=== PATIENT | female | born 1975 | race Caucasian/White ===

== ENCOUNTER 2020-02-14 13:09 | Emergency (ER) | payer OTHER, SELFPAY ==
--- NOTE | ~2020-02-14 | XR_ITS ---
XR chest 2V DATE: 02/14/2020 13:41 INDICATION: Left-sided chest pain, back pain TECHNIQUE: PA and lateral views COMPARISON: 09/22/2018 PA and lateral chest FINDINGS: Normal heart size. No hilar or mediastinal enlargement. No pulmonary infiltrate or consolid ation, pleural effusion or pulmonary vascular congestion or pneumothorax. IMPRESSION: No active cardiopulmonary disease Reviewed, dictated and finalized at location A.
[2020-02-14 13:17] VITALS: BP 133/101; PULSE 98; RESP 16; TEMP 37.5; O2SAT 100
--- NOTE | 2020-02-14 13:17 | ECG_ITS ---
Measurements Intervals Alva Rate: 104 P: 62 ME: 132 QRS: 51 QRSD: 67 T: 53 QT: 286 QTc: 377 Interpretive Statements SINUS TACHYCARDIA RSR' IN V1 OR V2, CONSIDER RIGHT VENTRICULAR HYPERTROPHY OR RIGHT VCD ABNORMAL ECG Electronically Signed On 02-14-2020 13:45:15 CDT by Dennis Roberts D.O.
[2020-02-14 13:53] VITALS: BP 116/79; PULSE 105; PULSE 115; RESP 19; O2SAT 100
[2020-02-14] MEDS: ASPIRIN 81 MG CHEWABLE TABLET 324 MG PO (13:57)
[2020-02-14 14:02] LABS: Basophils Percent Auto 0.6 % (0.2-1.2); Eosinophils Absolute Auto 0.1 K/mm3 (0-0.3); Eosinophils Percent Auto 1.5 % (0-4.4); Hematocrit 37.7 % (37.0-47.0); Hemoglobin 11.9 g/dL (12.0-15.0); Immature Granulocyte Absolute 0.01 K/mm3 (0.00-0.031); Immature Granulocyte Percent A 0.2 % (0-0.5); Lymphocytes Absolute Auto 1.47 K/mm3 (0.9-3.2); Lymphocytes Percent Auto 22.5 % (18.3-44.2); Mean Corpuscular HGB Conc 31.6 g/dl (32-36); Mean Corpuscular Hemoglobin 28.9 pg (26-34); Mean Corpuscular Volume 91.5 fl (80-100); Mean Platelet Volume 9.1 fl (7.4-10.4); Monocytes Absolute Auto 0.5 K/mm3 (0.1-0.6); Monocytes Percent Auto 6.9 % (2.6-8.5); Neutrophils Absolute Auto 4.5 K/mm3 (1.3-6.7); Neutrophils Percent Auto 68.3 % (45.5-73.1); Platelet Count Result 319 k/mm3 (150-375); Red Blood Count 4.12 M/mm3 (4.2-5.4); White Blood Count 6.5 K/mm3 (4.5-10.0)
[2020-02-14 14:10] LABS: Prothrombin Time 13.3 Seconds (11.1-14.7)
[2020-02-14 14:11] LABS: Partial Thromboplastin Time 25.2 SECONDS (22.3-36.8)
[2020-02-14 14:12] LABS: Blood Urea Nitrogen 11 mg/dL (7-17); Calcium 8.9 mg/dL (8.4-10.2); Carbon Dioxide 28 mmol/L (22-30); Chloride 100 mmol/L (98-107); Estimated CRCL calculation 93 ml/min; Estimated Glomerular Filt Rate > 60; Glucose 139 mg/dL (65-105); Potassium 4.2 mmol/L (3.4-5.0); Sodium 135 mmol/L (137-145)
[2020-02-14 14:22] VITALS: BP 118/83; PULSE 90; RESP 18; O2SAT 100
[2020-02-14 14:23] LABS: Troponin I < 0.012 ng/mL (0.000-0.034)
--- NOTE | 2020-02-14 14:30 | ED.CHESTPAIN ---
HPI - Chest Pain General Chief Complaint: Chest Pain Stated Complaint: chest and back pain Time Seen by Provider: 02/14/20 14:22 History of Present Illness HPI narrative: Back pain radiating into her chest since about 6 AM. Pressure like in quality. Moderate intensity. worse with flexion in the neck. She has never had this type of pain. She report strong family h/o CAD. Related Data Allergies Allergy/AdvReac Type Severity Reaction Status Date / Time a nausea medication AdvReac Unknown Uncoded 01/30/17 12:31 Review of Systems Review of Systems: All systems reviewed & are unremarkable except as noted in HPI and below [facility] Family History Family History Other Acute myocardial infarction Exam Const: General: healthy appearing, no acute distress and alert Orientation/consciousness: patient oriented x3 HENMT: Head: normal to inspection Neck: Neck: normal visual inspection and no lymphadenopathy Chest: Chest palpation & inspection: no tenderness Resp: Effort & Inspection: normal respiratory effort Auscultation: clear to auscultation bilaterally, no rales, no rhonchi and no wheezes Cardio: Jugular venous distension: no JVD Rate: regular rate Rhythm: regular rhythm Heart sounds: no murmurs GI: Inspection: non-distended GI Palp: Yes Soft to palpation and No Tenderness to palpation present (GI) Skin: General skin exam: normal color Neuro: General: patient oriented x3 and moves all extremities Speech: normal speech Extrem: General: no edema Psych: Appearance: well kempt Affect: normal affect Course Vital Signs Vital signs: Vital Signs Temperature 37.5 C 02/14/20 13:17 Pulse Rate 98 02/14/20 13:17 Respiratory Rate 16 02/14/20 13:17 Blood Pressure 133/101 H 02/14/20 13:17 Pulse Oximetry 100 02/14/20 13:17 Temperature 37.5 C 02/14/20 13:17 Pulse Rate 96 02/14/20 14:35 Respiratory Rate 18 02/14/20 14:35 Blood Pressure 122/86 02/14/20 14:35 Pulse Oximetry 100 02/14/20 14:35 MDM - Chest Pain MDM Narrative Medical decision making narrative: Symptoms are atypical. EKG shows no sign of acute ischemia. Troponin was negative well over 3 hours after the onset of pain. She is low risk for PE. The pain seems to be musculoskeletal in nature. Medical Records Data Attestation: I reviewed the patient's medical records. Lab Data Attestation: I reviewed the patient's lab results. Result diagrams: 02/14/20 13:30 02/14/20 13:30 Labs: Lab Results 02/14/20 02/14/20 02/14/20 Range/Units 13:30 13:30 13:30 WBC 6.5 (4.5-10.0) K/mm3 RBC 4.12 L (4.2-5.4) M/mm3 Hgb 11.9 L (12.0-15.0) g/dL Hct 37.7 (37.0-47.0) % MCV 91.5 (80-100) fl MCH 28.9 (26-34) pg MCHC 31.6 L (32-36) g/dl RDW 14.0 (11.5-14.5) % Plt Count 319 (150-375) k/mm3 MPV 9.1 (7.4-10.4) fl Immature Gran % (Auto) 0.2 (0-0.5) % Neut % (Auto) 68.3 (45.5-73.1) % Lymph % (Auto) 22.5 (18.3-44.2) % Emery % (Auto) 6.9 (2.6-8.5) % Eos % (Auto) 1.5 (0-4.4) % Baso % (Auto) 0.6 (0.2-1.2) % Lymph # (Auto) 1.47 (0.9-3.2) K/mm3 Emery # (Auto) 0.5 (0.1-0.6) K/mm3 Eos # (Auto) 0.1 (0-0.3) K/mm3 Baso # (Auto) 0.0 (0.0-0.1) K/mm3 Abs Immat Gran (auto) 0.01 (0.00-0.031) K/mm3 Absolute Neuts (auto) 4.5 (1.3-6.7) K/mm3 Absolute Nucleated RBC 0.0 (0.0-0.012) K/mm3 Nucleated RBC % 0.0 (0.0-0.2) % PT 13.3 (11.1-14.7) Seconds INR 1.0 APTT 25.2 (22.3-36.8) SECONDS Sodium 135 L (137-145) mmol/L Potassium 4.2 (3.4-5.0) mmol/L Chloride 100 (98-107) mmol/L Carbon Dioxide 28 (22-30) mmol/L BUN 11 (7-17) mg/dL Creatinine 0.50 L (0.7-1.0) mg/dL Estim Creat Clear Calc 93 ml/min Estimated GFR > 60 (59 - ) Glucose 139 H (65-105) mg/dL Calcium 8.9 (8.4-10.2) mg/dL Troponin I < 0.012 (0.0
[2020-02-14 14:35] VITALS: BP 122/86; PULSE 96; RESP 18; O2SAT 100
== END 2020-02-14 14:39 | disposition home or self-care (01) ==
LOC: ANHED 14:36
PROVIDERS: Emergency Medicine; Emergency Provider Emergency Medicine
DX: R07.89 Other chest pain (principal)
CPT/HCPCS: 36415; 71046; 80048; 84484; 85025; 85610; 85730; 93005; 99284; A9270

== ENCOUNTER 2020-09-11 13:31 | Emergency (ER) | payer OTHER, SELFPAY ==
--- NOTE | ~2020-09-11 | US_ITS ---
EXAMINATION: US pelvic complete w TV DATE: 09/11/2020 16:53 INDICATION: Heavy bleeding. Anemia. Comparison:No prior studies for comparison. TECHNIQUE: Multiple transabdominal and endovaginal sonographic images of the pelvis performed. FINDINGS: The uterus measures 9.4 x 5 x 6 cm. Uterus is somewhat heterogeneous, although no discrete fibroid is identified. The endometrial complex measures 1.5 cm. The right ovary measures 3.5 x 3.4 x 2.2 cm and the left ovary measures 2.5 x 1.9 x 2.1 cm. There is a 3.1 cm right ovarian cyst. There are small follicles in each ovary.Normal doppler signal in both ov kate. There is no free fluid in the pelvis. There are no abnormal masses seen on either side. IMPRESSION: 1. Right ovarian cyst measuring 3.1 cm. 2: Thickened endometrium measuring 1.5 cm. Reviewed, dictated and finalized at location B. 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
[2020-09-11 13:49] VITALS: BP 112/58; PULSE 118; RESP 18; TEMP 36.7; O2SAT 100
[2020-09-11 14:11] LABS: Basophils Percent Auto 0.6 % (0.2-1.2); Eosinophils Absolute Auto 0.1 K/mm3 (0-0.3); Eosinophils Percent Auto 1.7 % (0-4.4); Hemoglobin 7.1 g/dL (12.0-15.0); Immature Granulocyte Absolute 0.03 K/mm3 (0.00-0.031); Immature Granulocyte Percent A 0.5 % (0-0.5); Lymphocytes Absolute Auto 1.57 K/mm3 (0.9-3.2); Lymphocytes Percent Auto 24.2 % (18.3-44.2); Mean Corpuscular HGB Conc 32.3 g/dl (32-36); Mean Corpuscular Hemoglobin 30.1 pg (26-34); Mean Corpuscular Volume 93.2 fl (80-100); Mean Platelet Volume 9.1 fl (7.4-10.4); Monocytes Absolute Auto 0.6 K/mm3 (0.1-0.6); Monocytes Percent Auto 8.5 % (2.6-8.5); Neutrophils Absolute Auto 4.2 K/mm3 (1.3-6.7); Neutrophils Percent Auto 64.5 % (45.5-73.1); Platelet Count Result 272 k/mm3 (150-375); Red Blood Count 2.36 M/mm3 (4.2-5.4); Red Cell Distribution Width 14.6 % (11.5-14.5); White Blood Count 6.5 K/mm3 (4.5-10.0)
--- NOTE | 2020-09-11 16:24 | ED.GENADULT ---
HPI - General Adult General Chief complaint: Vaginal Bleeding Stated complaint: vag bleeding Time Seen by Provider: 09/11/20 16:14 Source: patient History of Present Illness HPI narrative: Patient is a 45 y/o female complaining of heavy vaginal bleeding starting 1 week ago. She states that her bleeding is mostly bright red blood. She passes clots sometimes. There is no alleviating or exacerbating factor. She has no abdominal pain. She feels weak and dizzy. Related Data Allergies Allergy/AdvReac Type Severity Reaction Status Date / Time a nausea medication AdvReac Unknown Uncoded 01/30/17 12:31 Review of Systems Constitutional: Constitutional: Denies chills, Denies fever(s), Denies headache(s) and Reports weakness Eyes: Eyes: Denies blurry vision ENT: Denies headache(s) and Denies neck pain Cardiovascular: Cardiovascular: Denies chest pain and Denies dyspnea Respiratory: Respiratory: Denies cough and Denies dyspnea Gastrointestinal: Gastrointestinal: Denies abdominal pain, Denies diarrhea, Denies nausea and Denies vomiting Genitourinary: Genitourinary: Reports abnormal vaginal bleeding, Denies hematuria and Denies dysuria Musculoskeletal: Musculoskeletal: Denies back pain and Denies neck pain Neurologic: Reports dizziness, Denies headache(s) and Reports weakness PMF Family History Family History Other Acute myocardial infarction Social History Social History Gender identity (if verbalized by the patient): Female Exam Const: General: no acute distress and well developed Orientation/consciousness: oriented to person, oriented to place, oriented to time and patient oriented x3 HENMT: Head: normocephalic Ears: external ears normal General nose exam: Normal external nose present Eyes: General: appearance normal, both eyes and all related structures Conjunctivae: conjunctivae normal Neck: Neck: normal visual inspection and full ROM Chest: Chest palpation & inspection: normal inspection of the chest and no tenderness Resp: Effort & Inspection: normal respiratory effort Auscultation: clear to auscultation bilaterally Cardio: Rate: regular rate Rhythm: regular rhythm GI: GI Palp: No abdominal tenderness and Yes Soft to palpation : General: Yes bimanual renal exam normal bilaterally External Female Exam: normal external appearance Speculum Exam - Vagina: vaginal bleeding Skin: General skin exam: normal color and turgor normal Neuro: General: oriented to person, oriented to place, oriented to time and patient oriented x3 Cognition (Neuro): normal cognition Extrem: General: normal to inspection, full ROM and no pedal edema Psych: Appearance: grossly normal Mental Status: mental status grossly normal Affect: normal affect Course Reevaluation(s) Reevaluation #1: Discussed with patient about treatment options. Offered patient possible admission for blood transfusion. Patient declined and wants to try OCPs first. Date: 09/11/20 Time: 17:45 Consultations Consultation #1: Discussed with Dr. Bruner for Dr. Sherman, who recommends OCP pills for bleeding and iron supplements. She also recommend offered patient transfusion if she is very symptomatic. Date: 09/11/20 Time: 17:32 Vital Signs Vital signs: Vital Signs Temperature 36.7 C 09/11/20 13:49 Pulse Rate 118 H 09/11/20 13:49 Respiratory Rate 18 09/11/20 13:49 Blood Pressure 112/58 L 09/11/20 13:49 Pulse Oximetry 100 09/11/20 13:49 Temperature 36.7 C 09/11/20 13:49 Pulse Rate 105 H 09/11/20 18:01 Respiratory Rate 18 09/11/20 18:01 Blood Pressure 126/81 09/11/20 18:01 Pulse Oximetry 100 09/11/20 18:01 Medical Decision Making Vital Signs Vital Signs: Vital Signs Temperature 36.7 C 09/11/20 13:49 Pulse Rate 118 H 09/11/20 13:49 Respiratory Rate 18 09/11/20 13:49 Blood Pressure 112/58 L 09/11/20
[2020-09-11 16:33] VITALS: BP 113/82; BP 120/82; PULSE 107; PULSE 99
[2020-09-11 16:34] VITALS: BP 113/93; PULSE 100
[2020-09-11 16:38] LABS: Add Urine Microscopic? YES; Appearance Urine Cloudy (Clear); Bilirubin Urine Negative (Negative); Blood Urine 3+ (Negative); Color Urine Straw (Yellow); Glucose Urine UA Negative (Negative); Ketones Urine Negative (Negative); Leukocyte Esterase Ur Negative LEU/UL (Negative); Mucus Urine Rare /lpf; Nitrate Urine Negative (Negative); Protein Urine Negative (Negative); RBC Urine >75 /hpf (0-2); Specific Grav Ur 1.024 (1.001-1.035); Squamous Epithelial Cell Urine Occasional /hpf (Few); WBC Urine 0-3 /hpf
[2020-09-11 16:42] LABS: Urine Pregnancy Test Negative
[2020-09-11 16:43] LABS: Pregnancy On Board Control Positive
[2020-09-11 18:01] VITALS: BP 126/81; PULSE 105; RESP 18; O2SAT 100
== END 2020-09-11 18:00 | disposition home or self-care (01) ==
PROVIDERS: Emergency Medicine; Emergency Provider Emergency Medicine; PCP Family Medicine Sports Medicine
DX: N92.0 Excessive and frequent menstruation with regular cycle (principal); D50.0 Iron deficiency anemia secondary to blood loss (chronic)
CPT/HCPCS: 36415; 76830; 76856; 81001; 81025; 85025; 86850; 86900; 86901; 99284

== ENCOUNTER 2020-09-27 01:32 | Day surgery (SDC) | payer OTHER, SELFPAY ==
[2020-09-20 15:52] VITALS: BMI 21.6
--- NOTE | 2020-09-26 12:04 | WPDANESEPPF ---
Anes - Initial Pre Proc Eval Procedure: Operation Date: 09/27/20 15:00 Proposed Procedures p Hysteroscopy, Dilation and Curettage - Keon Rodriges MD Date/Time: 09/26/20 12:04 Surgeon: Koen Rodriges MD Pre Op Diagnosis: abnormal uterine bleeding Patient Data Age: 45 Gender: F Height: 1.5 m Weight: 48.6 kg Allergies Allergy/AdvReac Type Severity Reaction Status Date / Time meperidine [From Demerol] AdvReac Mild Nausea Verified 09/27/20 13:40 Home Medications Medication Instructions Recorded Confirmed Type ferrous sulfate 325 mg PO BID 09/20/20 09/20/20 History norethindrone-ethin estradiol 1 tablet PO DAILY 09/20/20 09/20/20 History [Alyacen (26)] venlafaxine [Effexor XR] 75 mg PO DAILY 09/20/20 09/20/20 History Patient hx anesthesia problems: none Family hx anesthesia problems: none [facility] Past Medical History Medical History (Updated 09/27/20 @ 13:44 by Soham Reynolds DO) Anxiety Family History Family History Other Acute myocardial infarction Social History Social History Smoking status: Never smoker Alcohol intake: current Living arrangements: with family Gender identity (if verbalized by the patient): Female Spiritual care concerns: No Anes - Eval Final PreProcedure Day of Procedure 09/26/20 12:04 Patient weight: normal Heart: regular rate and rhythm Lungs: clear to auscultation and normal air movement Airway: Mallampati scale class II Neurological: alert and oriented Last oral intake: >/= 8 hours ASA classification: II Emergent: no Anesthetic plan: proceed Anesthesia type and monitoring: general GIVS and standard monitoring Informed Consent: The patient's anesthetic plan and its attendant risks and benefits were discussed with the patient/family/POA. Questions were solicited and answers provided to the satisfaction of the patient/family/POA.
[2020-09-27] MEDS: ACETAMINOPHEN 500 MG TABLET 1000 MG PO (13:45)
[2020-09-27] MEDS: LACTATED RINGERS 1,000 ML 30 ML IV CONT (13:55)
[2020-09-27 13:56] VITALS: BP 126/72; PULSE 95; RESP 16; TEMP 36.9; O2SAT 100
[2020-09-27 13:58] VITALS: BMI 21.3
--- NOTE | 2020-09-27 14:44 | PM.HPGS ---
History of Present Illness History of Present Illness Consent: Risks, benefits, and alternatives have been discussed and questions answered. Patient agrees to proceed with procedure. Chief complaint: abnormal uterine bleeding Narrative: Mattie Peace is a 45 year old female presented to the office with heavy bleeding. Patient reports never bled like that before changing a pad an hour. patient was seen in ER and started on control for bleeding. Review of Systems Review of Systems: Narrative: Fatigue and cramping All systems reviewed & are unremarkable except as noted in HPI and below PMFSH Past Medical History Medical History Anxiety Family History Family History Other Acute myocardial infarction Social History Social History Smoking status: Never smoker Alcohol intake: current Living arrangements: with family Gender identity (if verbalized by the patient): Female Spiritual care concerns: No Meds Home Medications and Allergies Home Medications Medication Instructions Recorded Confirmed Type ferrous sulfate 325 mg PO BID 09/20/20 09/27/20 History norethindrone-ethin estradiol 1 tablet PO DAILY 09/20/20 09/27/20 History [Alyacen (28)] venlafaxine [Effexor XR] 75 mg PO DAILY 09/20/20 09/27/20 History Allergies Allergy/AdvReac Type Severity Reaction Status Date / Time meperidine [From Demerol] AdvReac Mild Nausea Verified 09/27/20 13:40 Vital Signs Vital Signs - 24 hr 09/27/20 13:56 Temperature 36.9 C Pulse Rate 95 Respiratory Rate 16 Blood Pressure 126/72 Pulse Oximetry 100 Exam Resp: Effort & Inspection: normal respiratory effort Auscultation: clear to auscultation bilaterally Cardio: Rate: regular rate GI: Inspection: normal to inspection : Speculum Exam - Cervix: normal appearance of the cervix Bimanual exam- vagina & uterus: normal bimanual exam Assessment and Plan Assessment and plan (1) Abnormal uterine bleeding (AUB): Code(s): N93.9 - Abnormal uterine and vaginal bleeding, unspecified Status: Acute Assessment and Plan: schedule for hysteroscopy dilation and curettage. risk and benefits reviewed.
--- NOTE | 2020-09-27 14:53 | WPDHPUPDATE1 ---
History and Physical Update Update Date/Time: 09/27/20 14:53 History and Physical has been reviewed, including an updated exam of the patient. There are NO changes in the patient's condition. Risks, benefits, and alternatives have been discussed and questions answered. Patient agrees to proceed with procedure.
[2020-09-27] MEDS: KETOROLAC 30 MG/ML VIAL (*BKC) IV PUSH (15:51)
[2020-09-27 15:54] VITALS: BP 148/76; PULSE 83; RESP 12; O2SAT 100
--- NOTE | 2020-09-27 16:04 | P.OP_ITS ---
Procedure Note - Detailed Date of procedure: 09/27/20 Pre-op diagnosis: abnormal uterine bleeding Post-op diagnosis: same Procedure performed: hysteroscopy d and c Description of procedure: Patient was taken the operating room with IV running. She was reprepped and draped under normal sterile fashion and placed in the dorsal lithotomy position. [place] speculum was placed into the vagina anterior lip of the cervix was grasped with a single-tooth tenaculum and the cervix was injected at the 2 and 10 o'clock position of the cervix was 5cc of lidocaine bilaterally. The uterus was sounded to 9cm and the cervix was serially dilated with Hegar dilators. The hysteroscope was introduced into the uterine cavity had noted a thickened endometrial tissue bilateral ostia hysteroscope was removed. A sharp curettage was then performed in all 4 quadrants until a gritty texture. This tissue was sent to pathology the single-tooth tenaculum was removed hemostasis assured. Patient had a small skin tag noted on the right labia which was injected with 1cc of lidocaine and grasped with pickups and incised with scissors. Sponge lap and needle counts were correct x2 and patient was taken to recovery in stable condition. Anesthesia: GLMA Surgeon: Keon Rodriges MD Estimated blood loss (mL): 10 Drains: No Packing: No Pathology: yes Complications: None Condition: stable Disposition: PACU Findings: thickened endometrial tissue.
[2020-09-27 16:24] VITALS: BP 137/75; PULSE 79; RESP 12; O2SAT 100
[2020-09-27 16:54] VITALS: BP 155/69; PULSE 79; RESP 18
== END 2020-09-27 17:00 | disposition home or self-care (01) ==
PROVIDERS: PCP Family Medicine Sports Medicine; Visit Provider Obstetrics & Gynecology
PROC: 0U5B8ZZ Destruction of Endometrium, Via Natural or Artificial Opening Endoscopic (ICD-10-PCS; CPT 58563; principal; 2020-09-27 15:00)
DX: N93.9 Abnormal uterine and vaginal bleeding, unspecified (principal); F41.9 Anxiety disorder, unspecified
CPT/HCPCS: 58558; 88305; A9270; J1885; J2250; J2704; J3010; J7030; J7120

== ENCOUNTER → 2021-10-08 14:12 | Outpatient (CLI) | payer OTHER, SELFPAY ==
--- NOTE | ~2021-10-08 | MM_ITS ---
EXAMINATION: MM diagnostic ric BI w reji HISTORY: Breast pain TECHNIQUE: Additional 3-D tomosynthesis images of the breasts were performed and synthetic 2-D images were generated. CAD analysis was submitted and interpreted. COMPARISON: Comparison to multiple prior studies sequentially, with oldest reviewed study dated 09/2017. BREAST PARENCHYMAL COMPOSITION: The breasts are heterogenously dense, which may obscure small masses FINDINGS: There are no suspicious masses, cluster of calcifications or architectural distortion in ei ther breast to suggest malignancy. IMPRESSION: 1. No evidence for malignancy in either breast. 2. Routine yearly screening mammogram and regular clinical breast examination are recommended. BI-RADS Category 2: Benign finding(s). Reviewed, dictated and finalized at location A. ESTATE SUBAGENT IMPRESSION: 1. No evidence for malignancy in either breast. 2. Routine yearly screening mammogram and regular clinical breast examination a re recommended. BI-RADS Category 2: Benign finding(s).
== END ==
PROVIDERS: Visit Provider Nurse Practitioner
DX: R92.8 Other abnormal and inconclusive findings on diagnostic imaging of breast (principal)
CPT/HCPCS: 77062; 77066; G0279

== ENCOUNTER 2023-01-22 13:22 | Outpatient (CLI) | payer OTHER, SELFPAY ==
--- NOTE | ~2023-01-22 | MMUS_ITS ---
EXAMINATION: MM diagnostic ric BI w reji, US breast LT limited HISTORY: Left breast lump TECHNIQUE: Bilateral full field ML, MLO and CC and left spot ML, MLO and rotated medial craniocaudal 3-D tomosynthesis images were performed and synthetic 2-D images were generated. CAD analysis was sub mitted and interpreted. High resolution targeted left breast ultrasound examination at the lump 10:00 7 cm from the nipple was performed. COMPARISON: 10/08/2021 diagnostic bilateral mammogram 10/26/2018 diagnostic right mammogram 02/11/2018 diagnostic bilateral mammogram 02/01/2018 bilateral screening mammogram BREAST PARENCHYMAL COMPOSITION: The breasts are heterogeneously dense, which may obscure small masses . FINDINGS: MAMMOGRAPHIC FINDINGS: Scattered bilateral benign calcifications. There is an irregular approximately 7.5 mm opacity in the very posterior upper inner left breast sia esponding to the area of clinical complaint of breast lump. No suspicious mass, architectural distortion, malignant constipation, skin thickening or retraction o f either breast is noted otherwise. ULTRASOUND: Targeted ultrasound at the area of clinical complaint of breast lump reveals at 10:00 7 cm from nippl e and irregular hypoechoic approximately 5.8 x 7.5 mm mass. Irregular margins or suspicious. Ultrasou nd-guided biopsy is recommended. IMPRESSION: 1. Suspicious 7.5 mm irregular mass in the very posterior upper inner left breast at 10:00 7 cm from nipple 2. Ultrasound-guided biopsy of left breast 10:00 lesion is recommended BI-RADS category 4, suspicious findings Dr. Cano telephoned the report and send guided biopsy recommendation for left breast 10:00 lesion on 01/22/2023 at 1440 hours to [facility]. Reviewed, dictated and finalized at location A. IMPRESSION: 1. Suspicious 7.5 mm irregular mass in the very posterior upper inner left [address] at 10:00 7 cm from nipple 2. Ultrasound-guided biopsy of left breast 10:00 lesion is recommended BI-RADS category 4, suspicious findings Dr. Cano telephoned the report and send guided biopsy recommendation for left b reast 10:00 lesion on 01/22/2023 at 1440 hours to [facility].
== END 2023-01-22 13:23 | disposition home or self-care (01) ==
PROVIDERS: Visit Provider Nurse Practitioner
DX: N63.20 Unspecified lump in the left breast, unspecified quadrant (principal); R92.8 Other abnormal and inconclusive findings on diagnostic imaging of breast
CPT/HCPCS: 76642; 77062; 77066; G0279

== ENCOUNTER 2023-02-24 14:01 | Outpatient (CLI) | payer OTHER, SELFPAY ==
--- NOTE | ~2023-02-24 | MMUS_ITS ---
EXAMINATION: US breast biopsy LT w image, MM post biopsy diagnostic LT DATE: 02/24/2023 15:30 (accession [id number]), 02/24/2023 15:47 (accession [id number]) INDICATION: Palpable mass in the upper inner quadrant of the left. Ultrasound-guided core biopsy is r equested to evaluate for malignancy. TECHNIQUE AND FINDINGS: The risks and potential benefits of the procedure were discussed with the patient including bleeding and infection. A time out was performed. The skin of the left breast was prepared and draped in usual sterile fashion. 1% lidocaine was used for superficial anesthesia. 1% lidocaine with epinephrine was used for deep anesthesia. A vacuum-assisted biopsy needle was advanced through to the outer edge of the region of interest from a lateral approach utilizing sonographic guidance. A total of five tissue core samples were obtained through the lesion. A tissue marker clip was then placed at the biopsy site. Hemostasis was achieved . A sterile bandage was applied. Patient developed nausea after the procedure and was observed. Vital signs were stable and patient wa s released after confirming that she felt bilaterally. Prior to completion of this dictation, patient reportedly return to the emergency department for concern of saturation of the dressing. I called [facility] emergency department and discussed the procedure with the attending physician. A two view left [address] st mammogram was obtained to document tissue marker clip placement. Despite multiple attempts, the ti ssue marker was not observed, likely due to far posterior positioning in the upper inner quadrant of the breast. If follow-up localization is required, ultrasound guidance is recommended. IMPRESSION: 1. Ultrasound-guided vacuum-assisted biopsy of left breast mass with tissue marker placement. Reviewed, dictated and finalized at location D. IMPRESSION: 1. Ultrasound-guided vacuum-assisted biopsy of left breast mass with tissue mar ker placement.
== END 2023-02-24 14:02 | disposition home or self-care (01) ==
PROVIDERS: PCP Surgery; Visit Provider Surgery
DX: C50.812 Malignant neoplasm of overlapping sites of left female breast (principal)
CPT/HCPCS: 19083; 77065; 88305; 88342; A4648

== ENCOUNTER 2023-02-24 16:18 | Emergency (ER) | payer OTHER, SELFPAY ==
[2023-02-24 16:18] VITALS: BP 150/85; PULSE 85; RESP 18; TEMP 37.3; O2SAT 100
--- NOTE | 2023-02-24 16:21 | ED_ITS ---
HPI - General Adult General Chief complaint: Unspecified Stated complaint: POST OP BLEEDING Time Seen by Provider: 02/24/23 16:21 History of Present Illness HPI narrative: pt just had breast biopsy performed here and the area has bled heavily and soaked through dressing. Pt is not on blood thinners. Related Data Allergies Allergy/AdvReac Type Severity Reaction Status Date / Time meperidine [From Demerol] AdvReac Mild Nausea Verified 01/28/23 15:34 Review of Systems Review of Systems: All systems reviewed & are unremarkable except as noted in HPI and below PMFSH Past Medical History Medical History (Updated 01/28/23 @ 16:07 by Sandra Day MD) Abnormal uterine bleeding (AUB) Anxiety Family History Family History Other Acute myocardial infarction Social History Social History (Updated 01/28/23 @ 16:05 by Sally Leal [facility]) Smoking status: Never smoker Alcohol intake: current Alcohol use details: on the weekends Lack of Transportation: No Lack of Food: Never True Current Housing: I Have Housing Concerned About Future Housing: No Difficulty Paying Gas/Electric Bills: No Difficulty Paying for Meds: No Currently Unemployed: No Education: High School Diploma/GED Living arrangements: with family Gender identity (if verbalized by the patient): Female Spiritual care concerns: No Exam Const: General: healthy appearing Nutritional Appearance: well nourished Orientation/consciousness: patient oriented x3 Limitations: no limitations HENMT: Head: normal to inspection Eyes: Conjunctivae: conjunctivae normal Chest: Other: dressing saturated over biopsy site left upper breast Resp: Effort & Inspection: normal respiratory effort Auscultation: clear to auscultation bilaterally Medical Decision Making MDM Narrative Medical decision making narrative: will remove saturated dressing and apply fresh dressing and pressure for 20 minutes and see if it stops. no active bleeding when dressing removed. discussed with radiologist and agrees with plan Discharge Plan Discharge Clinical Impression: Status post breast biopsy Patient Disposition: Home, Self-Care Condition: Stable Instructions: Antibiotic Form, Hematoma (ED) Follow-up/Referrals: UNKNOWN,DOCTOR [Primary Care Provider] - Stand Alone Forms: Work/School Release IP
--- NOTE | 2023-02-24 17:10 | PC.NURSE ---
biopsy site dressed by LORI Bermudez.
== END 2023-02-24 17:30 | disposition home or self-care (01) ==
PROVIDERS: Emergency Provider Emergency Medicine
DX: Z48.01 Encounter for change or removal of surgical wound dressing (principal)
CPT/HCPCS: 99282

== ENCOUNTER 2023-05-29 13:09 | Outpatient (CLI) | payer OTHER, SELFPAY ==
[2023-05-29 13:22] LABS: Kit Draw Collected
== END 2023-05-29 13:10 | disposition home or self-care (01) ==
PROVIDERS: PCP Internal Medicine; Visit Provider Internal Medicine Hematology & Oncology
DX: C50.912 Malignant neoplasm of unspecified site of left female breast (principal)
CPT/HCPCS: 36415

== ENCOUNTER 2023-10-28 15:27 | Outpatient (CLI) | payer OTHER, SELFPAY ==
[2023-10-28 15:45] LABS: Basophils Percent Auto 0.4 % (0.2-1.2); Eosinophils Absolute Auto 0.1 K/mm3 (0-0.3); Eosinophils Percent Auto 1.5 % (0-4.4); Hematocrit 36.3 % (37.0-47.0); Hemoglobin 12.1 g/dL (12.0-15.0); Immature Granulocyte Absolute 0.02 K/mm3 (0.00-0.031); Immature Granulocyte Percent A 0.3 % (0-0.5); Lymphocytes Absolute Auto 1.34 K/mm3 (0.9-3.2); Lymphocytes Percent Auto 18.7 % (18.3-44.2); Mean Corpuscular HGB Conc 33.3 g/dl (32-36); Mean Corpuscular Hemoglobin 29.7 pg (26-34); Mean Platelet Volume 8.6 fl (7.4-10.4); Monocytes Absolute Auto 0.6 K/mm3 (0.1-0.6); Monocytes Percent Auto 8.4 % (2.6-8.5); Neutrophils Absolute Auto 5.1 K/mm3 (1.3-6.7); Neutrophils Percent Auto 70.7 % (45.5-73.1); Platelet Count Result 284 k/mm3 (150-375); Red Blood Count 4.08 M/mm3 (4.2-5.4); Red Cell Distribution Width 12.7 % (11.5-14.5); White Blood Count 7.2 K/mm3 (4.5-10.0)
[2023-10-28 16:51] LABS: Alanine Aminotransferase 23 U/L (6-35); Albumin Level 4.3 g/dL (3.5-5.1); Alkaline Phosphatase 66 U/L (38-126); Anion Gap 6 mmol/L (4-12); Aspartate Amino Transferase 39 U/L (14-36); Bilirubin,Total 0.7 mg/dL (0.2-1.3); Blood Urea Nitrogen 20 mg/dL (7-17); Calcium 9.7 mg/dL (8.4-10.2); Carbon Dioxide 29 mmol/L (22-30); Chloride 103 mmol/L (98-107); Estimated Glomerular Filt Rate > 60; Glucose 83 mg/dL (65-110); Potassium 4.2 mmol/L (3.4-5.0); Sodium 138 mmol/L (137-145)
[2023-10-31 10:10] LABS: CA 15-3 7 U/mL (<32)
== END 2023-10-28 15:28 | disposition home or self-care (01) ==
PROVIDERS: PCP Internal Medicine; Visit Provider Internal Medicine Hematology & Oncology
DX: C50.912 Malignant neoplasm of unspecified site of left female breast (principal)
CPT/HCPCS: 36415; 80053; 85025; 86300

== ENCOUNTER 2024-02-01 11:38 | Outpatient (CLI) | payer OTHER, SELFPAY ==
[2024-02-01 12:09] LABS: Basophils Percent Auto 0.8 % (0.2-1.2); Eosinophils Absolute Auto 0.1 K/mm3 (0-0.3); Eosinophils Percent Auto 1.3 % (0-4.4); Hematocrit 39.9 % (37.0-47.0); Immature Granulocyte Absolute 0.01 K/mm3 (0.00-0.031); Immature Granulocyte Percent A 0.2 % (0-0.5); Lymphocytes Absolute Auto 1.43 K/mm3 (0.9-3.2); Lymphocytes Percent Auto 27.1 % (18.3-44.2); Mean Corpuscular HGB Conc 32.6 g/dl (32-36); Mean Corpuscular Hemoglobin 29.6 pg (26-34); Mean Corpuscular Volume 90.9 fl (80-100); Mean Platelet Volume 8.8 fl (7.4-10.4); Monocytes Absolute Auto 0.4 K/mm3 (0.1-0.6); Monocytes Percent Auto 7.4 % (2.6-8.5); Neutrophils Absolute Auto 3.3 K/mm3 (1.3-6.7); Neutrophils Percent Auto 63.2 % (45.5-73.1); Platelet Count Result 277 k/mm3 (150-375); Red Blood Count 4.39 M/mm3 (4.2-5.4); Red Cell Distribution Width 12.5 % (11.5-14.5); White Blood Count 5.3 K/mm3 (4.5-10.0)
[2024-02-01 16:31] LABS: Alanine Aminotransferase 23 U/L (6-35); Albumin Level 4.5 g/dL (3.5-5.1); Alkaline Phosphatase 66 U/L (38-126); Anion Gap 7 mmol/L (4-12); Aspartate Amino Transferase 32 U/L (14-36); Bilirubin,Total 0.8 mg/dL (0.2-1.3); Blood Urea Nitrogen 16 mg/dL (7-17); Calcium 9.3 mg/dL (8.4-10.2); Carbon Dioxide 27 mmol/L (22-30); Chloride 105 mmol/L (98-107); Estimated Glomerular Filt Rate > 60; Glucose 91 mg/dL (65-110); Potassium 4.2 mmol/L (3.4-5.0); Sodium 139 mmol/L (137-145)
[2024-02-03 11:39] LABS: CA 15-3 5 U/mL (<32)
== END 2024-02-01 11:39 | disposition home or self-care (01) ==
LOC: ANHLAB 11:44
PROVIDERS: PCP Internal Medicine; Visit Provider Internal Medicine Hematology & Oncology
DX: C50.912 Malignant neoplasm of unspecified site of left female breast (principal)
CPT/HCPCS: 36415; 80053; 85025; 86300

== ENCOUNTER 2024-02-12 16:44 | Emergency (ER) | payer OTHER, SELFPAY ==
--- NOTE | ~2024-02-12 | XR_ITS ---
EXAMINATION: XR chest 2V DATE: 02/12/2024 17:43 INDICATION: Chest pain. TECHNIQUE: Frontal and lateral views of the chest were obtained. COMPARISON: Chest 2 views 02/14/2020 FINDINGS: There is mild scarring at the lung apices. No pleural effusion or pneumothorax. The heart s ize is normal. IMPRESSION: 1. Mild scarring at the lung apices. Reviewed, dictated and finalized at location E.
--- NOTE | 2024-02-12 16:47 | ECG_ITS ---
Test Date: 2024-02-12 21:26:40 Measurements Intervals [place] Rate: 79 P: 57 [place]: 155 QRS: 30 QRSD: 68 T: 38 QT: 360 QTc: 413 Interpretive Statements SINUS RHYTHM POSSIBLE LEFT ATRIAL ENLARGEMENT RSR' IN V1 OR V2, RIGHT VCD OR RVH BASELINE ARTIFACT- I, III, AVR, AVL BORDERLINE ST ABNORMALITY- ANTEROLAT/INF LEADS BORDERLINE ECG Compared to ECG 02/12/2024 17:03:22 NO SIGNIFICANT CHANGE Electronically Signed On 02-13-2024 07:06:40 CDT by Dennis Roberts D.O.
--- NOTE | 2024-02-12 16:52 | ED.GENADULT ---
HPI - General Adult General Chief complaint: Chest Pain Stated complaint: tired, chest pain Time Seen by Provider: 02/12/24 16:52 Focused HPI: Mattie Peace is a 48 y/o female who presents [facility] complaints of having some intermittent chest pain off and on for the past week and feeling increased generalized weakness. She also reports of having pain in her back . She also states that both parents of a heart attack, dad was 50's mom was in her 60's GENERAL: Well-appearing, well-nourished, and in no acute distress. HEAD: Normocephalic, atraumatic. CHEST: Clear to auscultation. ?No respiratory distress. HEART: Regular rate and rhythm.? NEURO: ?Alert and oriented x3. Patient screened in triage and initial orders placed.? ?Additional care and disposition to be based upon?diagnostic testing and treatment. Related Data Home Medications Medication Instructions Recorded Confirmed tamoxifen 20 mg tablet 20 mg PO DAILY 10/09/23 10/09/23 Allergies Allergy/AdvReac Type Severity Reaction Status Date / Time meperidine [From Demerol] AdvReac Mild Nausea Verified 10/09/23 13:22 [facility] Past Medical History Medical History (Updated 02/13/24 @ 00:00 by [facility] Sung) Abnormal uterine bleeding (AUB) Anxiety Breast cancer, left Family History Family History Other Acute myocardial infarction Social History Social History (Updated 01/28/23 @ 16:05 by Sally Leal CMA) Smoking status: Never smoker Alcohol intake: current Alcohol use details: on the weekends Lack of Transportation: No Lack of Food: Never True Current Housing: I Have Housing Concerned About Future Housing: No Difficulty Paying Gas/Electric Bills: No Difficulty Paying for Meds: No Currently Unemployed: No Education: High School Diploma/GED Living arrangements: with family Gender identity (if verbalized by the patient): Female Spiritual care concerns: No Course Vital Signs Vital signs: Vital Signs Temperature 36.4 C L 02/12/24 17:09 Pulse Rate 87 02/12/24 17:09 Respiratory Rate 16 02/12/24 17:09 Blood Pressure 140/63 02/12/24 17:09 Pulse Oximetry 100 02/12/24 17:09 Oxygen Delivery Room Air 02/12/24 17:09 Temperature 36.4 C L 02/12/24 17:09 Pulse Rate 78 02/12/24 22:10 Respiratory Rate 14 02/12/24 19:32 Blood Pressure 137/89 02/12/24 19:32 Pulse Oximetry 100 02/12/24 19:32 Oxygen Delivery Room Air 02/12/24 22:11 Medical Decision Making Vital Signs Vital Signs: Vital Signs Temperature 36.4 C L 02/12/24 17:09 Pulse Rate 87 02/12/24 17:09 Respiratory Rate 16 02/12/24 17:09 Blood Pressure 140/63 02/12/24 17:09 Pulse Oximetry 100 02/12/24 17:09 Oxygen Delivery Room Air 02/12/24 17:09 Temperature 36.4 C L 02/12/24 17:09 Pulse Rate 78 02/12/24 22:10 Respiratory Rate 14 02/12/24 19:32 Blood Pressure 137/89 02/12/24 19:32 Pulse Oximetry 100 02/12/24 19:32 Oxygen Delivery Room Air 02/12/24 22:11 Lab Data 02/12/24 18:19 02/12/24 18:19 Labs: Lab Results 02/12/24 02/12/24 02/12/24 Range/Units 18:19 18:19 21:30 WBC 6.7 (4.5-10.0) K/mm3 RBC 4.00 L (4.2-5.4) M/mm3 Hgb 11.9 L (12.0-15.0) g/dL Hct 36.6 L (37.0-47.0) % MCV 91.5 (80-100) fl MCH 29.8 (26-34) pg MCHC 32.5 (32-36) g/dl RDW 12.4 (11.5-14.5) % Plt Count 244 (150-375) k/mm3 MPV 9.2 (7.4-10.4) fl Immature Gran % (Auto) 0.1 (0-0.5) % Neut % (Auto) 68.8 (45.5-73.1) % Lymph % (Auto) 22.9 (18.3-44.2) % [place] % (Auto) 6.8 (2.6-8.5) % Eos % (Auto) 1.0 (0-4.4) % Baso % (Auto) 0.4 (0.2-1.2) % Lymph # (Auto) 1.54 (0.9-3.2) K/mm3 [place] # (Auto) 0.5 (0.1-0.6) K/mm3 Eos # (Auto) 0.1 (0-0.3) K/mm3 Baso # (Auto) 0.0 (0.0-0.1) K/mm3 Abs Immat Gran (auto) 0.01 (0.00-0.031) K/mm3 Absolute Neuts
[2024-02-12 17:09] VITALS: BP 140/63; PULSE 87; RESP 16; TEMP 36.4; O2SAT 100
[2024-02-12 18:32] LABS: Basophils Percent Auto 0.4 % (0.2-1.2); Eosinophils Absolute Auto 0.1 K/mm3 (0-0.3); Hematocrit 36.6 % (37.0-47.0); Hemoglobin 11.9 g/dL (12.0-15.0); Immature Granulocyte Absolute 0.01 K/mm3 (0.00-0.031); Immature Granulocyte Percent A 0.1 % (0-0.5); Lymphocytes Absolute Auto 1.54 K/mm3 (0.9-3.2); Lymphocytes Percent Auto 22.9 % (18.3-44.2); Mean Corpuscular HGB Conc 32.5 g/dl (32-36); Mean Corpuscular Hemoglobin 29.8 pg (26-34); Mean Corpuscular Volume 91.5 fl (80-100); Mean Platelet Volume 9.2 fl (7.4-10.4); Monocytes Absolute Auto 0.5 K/mm3 (0.1-0.6); Monocytes Percent Auto 6.8 % (2.6-8.5); Neutrophils Absolute Auto 4.6 K/mm3 (1.3-6.7); Neutrophils Percent Auto 68.8 % (45.5-73.1); Platelet Count Result 244 k/mm3 (150-375); Red Cell Distribution Width 12.4 % (11.5-14.5); White Blood Count 6.7 K/mm3 (4.5-10.0)
[2024-02-12 18:42] LABS: Alanine Aminotransferase 17 U/L (6-35); Albumin Level 4.3 g/dL (3.5-5.1); Alkaline Phosphatase 57 U/L (38-126); Anion Gap 9 mmol/L (4-12); Aspartate Amino Transferase 29 U/L (14-36); Bilirubin,Total 0.6 mg/dL (0.2-1.3); Blood Urea Nitrogen 19 mg/dL (7-17); Calcium 8.9 mg/dL (8.4-10.2); Carbon Dioxide 28 mmol/L (22-30); Chloride 102 mmol/L (98-107); Estimated Glomerular Filt Rate > 60; Glucose 92 mg/dL (65-110); Lipase 96 U/L (23-300); Potassium 3.7 mmol/L (3.4-5.0); Sodium 139 mmol/L (137-145)
[2024-02-12 18:47] LABS: INR 1.1
[2024-02-12 18:48] LABS: Partial Thromboplastin Time 23.9 Seconds (22.3-36.8)
[2024-02-12 18:53] LABS: Troponin I < 0.012 ng/mL (0.000-0.034)
[2024-02-12 18:54] LABS: D Dimer < 0.27 ug/mL (<0.48)
[2024-02-12 19:32] VITALS: BP 137/89; PULSE 77; RESP 14; O2SAT 100
--- NOTE | 2024-02-12 21:20 | ECG_ITS ---
Test Date: 2024-02-12 17:03:22 Measurements Intervals [place] Rate: 91 P: 72 [place]: 142 QRS: 38 QRSD: 65 T: 51 QT: 334 QTc: 412 Interpretive Statements SINUS RHYTHM RSR' IN V1 OR V2, RIGHT VCD OR RVH BORDERLINE ST ABNORMALITY- ANTEROLAT/INF LEADS BASELINE ARTIFACT- I, II, AVR BORDERLINE ECG No previous ECG available for comparison Electronically Signed On 02-13-2024 07:04:32 CDT by Dennis Roberts D.O.
[2024-02-12 21:59] LABS: Troponin I < 0.012 ng/mL (0.000-0.034)
[2024-02-12 22:10] VITALS: PULSE 78
--- NOTE | 2024-02-12 22:25 | ED.CHESTPAIN ---
HPI - Chest Pain General Chief Complaint: Chest Pain Stated Complaint: tired, chest pain Time Seen by Provider: 02/12/24 16:52 Source: patient Mode of arrival: ambulatory Limitations: no limitations History of Present Illness HPI narrative: This is a 48-year-old female that presents to the emergency department for back pain. Ongoing intermittently over the last week. Reports the pain is burning and sometimes sharp in nature. She has not been taking anything for pain. No known alleviating or exacerbating factors. Sometimes the pain will be in the left side of her chest. She is currently undergoing massage therapy to the left chest for lymphedema associated with breast cancer. Denies fever, cough, shortness of breath, or lower extremity edema. Related Data Home Medications Medication Instructions Recorded Confirmed tamoxifen 20 mg tablet 20 mg PO DAILY 10/09/23 10/09/23 Allergies Allergy/AdvReac Type Severity Reaction Status Date / Time meperidine [From Demerol] AdvReac Mild Nausea Verified 10/09/23 13:22 Review of Systems Review of Systems: CONSTITUTIONAL: Denies fever CARDIOVASCULAR: Reports chest pain. Denies edema. RESPIRATORY: Denies cough or dyspnea. MUSCULOSKELETAL: Reports back pain, joint pain, and myalgia. NEUROLOGIC: Denies numbness, or weakness. All systems reviewed & are unremarkable except as noted in HPI and below PMFSH Past Medical History Medical History (Updated 02/12/24 @ 22:32 by Shaila Grace PA-C) Abnormal uterine bleeding (AUB) Anxiety Breast cancer, left Family History Family History Other Acute myocardial infarction Social History Social History (Updated 01/28/23 @ 16:05 by Sally Leal CMA) Smoking status: Never smoker Alcohol intake: current Alcohol use details: on the weekends Lack of Transportation: No Lack of Food: Never True Current Housing: I Have Housing Concerned About Future Housing: No Difficulty Paying Gas/Electric Bills: No Difficulty Paying for Meds: No Currently Unemployed: No Education: High School Diploma/GED Living arrangements: with family Gender identity (if verbalized by the patient): Female Spiritual care concerns: No Exam Narrative: GENERAL: Well-appearing, well-nourished, and in no acute distress. HEAD: Normocephalic, atraumatic. EYES: EOMI. CHEST: Clear to auscultation. No respiratory distress. No wheezes rales or rhonchi HEART: Regular rate and rhythm. No murmur heard. Normal peripheral pulses. EXTREMITIES: Normal range of motion. No edema. SKIN: Warm, dry, no rash. NEURO: No focal deficits. Alert and oriented x3. PSYCH: Normal mood and affect Course Course Emergency Course: Patient updated on her workup and agrees with plan of care Vital Signs Vital signs: Vital Signs Temperature 97.5 F L 02/12/24 17:09 Pulse Rate 87 02/12/24 17:09 Respiratory Rate 16 02/12/24 17:09 Blood Pressure 140/63 02/12/24 17:09 Pulse Oximetry 100 02/12/24 17:09 Oxygen Delivery Room Air 02/12/24 17:09 Temperature 97.5 F L 02/12/24 17:09 Pulse Rate 78 02/12/24 22:10 Respiratory Rate 14 02/12/24 19:32 Blood Pressure 137/89 02/12/24 19:32 Pulse Oximetry 100 02/12/24 19:32 Oxygen Delivery Room Air 02/12/24 22:11 MDM - Chest Pain MDM Narrative Medical decision making narrative: Patient presents to the emergency department for intermittent back he has chest pain. Ongoing over the last week. Patient is in no acute distress. Her vitals are stable. CBC and metabolic panel without concerning findings. EKG without acute ST changes and her baseline and 3 hour troponin are negative. D-dimer is not elevated. Chest x-ray without acute cardiopulmonary abnormality. Patient updated on her workup and agrees with plan of care. Her heart score is 2. She is to follow up with primary provider. She was given warning
== END 2024-02-12 22:48 | disposition home or self-care (01) ==
PROVIDERS: Emergency Medicine; Nurse Practitioner Family; Emergency Provider Physician Assistant; PCP Internal Medicine
DX: M54.6 Pain in thoracic spine (principal); I89.0 Lymphedema, not elsewhere classified; Z85.3 Personal history of malignant neoplasm of breast; Z79.810 Long term (current) use of selective estrogen receptor modulators (SERMs); R94.31 Abnormal electrocardiogram [ECG] [EKG]
CPT/HCPCS: 36415; 71046; 80053; 83690; 84484; 85025; 85380; 85610; 85730; 93005; 99284

== ENCOUNTER 2024-02-17 15:30 | Outpatient (RCR) | payer OTHER, SELFPAY ==
--- NOTE | 2023-12-30 16:22 | OPREHPOC ---
Outpatient Therapy Plan of Care This is a Multidisciplinary Plan of Care that may contain components documented by all disciplines (PT, OT, and ST.) PT Problem 1 PT Problem #1 Knowledge Deficit PT Goal 1 Goal *indep with HEP * indep with self manual lymph drainage * have appropriate compression for L breast Target Visit 8 PT Problem 2 PT Problem #2 Pain PT Goal 1 Goal 1* decrease pain of L breast to 1/10 at worst 2* no tenderness reported with palpation to L breast tissue Target Visit 8 PT Problem 3 PT Problem #3 Impaired Lymphatic System PT Goal 1 Goal improve lymphatic system, evident by 1* in sitting, with visual inspection, L breast slightly larger than R breast 2* no firmness of tissue with palpation over L breast in supine Target Visit 8
--- NOTE | 2023-12-30 16:22 | PTOPEVAL1 ---
Assessment and note entered by Almita Casillas, PT, CLT Evaluation Information Assessment Status Evaluation Diagnosis lymphedema L breast Onset October 2022 Subjective Information started having more swelling of breast about October have some pain in breast. 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 She starting noticing her L breast was larger and more full than her R breast. And has not noticed any swelling over arm or trunk. 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 With the evaluation: her L breast has lymphedema throughout it with discoloration of skin and firmness of the tissue over upper and outer aspects, with areas of tenderness with palpation. Tightness over L axilla and lateral trunk with shoulder flexion, abduction and ER motions. Skilled PT services are indicated for lymphedema care: manual lymph drainage, compression garment for breast and education for self care and management of lymphedema. Plan of Care Interventions Manual Lymph Drainage,Manual Therapy,Patient Education,Therapeutic Exercise PT Services Indicated Yes Treatment Frequency and 1-2x/wk for 8 visits Duration These treatments will address the objective and functional deficits as defined above. The patient will be advanced safely and appropriately in order for the patient to progress towards his/her prior level of function. Additional exercises will be introduced and as well as a comprehensive home exercise program upon discharge, if needed, ?to ensure carryover of functional gains achieved in the clinic. This treatment plan has been reviewed and agreement upon by the patient.
--- NOTE | 2024-02-17 16:22 | PTOPDC ---
Assessment and note entered by Almita Casillas, PT Discharge Report Assessment Status Discharge Diagnosis lymphedema L breast Onset October 2022 Subjective Information is doing well; is doing her self massage and using the swell pad with sleeping--likes the larger one, it stays more in place, compared to the rectangle one. Reported Pain Level Pain Score Self Report Additional Pain Score Comments no pain at rest over breast; only some tenderness, like bruised, with breast being touched 1/10; no longer have any sharp pains over breast. Assessment PT Clinical Summary Mattie has received 6 PT sessions. Compared to the initial evaluation: education completed for self management of lymphedema of breast; stretching HEP for shoulder and neck; improved skin integrity with less firmness of tissue, no longer has sharp pains in breast and decreased discoloration of area of radiation. In sitting, there is still some visual edema over L breast, but with a bra on, the R and L breast appear to be the same size. The goals were partially achieved. Discharge PT services. Plan of Care PT Services Indicated No
== END 2024-02-19 08:06 | disposition home or self-care (01) ==
LOC: ANHPT 15:30
PROVIDERS: PCP Internal Medicine; Visit Provider Radiology Radiation Oncology
DX: I89.0 Lymphedema, not elsewhere classified (principal); C50.912 Malignant neoplasm of unspecified site of left female breast
CPT/HCPCS: 97110; 97140; 97161

== ENCOUNTER 2024-06-17 10:46 | Outpatient (CLI) | payer OTHER, SELFPAY ==
[2024-06-17 11:04] LABS: Basophils Percent Auto 0.7 % (0.2-1.2); Eosinophils Absolute Auto 0.1 K/mm3 (0-0.3); Eosinophils Percent Auto 2.7 % (0-4.4); Hematocrit 37.5 % (37.0-47.0); Hemoglobin 12.2 g/dL (12.0-15.0); Immature Granulocyte Absolute 0.02 K/mm3 (0.00-0.031); Immature Granulocyte Percent A 0.5 % (0-0.5); Lymphocytes Absolute Auto 1.12 K/mm3 (0.9-3.2); Lymphocytes Percent Auto 27.5 % (18.3-44.2); Mean Corpuscular HGB Conc 32.5 g/dl (32-36); Mean Corpuscular Hemoglobin 29.5 pg (26-34); Mean Corpuscular Volume 90.6 fl (80-100); Mean Platelet Volume 8.6 fl (7.4-10.4); Monocytes Absolute Auto 0.4 K/mm3 (0.1-0.6); Monocytes Percent Auto 9.1 % (2.6-8.5); Neutrophils Absolute Auto 2.4 K/mm3 (1.3-6.7); Neutrophils Percent Auto 59.5 % (45.5-73.1); Platelet Count Result 241 k/mm3 (150-375); Red Blood Count 4.14 M/mm3 (4.2-5.4); Red Cell Distribution Width 12.5 % (11.5-14.5); White Blood Count 4.1 K/mm3 (4.5-10.0)
[2024-06-17 13:54] LABS: Alanine Aminotransferase 21 U/L (6-35); Alkaline Phosphatase 56 U/L (38-126); Anion Gap 6 mmol/L (4-12); Aspartate Amino Transferase 32 U/L (14-36); Bilirubin,Total 0.7 mg/dL (0.2-1.3); Blood Urea Nitrogen 12 mg/dL (7-17); Calcium 9.2 mg/dL (8.4-10.2); Carbon Dioxide 29 mmol/L (22-30); Chloride 105 mmol/L (98-107); Estimated Glomerular Filt Rate > 60; Glucose 98 mg/dL (65-110); Sodium 140 mmol/L (137-145)
[2024-06-18 10:54] LABS: CA 15-3 5 U/mL (<32)
== END 2024-06-17 10:47 | disposition home or self-care (01) ==
LOC: ANHLAB 10:52
PROVIDERS: PCP Internal Medicine; Visit Provider Internal Medicine Hematology & Oncology
DX: C50.912 Malignant neoplasm of unspecified site of left female breast (principal)
CPT/HCPCS: 36415; 80053; 85025; 86300

== ENCOUNTER 2024-06-24 13:23 | Outpatient (CLI) | payer OTHER, SELFPAY ==
--- NOTE | ~2024-06-24 | XR_ITS ---
EXAMINATION: XR thoracic spine 3V DATE: 06/24/2024 13:53 INDICATION: Upper back pain radiating to the chest. TECHNIQUE: 3 views of thoracic spine were obtained. COMPARISON: None. FINDINGS: There is 9 degrees levocurvature of thoracic spine. Vertebral body heights are normal. Inte rvertebral disc heights are normal. There are endplate osteophytes at many levels. IMPRESSION: 1. Mild thoracic spondylosis. Reviewed, dictated and finalized at location A. EZER OPERATOR
[2024-06-24 13:36] LABS: Basophils Absolute Auto 0.03 K/mm3 (0.00-0.10); Basophils Percent Auto 0.4 % (0.0-1.0); Eosinophils Absolute Auto 0.07 K/mm3 (0.02-0.50); Hematocrit 36.6 % (35.0-49.0); Hemoglobin 12.5 g/dL (12.0-15.0); Immature Granulocyte Absolute 0.01 K/mm3 (0.00-0.00); Immature Granulocyte Percent A 0.1 % (0.0-0.0); Lymphocytes Absolute Auto 1.34 K/mm3 (1.10-4.50); Lymphocytes Percent Auto 18.6 % (18.0-42.0); Mean Corpuscular HGB Conc 34.2 g/dL (32-36); Mean Platelet Volume 8.7 fl (9.2-11.8); Monocytes Absolute Auto 0.48 K/mm3 (0.10-0.90); Monocytes Percent Auto 6.6 % (2.0-11.0); Neutrophils Absolute Auto 5.29 K/mm3 (1.70-7.20); Neutrophils Percent Auto 73.3 % (50.0-70.0); Platelet Count Result 262 K/mm3 (150-420); Red Blood Count 4.16 M/mm3 (4.20-5.40); Red Cell Distribution Width 12.5 % (11.6-14.4); White Blood Count 7.2 K/mm3 (4.8-10.8)
[2024-06-24 13:50] LABS: D Dimer 0.19 mg/L (0.19-0.50)
[2024-06-24 14:01] LABS: Alanine Aminotransferase 24 U/L (14-59); Albumin Level 3.6 g/dL (3.4-5.0); Alkaline Phosphatase 68 U/L (46-116); Anion Gap 10 mmol/L (4-12); Aspartate Amino Transferase 21 U/L (15-37); Bilirubin,Total 0.6 mg/dL (0.00-1.00); Blood Urea Nitrogen 18 mg/dL (7-18); Calcium 9.1 mg/dL (8.5-10.1); Carbon Dioxide 30 mmol/L (21-32); Chloride 102 mmol/L (98-108); Creatine Kinase 81 U/L (26-192); Estimated Glomerular Filt Rate > 60; Glucose 131 mg/dL (70-99); Osmolality Calculated 297 mOsm/kg (285-295); Potassium 3.8 mmol/L (3.5-5.1); Sodium 142 mmol/L (136-145); Total Protein 7.5 g/dL (6.4-8.2)
[2024-06-24 14:02] LABS: CRP < 0.5 mg/dL (0.0-0.9); Troponin I < 4.0 ng/L (0.00-60.4)
== END 2024-06-24 13:24 | disposition home or self-care (01) ==
PROVIDERS: PCP Internal Medicine; Visit Provider Internal Medicine
DX: R07.9 Chest pain, unspecified (principal); M54.6 Pain in thoracic spine; M43.06 Spondylolysis, lumbar region
CPT/HCPCS: 36415; 72072; 80053; 82550; 82553; 84484; 85025; 85380; 86140

== ENCOUNTER 2024-07-12 16:28 | Emergency (ER) | payer OTHER, SELFPAY ==
[2024-07-12] VITALS (9 sets, daily range): BP systolic 112–142; BP diastolic 68–89; PULSE 81–105; RESP 12–17; TEMP 36.6–36.7; O2SAT 98–100
--- NOTE | ~2024-07-12 | XR_ITS ---
EXAMINATION: XR chest 2V Exam Date/Time: 07/12/2024 17:20 DRYWALL STRIPPER HISTORY: chest pain INTERMITTENTLY X 6 WEEKS Comparison: 02/20/2024. RESULT: Lines, tubes, and devices: None. Lungs and pleura: Clear. Cardiomediastinal silhouette: Stable. Other: No acute osseous or upper abdominal finding. IMPRESSION: No acute cardiopulmonary process. Reviewed, dictated and finalized at location K. ALL STRIPPER
--- NOTE | 2024-07-12 16:30 | ECG_ITS ---
Test Date: 2024-07-12 16:39:34 Measurements Intervals [place] Rate: 99 P: 55 VT: 140 QRS: 54 QRSD: 63 T: 50 QT: 323 QTc: 415 Interpretive Statements SINUS RHYTHM RIGHT ATRIAL ENLARGEMENT [0.3mV P WAVE] POSSIBLE LEFT ATRIAL ENLARGEMENT [-0.1mV P WAVE IN V1/V2] POSSIBLE RIGHT VENTRICULAR CONDUCTION DELAY [RSR (QR) IN V1/V2] Compared to ECG 02/12/2024 21:26:40 no significant change seen Electronically Signed On 07-13-2024 11:48:02 ATHLETIC EQUIPMENT CUSTODIAN by Torsten Elliott
[2024-07-12 16:46] LABS: Basophils Percent Auto 0.6 % (0.2-1.2); Eosinophils Absolute Auto 0.1 K/mm3 (0-0.3); Eosinophils Percent Auto 0.7 % (0-4.4); Hematocrit 36.9 % (37.0-47.0); Hemoglobin 12.2 g/dL (12.0-15.0); Immature Granulocyte Absolute 0.01 K/mm3 (0.00-0.031); Immature Granulocyte Percent A 0.1 % (0-0.5); Lymphocytes Absolute Auto 1.33 K/mm3 (0.9-3.2); Lymphocytes Percent Auto 18.8 % (18.3-44.2); Mean Corpuscular HGB Conc 33.1 g/dl (32-36); Mean Corpuscular Volume 90.7 fl (80-100); Mean Platelet Volume 8.8 fl (7.4-10.4); Monocytes Absolute Auto 0.4 K/mm3 (0.1-0.6); Monocytes Percent Auto 6.2 % (2.6-8.5); Neutrophils Absolute Auto 5.2 K/mm3 (1.3-6.7); Neutrophils Percent Auto 73.6 % (45.5-73.1); Platelet Count Result 257 k/mm3 (150-375); Red Blood Count 4.07 M/mm3 (4.2-5.4); White Blood Count 7.1 K/mm3 (4.5-10.0)
[2024-07-12 16:55] LABS: Prothrombin Time 13.9 Seconds (11.1-14.7)
[2024-07-12 16:57] LABS: Partial Thromboplastin Time 23.2 Seconds (22.3-36.8)
--- NOTE | 2024-07-12 16:57 | ED.CHESTPAIN ---
HPI - Chest Pain General Chief Complaint: Chest Pain <Shaila Grace PA-C - Last Filed: 07/13/24 12:24> Stated Complaint: chest pain <Shaila Grace PA-C - Last Filed: 07/13/24 12:24> Time Seen by Provider: 07/12/24 16:57 <TONO Tadeo Last Filed: 07/13/24 12:24> Focused HPI: This is a 49 year old female that presents to the ER for chest pain and back pain. Reports associated nausea. Reports this has been off and on for a couple months. She has a stress test scheduled for Thursday. Today the pain feels weird. Reports its burning and worse than it was. Reports she feels like its harder to breath. Denies lower extremity edema. GENERAL: Well-appearing, well-nourished, and in no acute distress. HEAD: Normocephalic, atraumatic. CHEST: Clear to auscultation. ?No respiratory distress. HEART: Regular rate and rhythm.? NEURO: ?Alert and oriented x3. Patient screened in triage and initial orders placed.? ?Additional care and disposition to be based upon?diagnostic testing and treatment. <Shaila Grace PA-C - Last Filed: 07/13/24 12:24> Focused HPI: This is a 49 year old female that presents to the ER for chest pain and back pain. Reports associated nausea. Reports this has been off and on for a couple months. She has a stress test scheduled for Thursday. Today the pain feels weird. Reports its burning and worse than it was. Reports she feels like its harder to breath. Denies lower extremity edema. GENERAL: Well-appearing, well-nourished, and in no acute distress. HEAD: Normocephalic, atraumatic. CHEST: Clear to auscultation. ?No respiratory distress. HEART: Regular rate and rhythm.? NEURO: ?Alert and oriented x3. Patient screened in triage and initial orders placed.? ?Additional care and disposition to be based upon?diagnostic testing and treatment. <TONO Sanon Last Filed: 07/12/24 21:04> Source: patient <TONO Sanon Last Filed: 07/12/24 21:04> Mode of arrival: ambulatory <Pat Sage PA-C - Last Filed: 07/12/24 21:04> Limitations: no limitations <Pat Sage PA-C - Last Filed: 07/12/24 21:04> History of Present Illness HPI narrative: Agree with above HPI. Has not taken anything for pain. Previous history of left-sided breast cancer. Strong family history of heart disease. Denies personal hx of HTN, HLD, DM, smoking, blood clots. <Pat Sage PA-C - Last Filed: 07/12/24 21:04> Related Data Home Medications: Home Medications ?Medication ?Instructions ?Recorded ?Confirmed ?Last Taken ?Type tamoxifen 20 mg tablet 20 mg PO DAILY 10/09/23 02/26/24 Unknown History <Shaila Grace PA-C - Last Filed: 07/13/24 12:24> Allergies/Adverse Reactions: Allergies Allergy/AdvReac Type Severity Reaction Status Date / Time meperidine (From Demerol) AdvReac Mild Nausea Verified 07/12/24 18:05 ondansetron AdvReac Vomiting Verified 07/12/24 18:05 <Shaila Grace PA-C - Last Filed: 07/13/24 12:24> Review of Systems Review of Systems: All systems reviewed & are unremarkable except as noted in HPI. <Pat Sage PA-C - Last Filed: 07/12/24 21:04> All systems reviewed & are unremarkable except as noted in HPI and below <Pat Sage PA-C - Last Filed: 07/12/24 21:04> [facility] Past Medical History Medical History: Medical History Breast cancer, left Abnormal uterine bleeding (AUB) Anxiety <Shaila Grace PA-C - Last Filed: 07/13/24 12:24> Family History Family History: Family History Other Acute myocardial infarction <Shaila Grace PA-C - Last Filed: 07/13/24 12:24> Social History Social History: Social History Smoking status: Never smoker Alcohol intake: current Alcohol use details: on the weekends Lack of Transportation: No Lack of Food: Never True Current Housing: I Have Housing Concerned About Future Housing: No Difficulty Paying Gas/Electric Bills: No Difficulty Paying for Meds: No Currently Unemployed: No Education: High School Diploma/GED Living arrangements: with family Gender identity (if verbalized by the patient): Female Spiritual care concerns: No <Shaila Grace PA-C - Last Filed: 07/13/24 12:24> Exam Narrative: GENERAL: Well appearing, thin, non-toxic, in no acute distress. HEAD: Normocephalic, atraumatic. RESPIRATORY: Airway patent, respirations nonlabored. Clear to auscultation bilaterally, no rales, rhonchi, wheezing. No focal lung sounds. CARDIOVASCULAR: Regular rate and rhythm without murmurs, rubs, or gallops. ABDOMINAL: Soft, nontender, nondistended. Normoactive BS. MUSCULOSKELETAL: Moves all extremities. No gross deformities. No significant tenderness throughout the chest wall. No midline thoracic spinal tenderness. No tenderness throughout scapular region. SKIN: Warm, dry, normal color. NEURO: A&O X3. Speech clear. Cranial nerves II-XII grossly intact. Steady gait. No ataxic movements. PSYCHIATRIC: Appropriate mood and affect. Normal interaction. <Pat Sage PA-C - Last Filed: 07/12/24 21:04> Course Vital Signs Vital signs: Vital Signs Temperature 97.9 F 07/12/24 16:31 Pulse Rate 105 H 07/12/24 16:31 Respiratory Rate 16 07/12/24 16:31 Blood Pressure 134/82 07/12/24 16:31 Pulse Oximetry 100 07/12/24 16:31 Oxygen Delivery Room Air 07/12/24 16:31 Temperature 97.8 F 07/12/24 19:55 Pulse Rate 81 07/12/24 19:55 Respiratory Rate 13 07/12/24 19:55 Blood Pressure 115/68 07/12/24 19:55 Pulse Oximetry 100 07/12/24 20:08 Oxygen Delivery Room Air 07/12/24 17:17 <Shaila Grace PA-C - Last Filed: 07/13/24 12:24> Vital Signs Temperature 97.9 F 07/12/24 16:31 Pulse Rate 105 H 07/12/24 16:31 Respiratory Rate 16 07/12/24 16:31 Blood Pressure 134/82 07/12/24 16:31 Pulse Oximetry 100 07/12/24 16:31 Oxygen Delivery Room Air 07/12/24 16:31 Temperature 97.8 F 07/12/24 19:55 Pulse Rate 81 07/12/24 19:55 Respiratory Rate 13 07/12/24 19:55 Blood Pressure 115/68 07/12/24 19:55 Pulse Oximetry 100 07/12/24 20:08 Oxygen Delivery Room Air 07/12/24 17:17 <TONO Sanon Last Filed: 07/12/24 21:04> MDM - Chest Pain MDM Narrative Medical decision making narrative: Patient presented to ED with several month history of chest pain, worsening today and feels different. Currently reporting midsternal chest pain, radiating to upper back, left scapular region. Also associated with mild shortness breath and nausea today. EKG with sinus rhythm, nonspecific ST changes. Baseline troponin is undetectable. D-dimer is within normal range. Chest x-ray is clear. HEART score = 3 based on FHx, age, ekg. Basic laboratory studies are otherwise unremarkable. 3 hr troponin also undetectable. Very low suspicion for ACS at this time. Patient has a stress test scheduled for Thursday with Cardiology. Feel she is safe for discharge home at this time with continued outpatient follow-up as scheduled. Patient did report significant improvement after GI cocktail, Protonix, Tylenol in the ED. Suspect GERD/gastritis/ PUD picture contributing to symptoms. Will prescribe omeprazole to trial. Patient is in agreement with plan. She feels comfortable discharge home. Discussed strict return precautions should symptoms worsen. She voiced understanding. Discharged in stable condition. <TONO Sanon Last Filed: 07/12/24 21:04> Medical Records Data Attestation: I reviewed the patient's medical records. <Pat Sage PA-C - Last Filed: 07/12/24 21:04> Lab Data Attestation: I reviewed the patient's lab results. <Pat Sage PA-C - Last Filed: 07/12/24 21:04> Result diagrams: 07/12/24 16:38 07/12/24 16:38 <Shaila Grace PA-C - Last Filed: 07/13/24 12:24> Labs: Lab Results 07/12/24 07/12/24 Range/Units 16:38 19:36 WBC 7.1 (4.5-10.0) K/mm3 RBC 4.07 L (4.2-5.4) M/mm3 Hgb 12.2 (12.0-15.0) g/dL Hct 36.9 L (37.0-47.0) % MCV 90.7 (80-100) fl MCH 30.0 (26-34) pg MCHC 33.1 (32-36) g/dl RDW 13.0 (11.5-14.5) % Plt Count 257 (150-375) k/mm3 MPV 8.8 (7.4-10.4) fl Immature Gran % (Auto) 0.1 (0-0.5) % Neut % (Auto) 73.6 H (45.5-73.1) % Lymph % (Auto) 18.8 (18.3-44.2) % George % (Auto) 6.2 (2.6-8.5) % Eos % (Auto) 0.7 (0-4.4) % Baso % (Auto) 0.6 (0.2-1.2) % Lymph # (Auto) 1.33 (0.9-3.2) K/mm3 George # (Auto) 0.4 (0.1-0.6) K/mm3 Eos # (Auto) 0.1 (0-0.3) K/mm3 Baso # (Auto) 0.0 (0.0-0.1) K/mm3 Abs Immat Gran (auto) 0.01 (0.00-0.031) K/mm3 Absolute Neuts (auto) 5.2 (1.3-6.7) K/mm3 Absolute Nucleated RBC 0.000 (0.0-0.012) K/mm3 Nucleated RBC % 0.0 (0.0-0.2) % PT 13.9 (11.1-14.7) Seconds INR 1.0 APTT 23.2 (22.3-36.8) Seconds D-Dimer < 0.27 (<0.48) ug/mL Sodium 138 (137-145) mmol/L Potassium 3.9 (3.4-5.0) mmol/L Chloride 106 (98-107) mmol/L Carbon Dioxide 26 (22-30) mmol/L Anion Gap 6 (4-12) mmol/L BUN 19 H (7-17) mg/dL Creatinine 0.60 L (0.7-1.0) mg/dL Estim Creat Clear Calc Not Reportable Estimated GFR > 60 (59 - ) Glucose 93 (65-110) mg/dL Calcium 9.3 (8.4-10.2) mg/dL Total Bilirubin 0.6 (0.2-1.3) mg/dL AST 34 (14-36) U/L ALT 22 (6-35) U/L Alkaline Phosphatase 65 (38-126) U/L Troponin I < 0.012 < 0.012 (0.000-0.034) ng/mL Total Protein 8.0 (6.3-8.2) g/dL Albumin 4.4 (3.5-5.1) g/dL Lipase 72 (23-300) U/L <Shaila Grace PA-C - Last Filed: 07/13/24 12:24> Lab Results 07/12/24 07/12/24 Range/Units 16:38 19:36 WBC 7.1 (4.5-10.0) K/mm3 RBC 4.07 L (4.2-5.4) M/mm3 Hgb 12.2 (12.0-15.0) g/dL Hct 36.9 L (37.0-47.0) % MCV 90.7 (80-100) fl MCH 30.0 (26-34) pg MCHC 33.1 (32-36) g/dl RDW 13.0 (11.5-14.5) % Plt Count 257 (150-375) k/mm3 MPV 8.8 (7.4-10.4) fl Immature Gran % (Auto) 0.1 (0-0.5) % Neut % (Auto) 73.6 H (45.5-73.1) % Lymph % (Auto) 18.8 (18.3-44.2) % George % (Auto) 6.2 (2.6-8.5) % Eos % (Auto) 0.7 (0-4.4) % Baso % (Auto) 0.6 (0.2-1.2) % Lymph # (Auto) 1.33 (0.9-3.2) K/mm3 George # (Auto) 0.4 (0.1-0.6) K/mm3 Eos # (Auto) 0.1 (0-0.3) K/mm3 Baso # (Auto) 0.0 (0.0-0.1) K/mm3 Abs Immat Gran (auto) 0.01 (0.00-0.031) K/mm3 Absolute Neuts (auto) 5.2 (1.3-6.7) K/mm3 Absolute Nucleated RBC 0.000 (0.0-0.012) K/mm3 Nucleated RBC % 0.0 (0.0-0.2) % PT 13.9 (11.1-14.7) Seconds INR 1.0 APTT 23.2 (22.3-36.8) Seconds D-Dimer < 0.27 (<0.48) ug/mL Sodium 138 (137-145) mmol/L Potassium 3.9 (3.4-5.0) mmol/L Chloride 106 (98-107) mmol/L Carbon Dioxide 26 (22-30) mmol/L Anion Gap 6 (4-12) mmol/L BUN 19 H (7-17) mg/dL Creatinine 0.60 L (0.7-1.0) mg/dL Estim Creat Clear Calc Not Reportable Estimated GFR > 60 (59 - ) Glucose 93 (65-110) mg/dL Calcium 9.3 (8.4-10.2) mg/dL Total Bilirubin 0.6 (0.2-1.3) mg/dL AST 34 (14-36) U/L ALT 22 (6-35) U/L Alkaline Phosphatase 65 (38-126) U/L Troponin I < 0.012 < 0.012 (0.000-0.034) ng/mL Total Protein 8.0 (6.3-8.2) g/dL Albumin 4.4 (3.5-5.1) g/dL Lipase 72 (23-300) U/L <Pat Sage PA-C - Last Filed: 07/12/24 21:04> Imaging Data Attestation: I personally reviewed and interpreted this imaging study as follows: <Pat Sage PA-C - Last Filed: 07/12/24 21:04> Radiologist's impression: ITS Impressions Chest X-Ray 07/12/24 17:29 IMPRESSION: No acute cardiopulmonary process. <Pat Sage PA-C - Last Filed: 07/12/24 21:04> ECG Data EKG #1: Attestation: I personally reviewed and interpreted this ECG as follows: <Pat Sage PA-C - Last Filed: 07/12/24 21:04> ECG completion date: 07/12/24 <Pat Sage PA-C - Last Filed: 07/12/24 21:04> ECG completion time: 16:39 <Pat Sage PA-C - Last Filed: 07/12/24 21:04> EKG Interpretation: normal rate (99), sinus rhythm and non-specific ST changes <Pat Sage PA-C - Last Filed: 07/12/24 21:04> Critical Care Time Critical Care Time Critical Care Time: No <Shaila Grace PA-C - Last Filed: 07/13/24 12:24> Discharge Plan Discharge Clinical Impression: Atypical chest pain GERD (gastroesophageal reflux disease) Qualifiers: Esophagitis presence: with esophagitis Esophagitis bleeding: without hemorrhage Qualified Code(s): K21.00 - Gastro-esophageal reflux disease with esophagitis, without bleeding <TONO Tadeo Last Filed: 07/13/24 12:24> Patient Disposition: Home, Self-Care <Shaila Grace PA-C - Last Filed: 07/13/24 12:24> Condition: Stable <TONO Tadeo Last Filed: 07/13/24 12:24> Instructions: Antibiotic Form, Chest Pain (ED), Diet for Stomach Ulcers and Gastritis (ED), GERD (Gastroesophageal Reflux Disease) (ED) <TONO Tadeo Last Filed: 07/13/24 12:24> Additional Instructions: Your workup here was reassuring against a cardiac cause of your pain. Continue to follow-up with cardiology for your stress test next week. Your symptoms may be related to acid reflex. Recommend trialing omeprazole daily over next few weeks. Return to the ED if you experience worsening or severe chest pain, difficulty breathing, unable to keep down food or drink, vomiting blood, dark black stools, fevers, pain or swelling in legs, or any other symptoms of concern. <TONO Tadeo Last Filed: 07/13/24 12:24> Patient Language: Slovenian <TONO Tadeo Last Filed: 07/13/24 12:24> Prescriptions: New omeprazole 10 mg capsule,delayed release(DR/EC) 10 mg PO DAILY Qty: 30 0RF No Action tamoxifen 20 mg Tablet 20 mg PO DAILY cyclobenzaprine 10 mg tablet 10 mg PO TID PRN (Reason: muscle spasm) Qty: 14 0RF <TONO Tadeo Last Filed: 07/13/24 12:24> Follow-up/Referrals: Andrei Mora MD [Primary Care Provider] - <Shaila Grace PA-C - Last Filed: 07/13/24 12:24> Time of Disposition: 20:36 <TONO Tadeo Last Filed: 07/13/24 12:24> 20:36 <TONO Sanon Last Filed: 07/12/24 21:04> Quality HEART score for chest pain patients History: slightly suspicious <TONO Sanon Last Filed: 07/12/24 21:04> ECG: non specific repolarization disturbance/LBTB/PM <TONO Sanon Last Filed: 07/12/24 21:04> Age: > 45 and < 65 years <Pat Sage PA-C - Last Filed: 07/12/24 21:04> Risk factors: 1 or 2 risk factors <Pat Sage PA-C - Last Filed: 07/12/24 21:04> Troponin: < or = to 1x normal limit <Pat Sage PA-C - Last Filed: 07/12/24 21:04> Heart score: 3 <Shaila Grace PA-C - Last Filed: 07/13/24 12:24> 3 <Pat Sage PA-C - Last Filed: 07/12/24 21:04>
[2024-07-12 17:03] LABS: Alanine Aminotransferase 22 U/L (6-35); Albumin Level 4.4 g/dL (3.5-5.1); Alkaline Phosphatase 65 U/L (38-126); Anion Gap 6 mmol/L (4-12); Aspartate Amino Transferase 34 U/L (14-36); Bilirubin,Total 0.6 mg/dL (0.2-1.3); Blood Urea Nitrogen 19 mg/dL (7-17); Calcium 9.3 mg/dL (8.4-10.2); Carbon Dioxide 26 mmol/L (22-30); Chloride 106 mmol/L (98-107); Estimated Glomerular Filt Rate > 60; Glucose 93 mg/dL (65-110); Lipase 72 U/L (23-300); Potassium 3.9 mmol/L (3.4-5.0); Sodium 138 mmol/L (137-145)
[2024-07-12] MEDS: ASPIRIN 81 MG CHEWABLE TABLET 324 MG PO (17:10)
[2024-07-12] MEDS: PANTOPRAZOLE SODIUM IV 40 MG VIAL IV PUSH (17:10)
[2024-07-12 17:14] LABS: Troponin I < 0.012 ng/mL (0.000-0.034)
[2024-07-12 17:41] LABS: D Dimer < 0.27 ug/mL (<0.48)
[2024-07-12] MEDS: ACETAMINOPHEN 500 MG TABLET 1000 MG PO (18:01)
[2024-07-12] MEDS: BELLADONNA ALK/PHENOB ELIX 10 ML, MAG HYDROX/ALUMINUM HYD/SIMETH 30 ML, LIDOCAINE HCL 2... PO (18:02)
--- NOTE | 2024-07-12 19:13 | ECG_ITS ---
Test Date: 2024-07-12 19:41:30 Measurements Intervals [place] Rate: 84 P: 64 CT: 146 QRS: 54 QRSD: 69 T: 52 QT: 364 QTc: 431 Interpretive Statements SINUS RHYTHM POSSIBLE LEFT ATRIAL ENLARGEMENT [-0.1mV P WAVE IN V1/V2] SEPTAL MYOCARDIAL INFARCTION , OF INDETERMINATE AGE [40+ ms Q WAVE IN V1/V2] Compared to ECG 07/12/2024 16:39:34 No significant change Electronically Signed On 07-13-2024 11:49:22 CERTIFIED OPHTHALMIC MEDICAL TECHNICIAN by Torsten Elliott
[2024-07-12 20:02] LABS: Troponin I < 0.012 ng/mL (0.000-0.034)
== END 2024-07-12 20:45 | disposition home or self-care (01) ==
PROVIDERS: Emergency Medicine; Emergency Provider Physician Assistant; PCP Internal Medicine
DX: R07.89 Other chest pain (principal); K21.00 Gastro-esophageal reflux disease with esophagitis, without bleeding
CPT/HCPCS: 36415; 71046; 80053; 83690; 84484; 85025; 85380; 85610; 85730; 93005; 96374; 96375; 99284; A9270; J2470

== ENCOUNTER 2024-07-18 08:47 | Outpatient (CLI) | payer OTHER, SELFPAY ==
--- NOTE | 2024-07-18 08:55 | EST_ITS ---
Patient Info Name: Mattie Peace Age: 49 years : 1975 Gender: Female Ht: 54 in Wt: 98 lbs BSA: 1.31 m2 HR: 94 bpm BP: 126 / 78 mmHg Heart Rhythm: Sinus Arrhythmia Technical Quality: Good Exam Date: 07/18/2024 10:12 AM Exam Location: Echo Lab Patient Status: Outpatient Admit Date: 07/18/2024 Staff Ordering Physician: Andrei Mora MD Attending Provider: Andrei Mora MD Exam Type: CA stress test treadmill w NM Study Info A treadmill exercise stress test was performed. Summary 1. 1. Negative Bijan exercise stress test for ischemic ST changes by ECG criteria. 2. 2. Reduced functional capacity, achieving 7 METs of workload. 3. 3. Appropriate HR response to exercise. 4. 4. Appropriate HR recovery at 1 minute post exercise. 5. 5. Nuclear scan to follow and will be reported separately. Please correlate with it. Protocol: Bijan Stress ECG Details Stage: REST Duration (min): 1 min : 18 sec Speed (mph): 0.0 Grade (%): 0 HR (bpm): 89 SBP (mmHg): 126 DBP (mmHg): 78 METS: --- Stage: REST Duration (min): 6 min : 55 sec Speed (mph): 0.0 Grade (%): 0 HR (bpm): 111 SBP (mmHg): 126 DBP (mmHg): 78 METS: --- Stage: STAGE 1 Duration (min): 1 min : 0 sec Speed (mph): 1.7 Grade (%): 10 HR (bpm): 129 SBP (mmHg): 126 DBP (mmHg): 78 METS: --- Stage: STAGE 1 Duration (min): 2 min : 0 sec Speed (mph): 1.7 Grade (%): 10 HR (bpm): 140 SBP (mmHg): 126 DBP (mmHg): 78 METS: --- Stage: STAGE 1 Duration (min): 3 min : 0 sec Speed (mph): 1.7 Grade (%): 10 HR (bpm): 145 SBP (mmHg): 148 DBP (mmHg): 74 METS: --- Stage: STAGE 2 Duration (min): 1 min : 0 sec Speed (mph): 2.5 Grade (%): 12 HR (bpm): 156 SBP (mmHg): 148 DBP (mmHg): 74 METS: --- Stage: STAGE 2 Duration (min): 2 min : 0 sec Speed (mph): 2.5 Grade (%): 12 HR (bpm): 165 SBP (mmHg): 148 DBP (mmHg): 74 METS: --- Stage: STAGE 2 Duration (min): 3 min : 0 sec Speed (mph): 2.5 Grade (%): 12 HR (bpm): 166 SBP (mmHg): 157 DBP (mmHg): 75 METS: --- Stage: RECOVERY Duration (min): 0 min : 59 sec Speed (mph): 0.0 Grade (%): 0 HR (bpm): 144 SBP (mmHg): 157 DBP (mmHg): 75 METS: --- Stage: RECOVERY Duration (min): 1 min : 59 sec Speed (mph): 0.0 Grade (%): 0 HR (bpm): 125 SBP (mmHg): 138 DBP (mmHg): 72 METS: --- Stage: RECOVERY Duration (min): 2 min : 59 sec Speed (mph): 0.0 Grade (%): 0 HR (bpm): 109 SBP (mmHg): 138 DBP (mmHg): 72 METS: --- Stage: RECOVERY Duration (min): 3 min : 59 sec Speed (mph): 0.0 Grade (%): 0 HR (bpm): 111 SBP (mmHg): 108 DBP (mmHg): 73 METS: --- Stage: RECOVERY Duration (min): 4 min : 59 sec Speed (mph): 0.0 Grade (%): 0 HR (bpm): 106 SBP (mmHg): 108 DBP (mmHg): 73 METS: --- Stage: RECOVERY Duration (min): 5 min : 37 sec Speed (mph): 0.0 Grade (%): 0 HR (bpm): 109 SBP (mmHg): 108 DBP (mmHg): 74 METS: --- Rest HR: 111 bpm Peak HR: 166 bpm Rest Sys BP: 126 mmHg Peak Sys BP: 157 mmHg Max Pred HR: 169 bpm % Max Pred HR: 98 % Target HR: 144 bpm Max RPP: 26,062 bpm*mmHg Brothers Score: 1 Target HR Summary: Patient's target heart rate was achieved BP Response: Normal blood pressure response Termination Reason: Fatigue Cardiac Symptoms: None Max ST Seg Deviation: 1 mm Total Time: 6 min : 0 sec Rest Santo BP: 78 mmHg Peak Santo BP: 75 mmHg Angina Score: None Total METS: 7.1 Resting ECG Sinus rhythm with sinus arrythmia, anteroseptal infarct, age indeterminate. Stress ECG No abnormal ST/T wave changes with exercise. Arrhythmias None. Report Signatures
--- NOTE | 2024-07-18 13:58 | WPDCARIOSTRE ---
Nuclear Stress Test INDICATIONS Indications: Chest pain PROCEDURE Procedure Performed: Myocardial Perf Spect-Multi Procedure: Patient exercised on a standard Bijan protocol and at peak HR was injected with 32.8 mCi of cardiolyte. Multiple tomographic images were obtained. These are of good quality. There is no perfusion defect with stress imaging. A separate resting images were obtained after injected with 10.3 mCi of cardiolyte. Multiple tomogarphic images were obtained. These are of good quality. There is no perfusion defect with rest imaging. CONCLUSION Conclusion: 1. Normal myocardial perfusion imaging demonstrating no perfusion defects with stress or rest imaging. 2. No evidence of reversible ischemia. 3. Left ventriculogram demonstrates normal measured ejection fraction of 79% with no wall motion abnormalities. 4. TID score 0.93 is normal.
--- OUTSIDE RECORDS SUMMARY | 2024-07-24 18:19 | XMS_ITS | Clinical Summary ---
Author Organization [facility] Address [facility] [place] [address] Care Team Providers Care Supervisor Braiding Name Role Phone Elvira Bruner MD Unavailable [phone] Andrei Mora MD Primary Care Provider [phone] Allergies Active Allergy Reactions Criticality Noted Date Comments Ondansetron Nausea & Vomiting,Na usea And Vomiting Low 04/21/2023 Cold sweats Medications silver sulfadiazine (SILVADENE, SSD) 1 % cream FOR RADIATION DERMATITIS APPLY TO AFFECTED AREA OF SKIN 3 TIMES DAILY UNTIL HEALED. 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 Gender Identity Not on file Sexual Orientation Not on file Obstetrics History Comments LMP: 11/2022 Last Filed Vital Signs Vital Sign Reading Time Taken Comments Blood Pressure 137/77 05/07/2023 2:20 PM CDT Pulse 79 05/07/2023 2:20 PM CDT Temperature 36.2 ??C (97.2 ??F) 05/07/2023 12:55 PM C DT Respiratory Rate 9 05/07/2023 2:20 PM CDT Oxygen Saturation 96% 05/07/2023 2:20 PM CDT Inhaled Oxygen Concentration - - Weight 43.1 kg (95 lb) 09/25/2023 8:19 AM FIELD MARKETING LEAD Height 149.9 cm (4' 11 ) 09/25/2023 8:19 AM FIELD MARKETING LEAD Body Mass Index 19.19 09/25/2023 8:19 AM FIELD MARKETING LEAD Plan of Treatment Health Maintenance Due Date Last Done Comments Cervical Cancer Screening 1975 Colon Cancer Screening-Colonoscopy 1975 Depression Screening 1975 Hepatitis C Screening 1975 Pneumococcal vaccine <65 (1 of 2 - PCV) 1979 DTaP/Tdap/Td Vaccine (1 - Tdap) 1984 Hepatitis B Screening 1991 Regular Well Visit/Exam 18-64 1991 Zoster Vaccine (1 of 2) 1992 Influenza Vaccine (#1) 2024 Breast Cancer Screening-Mammogram 09/25/2024 024 Medical Devices Implanted Type Area Drug Department Worker Device Identifier Shelf Expiration Date Model / Serial / Lot Finale [employer] Marker Tissue Needle Delivery Spiral Capped Seed Radiop[employer] Home Stainless Steel Low Nickel Sentimag [id number] - [id number] Implanted:Qty: 1 on 05/07/[address] [facility] Left: Breast Finale [employer] [id number] 11/30/2026 [id number] Procedures Procedure Name Priority Date/Time Associated Diagnosis Comments DIAGNOSTIC MAMMOGRAM BILATERAL W KEY Schedule Routine, Read Routine (OP Routine) 09/25/2023 10:19 AM FIELD MARKETING LEAD Malignant neoplasm of left female breast, unspecified estrogen receptor status, unspecified site of breast (HCC) from Last 3 Months or Most Recently Relevant to Health Maintenance Results * Diagnostic Mammogram Bilateral W Key (09/25/2023 10:19 AM FIELD MARKETING LEAD) Anatomical Region Laterality Modality Breast Bilateral Mammography 09/25/2023 10:2 2 AM FIELD MARKETING LEAD Impressions 09/25/2023 11:02 AM FIELD MARKETING LEAD 1. ??Interval changes of LEFT breast conservation therapy. 2. ??No mammographic evidence of malignancy in EITHER breast. ?? OVERALL FINAL ASSESSMENT: BI-RADS Category 2: Benign. RECOMMENDATION: 1. Annual diagnostic mammography is recommended. 2. Breast MRI should also be considered for supplemental imaging surveillance given personal history of breast cancer and/or dense breast tissue. 3. Clinical follow-up for left breast swelling/redness is recommended. Dictated by: Lindsey Pal MD, PhD. The radiology attending physician has personally reviewed this study, and had reviewed and/or edited this written report and agrees with it. Electronically signed by: Leatha Arreguin M.D. 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 COMPARISON: MRI breast bilateral 04/13/2023, diagnostic mammogram left 04/13/2023, and multiple priors. TECHNIQUE: ??Full field digital mammographic views of BOTH breasts were performed, including computer aided detection (CAD) and BILATERAL digital breast tomosynthesis (DBT). BREAST PARENCHYMAL COMPOSITION: The breasts are extremely dense, which lowers the sensitivity of mammography. MAMMOGRAM FINDINGS: There are interval posttreatment changes of LEFT breast conservation therapy. The skin of the left breast is mildly thickened compared to prior studies, likely related to radiation treatment. There is 2 questioned asymmetries within the upper and central right breast at posterior depth which disperses on spot compression images and appear stable mammographically. ??There is no new suspicious mass, grouped calcifications, architectural distortion noted within either breast. ? 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 COMPARISON: MRI breast bilateral 04/13/2023, diagnostic mammogram left 04/13/2023, and multiple priors. TECHNIQUE: Full field digital mammographic views of BOTH breasts were performed, including computer aided detection (CAD) and BILATERAL digital breast tomosynthesis (DBT). BREAST PARENCHYMAL COMPOSITION: The breasts are extremely dense, which lowers the sensitivity of mammography. MAMMOGRAM FINDINGS: There are interval posttreatment changes of LEFT breast conservation therapy. The skin of the left breast is mildly thickened compared to prior studies, likely related to radiation treatment. There is 2 questioned asymmetries within the upper and central right breast at posterior depth which disperses on spot compression images and appear stable mammographically. There is no new suspicious mass, grouped calcifications, architectural distortion noted within either breast. IMPRESSION: 1. Interval changes of LEFT breast conservation therapy. 2. No mammographic evidence of malignancy in EITHER breast. OVERALL FINAL ASSESSMENT: BI-RADS Category 2: Benign. RECOMMENDATION: 1. Annual diagnostic mammography is recommended. 2. Breast MRI should also be considered for supplemental imaging surveillance given personal history of breast cancer and/or dense breast tissue. 3. Clinical follow-up for left breast swelling/redness is recommended. Dictated by: Lindsey Pal MD, PhD. The radiology attending physician has personally reviewed this study, and had reviewed and/or edited this written report and agrees with it. Electronically signed by: Leatha Arreguin M.D. Keyla Lucio NP IMG MAMMO PROCEDURES Final Result from Last 3 Months or Most Recently Relevant to Health Maintenance Insurance AETNA SIG [id number] AETNA SIG [id number] Member Subscriber Plan / Payer ( fective 2023-Present) Name:Mattie Peace Relation to Subscriber:Self Name:Mattie Peace Payer ID:[id number] (NAIC) Type:AETNA HMO/PPO Address: [place] [phone] Care Teams Supervisor Braiding Relationship Specialty Start Date End Date Andrei Mora MD [address] [place], [place] [id number] PCP - General Internal Medicine 09/23/23 Elvira Bruner MD [address] [place] [address] Referring Physician Gynecology 03/11/23
--- OUTSIDE RECORDS SUMMARY | 2024-07-24 18:19 | XMS_ITS | Referral Summary ---
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 Gender Identity Not on file Sexual Orientation Not on file Last Filed Vital Signs Vital Sign Reading Time Taken Comments Blood Pressure 137/77 05/07/2023 2:20 PM CDT Pulse 79 05/07/2023 2:20 PM CDT Temperature 36.2 ??C (97.2 ??F) 05/07/2023 12:55 PM C DT Respiratory Rate 9 05/07/2023 2:20 PM CDT Oxygen Saturation 96% 05/07/2023 2:20 PM CDT Inhaled Oxygen Concentration - - Weight 43.1 kg (95 lb) 09/25/2023 8:19 AM BEAN PICKER MACHINE OPERATOR Height 149.9 cm (4' 11 ) 09/25/2023 8:19 AM BEAN PICKER MACHINE OPERATOR Body Mass Index 19.19 09/25/2023 8:19 AM BEAN PICKER MACHINE OPERATOR Plan of Treatment Not on file Medical Devices Implanted Type Area Gem Expert Device Identifier Shelf Expiration Date Model / Serial / Lot Rayspan Marker Tissue Needle Delivery Spiral Capped Seed Radiopaque Nursing Home Stainless Steel Low Nickel Sentimag [id number] - [id number] Implanted:Qty: 1 on 05/07/2023 at [facility] Left: Breast R[employer]pan [id number] 11/30/2026 [id number] / / [id number] Procedures Procedure Name Priority Date/Time Associated Diagnosis Comments DIAGNOSTIC MAMMOGRAM BILATERAL W KEY Schedule Routine, Read Routine (OP Routine) 09/25/2023 10:19 AM BEAN PICKER MACHINE OPERATOR Malignant neoplasm of left female breast, unspecified estrogen receptor status, unspecified site of breast (HCC) from Last 3 Months or Most Recently Relevant to Health Maintenance Results * Diagnostic Mammogram Bilateral W Key (09/25/2023 10:19 AM BEAN PICKER MACHINE OPERATOR) Anatomical Region Laterality Modality Breast Bilateral Mammography 09/25/2023 10:2 2 AM BEAN PICKER MACHINE OPERATOR Impressions 09/25/2023 11:02 AM BEAN PICKER MACHINE OPERATOR 1. ??Interval changes of LEFT breast conservation [...] Leatha Arreguin M.D. Narrative 09/25/2023 11:02 AM BEAN PICKER MACHINE OPERATOR EXAMINATION: BILATERAL DIGITAL DIAGNOSTIC MAMMOGRAM INCLUDING CAD [...] Most Recently Relevant to Health Maintenance Insurance [facility] SIG [id number] AETNA SIG [id number] Care Teams Home Health Care Provider Relationship Specialty Start Date End Date Andrei Mora MD [address] [place], [place] [id number] PCP - General Internal Medicine 09/23/23 Elvira Bruner MD [address] [place], [place] [id number] Referring Physician Gynecology 03/11/23
--- OUTSIDE RECORDS SUMMARY | 2024-07-24 18:20 | XMS_ITS | Encounter Summary ---
Author Organization [facility] Address [address] [facility] [address] [place] [address] Phone Care Team Providers Care Forest Scientist Name Role Phone Elvira Bruner MD Unavailable [phone] Andrei Mora MD Primary Care Provider [phone] Reason for Referral * Consultation (Routine) - Closed Specialty Diagnoses / Procedures Referred By Domenic denny Referred To Contact Surgical Oncology Diagnoses Malignant neoplasm of left breast in female, estrogen receptor positive, unspecified site of breast (HCC) Andrei Mora MD [address] [address] Phone: tel: fax: Papito Lucio, MELLISSA [address] [facility] [phone] [place] [address] Phone: tel: fax: Referral ID Status Reason Start Date Expiration Date V isits Requested Visits Authorized [id number] Closed Specialty Services Required 09/23/2023 10/22/2024 1 1 Question Answer Reason for surgical referral: Breast Please select the performing region: [facility] (All Locations) [[id number]] To provider: PAPITO LUCIO [[id number]] # of visits: 1 METALS ENGRAVER HAND Encounter Details Date Type Department Care Team (Late st Contact Info) Description 09/23/2023 Orders Only [facility] Surgery [address] [facility] 5th [place] [address] [place] [address] Andrei Mora MD [address] [place] [address] Malignant neoplasm of left breast in female, estrogen receptor positive, unspecified site of breast (HCC) (Primary Dx) Social History Tobacco Use Types Packs/Day Years [...] on file Legal Sex Female 2:40 AM SOFT 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 HAND Gender Identity Not on file Sexual Orientation Not on file documented as of this encounter Plan of Treatment Scheduled Referrals Name Type Priority Associated Diagnoses Orde r Schedule Ambulatory referral to Surgical Oncology Outpatient Referral Routine Malignant neoplasm of left breast in female, estrogen receptor positive, unspecified site of breast (HCC) Expected: 10/07/2023 (Approximate), Expires: 09/23/2024 documented as of this encounter Visit Diagnoses Diagnosis Malignant neoplasm of left breast in female, estrogen receptor positive, unspecified site of breast (HCC)- Primary documented in this encounter Care Teams Forest Scientist Relationship Specialty Start Date End Date Andrei Mora MD [address] [address] PCP - General Internal Medicine 09/23/23 Elvira Bruner MD [address] [place] [address] Referring Physician Gynecology 03/11/23 documented as of this encounter
--- OUTSIDE RECORDS SUMMARY | 2024-07-24 18:20 | XMS_ITS | Encounter Summary ---
Author Organization [facility] Address [address] [place] [address] Phone Care Team Providers Care Funeral Pre Arrangement Counselor Name Role Phone Elvira Bruner MD Unavailable [phone] Andrei Mora MD Primary Care Provider [phone] Encounter Details Date Type Department Care Team (Late st Contact Info) Description 09/29/2023 Telephone [facility] Surgery [address] [place] [address] Barbie Mcadams, LORI Social History Tobacco Use Types Packs/Day Years [...] on file Legal Sex Female 2:40 AM 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 Pt scheduled for Mar 28. Provided pt location instructions. SS TEST TECHNICIAN * Telephone Encounter - Barbie Mcadams RN - 09/29/2023 11:46 AM CST Attempted to reach pt to discuss that she is unable to get a breast MRI in 6 months at [facility] in [place], [place] because they do not have a breast MRI machine. VM left with a callback number provided. SS TEST TECHNICIAN documented in this encounter Plan of Treatment Not on file documented as of this encounter Visit Diagnoses Not on filedocumented in this encounter Care Teams Funeral Pre Arrangement Counselor Relationship Specialty Start Date End Date Andrei Mora MD [address] [place] [address] PCP - General Internal Medicine 09/23/23 Elvira Bruner MD [address] [place] [address] Referring Physician Gynecology 03/11/23 documented as of this encounter
--- OUTSIDE RECORDS SUMMARY | 2024-07-24 18:20 | XMS_ITS | Encounter Summary ---
Author Organization [facility] Address [address] [place] [address] Phone Care Team Providers Care Locomotive Engineer Name Role Phone Elvira Bruner MD Unavailable [phone] Andrei Mora MD Primary Care Provider [phone] Reason for Visit * Reason Comments Follow-up * Consultation (Routine) - Closed Specialty Diagnoses / Procedures Referred By Contac t Referred To Contact Surgical Oncology Diagnoses Malignant neoplasm of left breast in female, estrogen receptor positive, unspecified site of breast (HCC) Andrei Mora MD [address] [address] Phone: tel: fax: Keyla Lucio NP [address] [facility] [phone] [place] [address] Phone: tel: fax: Referral ID Status Reason Start Date Expiration Date V isits Requested Visits Authorized [id number] Closed Specialty Services Required 09/23/2023 10/22/2024 1 1 Encounter Details Date Type Department Care Team (Late st Contact Info) Description 09/25/2023 8:45 AM STEAM SHOVELMAN Office Visit [facility] Surgery [address] [facility] 5th [place] [address] [place] [id number] Keyla Lucio NP [address] [facility] [phone] [place] [address] Malignant neoplasm of left breast in female, estrogen receptor positive, unspecified site of breast (HCC) (Primary Dx); Breast pain; History of breast cancer; History of partial mastectomy of left breast; Dense breast tissue Social History Tobacco Use Types Packs/Day Years [...] on file Legal Sex Female 2:40 AM STEAM SHOVELMAN Gender Identity Not on file Sexual Orientation Not on file documented as of this encounter Last Filed Vital Signs Vital Sign Reading Time Taken Comments Blood Pressure - - Pulse - - Temperature - - Respiratory Rate - - Oxygen Saturation - - Inhaled Oxygen Concentration - - Weight 43.1 kg (95 lb) 09/25/2023 8:19 AM STEAM SHOVELMAN Height 149.9 cm (4' 11 ) 09/25/2023 8:19 AM STEAM SHOVELMAN Body Mass Index 19.19 09/25/2023 8:19 AM STEAM SHOVELMAN documented in this encounter Progress Notes * Keyla Lucio NP - 09/25/2023 8:45 AM CST NAME: Mattie Peace : 1975 DATE: 09/25/2023 CHIEF COMPLAINT: History of left breast cancer with reports of left breast pain and swelling. HISTORY OF PRESENT ILLNESS: Ms. Peace is a 48 y.o. woman who is now nearly 5 months status-post left mag seed localization partial mastectomy and sentinel lymph node biopsy for a left T1cN0 invasivetubular cancer. Following her surgical therapy, she did not require adjuvant chemotherapy due to a low Oncotype DX score of 18. Following her surgical therapy, she did undergo adjuvant radiation therapy. She was then initiated on Tamoxifen, which she is tolerating well. She presents today with reports of a 1 week history of left outer breast pain and swelling. Patient denies redness, warmth or skin changes of the left breast. She denies any new palpable masses in either breast. She denies any changes to the appearance of her breasts or the skin of her breasts, other than those attributed to her previous surgical and radiation therapies. She denies nipple discharge bilaterally. She has no other systemic complaints and otherwise feels well today. Please note that her past medical history, surgical history, medications, allergies, review of systems, family history, and social history were all reviewed with them again today. History reviewed. No pertinent past medical history. Past Surgical History: Procedure Laterality Date BREAST BIOPSY Left 02/24/2023 ENDOMETRIAL ABLATION 2020 Prior to Admission medications Medication Sig Start Date End Date Taking? Authorizing Provider silver sulfadiazine (SILVADENE, SSD) 1 % cream FOR RADIATION DERMATITIS APPLY TO AFFECTED AREA OF SKIN 3 TIMES DAILY UNTIL HEALED. 07/28/23 Yes Anna Abreu MD tamoxifen (NOLVADEX) 20 mg tablet 08/05/23 Yes ProviderAnna MD busPIRone (BUSPAR) 5 mg tablet TAKE 1 TABLET (5 MG) BY ORAL ROUTE 2 TIMES PER DAY NEEDED FOR ANXIETY 04/29/23 09/25/23 ProviderAnna MD oxyCODONE (ROXICODONE) 5 mg immediate release tablet Take 1 tablet (5 mg total) by mouth every 4 (four) hours as needed for pain for up to 5 doses 05/07/23 09/25/23 Key Louis MD Allergies Allergen Reactions Ondansetron Nausea & Vomiting and Nausea And Vomiting Cold sweats Social History Tobacco Use Smoking status: Never Smokeless tobacco: Never Substance and Sexual Activity Drug use: Never Sexual activity: None Alcohol Use: Not At Risk (05/07/2023) AUDIT-C Frequency of Alcohol Consumption: 2-4 times a month Average Number of Drinks: 1 or 2 Frequency of Binge Drinking: Never History reviewed. No pertinent family history. REVIEW OF SYSTEMS: Pertinent items are noted in HPI. Otherwise, a comprehensive review of systems was negative. PHYSICAL EXAMINATION: GENERAL: Well-developed, well-nourished, in no acute distress. HEENT: Within normal limits. NECK: Neck is supple without lymphadenopathy or thyromegaly. EXTREMITIES: Warm without edema. NEUROLOGICAL: Alert and oriented x 3. BREAST EXAMINATION: Bilateral breast examination reveals ptotic breasts bilaterally. The right breast is without any dominant masses, skin changes, nipple discharge, or axillary adenopathy. The left breast reveals a well-healed incision with minimal volume loss and excellent symmetry. There is a well-healed incision to the left axilla. The left breast is without any masses, nodules, skin changes,or evidence of recurrence. There is no left nipple discharge or left axillary adenopathy. IMAGING: I personally reviewed the patient's breast imaging. Today the patient underwent bilateral diagnostic mammograms, which I personally reviewed. Her imaging was assigned a BI-RADS category 2, Benign. EXAMINATION: BILATERAL DIGITAL DIAGNOSTIC MAMMOGRAM INCLUDING CAD [...] it. Electronically signed by: Leatha Arreguin M.D. IMPRESSION: Ms. Peace is a 48 y.o. woman who is now nearly 5 months status-post left mag seed localization partial mastectomy and sentinel lymph node biopsy for a left T1cN0 invasive tubular cancer.Following her surgical therapy, she did not require adjuvant chemotherapy due to a low Oncotype DX score of 18. Following her surgical therapy, she did undergo adjuvant radiation therapy. She was then initiated on Tamoxifen, which she is tolerating well. She presents today with reports of a 1 week history of left outer breast pain and swelling. Patient denies redness, warmth or skin changes of the left breast. She underwent bilateral diagnostic mammogram's today which was given a BI-RADS: Category 2, Benign. PLAN: I would like to see her back in 1 year, at which time she will be due for her clinical examination and her bilateral diagnostic mammogram/s. I would also like to follow this patient with MRI due to her history of breast cancer and dense breast tissue. We will plan on an MRI in 6 months and I will contact the patient with those results when they become available. In the interim, I encouragedher to resume self examinations on a monthly basis and to alert me of any changes. I answered all of her questions thoroughly, and she does seem pleased with this plan of approach. I encouraged her to contact me in the interim if any new questions or concerns arise. Keyla Lucio NP Portions of this note were dictated using [employer] Direct speech recognition software. Please excuse any baking powder mixer errors. M SHOVELMAN documented in this encounter Plan of Treatment Not on file documented as of this encounter Visit Diagnoses Diagnosis Malignant neoplasm of left breast in female, estrogen receptor positive, unspecified site of breast (HCC)- Primary Breast pain Mastodynia History of breast cancer Personal history of malignant neoplasm of breast History of partial mastectomy of left breast Dense breast tissue documented in this encounter Discontinued Medications Medication Sig Discontinue Reason Start Date End Da te oxyCODONE (ROXICODONE) 5 mg immediate release tabletIndications:Pain Take 1 tablet (5 mg total) by mouth every 4 (four) hours as needed for pain for up to 5 doses 05/07/2023 09/25/2023 busPIRone (BUSPAR) 5 mg tablet TAKE 1 TABLET (5 MG) BY ORAL ROUTE 2 TIMES PER DAY NEEDED FOR ANXIETY 04/29/2023 09/25/2023 documented as of this encounter Historical Medications * This list may reflect changes made after this encounter. tamoxifen (NOLVADEX) 20 mg tablet 08/05/2023 silver sulfadiazine (SILVADENE, SSD) 1 % cream FOR RADIATION DERMATITIS APPLY TO AFFECTED AREA OF SKIN 3 TIMES DAILY UNTIL HEALED. 07/28/2023 added in this encounter Orders Outpatient Referral Count Last Ordered Date Fir st Ordered Date AMB REFERRAL TO SURGICAL ONCOLOGY 1 024 documented in this encounter Care Teams Locomotive Engineer Relationship Specialty Start Date End Date Andrei Mora MD [address] [place] [address] PCP - General Internal Medicine 09/23/23 Elvira Bruner MD [address] [place] [address] Referring Physician Gynecology 03/11/23 documented as of this encounter
--- OUTSIDE RECORDS SUMMARY | 2024-07-24 18:20 | XMS_ITS | Encounter Summary ---
Author Organization [facility] Address [address] [place] [address] Care Team Providers Care Manager Erp Name Role Phone Elvira Bruner MD Unavailable [phone] Andrei Mora MD Primary Care Provider [phone] Reason for Referral * MRI/CAT/PET Scan (Routine) - Closed Specialty Diagnoses / Procedures Referred By Domenic denny Referred To Contact Radiology Diagnoses History of breast cancer Procedures MRI Breast Bilateral W WO Contrast Keyla Lucio NP [address] [facility] [phone] [place] [address] Phone: tel: fax: [address] [address] Referral ID Status Reason Start Date Expiration Date Visits Re quested Visits Authorized [id number] Closed 09/25/2023 10/24/2024 1 1 Reason for Visit * MRI/CAT/PET Scan (Routine) - Closed Specialty Diagnoses / Procedures Referred By Contac t Referred To Contact Radiology Diagnoses History of breast cancer Procedures MRI Breast Bilateral W WO Contrast Keyla Lucio NP [address] [facility] [phone] [place] [address] Phone: tel: fax: [address] [phone] Referral ID Status Reason Start Date Expiration Date Visits Re quested Visits Authorized [id number] Closed 09/25/2023 10/24/2024 1 1 Encounter Details Date Type Department Care Team (Latest Contact Info) Description 04/21/2024 8:15 AM CDT - 04/21/2024 11:59 PM CDT Hospital Encounter [facility] [address] [place] [address] History of breast cancer Discharge Disposition: Discharge to home or self care Social History Tobacco Use Types Packs/Day Years [...] on file Legal Sex Female 2:40 AM CHECKMAN Gender Identity Not on file Sexual Orientation Not on file documented as of this encounter Medications at Time of Discharge silver sulfadiazine (SILVADENE, SSD) 1 % cream FOR RADIATION DERMATITIS APPLY TO AFFECTED AREA OF SKIN 3 TIMES DAILY UNTIL HEALED. 07/28/2023 tamoxifen (NOLVADEX) 20 mg tablet 08/05/2023 documented as of this encounter Discharge Disposition Disposition Code Departure Means Destination Discharge to home or self care documented in this encounter Plan of Treatment Not on file documented as of this encounter Procedures Procedure Name Priority Date/Time Associated Diagnosis Comments MRI BREAST BILATERAL W WO CONTRAST Schedule Routine, Read Routine (OP Routine) 04/21/2024 9:19 AM CDT History of breast cancer documented in this encounter Results * MRI Breast Bilateral W WO Contrast (04/21/2024 9:19 AM CDT) Anatomical Region Laterality Modality Breast Bilateral Magnetic Resonan ce 04/21/2024 9:52 AM CDT Impressions 04/21/2024 10:01 AM CDT 1. ??No evidence of malignancy in either breast. 2. ??Posttreatment changes of breast conservation therapy of the left breast. OVERALL FINAL ASSESSMENT: BI-RADS Category 2: Benign. RECOMMENDATION: Annual screening mammography and breast MRI are recommended. Dictated by: Colby Hernandez D.O. The radiology attending physician has personally reviewed this study, and had reviewed and/or edited this written report and agrees with it. Electronically signed by: Tono Olea MD Narrative 04/21/2024 10:01 AM CDT EXAMINATION: 1. MRI EXAMINATION OF THE BREASTS WITH AND WITHOUT CONTRAST 2. 3D POST PROCESSING ON A DEDICATED 3D WORKSTATION HISTORY: High-risk Screening. ??49-year-old woman presents for high-risk screening with past medical history of invasive ductal carcinoma of the left breast status post breast conservation treatment in 2022. ?? DATE OF LAST MENSTRUAL PERIOD: [Postmenopausal] TECHNIQUE: MRI examination of the breasts per breast tumor protocol with and without gadolinium contrast. ??A dedicated breast imaging coil was used. ??The images were transferred to a breast CAD system for 3D post processing and contrast kinetics analysis. ?? CONTRAST: Gadoterate meglumine, 8 ml COMPARISON: MRI breast 04/13/2023 Multiple prior studies, most recently 09/25/2023 and dating back to 02/01/2018. BREAST COMPOSITION: Heterogeneous fibroglandular tissue BACKGROUND PARENCHYMAL ENHANCEMENT: Mild FINDINGS: No suspicious mass or non-mass enhancement of either breast. ??Post treatment changes of breast conservation therapy of the left posterior inner upper breast. No abnormally enlarged lymph nodes are identified in the visualized portions of either axilla. Procedure Note Tono Olea MD - 04/21/2024 EXAMINATION: 1. MRI EXAMINATION OF THE BREASTS WITH AND WITHOUT CONTRAST 2. 3D POST PROCESSING ON A DEDICATED 3D WORKSTATION HISTORY: High-risk Screening. 49-year-old woman presents for high-risk screening with past medical history of invasive ductal carcinoma of the left breast status post breast conservation treatment in 2022. DATE OF LAST MENSTRUAL PERIOD: [Postmenopausal] TECHNIQUE: MRI examination of the breasts per breast tumor protocol with and without gadolinium contrast. A dedicated breast imaging coil was used. The images were transferred to a breast CAD system for 3D post processing and contrast kinetics analysis. CONTRAST: Gadoterate meglumine, 8 ml COMPARISON: MRI breast 04/13/2023 Multiple prior studies, most recently 09/25/2023 and dating back to 02/01/2018. BREAST COMPOSITION: Heterogeneous fibroglandular tissue BACKGROUND PARENCHYMAL ENHANCEMENT: Mild FINDINGS: No suspicious mass or non-mass enhancement of either breast. Post treatment changes of breast conservation therapy of the left posterior inner upper breast. No abnormally enlarged lymph nodes are identified in the visualized portions of either axilla. IMPRESSION: 1. No evidence of malignancy in either breast. 2. Posttreatment changes of breast conservation therapy of the left breast. OVERALL FINAL ASSESSMENT: BI-RADS Category 2: Benign. RECOMMENDATION: Annual screening mammography and breast MRI are recommended. Dictated by: Colby Hernandez D.O. The radiology attending physician has personally reviewed this study, and had reviewed and/or edited this written report and agrees with it. Electronically signed by: Tono Olea MD Keyla Lucio NP IMG MRI PROCEDURES Final R esult documented in this encounter Visit Diagnoses Diagnosis History of breast cancer Personal history of malignant neoplasm of breast documented in this encounter Administered Medications Inactive Administered Medications - up to 3 most recent administrations Medication Order MAR Action Action Date Dose Rate Site gadoterate meglumine injection 8 mL 8 mL, intravenous, Once in imaging, contrast, Starting on Seema 04/21/24 at 0906, For 1 dose Contrast Given 04/21/2024 9:07 AM CDT 8 mL documented in this encounter Orders Medications Ordered That Matt ht Not Have Been Administered Count Last Ordered Date First Ordered Date gadoterate meglumine injection 8 mL 1 04/21 documented in this encounter Care Teams Manager Erp Relationship Specialty Start Date End Date Andrei Mora MD [address] [facility] [address] [place] [address] PCP - General Internal Medicine 09/23/23 Elvira Bruner MD [address] [address] Referring Physician Gynecology 03/11/23 documented as of this encounter
--- OUTSIDE RECORDS SUMMARY | 2024-07-24 18:20 | XMS_ITS | Encounter Summary ---
Author Organization [facility] Address [address] [place] [address] Phone Care Team Providers Care Data Operations Director Name Role Phone Elvira Bruner MD Unavailable [phone] Andrei Mora MD Primary Care Provider [phone] Reason for Referral * MRI/CAT/PET Scan (Routine) - Closed Specialty Diagnoses / Procedures Referred By Domenic denny Referred To Contact Radiology Diagnoses History of breast cancer Procedures MRI Breast Bilateral W WO Contrast Keyla Lucio NP [address] [facility] [phone] [place] [address] Phone: tel: fax: [address] [phone] Referral ID Status Reason Start Date Expiration Date Visits Re quested Visits Authorized [id number] Closed 09/25/2023 10/24/2024 1 1 FACTURERS AGENT * Diagnostic Imaging (Routine) - Authorized Specialty Diagnoses / Procedures Referred By Domenic denny Referred To Contact Diagnoses History of breast cancer Procedures Diagnostic Mammogram Bilateral W Ujstus Keyla Lucio NP [address] [facility] [phone] [place] [address] Phone: tel: fax: [facility] [address] [facility] [place] [address] Referral ID Status Reason Start Date Expiration Date V isits Requested Visits Authorized [id number] Authorized 09/25/2023 10/24/2024 1 1 FACTURERS AGENT Encounter Details Date Type Department Care Team (Late st Contact Info) Description 09/25/2023 Orders Only [facility] Surgery [address] [facility] 5th [place] [address] [place] [address] Keyla Lucio NP [address] [facility] [phone] [place], [place] [id number] History of breast cancer (Primary Dx) Social History Tobacco Use Types [...] on file Legal Sex Female 2:40 AM MANUFACTURERS AGENT Gender Identity Not on file Sexual Orientation Not on file documented as of this encounter Plan of Treatment Scheduled Orders Name Type Priority Associated Diagnoses Orde r Schedule Diagnostic Mammogram Bilateral W Justus Imaging Schedule Routine, Read Routine (OP Routine) History of breast cancer Expected: 09/25/2023, Expires: 03/25/2025 documented as of this encounter Results * MRI Breast Bilateral [...] signed by: Tono Olea MD Keyla Lucio NOVELTY CHAIN MAKER IMG MRI PROCEDURES Final R esult documented in this encounter Visit Diagnoses Diagnosis History of breast cancer- Primary Personal history of malignant neoplasm of breast History of breast cancer Personal history of malignant neoplasm of breast documented in this encounter Care Teams Data Operations Director Relationship Specialty Start Date End Date Andrei Mora MD [address] [place] [address] PCP - General Internal Medicine 09/23/23 Elvira Bruner MD [address] [place] [address] Referring Physician Gynecology 03/11/23 documented as of this encounter
--- OUTSIDE RECORDS SUMMARY | 2024-07-24 18:20 | XMS_ITS | Encounter Summary ---
Author Organization [facility] Address [address] [place] [address] Care Team Providers Care Wheel Fitter Name Role Phone Elvira Bruner MD Unavailable [phone] Andrei Mora MD Primary Care Provider [phone] Reason for Referral * Diagnostic Imaging (Routine) - Closed Specialty Diagnoses / Procedures [facility] Referred To Contact Diagnoses Malignant neoplasm of left female breast, unspecified estrogen receptor status, unspecified site of breast (HCC) Procedures Diagnostic Mammogram Bilateral W Keyla Romeo NP [address] [facility] [phone] [place] [address] Phone: tel: fax: [facility] [address] [place] [address] Referral ID Status Reason Start Date Expiration Date Visits Re quested Visits Authorized [id number] Closed 09/23/2023 10/22/2024 1 1 [facility] Reason for Visit * Diagnostic Imaging (Routine) - Closed Specialty Diagnoses / Procedures Referred By [facility] Referred To Contact Diagnoses Malignant neoplasm of left female breast, unspecified estrogen receptor status, unspecified site of breast (HCC) Procedures Diagnostic Mammogram Bilateral W Keyla Romeo NP [address] [facility] [phone] [place] [address] Phone: tel: fax: [facility] [address] [facility] [place] [address] Referral ID Status Reason Start Date Expiration Date Visits Re quested Visits Authorized [id number] Closed 09/23/2023 10/22/2024 1 1 Encounter Details Date Type Department Care Team (Latest Contact Info) Description 09/25/2023 8:59 AM GARDEN CENTER MANAGER - 09/25/2023 11:59 PM GARDEN CENTER MANAGER Hospital Encounter [facility] Breast [facility] [address] [place] [address] Malignant neoplasm of left female breast, unspecified estrogen receptor status, unspecified site of breast (HCC) Discharge Disposition: Discharge to home or self [...] on file Legal Sex Female 2:40 AM GARDEN CENTER MANAGER Gender Identity Not on file Sexual Orientation [...] Read Routine (OP Routine) 09/25/2023 10:19 AM GARDEN CENTER MANAGER Malignant neoplasm of left female breast, unspecified estrogen receptor status, unspecified site of breast (HCC) documented in this encounter Results * Diagnostic Mammogram Bilateral W Key (09/25/2023 10:19 AM GARDEN CENTER MANAGER) Anatomical Region Laterality Modality Breast Bilateral Mammography 09/25/2023 10:2 2 AM GARDEN CENTER MANAGER Impressions 09/25/2023 11:02 AM GARDEN CENTER MANAGER 1. ??Interval changes of LEFT breast conservation [...] Leatha Arreguin M.D. Narrative 09/25/2023 11:02 AM GARDEN CENTER MANAGER EXAMINATION: BILATERAL DIGITAL DIAGNOSTIC MAMMOGRAM INCLUDING CAD [...] Lucio NP IMG MAMMO PROCEDURES Final Result documented in this encounter Visit Diagnoses Diagnosis Malignant neoplasm of left female breast, unspecified estrogen receptor status, unspecified site of breast (HCC) documented in this encounter Care Teams Wheel Fitter Relationship Specialty Start Date End Date Andrei Mora MD [address] [address] PCP - General Internal Medicine 09/23/23 Elvira Bruner MD [address] [place], [place] [address] Referring Physician Gynecology 03/11/23 documented as of this encounter
--- OUTSIDE RECORDS SUMMARY | 2024-07-24 18:20 | XMS_ITS | Encounter Summary ---
Author Organization [facility] Address [address] [place] [address] Phone Care Team Providers Care Component Inspector Name Role Phone Elvira Bruner MD Unavailable [phone] No, Physician Primary Care Provider [phone] Reason for Visit * Reason Onset Date Comments Referral Request 05/20/2023 Encounter Details Date Type Department Care Team (Late st Contact Info) Description 05/20/2023 Telephone [facility] Surgery [facility] 5th [place] [address] [place] [address] Tamy Walton Referral Request Social History Tobacco Use Types Packs/Day Years [...] on file Legal Sex Female 2:40 AM FAMILY CONSUMER SCIENCE FCS TEACHER Gender Identity Not on file Sexual Orientation Not on file documented as of this encounter Miscellaneous Notes * Telephone Encounter - Akiko Hurley RN - 05/22/2023 9:41 AM CDT Referral already placed on 05/18/23 and in chart. Faxed to [phone] * Telephone Encounter - Tamy Walton - 05/20/2023 9:52 AM CDT Elvira from Dr Hurtado's office called in regards to Ms Nata. She stated the pt would need a ref from our office so the pt can be seen my Med onc. Their fax number is: [phone] documented in this encounter Plan of Treatment Not on file documented as of this encounter Visit Diagnoses Not on filedocumented in this encounter Care Teams Component Inspector Relationship Specialty Start Date End Date No, Physician PCP - General 03/11/23 09/22/23 Elvira Bruner MD [address] [address] Referring Physician Gynecology 03/11/23 documented as of this encounter
--- OUTSIDE RECORDS SUMMARY | 2024-07-24 18:20 | XMS_ITS | Encounter Summary ---
Author Organization [facility] Address [address] [place] [address] Phone Care Team Providers Care Red [employer] Executive Director Name Role Phone Elvira Bruner MD Unavailable [phone] Andrei Mora MD Primary Care Provider [phone] Encounter Details Date Type Department Care Team (Late st Contact Info) Description 09/23/2023 Telephone [facility] Surgery [address] [facility] 5th [place] [address] [place] [address] Babrie Mcadams, LORI Social History Tobacco Use Types [...] on file 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 Discussed that this could be related to her radiation and per the advisement of Marcie Aparicio NP: The swelling and tenderness is quite common following radiation (and sometimes can be ongoing). I would recommend the same - good compression/sports bra [id number]. We can certainly see her yandy examination if she would like reassurance. She is scheduled for her appt in November. She will needbilateral diagnostic mammograms. Pt wants to be seen and has been wearing the compression/sports bra [id number]. Pt scheduled to see Keyla Lucio NP on 09/25/23 at 8:45 am [address] and will have a bilateral diagnostic mammogram to follow at 10:00 am. Pt understands and has no questions at this time. YER documented in this encounter Plan of Treatment Not on file documented as of this encounter Visit Diagnoses Not on filedocumented in this encounter Care Teams Red Cross Executive Director Relationship Specialty Start Date End Date Andrei Mora MD [address] [place] [address] PCP - General Internal Medicine 09/23/23 Elvira Bruner MD [address] [place] [address] Referring Physician Gynecology 03/11/23 documented as of this encounter
--- OUTSIDE RECORDS SUMMARY | 2024-07-24 18:20 | XMS_ITS | Encounter Summary ---
Author Organization [facility] Address [address] [place] [address] Phone Care Team Providers Care Sous Chef Kitchen Manager Name Role Phone Elvira Bruner MD Unavailable [phone] No, Physician Primary Care Provider [phone] Encounter Details Date Type Department Care Team (Late st Contact Info) Description 09/21/2023 Telephone [facility] 5th [place] [address] [place] [address] Barbie Mcadams, RN Social History Tobacco Use Types Packs/Day Years [...] on file 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 Informed thatthe pain is towards her left axilla. She denies any redness, warmth, or signs of infection. She completed her radiation prior to [facility]. Discussed with pt to upload images to evaluate the swelling. Discussed wearing a compressive bra and to also sleep in a sports bra. Discussed that after the images are viewed we will determine the next steps including a follow-up and imaging. Pt understands and has no questions at this time. AGE MAKER documented in this encounter Plan of Treatment Not on file documented as of this encounter Visit Diagnoses Not on filedocumented in this encounter Care Teams Sous Chef Kitchen Manager Relationship Specialty Start Date End Date No, Physician PCP - General 03/11/23 09/22/23 Elvira Bruner MD [address] [facility] [address] [place] [address] Referring Physician Gynecology 03/11/23 documented as of this encounter
--- OUTSIDE RECORDS SUMMARY | 2024-07-24 18:20 | XMS_ITS | Encounter Summary ---
Author Organization [facility] Address [address] [facility] [address] [place] [address] Phone Care Team Providers Care Hearing Aid Dispenser Name Role Phone Elvira Bruner MD Unavailable [phone] Andrei Mora MD Primary Care Provider [phone] Reason for Referral * Diagnostic Imaging (Routine) - Closed Specialty Diagnoses / Procedures Referred By Domenic denny Referred To Contact Diagnoses Malignant neoplasm of left female breast, unspecified estrogen receptor status, unspecified site of breast (HCC) Procedures Diagnostic Mammogram Bilateral W Keyla Romeo NP [address] [facility] [id number] [place] [address] Phone: tel: fax: [facility] [address] [place] [address] Referral ID Status Reason Start Date Expiration Date Visits Re quested Visits Authorized [id number] Closed 09/23/2023 10/22/2024 1 1 H MANAGER Encounter Details Date Type Department Care Team (Late st Contact Info) Description 09/23/2023 Orders Only [facility] Surgery [address] [facility] 5th [place] [address] [place] [address] Abbe, Barbie, RN Malignant neoplasm of left female breast, unspecified estrogen receptor status, unspecified site of breast (HCC) (Primary Dx) [...] on file 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 ??Interval changes of LEFT breast [...] Leatha Arreguin M.D. Narrative 09/25/2023 11:02 AM BOOTH MANAGER EXAMINATION: BILATERAL DIGITAL DIAGNOSTIC MAMMOGRAM INCLUDING [...] signed by: Leatha Arreguin M.D. Keyla Lucio MINER OPERATOR IMG MAMMO PROCEDURES Final Result documented in this encounter Visit Diagnoses Diagnosis Malignant neoplasm of left female breast, unspecified estrogen receptor status, unspecified site of breast (HCC)- Primary Malignant neoplasm of left female breast, unspecified estrogen receptor status, unspecified site of breast (HCC) documented in this encounter Care Teams Hearing Aid Dispenser Relationship Specialty Start Date End Date Andrei oMra MD [address] [place] [address] PCP - General Internal Medicine 09/23/23 Elvira Bruner MD [address] [place], [place] [id number] Referring Physician Gynecology 03/11/23 documented as of this encounter
--- OUTSIDE RECORDS SUMMARY | 2024-07-24 18:21 | XMS_ITS | Encounter Summary ---
Author Organization [facility] Address [address] [place] [address] Phone Care Team Providers Care Fur Polisher Name Role Phone Elvira Bruner MD Unavailable [phone] No, Physician Primary Care Provider [phone] Reason for Referral * Diagnostic Imaging (Routine) - Closed Specialty Diagnoses / Procedures Referred By Contac t Referred To Contact Procedures Breast Imaging Procedure Outside Consult Breast Imaging DX Outside Consult Dulce Powell MD PhD [address] [place] [address] Phone: tel: fax: [facility] Referral ID Status Reason Start Date Expiration Date Visits Re quested Visits Authorized [id number] Closed 03/12/2023 04/10/2024 1 1 * Diagnostic Imaging (Routine) - Closed Specialty Diagnoses / Procedures Referred By Contac t Referred To Contact Diagnoses Malignant neoplasm of left female breast, unspecified estrogen receptor status, unspecified site of breast (HCC) Procedures US Breast Left Limited Dulce Powell MD PhD [address] [place] [address] Phone: tel: fax: [address] [address] Referral ID Status Reason Start Date Expiration Date Visits Re quested Visits Authorized [id number] Closed 03/12/2023 04/10/2024 1 1 Encounter Details Date Type Department Care Team (Late st Contact Info) Description 03/12/2023 Orders Only [facility] Surgery [address] [facility] 5th [place] [address] Dulce Powell MD PhD [address] [place] [address] Malignant neoplasm of left female breast, unspecified estrogen receptor status, unspecified site of breast (HCC) (Primary Dx) Social History Tobacco Use Types Packs/Day Years Used Date Smoking Tobacco: Never Assessed Comments Unknown Sex and Gender Information Value Date Recorded Sex Assigned at Not on file 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 ??Irregular 0.9 cm spiculated mass within the left breast at the 10 o'clock position, 7 cm from the nipple with coil-shaped tissue marker, consistent with biopsy-proven malignancy. 2. ??Grouped calcifications within the upper, outer left breast, stable dating back to 10/08/2021. Recommend attention to this area on subsequent MRI. 3. ??No sonographic evidence of left axillary adenopathy. OVERALL FINAL ASSESSMENT: BI-RADS Category 6: Known Biopsy-Proven Malignancy. RECOMMENDATION: 1. ??Further evaluation with staging MRI is recommended. 2. ??Continued surgical/oncological management of patient's biopsy-proven left breast malignancy. Dictated by: Heide Ramires MD The radiology attending physician has personally reviewed this study, and had reviewed and/or edited this written report and agrees with it. Electronically signed by: Leatha Arreguin M.D. 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 ??The patient presents for repeat left breast diagnostic mammography to confirm position of the biopsy marker and for a left axillary ultrasound to evaluate for mandi disease. COMPARISON: Mammograms dated 02/24/2023, 01/22/2023, 10/20/2021 TECHNIQUE: ?? Full field digital mammographic views of the LEFT breast were performed, including computer aided detection (CAD) and digital breast tomosynthesis (DBT). Directed ultrasound evaluation of the LEFT axilla was performed. BREAST PARENCHYMAL COMPOSITION: The breasts are heterogenously dense, which may obscure small masses. MAMMOGRAM FINDINGS: There is a irregular high density 0.8 cm mass with spiculated margins within the upper left breast at a far posterior depth, not visualized on the craniocaudal view with increased internal coil-shaped tissue marker clip. ??There are grouped calcifications within the upper, outer left breast, stable dating back to 10/08/2021. SONOGRAM FINDINGS: Targeted sonogram the left upper, inner breast and left axilla was performed. Targeted sonographic images in the left axilla demonstrate multiple benign-appearing lymph nodes with normal cortical thickness and maintained fatty hilum. In the left breast at the 10 o'clock position, 7 cm from the nipple, there is a 0.9 x 0.5 x 0.6 cm irregular hypoechoic mass with surrounding hyperechoic rim with indistinct and angular margins and echogenic marker along the posterior margin, consistent with biopsy-proven malignancy. ??There is an adjacent hypoechoic mass measuring up to 2.1 cm, most likely representing a postbiopsy hematoma. 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 The patient presents for repeat left breast diagnostic mammography to confirm position of the biopsy marker and for a left axillary ultrasound to evaluate for mandi disease. COMPARISON: Mammograms dated 02/24/2023, 01/22/2023, 10/20/2021 TECHNIQUE: Full field digital mammographic views of the LEFT breast were performed, including computer aided detection (CAD) and digital breast tomosynthesis (DBT). Directed ultrasound evaluation of the LEFT axilla was performed. BREAST PARENCHYMAL COMPOSITION: The breasts are heterogenously dense, which may obscure small masses. MAMMOGRAM FINDINGS: There is a irregular high density 0.8 cm mass with spiculated margins within the upper left breast at a far posterior depth, not visualized on the craniocaudal view with increased internal coil-shaped tissue marker clip. There are grouped calcifications within the upper, outer left breast, stable dating back to 10/08/2021. SONOGRAM FINDINGS: Targeted sonogram the left upper, inner breast and left axilla was performed. Targeted sonographic images in the left axilla demonstrate multiple benign-appearing lymph nodes with normal cortical thickness and maintained fatty hilum. In the left breast at the 10 o'clock position, 7 cm from the nipple, there is a 0.9 x 0.5 x 0.6 cm irregular hypoechoic mass with surrounding hyperechoic rim with indistinct and angular margins and echogenic marker along the posterior margin, consistent with biopsy-proven malignancy. There is an adjacent hypoechoic mass measuring up to 2.1 cm, most likely representing a postbiopsy hematoma. IMPRESSION: 1. Irregular 0.9 cm spiculated mass within the left breast at the 10 o'clock position, 7 cm from the nipple with coil-shaped tissue marker, consistent with biopsy-proven malignancy. 2. Grouped calcifications within the upper, outer left breast, stable dating back to 10/08/2021. Recommend attention to this area on subsequent MRI. 3. No sonographic evidence of left axillary adenopathy. OVERALL FINAL ASSESSMENT: BI-RADS Category 6: Known Biopsy-Proven Malignancy. RECOMMENDATION: 1. Further evaluation with staging MRI is recommended. 2. Continued surgical/oncological management of patient's biopsy-proven left breast malignancy. Dictated by: Heide Ramires MD The radiology attending physician has personally reviewed this study, and had reviewed and/or edited this written report and agrees with it. Electronically signed by: Leatha Arreguin M.D. us Dulce Powell MD PhD IMG MAMMO PROCEDURES Final Result * Breast Imaging Procedure Outside Consult (04/09/2023 8:03 PM CDT) Anatomical Region Laterality Modality Breast N/A Mammography 04/10/2023 8:40 AM CDT Impressions 04/10/2023 8:53 AM CDT Irregular spiculated mass within the left breast at the 10 o'clock position 7 cm from the nipple corresponds to subsequently biopsy-proven invasive ductal carcinoma. ??Recommend left axillary ultrasound for evaluation of mandi disease as well as breast MRI to evaluate the extent of disease given the far posterior location of this mass. ??Additionally, repeat left breast diagnostic mammography is recommended to evaluate the position of the clip which was not seen on postbiopsy mammography. The method of initial detection of finding was patient-reported clinical symptom (Pat). OVERALL FINAL ASSESSMENT: BI-RADS Category 0: Incomplete - Need Prior Mammograms for Comparison. RECOMMENDATION: 1. ??Left axillary ultrasound to evaluate for mandi disease. ??This was not obtained at outside facility. 2. ??Breast MRI to evaluate for extent of disease given the far posterior location of the left breast mass and breast density. 3. ??Left breast diagnostic mammography to confirm position of the biopsy marker. ??This was not obtained at outside facility. NOTE: The findings, conclusions and recommendations within this report do not replace the initial findings, conclusions and recommendations made at the facility where the study was performed based upon the imaging and clinical condition at that time. ??Review of the prior report and correlation with the clinical history are necessary. The provided images may or may not represent the [place] source data set and thus may contain changes which may lower the sensitivity of the second opinion interpretation. Dictated by: José Miguel Syed MD The radiology attending physician has personally reviewed this study, and had reviewed and/or edited this written report and agrees with it. Electronically signed by: MD Cheri SERNA 04/10/2023 8:53 AM CDT EXAMINATION: REVIEW AND INTERPRETATION OF OUTSIDE IMAGING FACILITY PERFORMING OUTSIDE IMAGING: [facility] EXAM(S) REVIEWED: 1. ??BILATERAL DIAGNOSTIC MAMMOGRAM WITH TOMOSYNTHESIS, 01/22/2023 2. 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 COMPARISON: 10/08/2021 BREAST PARENCHYMAL COMPOSITION: The breasts are heterogenously dense, which may obscure small masses. FINDINGS: Bilateral diagnostic mammography 01/22/2023: There is a high density irregular mass with spiculated margins within the left upper inner breast at posterior depth which is only seen on spot images due to far posterior location. There is no suspicious lesion within the right breast. The outside ultrasound report was not available at the time of this interpretation and this report is limited as ultrasound is a real-time exam: Within the left breast at the 10 o'clock position 7 cm from the nipple, there is an irregular hypoechoic mass with antiparallel orientation and echogenic rim without associated flow on color Doppler. ??It measures 0.8 x 0.6 x 0.9 cm. Left breast diagnostic mammogram following biopsy 02/24/2023: Per outside report, the left breast postbiopsy tissue marker was not visualized due to far posterior location of the biopsied lesion. Procedure Note Briseyda Gaming MD - 04/10/2023 EXAMINATION: REVIEW AND INTERPRETATION OF OUTSIDE IMAGING FACILITY PERFORMING OUTSIDE IMAGING: [facility] EXAM(S) REVIEWED: 1. BILATERAL DIAGNOSTIC MAMMOGRAM WITH TOMOSYNTHESIS, 01/22/2023 2. 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 COMPARISON: 10/08/2021 BREAST PARENCHYMAL COMPOSITION: The breasts are heterogenously dense, which may obscure small masses. FINDINGS: Bilateral diagnostic mammography 01/22/2023: There is a high density irregular mass with spiculated margins within the left upper inner breast at posterior depth which is only seen on spot images due to far posterior location. There is no suspicious lesion within the right breast. The outside ultrasound report was not available at the time of this interpretation and this report is limited as ultrasound is a real-time exam: Within the left breast at the 10 o'clock position 7 cm from the nipple, there is an irregular hypoechoic mass with antiparallel orientation and echogenic rim without associated flow on color Doppler. It measures 0.8 x 0.6 x 0.9 cm. Left breast diagnostic mammogram following biopsy 02/24/2023: Per outside report, the left breast postbiopsy tissue marker was not visualized due to far posterior location of the biopsied lesion. IMPRESSION: Irregular spiculated mass within the left breast at the 10 o'clock position 7 cm from the nipple corresponds to subsequently biopsy-proven invasive ductal carcinoma. Recommend left axillary ultrasound for evaluation of mandi disease as well as breast MRI to evaluate the extent of disease given the far posterior location of this mass. Additionally, repeat left breast diagnostic mammography is recommended to evaluate the position of the clip which was not seen on postbiopsy mammography. The method of initial detection of finding was patient-reported clinical symptom (Pat). OVERALL FINAL ASSESSMENT: BI-RADS Category 0: Incomplete - Need Prior Mammograms for Comparison. RECOMMENDATION: 1. Left axillary ultrasound to evaluate for mandi disease. This was not obtained at outside facility. 2. Breast MRI to evaluate for extent of disease given the far posterior location of the left breast mass and breast density. 3. Left breast diagnostic mammography to confirm position of the biopsy marker. This was not obtained at outside facility. NOTE: The findings, conclusions and recommendations within this report do not replace the initial findings, conclusions and recommendations made at the facility where the study was performed based upon the imaging and clinical condition at that time. Review of the prior report and correlation with the clinical history are necessary. The provided images may or may not represent the [place] source data set and thus may contain changes which may lower the sensitivity of the second opinion interpretation. Dictated by: José Miguel Syed MD The radiology attending physician has personally reviewed this study, and had reviewed and/or edited this written report and agrees with it. Electronically signed by: BRISEYDA GAMING MD us Dulce Powell MD PhD IMG MAMMO PROCEDURES Final Result documented in this encounter Visit Diagnoses Diagnosis Malignant neoplasm of left female breast, unspecified estrogen receptor status, unspecified site of breast (HCC)- Primary Malignant neoplasm of left female breast, unspecified estrogen receptor status, unspecified site of breast (HCC) documented in this encounter Care Teams Fur Polisher Relationship Specialty Start Date End Date No, Physician PCP - General 03/11/23 09/22/23 Elvira Bruner MD [address] [address] Referring Physician Gynecology 03/11/23 documented as of this encounter
--- OUTSIDE RECORDS SUMMARY | 2024-07-24 18:21 | XMS_ITS | Encounter Summary ---
Author Organization [facility] Address [address] [place] [address] Phone Care Team Providers Care Food Analyst Name Role Phone Elvira Bruner MD Unavailable [phone] No, Physician Primary Care Provider [phone] Encounter Details Date Type Department Care Team (Late st Contact Info) Description 03/23/2023 Orders Only [facility] [address] [place] [address] Aft, Dulce Peña MD PhD [address] [place], [place] [id number] Social History Tobacco Use Types Packs/Day Years Used Date Smoking Tobacco: Never Assessed Comments Unknown Sex and Gender Information Value Date Recorded Sex Assigned at Not on file 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 Gender Identity Not on file Sexual Orientation Not on file documented as of this encounter Plan of Treatment Not on file documented as of this encounter Procedures Procedure Name Priority Date/Time Associated Diagnosis Comments SURGICAL PATHOLOGY Routine 03/23/2023 12 :56 PM CDT documented in this encounter Results * Surgical pathology (03/23/2023 12:56 PM CDT) Miscellaneous 03/23/2023 12: 56 PM CDT 03/23/2023 12:56 PM CDT Narrative 03/26/2023 12:29 PM CDT EPIC results best viewed via link to PDF [facility] Pathology Consult Service [address], [address], [place] [address] Note to Patients: This report may contain a detailed description of human tissue sent by a health care provider to the laboratory for pathologic evaluation. The content of this report is essential for diagnosis and may provide important critical findings. This information may be unfamiliar to patients to review without a medical professional present. It is advised that the patient review this report in the presence of a health care provider who can answer questions and explain the details. SURGICAL PATHOLOGY REPORT * Consult Report * [facility] is providing an additional review of previously collected tissue. FINAL Patient Name: ??YOUNG MATTIE Oliva Address: ??[address], ?[place], [place] ??[address] Gender: ??F : ??1975 (Age: 48) Hospital #: ??[id number] Patient Type: ??[facility] Location: ??[facility] Taken: ??03/23/2023 Received: ??03/23/2023 Accessioned: ??03/24/2023 Reported: ??03/26/2023 Physician(s): Vitaliy Infante M.D. [facility] Department of Pathology [address] [place] [address] P: [phone] F: [phone] Diagnosis: Consult material received from [place], [place] (OSC: [id number]; 02/24/2023) Breast, left, 10:00, 7 cm from nipple, core biopsy ? - Invasive ductal carcinoma with tubular features ?- Greatest microscopic dimension = 2 mm in core biopsy material ?- Histologic grade = 1/3 (tub 1 + nuc 2 + gordo 1 = 4/9) by ESBR criteria ?- Biomarkers (slides are provided for review) ? - ER: 03/10 (Positive) ? - WI: 02/07 (Positive) ? - Her-2 IHC: 0 (Negative) ? - Ki-67 Index: <5% [facility] hospital association/03/25/2023 17:22 By this signature, I attest that the above diagnosis is based upon my personal examination of the slides(and/or other material indicated in the diagnosis). Spencer Hay M.D., Ph.D. Report Electronically Reviewed and Signed Out By Spencer Hay M.D., Ph.D. 03/26/2023 12:29:33 Microscopic Description and Comment: Sections of the left breast biopsy show an invasive carcinoma with tubular features. Immunohistochemical stains are provided by the referring institution. Calponin is negative for myoepithelial cells around areas of tumor, confirming the morphologic impression of invasive carcinoma. Ar Carbone MD History: The patient is a 48-year-old woman with history of ductal carcinoma of left breast. Materials Received: Received for review are sixteen slides labeled [id number], accompanied by a corresponding pathology report. The material originates from [place], [place]. Selected slide(s) may be digitally scanned for our files, and all materials are returned to the referring institution, along with a copy of our final report. Any testing required for diagnostic purposes was performed in the Department of Pathology and Immunology at [facility], [address] [place] [address], [place] [address] CLIA # [id number] The performance characteristics of the testing cited in this report (if any) were determined by the ??[facility] Department of Pathology and Immunology [facility], as part of an ongoing quality assurance technician program and in compliance with federally mandated regulations drawn from the Clinical Laboratory Improvement Act of 1988 (CLIA '88). ??Some of these tests rely on the use of analyte specific reagents (ASR) and are subject to specific labeling requirements by the US Food and Drug Administration. ??Such diagnostic tests may only be performed in a facility that is certified by the Department of Health and Human Services as a high complexity laboratory under CLIA '88. ??The FDA has determined that such clearance or approval is not necessary. ??ASRs should not be regarded as investigational or for research. ??ASRs were developed and the performance characteristics determined by the [facility], [facility] Department of Pathology and Immunology. ??It has not been cleared or approved by the U.S. Food and Drug Administration. ??Any test designated as LDT was developed and its performance characteristics determined by [facility]. It has not been cleared or approved by the FDA. This test is used for clinical purposes and should not be regarded as investigational or for research. Report images and/or scanned reports, if included, only viewable in PDF version of report. us Dulce Powell MD PhD LAB PATHOLOGY ORDERABLES F inal Result documented in this encounter Visit Diagnoses Not on filedocumented in this encounter Care Teams Food Analyst Relationship Specialty Start Date End Date No, Physician PCP - General 03/11/23 09/22/23 Elvira Bruner MD [address] [facility] [address] [place] [address] Referring Physician Gynecology 03/11/23 documented as of this encounter
--- OUTSIDE RECORDS SUMMARY | 2024-07-24 18:21 | XMS_ITS | Encounter Summary ---
Author Organization [facility] Address [address] [place] [address] Phone Care Team Providers Care Crepe Machine Operator Name Role Phone Elvira Bruner MD Unavailable [phone] No, Physician Primary Care Provider [phone] Encounter Details Date Type Department Care Team (Late st Contact Info) Description 05/07/2023 Telephone [facility] Surgery [address] [facility] Advanced Medicine 5th [place] [address] [place] [address] Barbie Mcadams, RN Social History [...] on file 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 Barbara Garay at [facility] Radiation Oncology [facility]. documented in this encounter Plan of Treatment Not on file documented as of this encounter Visit Diagnoses Not on filedocumented in this encounter Care Teams Crepe Machine Operator Relationship Specialty Start Date End Date No, Physician PCP - General 03/11/23 09/22/23 Elvira Bruner MD [address] [address] Referring Physician Gynecology 03/11/23 documented as of this encounter
--- OUTSIDE RECORDS SUMMARY | 2024-07-24 18:21 | XMS_ITS | Encounter Summary ---
Author Organization [facility] Address [address] [place] [address] Phone Care Team Providers Care Clinic Physician Name Role Phone Elvira Bruner MD Unavailable [phone] No, Physician Primary Care Provider [phone] Encounter Details Date Type Department Care Team (Late st Contact Info) Description 03/23/2023 Orders Only [facility] [address] [place] [address] Aft, Dulce Peña MD PhD [address] [place], [place] [id number] Infiltrating ductal carcinoma of left breast (HCC) Social History Tobacco Use Types Packs/Day Years Used Date Smoking Tobacco: Never Assessed Comments Unknown Sex and Gender Information Value Date Recorded Sex Assigned at Not on file 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 Gender Identity Not on file Sexual Orientation Not on file documented as of this encounter Plan of Treatment Not on file documented as of this encounter Visit Diagnoses Diagnosis Infiltrating ductal carcinoma of left breast (HCC) documented in this encounter Orders Lab Orders Without Results Count Last Ordered D ate First Ordered Date SURGICAL PATHOLOGY 1 03/23/2023 documented in this encounter Care Teams Clinic Physician Relationship Specialty Start Date End Date No, Physician PCP - General 03/11/23 09/22/23 Elvira Bruner MD [address] [place] [address] Referring Physician Gynecology 03/11/23 documented as of this encounter
--- OUTSIDE RECORDS SUMMARY | 2024-07-24 18:21 | XMS_ITS | Encounter Summary ---
Author Organization [facility] Address [address] [place] [address] Care Team Providers Care Feather Stitcher Name Role Phone Elvira Bruner MD Unavailable No, Physician Primary Care Provider [phone] Encounter Details Date Type Department Care Team (Late st Contact Info) Description 04/02/2023 Orders Only [facility] Advanced Medicine Breast Imaging [facility] ([facility]) [address] [place] [address] Aft, Dulce Peña MD PhD [address] [place] [address] Social History Tobacco Use Types Packs/Day Years Used Date Smoking Tobacco: Never Assessed Comments Unknown Sex and Gender Information Value Date Recorded Sex Assigned at Not on file 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 Patient needs a right breast MRI, if shehas not had one. documented in this encounter Plan of Treatment Not on file documented as of this encounter Visit Diagnoses Not on filedocumented in this encounter Care Teams Feather Stitcher Relationship Specialty Start Date End Date No, Physician PCP - General 03/11/23 09/22/23 Elvira Bruner MD [address] [address] Referring Physician Gynecology 03/11/23 documented as of this encounter
--- OUTSIDE RECORDS SUMMARY | 2024-07-24 18:21 | XMS_ITS | Encounter Summary ---
Author Organization [facility] Address [address] [place] [address] Phone Care Team Providers Care Adjunct Psychology Professor Name Role Phone Elvira Bruner MD Unavailable [phone] No, Physician Primary Care Provider [phone] Reason for Visit * Reason Onset Date Comments Surgery Confirmation 05/06/2023 Encounter Details Date Type Department Care Team (Late st Contact Info) Description 05/06/2023 Telephone [facility] Surgery [address] [facility] Advanced [facility] 5th [place] [address] Aft, Dulce Peña MD PhD [address] [place] [address] Surgery Confirmation Social History Tobacco Use Types Packs/Day Years [...] feel afraid or unsafe? 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 No Signed consent matches last office visit note for surgical planning and surgical case description: N/A //tf documented in this encounter Plan of Treatment Not on file documented as of this encounter Visit Diagnoses Not on filedocumented in this encounter Care Teams Adjunct Psychology Professor Relationship Specialty Start Date End Date No, Physician PCP - General 03/11/23 09/22/23 Elvira Bruner MD [address] [place] [address] Referring Physician Gynecology 03/11/23 documented as of this encounter
--- OUTSIDE RECORDS SUMMARY | 2024-07-24 18:21 | XMS_ITS | Encounter Summary ---
Author Organization [facility] Address [address] [place] [address] Phone Care Team Providers Care Turntable Worker Name Role Phone Elvira Bruner MD Unavailable [phone] No, Physician Primary Care Provider [phone] Encounter Details Date Type Department Care Team (Late st Contact Info) Description 05/18/2023 Orders Only [facility] Surgery [address] [facility] Advanced Medicine 5th [place] [address] [place] [address] Aft, Dulce Peña MD PhD [address] [place] [address] Malignant neoplasm of left female breast, unspecified [...] on file 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
--- OUTSIDE RECORDS SUMMARY | 2024-07-24 18:21 | XMS_ITS | Encounter Summary ---
Author Organization [facility] Healthcare Address [address] [place] [address] Care Team Providers Care Dairy Nutrition Specialist Name Role Phone Elvira Bruner MD Unavailable [phone] No, Physician Primary Care Provider [phone] Reason for Visit * Auth/Cert (Routine) Specialty Diagnoses / Procedures Referred By Domenic denny Referred To Contact Diagnoses Malignant neoplasm of left female breast, unspecified estrogen receptor status, unspecified site of breast (HCC) Malignant neoplasm of left female breast, unspecified estrogen receptor status, unspecified site of breast (HCC) [C50.912] Procedures ID EXC BREAST LES PREOP PLMT RAD MARKER OPEN 1 LES ID MASTECTOMY PARTIAL ID INTRAOP SENTINEL LYMPH NODE ID W/DYE INJECTION ID BX/EXC LYMPH NODE OPEN SUPERFICIAL MAGNETIC SEED LOCALIZATION EXCISIONAL BIOPSY LUMPECTOMY BIOPSY SENTINEL LYMPH NODE Referral ID Status Reason Start Date Expiration Date Visits Re quested Visits Authorized [id number] 1 1 Encounter Details Date Type Department Care Team (Late st Contact Info) Description 05/07/2023 10:45 AM CDT - 05/07/2023 12:15 PM CDT Surgery [facility] Operating [facility] [address] [place] [id number] Aft, Dulce Peña MD PhD [address] [place] [address] MAGNETIC SEED LOCALIZATION EXCISIONAL BIOPSY Surgery Details Date/Time Status Location OR Service Patient Class Case Cl ass Case Type Trauma Case? 05/07/2023 10:45 AM Posted [facility] OR POD 4 J Oncology Outpatient Elective Panel 1 Procedure LRB Anes Op Region Wound Class Comments MAGNETIC SEED LOCALIZATION EXCISIONAL BIOPSY Left General Breast Class I - Clean LUMPECTOMY Left General Breast Class I - Clean BIOPSY SENTINEL LYMPH NODE Left General with other Regional Axilla Class I - Clean Surgeon Surgeon Role Service Panel Aft, Dulce Peña MD PhD [facility] Assisting Gener az Surgery 1 Special Needs Sentimag documented in this encounter Social History Tobacco Use Types Packs/Day Years [...] on file 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 Gender Identity Not on file Sexual Orientation Not on file documented as of this encounter Last Filed Vital Signs Vital Sign Reading Time Taken Comments Blood Pressure 121/77 05/07/2023 6:55 AM CDT Pulse 95 05/07/2023 6:55 AM CDT Temperature 37.4 ??C (99.3 ??F) 05/07/2023 6:55 AM CD T Respiratory Rate 14 05/07/2023 6:55 AM CDT Oxygen Saturation 100% 05/07/2023 6:55 AM CDT Inhaled Oxygen Concentration - - Weight 43.1 kg (95 lb) 04/21/2023 4:35 PM CDT Height 149.9 cm (4' 11 ) 04/21/2023 4:35 PM CDT Body Mass Index 19.19 04/21/2023 4:35 PM CDT documented in this encounter Discharge Instructions * Attachments The following attachments cannot be sent through Care Everywhere. * [facility] PATHWAY TO EXCELLENT CARE AFTER SURGERY * Scopolamine (Absorbed through the skin) (Citizen Of [place]) documented in this encounter Medications at Time of Discharge busPIRone (BUSPAR) 5 mg tablet TAKE 1 TABLET (5 MG) BY ORAL ROUTE 2 TIMES PER DAY NEEDED FOR ANXIETY 04/29/2023 09/25/2023 oxyCODONE (ROXICODONE) 5 mg immediate release tabletIndications :Pain Take 1 tablet (5 mg total) by mouth every 4 (four) hours as needed for pain for up to 5 doses 5 tablet 05/07/2023 09/25/2023 documented as of this encounter Ordered Prescriptions Prescription Sig Dispense Quantity Refills Last Filled Start Date End Date oxyCODONE (ROXICODONE) 5 mg immediate release tabletIndications: Pain Take 1 tablet (5 mg total) by mouth every 4 (four) hours as needed for pain for up to 5 doses 5 tablet 05/07/2023 09/25/2023 documented in this encounter Discharge Disposition Disposition Code Departure Means Destination Comment s Discharge to home or self care documented in this encounter H&P Notes * Dulce Powell MD PhD - 05/07/2023 10:48 AM CDT I have reviewed the H&P, examined the patient, and endorse the findings as written. Plan of Care : Based on the above findings, I consider Luc Vidal to be an acceptable risk for :Procedure(s): MAGNETIC SEED LOCALIZATION EXCISIONAL BIOPSY LUMPECTOMY BIOPSY SENTINEL LYMPH NODE Source Note - Lin Carson RN - 05/05/2023 8:11 AM CDT Patient scheduled for the OR on 05/07/23 L NL changed to L Magseed L [facility]LB w/ lympho Case to be updated today and magseed to be scheduled in place of NL * Dulce Powell MD PhD - 05/07/2023 9:13 AM CDT I have reviewed the H&P, examined the patient, and endorse the findings as written. Plan of Care : Based on the above findings, I consider Luc Vidal to be an acceptable risk for :Procedure(s): MAGNETIC SEED LOCALIZATION EXCISIONAL BIOPSY LUMPECTOMY BIOPSY SENTINEL LYMPH NODE Source Note - Lin Carson, LORI - 05/05/2023 8:11 AM CDT Patient scheduled for the OR on 05/07/23 L NL changed to L Magseed L [facility]LB w/ lympho Case to be updated today and magseed to be scheduled in place of NL documented in this encounter Miscellaneous Notes * Op Note - Dulce Powell MD PhD - 05/07/2023 11:46 AM CDT Operative Report SURGEON: Dulce Powell MD PhD SURGICAL TEAM: Surgeon(s) and Role: * Dulce Powell MD PhD - Primary * Key Louis MD - Resident - Assisting DATE OF SURGERY : 05/07/2023 PREOPERATIVE DIAGNOSIS: Pre-op Diagnosis * Malignant neoplasm of left female breast, unspecified estrogen receptor status, unspecified site of breast (HCC) [C50.912] left breast cancer POSTOPERATIVE DIAGNOSIS: Post-op Diagnosis * Malignant neoplasm of left female breast, unspecified estrogen receptor status, unspecified site of breast (HCC) [C50.912] left breast cancer PROCEDURE: MAGNETIC SEED LOCALIZATION EXCISIONAL BIOPSY (L), LUMPECTOMY (L), BIOPSY SENTINEL LYMPH NODE (L) left Partial mastectomy seed localicaion left Axillary sentinal lymph node biopsy with blue dye and lymphoscintigraphy ANESTHESIA: General INDICATION FOR PROCEDURE: Luc Vidal is a 48 y.o. woman who was found to have a left breast cancer in the upper inner quadrant. I felt that she was an acceptable candidate for attempted breast conservation for which she was highly motivated. She presents today for that purpose as well as a sentinel node biopsy for axillary staging. FINDINGS The patient had a left sentinel node procedure which identified several sentinel lymph nodes. They were grossly normal. The left partial mastectomy was performed with seed localization. Specimen radiograph demonstrated that the cancer was centrally located within the specimen. OPERATIVE DETAILS Luc Vidal was first taken to the Nuclear Medicine Department where she underwent radioactive colloid injection and lymphoscintigraphy. At the [facility], she underwent seed localizationof her cancer. After obtaining informed consent, the patient was brought to the operating room placed on procedure table in the supine position. A time-out was performed verifying the correct patient, correct procedure, correct positioning, correct special equipment in the room. Preoperative antibiotics were given and SCDs were placed on the patient's legs for thromboprophylaxis. General anesthesia was induced The patient was prepped and draped in the standard surgical fashion. 5 mL of Lymphazurin blue dye was injected in the left retroareolar breast and a 5 minute breast massage was performed. A curvilinear incision was made at the lower edge of the axillary hairline and carried down through the dermis with electrocautery. The subcutaneous tissues were opened and the clavipectoral fasciawas incised. Upon incising the clavipectoral fascia, we immediately encountered a blue lymphatic which we followed down to blue and radioactive lymph nodes. These were excised and passed off the field. No other blue lymph nodes were identified and only background counts were obtained with the naviga tor probe. No other palpable adenopathy was appreciated. Attention was then turned to the wound. Aggressive hemostasis was obtained with electrocautery. The wound was irrigated with copious amounts of sterile saline. The deep dermal layer was then reapproximated with interrupted 3-0 Vicryl stitches. The skin was reapproximated with a running subcuticular using 4-0 Monocryl. We then directed our attention to the left breast and partial mastectomy. The seed was noted to be entering upper inner. Therefore a incision was made near the seed and carried down to the dermis with electrocautery. A superior flap was created above the level of the seed and was taken down posterior to it. An inferior flap was created below the level of the seed and was also taken down posterior to it. Once the superior and inferior flaps were created the medial lateral flaps were made to join these 2 troughs. Once all 4 flaps were created the breast tissue was removed from the posterior attachments using electrocautery. Of note, the dissection was carried down to the pectoralis fascia. The specimen was then kamla ed with a short stitch on the superior margin and a long stitch on the lateral margin . Specimen radiograph demonstrated that the cancer was centrally located within the specimen. Attention was then turned to the wound. Aggressive hemostasis was obtained with electrocautery. The wound was irrigatedwith copious amounts of sterile saline. The deep dermal layer was then reapproximated with interrupted 3-0 Vicryl stitches. The skin was reapproximated with a running subcuticular using 4-0 Monocryl.Surgical glue dressing was applied. The patient tolerated this procedure well was awakened and transferred to the recovery room. Estimated Blood Loss: 2 mL Urine output : Not measured Intraoperative Fluids: See record Blood/Blood Products Transfused: 0 mls Specimens: ID Type Source Tests Collected by Time Destination A : Left Axillary Lymph Node Contents Tissue Lymph node, sentinel breast SURGICAL PATHOLOGY Dulce Powell MD PhD 05/07/2023 1205 B : Left Breast Cancer- Long Stitch Lateral, Short Stitch Superior Tissue Breast, excisional biopsy/ partial mastectomy SURGICAL PATHOLOGY Dulce Powell MD PhD 05/07/2023 1209 Complications: None Condition on Discharge from the operating room was stable Dulce Powell MD PhD Date: 05/07/2023 Time: 1:40 PM TEACHING ATTESTATION : I was present and I participated in all portions of the procedure except theclosure and Dr. Garcia was immediately available for all remaining portions of the case. * Pre-Procedure Instructions - Manju Metz, TEACHER PUBLIC HEALTH - 04/21/2023 5:35 PM CDT [facility] The night before your surgery: * Do not eat anything after midnight the night before your procedure. The morning of your surgery: * You may have clear liquids on your surgery day. You must stop drinking two hours before you arrive to the surgery facility. Acceptable clear liquids include water, clear sports drinks, black coffee, or clear soda. DO NOT drink any milk, creamer, or alcohol. * Your surgeon's office may have provided additional instructions or restrictions. Please follow those instructions. * You may brush your teeth and rinse your mouth out. * Do not wear jewelry, body piercings, makeup, hairpins, false eyelashes or contact lenses to the hospital. * Leave any valuables at home or with your family. * If you are still having menstrual cycles, you should come with a full bladder on the morning of surgery in order to provide a urine sample. * If you are going to be admitted after surgery at [facility], COVID testing may be performed on the day of surgery, even if you are up to date on your COVID-19 vaccine. * If having surgery at [facility], you may want to bring a credit card if you want to use our Mobile Pharmacy for your discharge medications. Mobile pharmacy is not available at [facility], the Orthopedic Center, or the [place] [facility]. Outpatient Surgery: * You must have a responsible adult drive you home and stay with you for 24 hours after your surgery * You cannot be alone at home or in a hotel * Please call your surgeon's office if you do not have someone to drive you home and/or stay with you after surgery * Please bring any items you may need to spend the night in the hospital. Sometimes patients need to be cared for in the hospital overnight. Instructions For Your Medications: No current outpatient medications on file. General Instructions For Medications: * Stop all of these medications 5 days prior to your surgery: excedrin, motrin, advil, ibuprofen, aleve, naproxen, meloxicam, celebrex, celecoxib. For medications that you are instructed to take on the morning of surgery, take the medications with a few sips of water. Stop all of these medications 7-14 days prior to your surgery: Vitamin E, Herbal medicines, Diet Pills If you take medicines for Parkinson's disease, please bring them with you on the day of your procedure. If your procedure is scheduled at the Orthopedic Center, a scopolamine patch will be sent to your pharmacy to help prevent nausea after surgery. After your shower the night prior to surgery, place the patch behind your ear on the opposite side of your planned operation. Wash your hands after placing the patch. If you touch your eyes after you place the patch it may cause your pupils to dilate. You may leave the patch on for up to 3 days. If you have difficulty emptying your bladder while the patch is in place, remove the patch, throw it away, and your symptoms should resolve. Call your surgeon and the CPAP clinic if any of the following happens before surgery: Any changes in your health You have a fever You have any signs of an infection (chest, urinary tract or tooth) You have been to the Emergency Room or were in the hospital You have started taking any new medications You have questions about a bowel prep or special diet before surgery You have symptoms of COVID-19 such as a new or worsening cough, shortness of breath, fever, body aches, loss of taste or smell, diarrhea or vomiting, or sore throat. You have a household contact with COVID-19. You test positive for COVID-19. * Perioperative Nursing Note - Meron Taylor RN - 04/21/2023 4:41 PM CDT Center for Preoperative Assessment and Planning Perioperative Nursing Note Telephone Preoperative Evaluation ([facility]) - TELEPHONE ONLY, NO PHYSICAL EXAM Date: 04/21/23 This assessment was completed with the patient. Vitals: 04/21/23 1635 Weight: 43.1 kg (95 lb) Height: 149.9 cm (4' 11 ) CHEST CIRCUMFERENCE: n/a Social History Tobacco Use Smoking Status Never Smokeless Tobacco Never Substance and Sexual Activity Drug Use Never Alcohol Use Q1: How often do you have a drink containing alcohol?: 2-4 times a month Q2: How many drinks containing alcohol do you have on a typical day when you are drinking?: 1 or 2 Q3: How often do you have six or more drinks on one occasion?: Never No outpatient medications have been marked as taking for the 05/07/23 encounter (Hospital Encounter). Implants No active implants to display in this view. SKIN Piercings Remaining: Yes Wound (LDAs) Type of Wound (LDA): (none) SCREENINGS Hortencia index score: 100 NUTRITION PATIENT CARE PLANNING Advance Directives (For Healthcare) Have you reviewed your Advance Directive and is it valid for this stay?: Not applicable Advance Directive: Patient does not have advance directive Assistive Devices/DME: Eyeglasses Hearing - Right Ear: Functional Hearing - Left Ear: Functional Discharge Planning Type of Residence: Private residence Living Arrangements: Family members Support Systems: Friends/neighbors, Family members Patient expects to be discharged to:: Private residence REFRACTORY SPECIALIST NO ADDITIONAL COMMENTS/ FOLLOW UP * Pre-Procedure Instructions - Meron Taylor RN - 04/21/2023 4:30 PM CDT [facility] PREOPERATIVE ASSESSMENT [facility]ANNING ([facility]) PRE-SURGICAL NURSING INSTRUCTIONS Telephone Assessment General Information Discussed with Patient: Surgery location provided to patient. Arrival time and surgical time will be provided to the patient by their surgeon. You should wear clothing that is clean, loose, comfortable and easy to get in and out of on the dayof surgery. You should remove nail coverings, artificial nails and nail bulgarian prior to the day of surgery. You should leave your valuables and any jewelry at home. No metal or piercings are allowed in the operating room. You should bring your insurance card, a photo ID (example: Advertising Sales Assistant's License) and a method of payment for any insurance copay, deductible or copay for discharge medications. You should bring a complete, up-to-date, list of all your medications on the day of surgery, including any over the counter medications or supplements you may take. Please note on your medication list, the last date & time you took each medication. The healthcare team, on the day of surgery, will ask for this information. You should bring your Advanced Directive and/or Living Will with you on the day of surgery if you have not verified a copy is already in your Epic Chart. If you are having surgery at [facility], please arrive on the day of surgery with the name and phone number of your local 24 hour pharmacy. Due to evening discharges, your routine pharmacy may be closed. In order to obtain your prescriptions that evening, your surgeon may need to send prescriptions to this pharmacy or have you take prescriptions to this pharmacy when you are discharged. Without this information, you may not be able to obtain your prescriptions that evening. A Guide for Patients Having Surgery: Your Pathway to Excellent Care OUR GOAL IS TO PROVIDE YOU WITH EXCELLENT CARE Use this guide to learn about what you can do before, during and after surgery to help your recovery. You are the most important person on your health care team. By becoming informed and involved, you can contribute to the success of your surgery. If your surgeon's directions are different than those in this guide, talk with your nurse or surgeon to confirm the information. It is important that you understand how to take care of yourself at home after surgery. Be sure to bring this guide with you on the day of surgery and take it home with you after surgery. Write down questions for your nurse or surgeon on the last page of this booklet. Important pages to be reviewed BEFORE surgery: Page 1: QR codes for Surgery Center maps Page 3: Types of Anesthesia Page 5: Tips for the day & night before surgery Page 6: When to stop eating BEFORE surgery and examples of clear liquids Page 7-10: Preventing Infection: Chlorhexidine Gluconate (CHG) Bathing Instructions You may access A Guide for Patients Having Surgery: Your Pathway to Excellent Care by the followinglink: [email or web address] How To Prepare Your Skin For Surgery Below is the Pre-Surgical Bathing Protocol you should follow for your surgery. If your surgeon provides you different bathing instructions, please follow your surgeon's orders. 2 Day CHG Bathing Protocol (no nasal ointment) PREVENTING INFECTION (DECOLONIZATION): Decolonization is the use of a topical antiseptic soap and sometimes a nasal ointment to remove bacteria (germs) from the skin's surface. Antiseptic soap: Chlorhexidine gluconate or CHG (brand name: Hibiclens??) Before surgery, your entire body must be thoroughly cleaned. CHG helps to reduce the bacteria on your skin. You may be given one or more bottles of CHG or you may be asked to obtain from your preferred pharmacy. Be sure to ask your pharmacist if you need help finding this product. SHOWERING WITH ANTISEPTIC SOAP (CHG) What You Need For Each Shower 60 mL (?? cup) of CHG 2 clean washcloths CHG Bathing Instructions First, shampoo and rinse your hair with your own shampoo (no conditioners). Do this so the antiseptic soap isn't washed off by your shampoo. Wash face with warm water. Turn off shower and stand away from the water. Use 2 clean washcloths to apply the antiseptic soap to all areas as described below: Pour 30 mL (1/8 cup) of CHG on washcloth #1: Using washcloth- start at jawline and firmly massage the soap into the skin in a circular motion to clean neck, shoulders, chest, back, both armpits, arms, hands and abdomen. Finish with legs and feet. Pour 30 mL (1/8 cup) of CHG on washcloth #2: Using washcloth- firmly massage the soap into the skinin a circular motion to clean groin area, perineum and buttocks. (Do not use CHG on genital area.) Min Points: The CHG antiseptic soap will not bubble or lather very much. If you get soap in your eyes, ears or mouth, rinse well with cool water. When finished, leave the soap on your skin for 2 minutes before rinsing. Dry off with a clean fresh towel. Wear clean clothes or pajamas to sleep in. After showering DO NOT put on deodorant, hair products or conditioners, lotions or creams, powders,Vaseline or any non-essential products. If you cannot reach the surgical site, such as the back, please have someone help you. Shaving: You may shave your face, legs and underarms during your evening shower before you apply the CHG antiseptic soap. Be careful not to cut or javi your skin. Avoid shaving on the day of surgery. Deodorant: Patients following the 5-Day CHG protocol may apply deodorant on the days leading up to surgery, being sure, however, to avoid use on the evening before and day of surgery. All other products should be avoided for the full 5 days. 2-Day CHG Bathing Protocol The Evening Before Surgery: Take a shower with Antiseptic soap (CHG). Follow the steps for ???Showering with Antiseptic Soap (CHG)?? above. Change all linens on your bed so you are sleeping in clean fresh sheets and pillowcases. Remove nail coverings, artificial nails and nail bulgarian. The Morning of Surgery: Take a shower with Antiseptic soap (CHG). Follow the steps for ???Showering with Antiseptic Soap (CHG)?? above. Put clean clothes on after you shower. Travel/Exposure Screening: Travel Screening Have you traveled outside the [place] in the last 6 months?: No Exposure Screening Have you been exposed to anyone who is sick in the last 30 days?: No Have you been exposed to or tested positive for COVID-19 within the last 10 days?: No Infectious Disease Screening Are you having any of the following:: None As of 05/27/2022 any COVID TESTING required for surgery will be set up by your surgeon's office. Please reach out to your surgeon's office if you develop any COVID symptoms, test positive for COVID or are exposed to a COVID positive person. If you have questions, please call the CPAP Staff at [phone], Thursday-Thursday 8am-4:30pm. All patients should read the below section: COVID 19 Updates & Visitor Policy: Please access [email or web address] for the most updated information. Information on [facility] & the [facility]opedic Center: Please view [email or web address] (Patient & Visitor Information) for additional details regarding Advanced Directive forms, AWARE, directions, parking information, lodging, Internet access, dining and more. Information on [facility] or [facility] ([facility]): Please view [email or web address] (Patient and Visitor Information) for parking/directions and more. For MyChart information, to activate account or password recovery, please go to [email or web address] or call [phone] (toll-free: [phone]). Information for Suicide Prevention: National Suicide Prevention Lifeline (4-298- 051-XOEL (8595)). Surgery Times: For patients having surgery @ [facility], [facility] or [facility] ([facility]), if your surgeon's office has not notified you of your surgery time by NOON THE BUSINESS DAY BEFORE your surgery, please call [phone] and ask for your surgeon's office Dr Powell. documented in this encounter Plan of Treatment Not on file documented as of this encounter Procedures Procedure Name Priority Date/Time Associated Diagnosis Comments SURGICAL PATHOLOGY Routine 05/07/2023 12 :05 PM CDT Malignant neoplasm of left female breast, unspecified estrogen receptor status, unspecified site of breast (HCC) BIOPSY SENTINEL LYMPH NODE 05/07/2023 11:22 AM CDT Malignant neoplasm of left female breast, unspecified estrogen receptor status, unspecified site of breast (HCC) Special Needs [facility] LUMPECTOMY 05/07/2023 11:22 AM CDT Malignant neoplasm of left female breast, unspecified estrogen receptor status, unspecified site of breast (HCC) Special Needs [facility] MAGNETIC SEED LOCALIZATION EXCISIONAL BIOPSY 05/07/2023 11:22 AM CDT Malignant neoplasm of left female breast, unspecified estrogen receptor status, unspecified site of breast (HCC) Special Needs [facility] JUSTUS POST CLIP PLACEMENT LEFT IP Routine 05/07/2023 10:16 AM CDT Malignant neoplasm of left female breast, unspecified estrogen receptor status, unspecified site of breast (HCC) POCT HCG, URINE Routine 05/07/2023 6:50 AM CDT documented in this encounter Results * Surgical pathology (05/07/2023 12:05 PM CDT) Tissue (Lymph node, sentinel breast) 05/07/2023 12:05 PM CDT Tissue (Breast, excisional biopsy/ partial mastectomy) 05/07/2023 12:09 PM CDT Narrative PATHOLOGY [facility] - 05/12/2023 12:03 PM CDT EPIC results best viewed via link to PDF [facility], [place] [address] Note to Patients: This report may contain [...] and explain the details. SURGICAL PATHOLOGY REPORT FINAL WITH ADDENDUM Patient Name: ?? LUC VIDAL Gender: ??F : ??1975 (Age: 48) Address: ??[address] [place] [id number] Hospital #: ??[id number] Taken:05/07/2023 Received:05/07/2023 Reported: 05/12/2023 Patient Type: [facility] SDS ?? Service: Surgery Location: Physician(s): ??Vitaliy Infante M.D. Syed M. Arshad, M.D. Diagnosis: A. ??Lymph node, left axillary sentinel, excision ? - ??No evidence of malignancy in three lymph nodes (0/3) B. ??Breast, left, magnetic seed localized partial mastectomy ? - Invasive tubular carcinoma ?- Unifocal ?- Greatest dimension = 13 mm by gross-microscopic correlation ?- Histologic grade = 1/3 (score: tub 1 + nuc 2 + gordo 1 = 4/9) by ESBR criteria ?- Negative for lymphovascular invasion ?- Surgical margins negative: nearest = 2 mm, anterior and posterior ?- Biomarkers previously reported ? - No in situ carcinoma identified ? - Biopsy site with clip ? - See synoptic report ec2/05/12/2023 10:56 By this signature, I attest that the above diagnosis is based upon my personal examination of the slides(and/or other material indicated in the diagnosis). Lucrecia Mccartney M.D., Ph.D. Report Electronically Reviewed and Signed Out By ??Lucrecia Mccartney M.D., Ph.D. 05/12/2023 12:03:30 Microscopic Description and Comment: Microscopic examination substantiates the above cited diagnosis. Cynthia Negron MD History: The patient is a 48-year-old woman with left breast invasive ductal carcinoma. ??Operative procedure: ??Left lumpectomy with magnetic seed localization; left sentinel lymph node biopsy. Specimen(s) Received: A: Left axillary lymph node contents B: Left breast cancer- long stitch lateral, short stitch superior Gross Description: Received in two formalin jars labeled with the patient's identifiers. A. ??Labeled left axillary lymph node contents is a 2.7 x 2.5 x 0.7 cm aggregate of two coelho-yellow lobulated fibroadipose tissue fragments. ??Dissection and palpation yields four lymph nodes ranging from 0.2 to 1.3 cm in greatest dimension. ??The three larger lymph nodes are sectioned to reveal a blue-dyed cut surface in the largest lymph node and a coelho-white homogeneous cut surface in the two smaller lymph nodes. ??Entirely submitted as follows: A1 One lymph node, intact A2 One lymph node, bisected A3 One lymph node, bisected A4 Largest lymph node, trisected Jar 0. B. ??Labeled left breast cancer - long stitch lateral, short stitch superior -Collected: 1209 on 05/07/2023 -Received: 1241 on 05/07/2023 -Placed in formalin: 1242 on 05/07/2023 -Formalin Fixation time: 32.25 hours -Specimen dimensions: ? Medial to Lateral: 3.6 cm ? Superior to Inferior: ??3.7 cm ? Anterior to Posterior: ??1.1 cm -Skin dimensions: No skin included -Weight: 9 g -Orientation: There is a short stitch designating superior and a long stitch designating lateral per requisition. - Margins inked: ? Anterior: Yellow ? Posterior: ??Black ? Medial: ??Green ? Lateral: ??Blue -Sectioned: Superior to inferior -Number of slices: 11 (slice 1 = superior end margin) -Gross findings: ??A 1.0 x 0.6 x 0.5 coelho-white, firm and ill-defined mass is identified in slices 4-7. ??Two coelho-white, firm and ill-defined putative satellite masses are identified in slices 6-7 (0.3 cm in greatest dimension) and slices 9- 10 (0.2 cm in greatest dimension). ??The overall dimension of main mass if contiguous from slices 4-10 is 1.7 x 0.9 x 0.5 cm. ??There is also focal hemorrhage inferior to the main mass and adjacent to the two putative satellite masses. -Distance from surgical margin: Mass or two putative satellite masses whichever is closest ? Superior: 0.9 cm (mass) ? Inferior: ??0.7 cm (putative satellite mass) ? Anterior: 0.4 cm (mass) ? Posterior: ??0.3 cm (mass) ? Medial: ??1.4 cm (mass) ? Lateral: ??0.8 cm (putative satellite mass) -Specimen radiographed: ??Yes -Radiograph findings: A coil-shaped biopsy clip is identified within the mass in slice 5 and a magnetic seed is identified within the mass in slice 6. -Diagram: ??Yes -Additional notes: It is entirely submitted. Summary of sections: B1 Slice 1, perpendicular (superior end margin) B2 Slice 2 B3 Slice 3, bisected B4 Slice 4 with mass, bisected B5 Slice 5 with mass, bisected, including site of biopsy clip B6 Slice 6 with mass and putative satellite mass, bisected, including site of magnetic seed B7 Slice 7 with mass and putative satellite mass, bisected B8 Slice 8, bisected B9 Slice 9 with other putative satellite mass, bisected B10 Slice 10 with other putative satellite mass B11 Slice 11, perpendicular (inferior end margin) Jar: 0 dxb/05/08/2023 13:18 PA(s): DEIDRE Maldonado(ASCP)CM ? CANCER CASE SUMMARY FOR INVASIVE CARCINOMA OF THE BREAST ? Procedure: ?Excision without wire-guided localization ?magnetic see localization ? Lymph node sampling: ?[place] lymph node(s) ? Specimen laterality: ?Left ? Tumor site invasive carcinoma: ?Not specified ? Histologic type of invasive carcinoma: ?Tubular carcinoma ? Tumor size: ?Greatest dimension: 13mm ? Histologic grade (Ilir Histologic Score): ?Tubular differentiation: ??Score 1 ?Nuclear pleomorphism: ??Score 2 ?Mitotic rate: Score 1 ?Overall grade: Grade 1: scores of 3, 4, or 5 ? Tumor focality: ?Single focus of invasive carcinoma ? Ductal carcinoma in situ (DCIS): ?No DCIS is present ? Extent of tumor: ?Not applicable (skin, nipple, and skeletal muscle are absent or are uninvolved) ? Margins for invasive carcinoma: ? Distance from closest margin: 2 mm ? Margin: anterior and posterior ? Other margins more remote ? Lymph nodes: ?Total number of lymph nodes examined (sentinel and nonsentinel): 3 ?Number of sentinel nodes examined: 3 ? Lymph node involvement: ?All lymph nodes are negative ? [place] node evaluation: ?H&E, multiple levels ? Response to presurgical therapy: ?No known presurgical therapy ? Lymphovascular Invasion: ?Not identified ? Pathologic Stage Classification (pTNM, AJCC 8th Edition): ? Primary tumor (invasive carcinoma) (pT): ?pT1c: Tumor >10 mm but <=20 mm in greatest dimension ? Lymph nodes (pN): ?pN0: No regional lymph node metastasis identified ?Breast Biomarker Testing performed on Previous Case: [id number] ?Estrogen Receptor (ER): ??Positive Mega score 7/8 ?Progesterone Receptor (PgR): ??Positive Mega score 8/8 ?HER2 (by immunohistochemistry): ??Negative (Score 0) ? The pathologic stage assigned here should be regarded as provisional, and may change after integration of clinical data ? not provided with this report. ? CAP VERSION: InvasiveBreast 4.5.0.0 ? By this signature, I attest that the above diagnosis is based upon my personal examination of the slides(and/or other material). Addenda/Procedures Addendum Ordered:06/19/2023Status:Signed OutAddendum Complete:06/19/2023y:Lilli Golden M.D.Addendum Signed Out:06/21/2023 Addendum Diagnosis A digital scan of the original reference lab report will begin on page two of this addendum. This testing was ordered at the request of Dr. José Miguel Hurtado. Block B5 was selected, and sent for the testing referenced below. ?? Note: Refer to scanned physician request. A request for slide review was received. The case report, slides and/or blocks for the cited accession were retrieved from archives. I personally reviewed the original pathology report, examined the H&E slides, and the blocks and/or slides referenced were chosen.Lilli Golden M.D.Report Electronically Reviewed and Signed Out By ??Lilli Golden M.D. ??06/21/2023 17:21:13 ?? The Oncotype Dx Invasive Breast Cancer Assay test was performed by [facility], [place] [address]. The performance characteristics of some immunohistochemical stains, fluorescence in-situ hybridization tests and immunophenotyping by flow cytometry cited in this report (if any) were determined by the Surgical Pathology and Flow Cytometry Departments at [facility] as part of an ongoing senior quality assurance analyst program and in compliance with federally mandated regulations drawn from the Clinical Laboratory Improvement Act of 1988 (CLIA '88). ??Some of these tests rely on the use of analyte specific reagents and are subject to specific labeling requirements by the US Food and Drug Administration. ??Such diagnostic tests may only be performed in a facility that is certified by the Department of Health and Human Services as a high complexity laboratory under CLIA '88. ??The FDA has determined that such clearance or approval is not necessary. ??This test is used for clinical purposes. ??It should not be regarded as investigational or for research. ??Nevertheless, federal rules concerning the medical use of analyte specific reagents require that the following disclaimer be attached to the report: This test was developed and its performance characteristics determined by the Surgical Pathology and Flow Cytometry Departments of [facility]. ??It has not been cleared or approved by the U. S. Food and Drug Administration. IMAGES AND SCANNED DOCUMENTS, IF INCLUDED, ONLY VIEWABLE IN PDF VERSION OF REPORT us Dulce Powell MD PhD LAB PATHOLOGY ORDERABLES F inal Result PATHOLOGY [facility] [address] [place], [place] [phone] * Just[employer] Post Clip Placement Left (05/07/2023 10:16 AM CDT) Anatomical Region Laterality Modality Breast Left Mammography 05/07/2023 3:04 PM CDT Impressions 05/07/2023 3:18 PM CDT Successful ultrasound-guided magnetic seed localization of the area of interest within the LEFT breast. The lesion of interest is included within the surgical specimen along with the clip and mag seed. Dictated by: Dustin Merritt M.D. The radiology attending physician has personally reviewed this study, and had reviewed and/or edited this written report and agrees with it. Electronically signed by: Dania Horn M.D. Narrative 05/07/2023 3:18 PM CDT EXAMINATION: LEFT BREAST MAGSEED LOCALIZATION UTILIZING ULTRASOUND GUIDANCE; LEFT FULL FIELD DIGITAL MAMMOGRAM WITH DIGITAL BREAST TOMOSYNTHESIS; RADIOLOGIC EXAMINATION OF THE LEFT SURGICAL SPECIMEN HISTORY: 48-year-old with newly diagnosed left breast invasive ductal carcinoma. ??Presenting for breast conservation therapy. PROCEDURE AND FINDINGS: The procedure was discussed with the patient and informed consent was obtained. After sterile preparation of the skin, 1% lidocaine was utilized for local anesthesia. A Magseed deployment needle was used to place a magnetic localization seed into the area of interest from a lateral approach utilizing sonographic guidance. There was no evidence of significant immediate complication. A two-view LEFT digital mammogram with digital breast tomosynthesis was performed post procedure demonstrates the magnetic seed in expected position. The attending radiologist, Dr. Dania Horn M.D., was present throughout the entire procedure. Dr. Merritt (diagnostic residential framing carpenter) also participated in this examination. A LEFT surgical specimen was received from the operating room and was imaged using digital radiography. ?? These findings were communicated to the surgeon. Procedure Note Dania Horn MD - 05/07/2023 EXAMINATION: LEFT BREAST MAGSEED LOCALIZATION UTILIZING ULTRASOUND GUIDANCE; LEFT FULL FIELD DIGITAL MAMMOGRAM WITH DIGITAL BREAST TOMOSYNTHESIS; RADIOLOGIC EXAMINATION OF THE LEFT SURGICAL SPECIMEN HISTORY: 48-year-old with newly diagnosed left breast invasive ductal carcinoma. Presenting for breast conservation therapy. PROCEDURE AND FINDINGS: The procedure was discussed with the patient and informed consent was obtained. After sterile preparation of the skin, 1% lidocaine was utilized for local anesthesia. A Magseed deployment needle was used to place a magnetic localization seed into the area of interest from a lateral approach utilizing sonographic guidance. There was no evidence of significant immediate complication. A two-view LEFT digital mammogram with digital breast tomosynthesis was performed post procedure demonstrates the magnetic seed in expected position. The attending radiologist, Dr. Dania Horn M.D., was present throughout the entire procedure. Dr. Merritt (diagnostic residential framing carpenter) also participated in this examination. A LEFT surgical specimen was received from the operating room and was imaged using digital radiography. These findings were communicated to the surgeon. IMPRESSION: Successful ultrasound-guided magnetic seed localization of the area of interest within the LEFT breast. The lesion of interest is included within the surgical specimen along with the clip and mag seed. Dictated by: Dustin Merritt M.D. The radiology attending physician has personally reviewed this study, and had reviewed and/or edited this written report and agrees with it. Electronically signed by: Dania Horn M.D. Dulce Powell MD PhD IMG MAMMO PROCEDURES Final Result * POCT hCG, urine (05/07/2023 6:50 AM CDT) HCG, ur, POC Negative Negative Lot Number [id number] QC Backgroud Clear Acceptable QC Control Line Acceptable Urine 05/07/2023 6:50 AM CDT Manju Metz NP POINT OF CARE TEST ORDERABL ES Final Result documented in this encounter Visit Diagnoses Diagnosis Malignant neoplasm of left female breast (HCC)- Primary Malignant neoplasm of left female breast, unspecified estrogen receptor status, unspecified site of breast (HCC) Malignant neoplasm of left female breast, unspecified estrogen receptor status, unspecified site of breast (HCC) documented in this encounter Admitting Diagnoses Diagnosis Malignant neoplasm of left female breast (HCC) documented in this encounter Administered Medications Inactive Administered Medications - up to 3 most recent administrations Medication Order MAR Action Action Date Dose Rate Site acetaminophen (TYLENOL) tablet 1,000 mg 1,000 mg, oral, Once, On Seema 05/07/23 at 1330, For 1 dose, Phase I, When able to tolerate PO., Indications: PainIndications:Pain Given 05/07/2023 1:45 PM CDT 1,000 mg haloperidol (HALDOL) injection 1 mg 1 mg, intravenous, Once as needed, nausea, vomiting, Starting on Seema 05/07/23 at 1254, For 1 dose, Phase I, If nausea/vomiting not relieved by ondansetron within 30 minutes or if ondansetron has been given within the last 6 hours. Given 05/07/2023 1:50 PM CDT 1 mg HYDROmorphone (DILAUDID) injection 0.2 mg 0.2 mg, intravenous, Administer over 2 Minutes, Every 10 min PRN, 1st line for pain, Starting on Seema 05/07/23 at 1254, Phase I, Switch to 2nd line analgesic order if pain is uncontrolled or increasing after 2 doses. Notify Anesthesiologist if total PACU dose reaches 2 mg and pain score 5/10 or more., Indications: PainIndications:Pain Given 05/07/2023 1:13 PM CDT 0.2 mg Given 05/07/2023 1:01 PM CDT 0.2 mg HYDROmorphone (DILAUDID) injection 0.4 mg 0.4 mg, intravenous, Administer over 2 Minutes, Every 10 min PRN, 2nd line for pain, Starting on Seema 05/07/23 at 1254, Phase I, May administer 10 mintes after 2nd dose of 1st line analgesic agent for uncontrolled or increasing pain. Revert to 1st line dose if POSS of 3. Notify Anesthesiologist if total PACU dose reaches 2 mg and pain score 5/10 or more., Indications: PainIndications:Pain Given 05/07/2023 1:23 PM CDT 0.4 mg isosulfan blue (LYMPHAZURIN) 1 % injection As needed, Starting on Seema 05/07/23 at 1140, Intra-Op Given 05/07/2023 11:40 AM CDT 3 mL Left Breast Lactated Ringer's (LR) infusion 30 mL/hr, intravenous, Continuous, Starting on Seema 05/07/23 at 0730 New Bag 05/07/2023 1:51 PM CDT 30 mL/hr 30 mL/hr New Bag 05/07/2023 11:29 AM CDT 50 mL/hr scopolamine patch 72 hour 1 patch 1 patch, transdermal, Administer over 72 Hours, Once, On Seema 05/07/23 at 0745, For 1 dose, Pre-Op Medication Applied 05/07/2023 11:19 AM CDT 1 patch Behind Left Ear sodium chloride 0.9% irrigation As needed, Starting on Seema 05/07/23 at 1156, Intra-Op Given 05/07/2023 11:56 AM CDT 1,000 mL Surgical Site documented in this encounter Active and Recently Administered Medications Times are shown in CDT. Scheduled Medication Order 05/05/2023 05/06/2023 05/07/2023 acetaminophen (TYLENOL) tablet 1,000 mg (COMPLETED) 1,000 mg, oral, Once, On Seema 05/07/23 at 1330, For 1 dose, Phase I, When able to tolerate PO., Indications: Pain 1345 (Given - Provid er: Petrona Sharp RN) ceFAZolin (ANCEF) 2,000 mg/20 mL in sterile water (premix) 2,000 mg (COMPLETED) 2,000 mg, intravenous, at 400 mL/hr, Administer over 3 Minutes, Once, On Seema 05/07/23 at 0730, For 1 dose, Pre-Op, Indications: Prophylaxis, Surgical 1128 (Given - Provid er: Petrona Cervantes CRNA) scopolamine patch 72 hour 1 patch (COMPLETED) 1 patch, transdermal, Administer over 72 Hours, Once, On Seema 05/07/23 at 0730, For 1 dose, Pre-Op 1120 (Given - Provid er: Petrona Cervantes CRNA) scopolamine patch 72 hour 1 patch (CANCELED) 1 patch, transdermal, Administer over 72 Hours, Once, On Seema 05/07/23 at 0745, For 1 dose, Pre-Op 1119 (Medication Lane lied - Provider: Shaila Rubio RN) Continuous Medication Order 05/05/2023 05/06/2023 05/07/2023 Lactated Ringer's (LR) infusion 30 mL/hr, intravenous, Continuous, Starting on Seema 05/07/23 at 0730 1129 (New Bag - Prov ider: Petrona Cervantes CRNA)1220 (Anesthesia Volume Adjustment - Provider: Petrona Cervantes CRNA)1342 (Stopped - Provider: Petrona Sharp RN)1351 (New Bag - Provider: Petrona Sharp RN)1519 (Stopped - Provider: Pilar Wayne RN) PRN Medication Order 05/05/2023 05/06/2023 05/07/2023 haloperidol (HALDOL) injection 1 mg (COMPLETED) 1 mg, intravenous, Once as needed, nausea, vomiting, Starting on Seema 05/07/23 at 1254, For 1 dose, Phase I, If nausea/vomiting not relieved by ondansetron within 30 minutes or if ondansetron has been given within the last 6 hours. 1350 (Given - Provid er: Petrona Sharp RN) HYDROmorphone (DILAUDID) injection 0.2 mg 0.2 mg, intravenous, Administer over 2 Minutes, Every 10 min PRN, 1st line for pain, Starting on Seema 05/07/23 at 1254, Phase I, Switch to 2nd line analgesic order if pain is uncontrolled or increasing after 2 doses. Notify Anesthesiologist if total PACU dose reaches 2 mg and pain score 5/10 or more., Indications: Pain 1301 (Given - Provid er: Brissa Moise RN)1313 (Given - Provider: Brissa Moise RN) HYDROmorphone (DILAUDID) injection 0.4 mg 0.4 mg, intravenous, Administer over 2 Minutes, Every 10 min PRN, 2nd line for pain, Starting on Seema 05/07/23 at 1254, Phase I, May administer 10 mintes after 2nd dose of 1st line analgesic agent for uncontrolled or increasing pain. Revert to 1st line dose if POSS of 3. Notify Anesthesiologist if total PACU dose reaches 2 mg and pain score 5/10 or more., Indications: Pain 1323 (Given - Provid er: Brissa Moise RN) isosulfan blue (LYMPHAZURIN) 1 % injection (CANCELED) As needed, Starting on Seema 05/07/23 at 1140, Intra-Op 1140 (Given - Provid er: Dulce Powell MD PhD) naloxone (NARCAN) 0.4 mg/mL injection 0.04-0.4 mg 0.04-0.4 mg, intravenous, Once as needed, other, excessive sedation/respiratory depression, Starting on Seema 05/07/23 at 1254, For 1 dose, Phase I, Dilute 0.4 mg with 9 mL NS (final concentration 0.04 mg/mL). For respiratory depression (respiratory rate less than 6), administer 0.4 mg IVP over 30 seconds. For excessive sedation administer 0.04 mg (1 mL) every 1 minute until desired level of alertness. For IV, administer over 30 seconds., Indications: Opioid Toxicity ondansetron (ZOFRAN) injection 4 mg 4 mg, intravenous, Administer over 2 Minutes, Once as needed, nausea, vomiting, Starting on Seema 05/07/23 at 1254, For 1 dose, Phase I, Proceed to haloperidol if ondansetron has been given within the last 6 hours. oxyCODONE (ROXICODONE) tablet 5 mg 5 mg, oral, Once as needed, 1st line for pain, Starting on Seema 05/07/23 at 1254, For 1 dose, Phase I, When able to tolerate PO., Indications: Pain sodium chloride 0.9% irrigation (CANCELED) As needed, Starting on Seema 05/07/23 at 1156, Intra-Op 1156 (Given - Provid er: Dulce Powell MD PhD) documented in this encounter Orders Medications Ordered That Matt ht Not Have Been Administered Count Last Ordered Date First Ordered Date Carrier Fluids for Secondary Infusion - 0.9% Sodium Chloride 2 05/07/2023 ceFAZolin (ANCEF) 2,000 mg/2 0 mL in sterile water (premix) 2,000 mg 1 05/07/2023 naloxone (NARCAN) 0.4 mg/mL injection 0.04-0.4 mg 1 05/07/2023 ondansetron (ZOFRAN) injection 4 mg 1 05/07 oxyCODONE (ROXICODONE) tablet 5 mg 1 2022 scopolamine patch 72 hour 1 patch 1 023 sodium chloride 0.9% flush 0.5-20 mL 2 12/2022 Diet Count Last Ordered Date First Orde red Date ADULT DISCHARGE DIET 1 05/07/2023 Nursing Count Last Ordered Date First Orde red Date DISCHARGE ACTIVITY 3 05/07/2023 DISCHARGE CALL PROVIDER 6 05/07/2023 DISCHARGE DRESSING 5 05/07/2023 Discharge Count Last Ordered Date First Orde red Date DISCHARGE PATIENT 1 05/07/2023 documented in this encounter Care Teams Dairy Nutrition Specialist Relationship Specialty Start Date End Date No, Physician PCP - General 03/11/23 09/22/23 Elvira Bruner MD [address] [address] Referring Physician Gynecology 03/11/23 documented as of this encounter
--- OUTSIDE RECORDS SUMMARY | 2024-07-24 18:21 | XMS_ITS | Encounter Summary ---
Author Organization [facility] Address [address] [place] [address] Phone Care Team Providers Care Tool Die Maker Name Role Phone Elvira Bruner MD Unavailable [phone] No, Physician Primary Care Provider [phone] Encounter Details Date Type Department Care Team (Late st Contact Info) Description 03/12/2023 Telephone [facility] Surgery [facility] Advanced 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 Also also her insurance was received and updated. documented in this encounter Plan of Treatment Not on file documented as of this encounter Visit Diagnoses Not on filedocumented in this encounter Care Teams Tool Die Maker Relationship Specialty Start Date End Date No, Physician PCP - General 03/11/23 09/22/23 Elvira Bruner MD [address] [address] Referring Physician Gynecology 03/11/23 documented as of this encounter
--- OUTSIDE RECORDS SUMMARY | 2024-07-24 18:21 | XMS_ITS | Encounter Summary ---
Author Organization [facility] Address [address] [place] [address] Phone Care Team Providers Care Feather Cutting Machine Feeder Name Role Phone Elvira Bruner MD Unavailable [phone] No, Physician Primary Care Provider [phone] Reason for Visit * Reason Onset Date Comments continuing care 05/15/2023 Encounter Details Date Type Department Care Team (Late st Contact Info) Description 05/15/2023 Telephone [facility] Surgery [address] [facility] Advanced [facility] 5th [place] [address] [place] [address] Aft, Dulce Peña MD PhD [address] [place] [address] continuing care Social History Tobacco Use Types Packs/Day [...] on file 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 Records have been faxed. documented in this encounter Plan of Treatment Not on file documented as of this encounter Visit Diagnoses Not on filedocumented in this encounter Care Teams Feather Cutting Machine Feeder Relationship Specialty Start Date End Date No, Physician PCP - General 03/11/23 09/22/23 Elvira Bruner MD [address] [address] Referring Physician Gynecology 03/11/23 documented as of this encounter
--- OUTSIDE RECORDS SUMMARY | 2024-07-24 18:21 | XMS_ITS | Encounter Summary ---
Author Organization [facility] Address [address] [place] [address] Care Team Providers Care Butcher Apprentice Name Role Phone Unavailable Primary Care Provider Unavailabl e Reason for Visit * Diagnostic Imaging (Routine) - Closed Specialty Diagnoses / Procedures Referred By Contac t Referred To Contact Procedures Breast Imaging Diagnostic Outside Reference Aft, Dulce Peña MD PhD [address] [place] [address] Phone: tel: fax: Referral ID Status Reason Start Date Expiration Date Visits Re quested Visits Authorized [id number] Closed 04/02/2023 05/01/2024 1 1 Encounter Details Date Type Department Care Team (Latest Contact Info) Description 02/24/2023 12:05 AM CDT - 02/24/2023 11:59 PM CDT Hospital Encounter [facility] [address] [place] [address] Discharge Disposition: Discharge to home or self care Social History Tobacco Use Types Packs/Day Years Used Date Smoking Tobacco: Never Assessed Comments Unknown Sex and Gender Information Value Date Recorded Sex Assigned at Not on file 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 Gender Identity Not on file Sexual Orientation Not on file documented as of this encounter Discharge Disposition Disposition Code Departure Means Destination Discharge to home or self care documented in this encounter Plan of Treatment Not on file documented as of this encounter Procedures Procedure Name Priority Date/Time Associated Diagnosis Comments BREAST IMAGING MG DIAGNOSTIC OUTSIDE REFERENCE Routine 02/24/2023 12:05 AM CDT documented in this encounter Results * Breast Imaging Diagnostic Outside Reference (02/24/2023 12:05 AM CDT) Impressions RAD_MAMMO_[facility] - 04/02/2023 8:39 AM CDT These images are for Reference purposes only and have not been reviewed by [facility] Radiology. ??There will be no report generated by a [facility] Radiologist. Narrative RAD_MAMMO_[facility] - 04/02/2023 8:39 AM CDT EXAMINATION: ??Images For Reference Purposes Only us Dulce Powell MD PhD IMG MAMMO PROCEDURES Final Result [facility]MO[facility] documented in this encounter Visit Diagnoses Not on filedocumented in this encounter
--- OUTSIDE RECORDS SUMMARY | 2024-07-24 18:21 | XMS_ITS | Encounter Summary ---
Author Organization [facility] Address [address] [place] [address] Phone Care Team Providers Care Applied Exercise Physiologist Name Role Phone Elvira Bruner MD Unavailable [phone] No, Physician Primary Care Provider [phone] Reason for Visit * Reason Onset Date Comments Test Results 04/16/2023 surgery planning 04/16/2023 Encounter Details Date Type Department Care Team (Late st Contact Info) Description 04/16/2023 Telephone [facility] Surgery [address] [facility] 5th [place] [address] Aft, Dulce Peña MD PhD [address] [place] [address] Test Results; surgery planning Social History Tobacco Use Types Packs/Day Years Used Date Smoking Tobacco: Never AUDIT-C Answer Date Recorded Q1: How often do you have a drink containing alc ohol? Monthly or less 04/13/2023 Q2: How many drinks containi ng alcohol do you have on a typical day when you are drinking? 1 or 2 04/13/2023 Q3: How often do you have si x or more drinks on one occasion? 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 Patient would like a call back to discuss surgery plans. * Telephone Encounter - Trista Dey CMA - 04/16/2023 11:41 AM CDT Left patient a voicemail asking for a call back. * Telephone Encounter - Trista Dey CMA - 04/16/2023 11:41 AM CDT ----- Message from Dulce Powell MD PhD sent at 04/16/2023 9:17 AM CDT ----- 1. Please call pt, br mri shows no other evidence of disease and we will proceed with a lumpectoy as discussed in clinic. 1. Please schedule for left needle loc, SLNB with lymphoscintgraphy 1.5 hr gen outpt. Thank you documented in this encounter Plan of Treatment Not on file documented as of this encounter Visit Diagnoses Not on filedocumented in this encounter Care Teams Applied Exercise Physiologist Relationship Specialty Start Date End Date No, Physician PCP - General 03/11/23 09/22/23 Elvira Bruner MD [address] [address] Referring Physician Gynecology 03/11/23 documented as of this encounter
--- OUTSIDE RECORDS SUMMARY | 2024-07-24 18:21 | XMS_ITS | Encounter Summary ---
Author Organization [facility] Address [address] [place] [address] Phone Care Team Providers Care General Laborer Name Role Phone Elvira Bruner MD Unavailable [phone] No, Physician Primary Care Provider [phone] Reason for Referral * MRI/CAT/PET Scan (Routine) - Closed Specialty Diagnoses / Procedures Referred By Domenic t Referred To Contact Radiology Diagnoses Malignant neoplasm of left female breast, unspecified estrogen receptor status, unspecified site of breast (HCC) Procedures MRI Breast Bilateral W WO Contrast Dulce Powell MD PhD [address] [place] [address] Phone: tel: fax: [facility] [address] [place] [address] Referral ID Status Reason Start Date Expiration Date Visits Re quested Visits Authorized [id number] Closed 04/13/2023 05/12/2024 1 1 Reason for Visit * Reason Comments Consult * Consultation (Routine) - Closed Specialty Diagnoses / Procedures Referred By Contac t Referred To Contact Surgical Oncology Diagnoses Malignant neoplasm of left female breast, unspecified estrogen receptor status, unspecified site of breast (HCC) Referral, Self [facility] (All Locations) Referral ID Status Reason Start Date Expiration Date V isits Requested Visits Authorized [id number] Closed Specialty Services Required 03/11/2023 04/09/2024 1 1 Encounter Details Date Type Department Care Team (Late st Contact Info) Description 04/13/2023 12:40 PM CDT Office Visit [facility] Surgery [address] 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 Gender Identity Not on file Sexual Orientation Not on file documented as of this encounter Last Filed Vital Signs Vital Sign Reading Time Taken Comments Blood Pressure - - Pulse - - Temperature - - Respiratory Rate - - Oxygen Saturation - - Inhaled Oxygen Concentration - - Weight 43.5 kg (96 lb) 04/13/2023 12:21 PM CDT Height 149.9 cm (4' 11 ) 04/13/2023 12:21 PM CDT Body Mass Index 19.39 04/13/2023 12:21 PM CDT documented in this encounter Progress Notes * Dulce Powell MD PhD - 04/13/2023 12:40 PM CDT PATIENT NAME: Mattie Peace DATE OF : 1975 DATE OF OFFICE VISIT: 04/13/2023 REFERRING MD: Self Referral A consultation was requested by Self Referral for left a breast cancer. CHIEF COMPLAINT: Mattie Peace is a 48 y.o. female with chief complaint of left breast cancer. HISTORY OF PRESENT ILLNESS: Ms. Peace is a 48 y.o. woman referred by Self Referral presents for evaluation of her new diagnosis of left breast cancer. T palpated a mass in her left breast She underwent additional imaging and ultimately a core biopsy, which confirmed an invasive breast cancer. She p resents today to discuss further management. The patient states that she has not noticed any abnormal masses in either breast. She denies any change in the appearance of her breasts or the skin of her breasts. She denies bilateral nipple discharge. She has no other systemic complaints and otherwisefeels well today. There is no family history of breast cancer PAST MEDICAL HISTORY: She has no past medical history on file. PAST SURGICAL HISTORY: She has no past surgical history on file. MEDICATIONS: She currently has no medications in their medication list. ALLERGIES: She has No Known Allergies. FAMILY HISTORY: Her family history is not on file. SOCIAL HISTORY: She reports that she has never smoked. She does not have any smokeless tobacco history on file. No alcohol history on file. ROS: Pertinent items are noted in HPI., I have personally reviewed the patient health history form which is scanned into her chart. PHYSICAL EXAMINATION: Vitals Ht 149.9 cm (4' 11 ) Wt 43.5 kg (96 lb) BMI 19.39 kg/m?? GENERAL: She is a well-developed, well-nourished woman in no acute distress. HEENT: Within normal limits. EXTREMITIES: Warm without edema. NEUROLOGICAL: She is alert and oriented x 3. BREAST EXAMINATION: Bilateral breast examination reveals normal ptotic breasts bilaterally. Both breasts are without any dominant masses, skin changes, nipple discharge, or axillary adenopathy. IMAGING: I personally ordered and reviewed all of the imaging today. FINDINGS: Bilateral diagnostic mammography 01/22/2023: There is [...] This was not obtained at outside facility. PATHOLOGY: I reviewed the pathology. Breast, left, 10:00, 7 cm from nipple, core biopsy - Invasive ductal carcinoma with tubular features - Greatest microscopic dimension = 2 mm in core biopsy material - Histologic grade = 1/3 (tub 1 + nuc 2 + gordo 1 = 4/9) by ESBR criteria - Biomarkers (slides are provided for review) - ER: 8/8 (Positive) - ME: 7/8 (Positive) - Her-2 IHC: 0 (Negative) - Ki-67 Index: <5% IMPRESSION: Clinical stage I left breast cancer RECOMMENDATION: Ms. Peace is a 48 y.o. woman who presents today fora consultation regarding her new diagnosis of left breast cancer. I reviewed the clinical, imaging, and pathology findings with her today. We discussed the treatment of breast cancer, which includes a combination of surgical therapy, systemic therapy, and radiation. We discussed her surgical therapy in great detail, and I explained the difference between breast conservation and mastectomy. Based on the clinical and imaging findings, I would consider her an acceptable candidate for attempted breast conservation. I would also recommend a sentinel node biopsy for axillary staging. I have recommended the patient undergo a breast MRI to assess extent of disease given the density of her breasts. I explained the risks, benefits, and alternatives of this procedure, which include but are not limited to: bleeding, infection, and anesthetic risk.She understands and wishes to proceed. We will schedule her for surgery after the MRI results are available. She knows to call with questions. Dulce Powell MD PhD documented in this encounter Plan of Treatment Not on file documented as of this encounter Results * MRI Breast Bilateral W WO Contrast (04/13/2023 6:35 PM CDT) Anatomical Region Laterality Modality Breast Bilateral Magnetic Resonan ce 04/14/2023 3:05 PM CDT Impressions 04/14/2023 3:12 PM CDT 1. ??LEFT breast 8 x 5 x 6 mm area of enhancement at the 10 o'clock position, 7 cm from the nipple. ??This area corresponds to the known biopsy-proven invasive ductal carcinoma. ?? 2. ??No suspicious MR finding at the area of grouped calcifications within the upper, outer LEFT breast. ??When compared to outside images, these have been stable dating back to 2018. OVERALL FINAL ASSESSMENT: BI-RADS Category 6: Known Biopsy-Proven Malignancy. RECOMMENDATION: Continued clinical and oncologic management of known malignancy. Dictated by: Heide Ramires MD The radiology attending physician has personally reviewed this study, and had reviewed and/or edited this written report and agrees with it. Electronically signed by: Eufemia Crane 04/14/2023 3:12 PM CDT EXAMINATION: 1. MRI EXAMINATION OF THE BREASTS WITH AND WITHOUT CONTRAST 2. 3D POST PROCESSING ON A DEDICATED 3D WORKSTATION HISTORY: New diagnosis of breast cancer. ??48-year-old female with invasive ductal carcinoma with tubular features (ER/ME positive) within the left breast, 10 o'clock position, 7 cm from the nipple. MRI is requested due to far posterior location of the mass. DATE OF LAST MENSTRUAL PERIOD: Postmenopausal TECHNIQUE: MRI examination of the breasts per breast tumor protocol with and without gadolinium contrast. ??A dedicated breast imaging coil was used. ??The images were transferred to a breast CAD system for 3D post processing and contrast kinetics analysis. ?? CONTRAST: Gadoterate meglumine, 8 ml COMPARISON: 01/22/2023, 02/24/2023, 04/13/2023 and prior mammograms dating back to 2018 BREAST COMPOSITION: Heterogeneous fibroglandular tissue BACKGROUND PARENCHYMAL ENHANCEMENT: Mild FINDINGS: In the LEFT breast, at the 10 o'clock position, 7 cm from the nipple, there is a 0.8 x 0.5 x 0.6 cm area of enhancement that corresponds to the known biopsy-proven invasive ductal carcinoma. ??Susceptibility artifact adjacent to this area corresponds to the coil-shaped tissue marker. No additional areas of mass or non-mass enhancement are seen in EITHER breast. ??No suspicious area of enhancement near the calcifications within the upper, outer LEFT breast. No abnormally enlarged lymph nodes are identified in the visualized portions of either axilla. Procedure Note Lindsey King MD - 04/14/2023 EXAMINATION: 1. MRI EXAMINATION OF THE BREASTS WITH AND WITHOUT CONTRAST 2. 3D POST PROCESSING ON A DEDICATED 3D WORKSTATION HISTORY: New diagnosis of breast cancer. 48-year-old female with invasive ductal carcinoma with tubular features (ER/ME positive) within the left breast, 10 o'clock position, 7 cm from the nipple. MRI is requested due to far posterior location of the mass. DATE OF LAST MENSTRUAL PERIOD: Postmenopausal TECHNIQUE: MRI examination of the breasts per breast tumor protocol with and without gadolinium contrast. A dedicated breast imaging coil was used. The images were transferred to a breast CAD system for 3D post processing and contrast kinetics analysis. CONTRAST: Gadoterate meglumine, 8 ml COMPARISON: 01/22/2023, 02/24/2023, 04/13/2023 and prior mammograms dating back to 2017 BREAST COMPOSITION: Heterogeneous fibroglandular tissue BACKGROUND PARENCHYMAL ENHANCEMENT: Mild FINDINGS: In the LEFT breast, at the 10 o'clock position, 7 cm from the nipple, there is a 0.8 x 0.5 x 0.6 cm area of enhancement that corresponds to the known biopsy-proven invasive ductal carcinoma. Susceptibility artifact adjacent to this area corresponds to the coil-shaped tissue marker. No additional areas of mass or non-mass enhancement are seen in EITHER breast. No suspicious area of enhancement near the calcifications within the upper, outer LEFT breast. No abnormally enlarged lymph nodes are identified in the visualized portions of either axilla. IMPRESSION: 1. LEFT breast 8 x 5 x 6 mm area of enhancement at the 10 o'clock position, 7 cm from the nipple. This area corresponds to the known biopsy-proven invasive ductal carcinoma. 2. No suspicious MR finding at the area of grouped calcifications within the upper, outer LEFT breast. When compared to outside images, these have been stable dating back to 2018. OVERALL FINAL ASSESSMENT: BI-RADS Category 6: Known Biopsy-Proven Malignancy. RECOMMENDATION: Continued clinical and oncologic management of known malignancy. Dictated by: Heide Ramires MD The radiology attending physician has personally reviewed this study, and had reviewed and/or edited this written report and agrees with it. Electronically signed by: Lindsey King M.D. Dulce Powell MD PhD IMG MRI PROCEDURES Final R esult documented in this encounter Visit Diagnoses Diagnosis Malignant neoplasm of left female breast, unspecified estrogen receptor status, unspecified site of breast (HCC) Malignant neoplasm of left female breast, unspecified estrogen receptor status, unspecified site of breast (HCC) documented in this encounter Orders Outpatient Referral Count Last Ordered Date Fir st Ordered Date AMB REFERRAL TO SURGICAL ONCOLOGY 1 023 documented in this encounter Care Teams General Laborer Relationship Specialty Start Date End Date No, Physician PCP - General 03/11/23 09/22/23 Elvira Bruner MD [address] [address] Referring Physician Gynecology 03/11/23 documented as of this encounter
--- OUTSIDE RECORDS SUMMARY | 2024-07-24 18:21 | XMS_ITS | Encounter Summary ---
Author Organization [facility] Healthcare Address [address] [place] [address] Care Team Providers Care Auto Radio Mechanic Name Role Phone Elvira Bruner MD Unavailable [phone] No, Physician Primary Care Provider [phone] Reason for Referral * Diagnostic Imaging (Routine) - Closed Specialty Diagnoses / Procedures Referred By Domenic denny Referred To Contact Diagnoses Malignant neoplasm of left female breast, unspecified estrogen receptor status, unspecified site of breast (HCC) Procedures Radiologic Examination of Surgical Specimen NawaftDulce MD PhD [address] [place] [address] Phone: tel: fax: [address] [address] Referral ID Status Reason Start Date Expiration Date Visits Re quested Visits Authorized [id number] Closed 04/17/2023 05/16/2024 1 1 Reason for Visit * Auth/Cert (Routine) Specialty Diagnoses / Procedures Referred By Domenic Referred To Contact Diagnoses Malignant neoplasm of left female breast, unspecified estrogen receptor status, unspecified site of breast (HCC) Malignant neoplasm of left female breast, unspecified estrogen receptor status, unspecified site of breast (HCC) [C50.912] Procedures OH EXC BREAST LES PREOP PLMT RAD MARKER OPEN 1 LES OH MASTECTOMY PARTIAL OH INTRAOP SENTINEL LYMPH NODE ID W/DYE INJECTION OH BX/EXC LYMPH NODE OPEN SUPERFICIAL MAGNETIC SEED LOCALIZATION EXCISIONAL BIOPSY LUMPECTOMY BIOPSY SENTINEL LYMPH NODE Referral ID Status Reason Start Date Expiration Date Visits Re quested Visits Authorized [id number] 1 1 Encounter Details Date Type Department Care Team (Latest Contact Info) Description 05/07/2023 7:00 AM CDT - 05/07/2023 11:59 PM CDT Hospital Encounter [facility] [address] [place] [address] Aft, Dulce Peña MD PhD [address] [place] [address] Malignant neoplasm of left female breast, unspecified [...] on file 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 Gender Identity Not on file Sexual Orientation [...] 05/07/2023 09/25/2023 documented as of this encounter Discharge Disposition Disposition Code Departure Means Destination Discharge to home or self care documented in this encounter Plan of Treatment Not on file documented as of this encounter Procedures Procedure Name Priority Date/Time Associated Diagnosis Comments RADIOLOGIC EXAMINATION OF SURGICAL SPECIMEN Schedule Routine, Read Routine (OP Routine) 05/07/2023 12:30 PM CDT Malignant neoplasm of left female breast, unspecified estrogen receptor status, unspecified site of breast (HCC) documented in this encounter Results * Radiologic Examination of Surgical Specimen (05/07/2023 12:30 PM CDT) Anatomical Region Laterality Modality Breast N/A Mammography 05/07/2023 3:04 PM CDT Impressions 05/07/2023 [...] throughout the entire procedure. Dr. Merritt (diagnostic radiology supervisor) also participated in this examination. A LEFT [...] throughout the entire procedure. Dr. Merritt (diagnostic radiology supervisor) also participated in this examination. A LEFT [...] (HCC) documented in this encounter Care Teams Auto Radio Mechanic Relationship Specialty Start Date End Date No, Physician PCP - General 03/11/23 09/22/23 Elvira Bruner MD [address] [address] Referring Physician Gynecology 03/11/23 documented as of this encounter
--- OUTSIDE RECORDS SUMMARY | 2024-07-24 18:21 | XMS_ITS | Encounter Summary ---
Author Organization [facility] Address [address] [place] [address] Phone Care Team Providers Care Sheet Metal Insulator Name Role Phone Elvira Bruner MD Unavailable [phone] No, Physician Primary Care Provider [phone] Encounter Details Date Type Department Care Team (Late st Contact Info) Description 03/20/2023 Orders Only [facility] Surgery [address] [facility] 5th [place] [id number] Aft, Dulce Peña MD PhD [address] [place] [address] Infiltrating ductal carcinoma of left breast (HCC) (Primary Dx) Social History Tobacco Use Types Packs/Day Years Used Date Smoking Tobacco: Never Assessed Comments Unknown Sex and Gender Information Value Date Recorded Sex Assigned at Not on file 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 Gender Identity Not on file Sexual Orientation Not on file documented as of this encounter Plan of Treatment Scheduled Orders Name Type Priority Associated Diagnoses Orde r Schedule Surgical pathology Pathology and Cytology Routine Infiltrating ductal carcinoma of left breast (HCC) Expected: 03/20/2023, Expires: 03/20/2024 documented as of this encounter Visit Diagnoses Diagnosis Infiltrating ductal carcinoma of left breast (HCC)- Primary documented in this encounter Care Teams Sheet Metal Insulator Relationship Specialty Start Date End Date No, Physician PCP - General 03/11/23 09/22/23 Elvira Bruner MD [address] [address] Referring Physician Gynecology 03/11/23 documented as of this encounter
--- OUTSIDE RECORDS SUMMARY | 2024-07-24 18:21 | XMS_ITS | Encounter Summary ---
Author Organization [facility] Address [address] [place] [address] Care Team Providers Care Administration Physician Name Role Phone Elvira Bruner MD Unavailable [phone] No, Physician Primary Care Provider [phone] Reason for Referral * MRI/CAT/PET Scan (Routine) - Closed Specialty Diagnoses / Procedures Referred By [facility] Referred To Contact Radiology Diagnoses Malignant neoplasm of left female breast, unspecified estrogen receptor status, unspecified site of breast (HCC) Procedures MRI Breast Bilateral W WO Contrast Dulce Powell MD PhD [address] [place] [address] Phone: tel: fax: [address] [phone] Referral ID Status Reason Start Date Expiration Date Visits Re quested Visits Authorized [id number] Closed 04/13/2023 05/12/2024 1 1 Reason for Visit * MRI/CAT/PET Scan (Routine) - Closed Specialty Diagnoses / Procedures Referred By [facility] Referred To Contact Radiology Diagnoses Malignant neoplasm of left female breast, unspecified estrogen receptor status, unspecified site of breast (HCC) Procedures MRI Breast Bilateral W WO Contrast Dulce Powell MD PhD [address] [place] [address] Phone: tel: fax: [address] [phone] Referral ID Status Reason Start Date Expiration Date Visits Re quested Visits Authorized [id number] Closed 04/13/2023 05/12/2024 1 1 Encounter Details Date Type Department Care Team (Latest Contact Info) Description 04/13/2023 4:37 PM CDT - 04/13/2023 11:59 PM CDT Hospital Encounter [facility] [address] [place] [id number] Malignant neoplasm of left female breast, unspecified [...] on file 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 Gender Identity Not on file Sexual Orientation Not on file documented as of this encounter Discharge Disposition Disposition Code Departure Means Destination Discharge to home or self care documented in this encounter Plan of Treatment Not on file documented as of this encounter Procedures Procedure Name Priority Date/Time Associated Diagnosis Comments MRI BREAST BILATERAL W WO CONTRAST Schedule Routine, Read Routine (OP Routine) 04/13/2023 6:35 PM CDT Malignant neoplasm of left female breast, unspecified estrogen receptor status, unspecified site of breast (HCC) documented in this encounter Results * MRI [...] it. Electronically signed by: Lindsey King M.D. Narrative 04/14/2023 3:12 PM CDT EXAMINATION: 1. MRI EXAMINATION OF THE BREASTS WITH AND WITHOUT CONTRAST 2. 3D POST PROCESSING ON A DEDICATED 3D WORKSTATION HISTORY: New diagnosis of breast cancer. 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, 10 o'clock [...] of breast (HCC) documented in this encounter Administered Medications Inactive Administered Medications - up to 3 most recent administrations Medication Order MAR Action Action Date Dose Rate Site gadoterate meglumine injection 8 mL 8 mL, intravenous, Once in imaging, contrast, Starting on 04/13/23 at 1811, For 1 dose Contrast Given 04/13/2023 6:20 PM CDT 8 mL documented in this encounter Orders Medications Ordered That Matt ht Not Have Been Administered Count Last Ordered Date First Ordered Date gadoterate meglumine injection 8 mL 1 04/13 documented in this encounter Care Teams Administration Physician Relationship Specialty Start Date End Date No, Physician PCP - General 03/11/23 09/22/23 Elvira Bruner MD [address] [address] Referring Physician Gynecology 03/11/23 documented as of this encounter
--- OUTSIDE RECORDS SUMMARY | 2024-07-24 18:21 | XMS_ITS | Encounter Summary ---
Author Organization [facility] Address [address] [place] [address] Phone Care Team Providers Care Store Merchandiser Name Role Phone Elvira Bruner MD Unavailable [phone] No, Physician Primary Care Provider [phone] Encounter Details Date Type Department Care Team (Late st Contact Info) Description 04/13/[address] 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
--- OUTSIDE RECORDS SUMMARY | 2024-07-24 18:21 | XMS_ITS | Encounter Summary ---
Author Organization [facility] Address [address] [place] [address] Phone Care Team Providers Care Pulp Tester Name Role Phone Elvira Bruner MD Unavailable [phone] No, Physician Primary Care Provider Reason for Visit * Reason Onset Date Comments billing 04/29/2023 Encounter Details Date Type Department Care Team (Late st Contact Info) Description 04/29/2023 Telephone [facility] Surgery [address] [facility] 5th [place] [address] [place] [address] Aft, Dulce Peña MD PhD [address] [place] [address] billing Social History Tobacco Use Types Packs/Day Years Used Date Smoking Tobacco: Never Smokeless Tobacco: Never AUDIT-C Answer Date Recorded Q1: How often do you have a drink containing alc ohol? 2-4 times a month 04/21/2023 Q2: How many drinks containi ng alcohol do you have on a typical day when you are drinking? 1 or 2 04/21/2023 Q3: How often do you have si x or more drinks on one occasion? 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 Left patient a voicemail message with: [facility] - Financial Assistance Evaluation or [phone] Email: [email or web address] . Asked that patient call back with any questions or concerns. * Telephone Encounter - Trista Dey CMA - 04/29/2023 8:14 AM CDT Patient left a voicemail message regarding questions about billing. Left patient a voicemail message with the billing department number, . documented in this encounter Plan of Treatment Not on file documented as of this encounter Visit Diagnoses Not on filedocumented in this encounter Care Teams Pulp Tester Relationship Specialty Start Date End Date No, Physician PCP - General 03/11/23 09/22/23 Elvira Bruner MD [address] [address] Referring Physician Gynecology 03/11/23 documented as of this encounter
--- OUTSIDE RECORDS SUMMARY | 2024-07-24 18:21 | XMS_ITS | Encounter Summary ---
Author Organization [facility] Healthcare Address [address] [place] [address] Care Team Providers Care Cross Tie Maker Name Role Phone Elvira Bruner MD Unavailable [phone], Physician Primary Care Provider [phone] Reason for Visit * Auth/Cert (Routine) Specialty Diagnoses / Procedures Referred By Domenic denny Referred To Contact Diagnoses Malignant neoplasm of left female breast, unspecified estrogen receptor status, unspecified site of breast (HCC) Malignant neoplasm of left female breast, unspecified estrogen receptor status, unspecified site of breast (HCC) [C50.912] Procedures KY EXC BREAST LES PREOP PLMT RAD MARKER OPEN 1 LES KY MASTECTOMY PARTIAL KY INTRAOP SENTINEL LYMPH NODE ID W/DYE INJECTION KY BX/EXC LYMPH NODE OPEN SUPERFICIAL MAGNETIC SEED LOCALIZATION EXCISIONAL BIOPSY LUMPECTOMY BIOPSY SENTINEL LYMPH NODE Referral ID Status Reason Start Date Expiration Date Visits Re quested Visits Authorized [id number] 1 1 Encounter Details Date Type Department Care Team (Late st Contact Info) Description 05/07/2023 11:20 AM CDT Anesthesia Event [facility] Operating Room [facility] [address] [place], [place] [id number] Maury Olea MD [address] [facility] [address] [place] [address] Manju Metz NP [address] [facility] [address] [place], [place] [id number] Anesthesia Record Procedure Summary Procedure Name Responsible Anesthesiologist Anesthesia Start Time Anesthesia Stop Time MAGNETIC SEED LOCALIZATION EXCISIONAL BIOPSY (Left: Breast) Maury Olea MD 05/07/23 1120 05/07/23 1252 Events Date Time Event Comment 05/07/2023 0645 In Preop 0700 1109 Start Supplemental O2 1110 Time out - Regional 1110 An Block Induction The patie nt was reevaluated immediately before moderate or deep sedation and before anesthesia induction. 1112 Block Placed 1114 Block Placed 1116 Face Time 1120 An Start 1122 In Room 1122 An Start Data 1129 An Induction The patient was reevaluated immediately before moderate or deep sedation use and before anesthesia induction. 1130 An Intubation 1131 Anesthesia Ready 1140 Proc Start 1146 Incision Start 1248 An Extubation 1252 an stop data 1252 Proc Fin 1252 An Stop 1253 Out of Room 1257 Handoff to RN I completed my handoff to the receiving nurse during which we: 1. Patient identified 2. Responsible provider identified 3. Pertinent medical history reviewed 4. Procedure type and surgical course discussed 5. Intraoperative anesthetic management and any significant issues discussed 6. Expectations and concerns for postop period discussed 7. Questions solicited from receiving nurse 8. Patient disposition at the time of handoff: No value filed. Meds Name Total propofol 120 mg propofol 373.89 mg fentaNYL 200 mcg succinylcholine 50 mg ceFAZolin (ANCEF) 2,000 mg/20 mL in ster ile water (premix) 2,000 mg 2,000 mg scopolamine patch 72 hour 1 patch 1 patc h dexAMETHasone 4 mg/mL 4 mg famotidine 20 mg ketorolac 30 mg midazolam PF 2 mg BUPivacaine 0.25% PF 30 mL Lactated Ringer's (LR) infusion 700 mL * Agents Name O2% N2O O2 Air Sevoflurane Inspired Sevoflurane * Blood No blood administrations on file. Lines, Drains, and Airways Type Details Placement Removal Peripheral IV Placement Date: 05/07/23; Placement Time: 110; Catheter Size: 20 G; Orientation: Posterior, Right; Location: Hand; Inserted by: et,rn; Insertion Attempts: 1; Patient Tolerance: Tolerated well; Removal Date: 05/07/23; Removal Time: 1513 05/07/23 1107 by Shaila Rubio RN 05/07/23 1513 by Pilar Wayne RN ETT Placement Date: 05/07/23; Placement Time: 1138 (created via procedure documentation); Mask Ventilation: 0; Technique: Direct laryngoscopy; Type: ETT - single; Single Lumen Tube Size: 7 mm; Cuffed: Yes; Laryngoscope: Rosita; Blade Size: 3; Location: Oral; Grade View: Grade I; Insertion Attempts: 1; Placement Verification: Auscultation, Capnometry; Removal Date: 05/07/23; Removal Time: 1248 05/07/23 1138 by Petrona Cervantes CRNA 05/07/23 1248 by Petrona Cervantes CRNA RETIRED Surgical Site 05/07/23; 1219; Le ft; Axilla; 07/05/24 (Retired LDA, Removed/Completed by [facility] with LDA Utility); 1213 (Retired LDA, Removed/Completed by [facility] with LDA Utility) 05/07/23 1219 by Clive Cedillo RN 07/05/24 1213 by Discharge Provider, Automatic RETIRED Surgical Site 05/07/23; 1219; Le ft; Breast; 07/05/24 (Retired LDA, Removed/Completed by [facility] with LDA Utility); 1213 (Retired LDA, Removed/Completed by [facility] with LDA Utility) 05/07/23 1219 by Clive Cedillo RN 07/05/24 1213 by Discharge Provider, Automatic documented in this encounter Social History Tobacco [...] on file 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 Gender Identity Not on file Sexual Orientation Not on file documented as of this encounter OR Notes * Anesthesia Postprocedure Evaluation - Dean Alicea MD - 05/07/2023 2:12 PM CDT Patient: Mattie Peace Procedure Summary Date: 05/07/23 Room / Location: [facility] CAM OR POD 4 ROOM J / [facility] OR POD 4 Anesthesia Start: 1120 Anesthesia Stop: 1252 Procedures: MAGNETIC SEED LOCALIZATION EXCISIONAL BIOPSY (Left: Breast) LUMPECTOMY (Left: Breast) BIOPSY SENTINEL LYMPH NODE (Left: Axilla) Diagnosis: Malignant neoplasm of left female breast, unspecified estrogen receptor status, unspecified site ofbreast (HCC) (Malignant neoplasm of left female breast, unspecified estrogen receptor status, unspecified site of breast (HCC) [C50.912]) Surgeons: Dulce Powell MD PhD Responsible Provider: Maury Olea MD Anesthesia Type: general, regional for postop pain per surgeon request ASA Status: 2 Anesthesia Type: general, regional for postop pain per surgeon request Last vitals BP 136/74 Pulse 73 Temp 36.2 ??C (97.2 ??F) (Temporal) Resp 9 SpO2 96% Anesthesia Post Evaluation Patient location during evaluation: PACU Patient participation: complete - patient participated Level of consciousness: fully awake Pain management: satisfactory to patient Airway patency: adequate and patent Evidence of recall: no Cardiovascular status: blood pressure returned to baseline and acceptable Respiratory status: acceptable and room air Hydration status: acceptable Pt is: normothermic Nausea/Vomiting status: none No notable events documented. * Anesthesia Procedure Notes - Petrona Cervantes CRNA - 05/07/2023 11:38 AM CDTAssociated Order(s): Airway Airway Patient location: OR Urgency: elective Indications for airway management: anesthesia Difficult airway: no Staff: Supervising provider: Maury Olea MD Placed by: ASSISTANT PROFESSOR OF MUSIC: Petrona Cervantes CRNA Emergent airway documentation: Risks and benefits discussed: yes Consent obtained: yes Consent given by: patient Airway prep: Preoxygenated: yes Patient position: sniffing Mask difficulty assessment: 0 - not attempted Spontaneous ventilation during airway: absent Sedation level during airway: GA Final airway details: Final airway type: endotracheal airway Tube type: ETT ETT size: 7.0 mm Cuffed: yes Technique used for successful ETT placement: direct laryngoscopy Insertion site: oral Blade type: Rosita Blade size: 3 Cormack-Lehane (direct): grade I - full view of glottis Cuff volume: 8 mL Cuff inflated with: air ETT to lips: 21 cm Placement verified by: auscultation and CO2 detection Airway secured with: silk tape Number of attempts: 1 * Anesthesia Procedure Notes - Jonny Renee MD - 05/07/2023 11:00 AM CDT Associated Order(s): Peripheral Block Images from the original note were not included. Peripheral Block Patient location during procedure: pre-op holding Reason for block: post-op pain management per surgeon request Ultrasound image in chart or stored: yes Block type: single shot Laterality: left Block type: PECS II Staff: Supervising provider: Suzi Beltran MD Placed by: Resident: Jonny Renee MD Procedure prep: Preprocedure checklist: patient identified, procedure contraindications assessed, site marked, procedure consent, surgical consent, IV checked, risks, benefits and alternatives discussed, monitors and equipment checked and timeout performed Patient position: sitting Procedure performed while patient: sedate with meaningful contact Monitoring: ECG, oximetry and blood pressure Supplemental O2: nasal cannula Prep solution: chlorhexidine/alcohol PPE: provider hat/mask, sterile gloves and sterile probe cover and gel Peripheral nerve block: Technique: ultrasound guided Needle type: insulated, echogenic and short-bevel Needle gauge: 22 G Needle length: 80 mm Injection assessment: injection made incrementally with constant monitoring, local visualized surrounding nerve on ultrasound, negative aspiration for heme, no paresthesias noted, normal resistance to injection and see flowsheet for medication details Assessment: Block success: full evaluation pending Events: patient tolerated procedure well with no complications Cosigned by Suzi Beltran MD at 05/07/2023 1:18 PM CDT * Anesthesia Procedure Notes - Jonny Renee MD - 05/07/2023 11:00 AM CDT Associated Order(s): Peripheral Block Images from the original note were not included. Peripheral Block Patient location during procedure: pre-op holding Reason for block: post-op pain management per surgeon request Ultrasound image in chart or stored: yes Block type: single shot Laterality: left Block type: PECS I Staff: Supervising provider: Suzi Beltran MD Placed by: Resident: Jonny Renee MD Procedure prep: Preprocedure checklist: patient identified, procedure contraindications assessed, site marked, procedure consent, surgical consent, IV checked, risks, benefits and alternatives discussed, monitors and equipment checked and timeout performed Patient position: sitting Procedure performed while patient: sedate with meaningful contact Monitoring: ECG, oximetry and blood pressure Supplemental O2: nasal cannula Prep solution: chlorhexidine/alcohol PPE: provider hat/mask, sterile gloves and sterile probe cover and gel Peripheral nerve block: Technique: ultrasound guided Needle type: insulated, echogenic and short-bevel Needle gauge: 22 G Needle length: 80 mm Injection assessment: injection made incrementally with constant monitoring, local visualized surrounding nerve on ultrasound, negative aspiration for heme, no paresthesias noted, normal resistance to injection and see flowsheet for medication details Assessment: Block success: full evaluation pending Events: patient tolerated procedure well with no complications Cosigned by Suzi Beltran MD at 05/07/2023 1:18 PM CDT * Anesthesia Preprocedure Evaluation - Maury Olea MD - 04/21/2023 5:32 PM CDT [facility] Preoperative Evaluation Record Evaluation type/location: TPAP from [facility] Planned procedure site: [facility] OR (Pod 4) Date: 04/21/23 NOTE: This note represents a preoperative evaluation initiated via telephone interview. NO PHYSICALEXAM was performed at the time of initial assessment. A physical exam may be added to this note anddocumented below. Anesthesia Evaluation Mattie Peace is a 48 y.o. female Procedure(s): BIOPSY BREAST NEEDLE LOCALIZATION LUMPECTOMY BIOPSY SENTINEL LYMPH NODE Pre-Op Diagnosis Codes: * Malignant neoplasm of left female breast, unspecified estrogen receptor status, unspecified site of breast (HCC) [C50.912] HISTORY HPI 48 y/o female with Malignant neoplasm of left female breast, unspecified estrogen receptor status, unspecified site of breast. Pt being planned for BIOPSY BREAST NEEDLE LOCALIZATION (Left: Breast) LUMPECTOMY (Left: Breast) BIOPSY SENTINEL LYMP Past Medical History Information obtained from: patient and chart. Neurological Pertinent negatives: seizures; neuromuscular disease and CVA/stroke Neuro/Psych system: negative Cardiovascular Cardiac system: negative Respiratory Pertinent negatives: non-smoker Respiratory system: negative Hepatic / Heme Hepatic/Heme system: negative Gastrointestinal GI system: negative Renal / Renal/ system: negative Musculoskeletal/Pain Pertinent negatives: chronic pain Musculoskeletal/Pain system: negative Endocrine / Other + Cancer history- current cancer. Cancer type: Left breast cancer. Pertinent negatives: diabetes mellitus; thyroid disease; obesity (BMI >30); rheumatological disease and transplanted organ Functional Capacity Functional capacity: 4-6 METs Comments: Walks 1 mile and climb 3-4 flights of stairs--no CP. Mild exertional SOB with climbing > 3 flights of stairs. Tolerates HOB flat Review of Systems + vision loss (Wers prescription glasses) Pertinent negatives: productive cough; wheezing; SOB; recent cold/flu; fever; chest pain; palpitations; orthopnea; pedal edema; PND; heavy menses; Sickle Cell disease/trait; previous transfusion; transfusion reaction; melena/hematochezia; easy bruising; bleeding problems; syncope; dizziness; muscleweakness; chronic pain; numbness/tingling; hard of hearing; heartburn; nausea; dysphagia; diarrhea;dentures/partials; chipped/loose teeth; abdominal pain; diaphoresis and no unexpected weight change PAT Summary and Plans Cardiac risk classification of planned procedure: low cardiac risk. Preoperative assessment status: complete. Additional comments: Mattie Peace is a 48 y.o. female who is being evaluated prior to undergoing alow cardiac risk surgery. Revised Cardiac Risk Index factors are (none) for a total RCRI of 0 out of 6. Functional capacity is 4-6 METs. Preliminary obstructive sleep apnea (QUENTIN) screening status is STOP-Bang=0 suggesting low risk for QUENTIN. Measurement of neck circumference pending day of surgery Blood bank needs for day of procedure: None Pending labs/tests include: as per Surgeon TPAP Process Complete Preoperative evaluation performed by Manju Metz NP on 04/21/23 at 5:39 PM. . Patient Active Problem List Diagnosis Malignant neoplasm of left female breast (HCC) Past Medical History: Diagnosis Date PONV (postoperative nausea and vomiting) Past Surgical History: Procedure Laterality Date BREAST BIOPSY Left 02/24/2023 ENDOMETRIAL ABLATION 2020 OB History No obstetric history on file. Obstetric Comments LMP: 11/2022 Allergies Allergen Reactions Zofran Odt [Ondansetron] Nausea & Vomiting Cold sweats Med List Status: Nurse Complete Set By: Meron Tyalor RN at 04/21/2023 4:36 PM No medications reported. No current facility-administered medications for this encounter. No current outpatient medications on file. Social History Tobacco Use Smoking Status Never Smokeless Tobacco Never Alcohol Use: Not At Risk (04/21/2023) AUDIT-C Frequency of Alcohol Consumption: 2-4 times a month Average Number of Drinks: 1 or 2 Frequency of Binge Drinking: Never Substance and Sexual Activity Drug Use Never History reviewed. No pertinent family history. There were no vitals filed for this visit. Relevant diagnostics: ECG(s): N/A Echocardiogram(s): N/A Stress test(s): N/A Cardiac catheterization(s): N/A PFT(s): N/A Vascular studies: N/A Other : 04/13/2023 MRI Breast Bilateral W WO Contrast : IMPRESSION: 1. LEFT breast 8 x 5 [...] known malignancy. Dictated by: Heide Ramires MD 04/13/2023 US Left Breast: IMPRESSION: 1. Irregular 0.9 cm spiculated mass within the left breast at the 10 o'clock position, 7 cm from the nipple with coil-shaped tissue marker, consistent with biopsy-proven malignancy. 2. Grouped calcifications within the upper, outer left breast, stable dating back to 10/08/2021. Recommend attention to this area on subsequent MRI. 3. No sonographic evidence of left axillary adenopathy. PT: No results found for requested labs within last 30 days. INR: No results found for requested labs within last 30 days. APTT: No results found for requested labs within last 30 days. Hgb A1C: No results found for requested labs within last 30 days. CBC RBC: No results found for requested labs within last 30 days. RDW: No results found for requested labs within last 30 days. MCHC: No results found for requested labs within last 30 days. MCH: No results found for requested labs within last 30 days. MCV: No results found for requested labs within last 30 days. Hct: No results found for requested labs within last 30 days. Hgb: No results found for requested labs within last 30 days. WBC: No results found for requested labs within last 30 days. MPV: No results found for requested labs within last 30 days. Platelets: No results found for requested labs within last 30 days. RDW CV: No results found for requested labs within last 30 days. RDW Sd: No results found for requested labs within last 30 days. BMP Glucose: No results found for requested labs within last 30 days. Calcium: No results found for requested labs within last 30 days. Sodium: No results found for requested labs within last 30 days. Potassium: No results found for requested labs within last 30 days. CO2: No results found for requested labs within last 30 days. Chloride: No results found for requested labs within last 30 days. BUN: No results found for requested labs within last 30 days. Creatinine: No results found for requested labs within last 30 days. Hortencia index score: 100 DOS Physical Exam Attestation: With today's edits, I endorse the findings of the anesthesia pre-evaluation assessment dated: 04/21/2023. Airway Exam: Mallampati: II Cervical ROM: FROM Cardiovascular Exam: Rate: regular Rhythm: regular Pulmonary Exam: LCTA, bilat Dental Exam: Appears intact Current state: Patient's current state is cooperative and interactive. Anesthesia Plan ASA 2 My patient is approved for the Anesthesia Controlled Medication protocol when under care of a ASSISTANT PROFESSOR OF MUSIC Planned anesthesia: General and regional for postop pain per surgeon request Team communication plan: oral ET tube and LMA Induction: Induction: intravenous. Postoperative Plan: Postoperative administration opioids intended. No postoperative mechanical ventilation intended. Patient's planned disposition post procedure is Outpatient. No trial extubation planned. Informed Consent: Anesthesia plan and risks discussed with patient and spouse. Plan and Consent Comments: Plan General. Explained risks. Agreeable to proceed. Consent and Attending signature: I and/or my designee have discussed the anesthesia plan, benefits, possible alternatives, parental presence at time of induction (if indicated), and clinically relevant risks that may include dental injury, unintentional awareness, and/or other complications. The patient and/or parent/legal guardian understand, and agree to proceed. All questions answered. documented in this encounter Plan of Treatment Not on file documented as of this encounter Procedures Procedure Name Priority Date/Time Associated Diagnosis Comments KY AN PROCEDURE PLACEHOLDER Routine 05/07/2023 11:38 AM CDT KY AN ELECTIVE ENDOTRACHEAL AIRWAY Routine 05/07/2023 11:38 AM CDT KY AN PROCEDURE PLACEHOLDER Routine 05/07/2023 11:00 AM CDT KY AN PROCEDURE PLACEHOLDER Routine 05/07/2023 11:00 AM CDT documented in this encounter Results * KY AN ELECTIVE ENDOTRACHEAL AIRWAY, KY AN PROCEDURE PLACEHOLDER (05/07/2023 11:38 AM CDT) Petrona Dunbar CRNA - 05/07/2023 11:38 AM CDT Petrona Cervantes CRNA ? 05/07/2023 11:38 AM Airway Patient location: OR Urgency: elective Indications for airway management: anesthesia Difficult airway: no Staff: Supervising provider: Maury Olea MD Placed by: ASSISTANT PROFESSOR OF MUSIC: Petrona Cervantes CRNA Emergent airway documentation: Risks and benefits discussed: yes Consent obtained: yes Consent given by: patient Airway prep: Preoxygenated: yes Patient position: sniffing Mask difficulty assessment: 0 - not attempted Spontaneous ventilation during airway: absent Sedation level during airway: GA Final airway details: Final airway type: endotracheal airway Tube type: ETT ETT size: 7.0 mm Cuffed: yes Technique used for successful ETT placement: direct laryngoscopy Insertion site: oral Blade type: Rosita Blade size: 3 Cormack-Lehane (direct): grade I - full view of glottis Cuff volume: 8 mL Cuff inflated with: air ETT to lips: 21 cm Placement verified by: auscultation and CO2 detection Airway secured with: silk tape Number of attempts: 1 us Maury Olea MD ANESTHESIA ORDERABLES Final Resu lt * KY AN PROCEDURE PLACEHOLDER (05/07/2023 11:00 AM CDT) Suzi Eugene MD - 05/07/2023 11:00 AM CDT Jonny Renee MD ? 05/07/2023 12:16 PM Peripheral Block Patient location during procedure: pre-op holding Reason for block: post-op pain management per surgeon request Ultrasound image in chart or stored: yes Block type: single shot Laterality: left Block type: PECS I Staff: Supervising provider: Suzi Beltran MD Placed by: Resident: Jonny Renee MD Procedure prep: Preprocedure checklist: patient identified, procedure contraindications assessed, site marked, procedure consent, surgical consent, IV checked, risks, benefits and alternatives discussed, monitors and equipment checked and timeout performed Patient position: sitting Procedure performed while patient: sedate with meaningful contact Monitoring: ECG, oximetry and blood pressure Supplemental O2: nasal cannula Prep solution: chlorhexidine/alcohol PPE: provider hat/mask, sterile gloves and sterile probe cover and gel Peripheral nerve block: Technique: ultrasound guided Needle type: insulated, echogenic and short-bevel Needle gauge: 22 G Needle length: 80 mm Injection assessment: injection made incrementally with constant monitoring, local visualized surrounding nerve on ultrasound, negative aspiration for heme, no paresthesias noted, normal resistance to injection and see flowsheet for medication details Assessment: Block success: full evaluation pending Events: patient tolerated procedure well with no complications us Maury Olea MD ANESTHESIA ORDERABLES Final Resu lt * KY AN PROCEDURE PLACEHOLDER (05/07/2023 11:00 AM CDT) Narrative Suzi Beltran MD - 05/07/2023 11:00 AM CDT Jonny Renee MD ? 05/07/2023 12:15 PM Peripheral Block Patient location during procedure: pre-op holding Reason for block: post-op pain management per surgeon request Ultrasound image in chart or stored: yes Block type: single shot Laterality: left Block type: PECS II Staff: Supervising provider: Suzi Beltran MD Placed by: Resident: Jonny Renee MD Procedure prep: Preprocedure checklist: patient identified, procedure contraindications assessed, site marked, procedure consent, surgical consent, IV checked, risks, benefits and alternatives discussed, monitors and equipment checked and timeout performed Patient position: sitting Procedure performed while patient: sedate with meaningful contact Monitoring: ECG, oximetry and blood pressure Supplemental O2: nasal cannula Prep solution: chlorhexidine/alcohol PPE: provider hat/mask, sterile gloves and sterile probe cover and gel Peripheral nerve block: Technique: ultrasound guided Needle type: insulated, echogenic and short-bevel Needle gauge: 22 G Needle length: 80 mm Injection assessment: injection made incrementally with constant monitoring, local visualized surrounding nerve on ultrasound, negative aspiration for heme, no paresthesias noted, normal resistance to injection and see flowsheet for medication details Assessment: Block success: full evaluation pending Events: patient tolerated procedure well with no complications Maury Olea MD ANESTHESIA ORDERABLES Final Resu lt documented in this encounter Visit Diagnoses Not on filedocumented in this encounter Administered Medications Inactive Administered Medications - up to 3 most recent administrations Medication Order MAR Action Action Date Dose Rate Site BUPivacaine (MARCAINE) 0.25 % (2.5 mg/mL) preservative free injection epidural, As needed, Starting on Seema 05/07/23 at 1112, Anesthesia Intra-op Given 05/07/2023 11:14 AM CDT 15 mL Given 05/07/2023 11:12 AM CDT 15 mL ceFAZolin (ANCEF) 2,000 mg/20 mL in sterile water (premix) 2,000 mg 2,000 mg, intravenous, at 400 mL/hr, Administer over 3 Minutes, Once, On Seema 05/07/23 at 0730, For 1 dose, Pre-Op, Indications: Prophylaxis, SurgicalIndications:Prophylaxis, Surgical Given 05/07/2023 11:28 A M CDT 2,000 mg dexAMETHasone (DECADRON) 4 mg/mL injection intravenous, Administer over 2 Minutes, As needed, Starting on Seema 05/07/23 at 1131, Anesthesia Intra-op Given 05/07/2023 11:31 AM CDT 4 mg famotidine (PEPCID) injection intravenous, Administer over 2 Minutes, As needed, Starting on Seema 05/07/23 at 1131, Anesthesia Intra-op Given 05/07/2023 11:31 AM CDT 20 mg fentaNYL (SUBLIMAZE) preservative free injection intravenous, As needed, Starting on Seema 05/07/23 at 1129, Anesthesia Intra-op Given 05/07/2023 11:29 AM CDT 100 mc g Given 05/07/2023 11:10 AM CDT 100 mcg ketorolac (TORADOL) 30 mg/mL (1 mL) injection intravenous, As needed, Starting on Seema 05/07/23 at 1212, Anesthesia Intra-op Given 05/07/2023 12:12 PM CDT 30 mg Lactated Ringer's (LR) infusion 30 mL/hr, intravenous, Continuous, Starting on Seema 05/07/23 at 0730 New Bag 05/07/2023 1:51 PM CDT 30 mL/hr 30 mL/hr New Bag 05/07/2023 11:29 AM CDT 50 mL/hr midazolam (VERSED) 2 mg/2 mL preservative free injection intravenous, Administer over 2 Minutes, As needed, Starting on Seema 05/07/23 at 1110, Anesthesia Intra-op Given 05/07/2023 11:10 AM CDT 2 mg propofoL (DIPRIVAN) 10 mg/mL IV intravenous, Continuous PRN, Starting on Seema 05/07/23 at 1129, Anesthesia Intra-op Rate/Dose Change 05/07/2023 12:33 PM CDT 25 mcg/kg/min 6.465 mL/hr Rate/Dose Change 05/07/2023 12:22 PM CDT 75 mcg/kg/min 19. 395 mL/hr Rate/Dose Change 05/07/2023 12:14 PM CDT 100 mcg/kg/min 25 .86 mL/hr propofoL (DIPRIVAN) 10 mg/mL IV intravenous, As needed, Starting on Seema 05/07/23 at 1129, Anesthesia Intra-op Given 05/07/2023 11:29 AM CDT 120 mg scopolamine patch 72 hour 1 patch 1 patch, transdermal, Administer over 72 Hours, Once, On Seema 05/07/23 at 0730, For 1 dose, Pre-Op Given 05/07/2023 11:20 AM CDT 1 patch succinylcholine (ANECTINE) injection intravenous, As needed, Starting on Seema 05/07/23 at 1129, Anesthesia Intra-op Given 05/07/2023 11:29 AM CDT 50 mg documented in this encounter Care Teams Cross Tie Maker Relationship Specialty Start Date End Date No, Physician PCP - General 03/11/23 09/22/23 Elvira Bruner MD [address] [place] [address] Referring Physician Gynecology 03/11/23 documented as of this encounter
--- OUTSIDE RECORDS SUMMARY | 2024-07-24 18:21 | XMS_ITS | Encounter Summary ---
Author Organization [facility] Healthcare Address [address] [place] [address] Care Team Providers Care Safety And Occupational Health Manager Name Role Phone Elvira Bruner MD Unavailable [phone] No, Physician Primary Care Provider [phone] Reason for Referral * Diagnostic Imaging (Routine) - Closed Specialty Diagnoses / Procedures Referred By Contac t Referred To Contact Procedures Breast Imaging Procedure Outside Consult Breast Imaging DX Outside Consult Dulce Powell MD PhD [address] [place] [address] Phone: tel: fax: [facility] Referral ID Status Reason Start Date Expiration Date Visits Re quested Visits Authorized [id number] Closed 03/12/2023 04/10/2024 1 1 Reason for Visit * Diagnostic Imaging (Routine) - Closed Specialty Diagnoses / Procedures Referred By Domenic denny Referred To Contact Procedures Breast Imaging Procedure Outside Consult Breast Imaging DX Outside Consult Dulce Powell MD PhD [address] [place] [address] Phone: tel: fax: [facility] Referral ID Status Reason Start Date Expiration Date Visits Re quested Visits Authorized [id number] Closed 03/12/2023 04/10/2024 1 1 Encounter Details Date Type Department Care Team (Latest Contact Info) Description 04/09/2023 8:03 PM CDT - 04/09/2023 11:59 PM CDT Hospital Encounter [facility] [place] [address] Discharge Disposition: Discharge to home or self care Social History Tobacco Use Types Packs/Day Years Used Date Smoking Tobacco: Never Assessed Comments Unknown Sex and Gender Information Value Date Recorded Sex Assigned at Not on file 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 Gender Identity Not on file Sexual Orientation Not on file documented as of this encounter Discharge Disposition Disposition Code Departure Means Destination Discharge to home or self care documented in this encounter Plan of Treatment Not on file documented as of this encounter Procedures Procedure Name Priority Date/Time Associated Diagnosis Comments BREAST IMAGING MG PROCEDURE OUTSIDE CONSULT Routine 04/09/2023 8:03 PM CDT documented in this encounter Results * Breast Imaging Procedure Outside Consult (04/09/2023 [...] images may or may not represent the [place] source data set and thus may contain changes which may lower the sensitivity of the second opinion interpretation. Dictated by: José Miguel Syed MD The radiology attending physician has personally reviewed this study, and had reviewed and/or edited this written report and agrees with it. Electronically signed by: BRISEYDA GAMING MD Narrative 04/10/2023 8:53 AM CDT EXAMINATION: REVIEW AND INTERPRETATION OF OUTSIDE IMAGING FACILITY PERFORMING OUTSIDE IMAGING: [facility] EXAM(S) REVIEWED: 1. ??BILATERAL DIAGNOSTIC MAMMOGRAM WITH [...] OF OUTSIDE IMAGING FACILITY PERFORMING OUTSIDE IMAGING: [facility] EXAM(S) REVIEWED: 1. BILATERAL DIAGNOSTIC MAMMOGRAM WITH [...] images may or may not represent the [place] source data set and thus may contain [...] on filedocumented in this encounter Care Teams Safety And Occupational Health Manager Relationship Specialty Start Date End Date No, Physician PCP - General 03/11/23 09/22/23 Elvira Bruner MD [address] [address] Referring Physician Gynecology 03/11/23 documented as of this encounter
--- OUTSIDE RECORDS SUMMARY | 2024-07-24 18:21 | XMS_ITS | Encounter Summary ---
Author Organization [facility] Address [address] [place] [address] Phone Care Team Providers Care Communications And Signals Supervisor Name Role Phone Elvira Bruner MD Unavailable [phone] No, Physician Primary Care Provider [phone] Reason for Referral * Diagnostic Imaging (Routine) - Closed Specialty Diagnoses / Procedures Referred By Contac t Referred To Contact Diagnoses Malignant neoplasm of left female breast, unspecified estrogen receptor status, unspecified site of breast (HCC) Procedures NM Lymphoscintigraphy (Breast) Left Dulce Powell MD PhD [address] [place] [address] Phone: tel: fax: [address] [address] Referral ID Status Reason Start Date Expiration Date Visits Re quested Visits Authorized [id number] Closed 04/17/2023 05/16/2024 2 1 * Diagnostic Imaging (Routine) - Closed Specialty Diagnoses / Procedures Referred By Contac t Referred To Contact Diagnoses Malignant neoplasm of left female breast, unspecified estrogen receptor status, unspecified site of breast (HCC) Procedures Radiologic Examination of Surgical Specimen Dulce Powell MD PhD [address] [place] [address] Phone: tel: fax: [facility] [address] [facility] [place] [address] Referral ID Status Reason Start Date Expiration Date Visits Re quested Visits Authorized [id number] Closed 04/17/2023 05/16/2024 1 1 Reason for Visit * Reason Onset Date Comments surgery planning 04/17/2023 Encounter Details Date Type Department Care Team (Late st Contact Info) Description 04/17/2023 Telephone [facility] Surgery [address] [facility] [address] [place] [id number] Dulce Powell MD PhD [address] [place] [address] surgery planning Social History Tobacco Use Types [...] on file 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 Dr. Merritt (diagnostic residential mental health worker) also participated in this examination. A LEFT [...] the entire procedure. Dr. Merritt (diagnostic residential mental health worker) also participated in this examination. A LEFT [...] PhD IMG MAMMO PROCEDURES Final Result * NM Lymphoscintigraphy (Breast) Left (05/07/2023 9:13 AM CDT) Anatomical Region Laterality Modality Breast N/A Nuclear Medicine 05/07/2023 10:2 3 AM CDT Impressions 05/07/2023 11:52 AM CDT [place] node(s) identified as described above for subsequent intraoperative removal with gamma probe guidance. Dictated by: Mj Rosado MD The radiology attending physician has personally reviewed this study, and had reviewed and/or edited this written report and agrees with it. Electronically signed by: Liset Steiner MD, Ph.D Narrative 05/07/2023 11:52 AM CDT EXAMINATION: ??BREAST LYMPHOSCINTIGRAPHY DATE OF STUDY: 05/07/2023 RADIOPHARMACEUTICAL: ??533 microcuries Tc-99m Tilmanocept intradermally HISTORY: 48-year-old with left breast invasive ductal carcinoma with plan for surgery and sentinel lymph node biopsy TECHNIQUE: ??The tracer was injected intradermally in the periareolar region of the left breast at the 10 o'clock position. FINDINGS: ??Images were obtained at 10, 15, 16, and 21 minutesminutes after injection in anterior and left lateral projections. ?? Intense mandi uptake is seen in 3 nodes located in left axilla. Fainter mandi uptake is seen in 1 node located in left axilla. ?? Procedure Note Liset Londono MD PhD - 05/07/2023 EXAMINATION: BREAST LYMPHOSCINTIGRAPHY DATE OF STUDY: 05/07/2023 RADIOPHARMACEUTICAL: 533 microcuries Tc-99m Tilmanocept intradermally HISTORY: 48-year-old with left breast invasive ductal carcinoma with plan for surgery and sentinel lymph node biopsy TECHNIQUE: The tracer was injected intradermally in the periareolar region of the left breast at the 10 o'clock position. FINDINGS: Images were obtained at 10, 15, 16, and 21 minutesminutes after injection in anterior and left lateral projections. Intense mandi uptake is seen in 3 nodes located in left axilla. Fainter mandi uptake is seen in 1 node located in left axilla. IMPRESSION: [place] node(s) identified as described above for subsequent intraoperative removal with gamma probe guidance. Dictated by: Mj Rosado MD The radiology attending physician has personally reviewed this study, and had reviewed and/or edited this written report and agrees with it. Electronically signed by: Liset Steiner MD, Ph.D Dulce Powell MD PhD IM NM PROCEDURES Final Re sult documented in this encounter Visit Diagnoses Diagnosis Malignant neoplasm of left female breast, unspecified estrogen receptor status, unspecified site of breast (HCC)- Primary Malignant neoplasm of left female breast, unspecified estrogen receptor status, unspecified site of breast (HCC) Malignant neoplasm of left female breast, unspecified estrogen receptor status, unspecified site of breast (HCC) documented in this encounter Care Teams Communications And Signals Supervisor Relationship Specialty Start Date End Date No, Physician PCP - General 03/11/23 09/22/23 Elvira Bruner MD [address] [address] Referring Physician Gynecology 03/11/23 documented as of this encounter
--- OUTSIDE RECORDS SUMMARY | 2024-07-24 18:21 | XMS_ITS | Encounter Summary ---
Author Organization [facility] Address [address] [place] [address] Care Team Providers Care Weigh Boss Name Role Phone Elvira Bruner MD Unavailable [phone] No, Physician Primary Care Provider [phone] Reason for Referral * Diagnostic Imaging (Routine) - Closed Specialty Diagnoses / Procedures Referred By Domenic t Referred To Contact Diagnoses Malignant neoplasm of left female breast, unspecified estrogen receptor status, unspecified site of breast (HCC) Procedures Diagnostic Mammogram Left W Dulce Garcia MD PhD [address] [place] [address] Phone: tel: fax: [address] [address] Referral ID Status Reason Start Date Expiration Date Visits Re quested Visits Authorized [id number] Closed 04/10/2023 05/09/2024 1 1 Reason for Visit * Diagnostic Imaging (Routine) - Closed Specialty Diagnoses / Procedures Referred By Domenic t Referred To Contact Diagnoses Malignant neoplasm of left female breast, unspecified estrogen receptor status, unspecified site of breast (HCC) Procedures Diagnostic Mammogram Left W Dulce Garcia MD PhD [address] [place] [address] Phone: tel: fax: [facility] [address] [facility] [place] [address] Referral ID Status Reason Start Date Expiration Date Visits Re quested Visits Authorized [id number] Closed 04/10/2023 05/09/2024 1 1 Encounter Details Date Type Department Care Team (Latest Contact Info) Description 04/13/2023 12:32 PM CDT - 04/13/2023 11:59 PM CDT Hospital Encounter [facility]) [address] [place] [address] Aft, Dulce Peña MD PhD [address] [place] [id number] Malignant neoplasm of left female breast, unspecified [...] on file 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 Gender Identity Not on file Sexual Orientation Not on file documented as of this encounter Discharge Disposition Disposition Code Departure Means Destination Discharge to home or self care documented in this encounter Plan of Treatment Not on file documented as of this encounter Procedures Procedure Name Priority Date/Time Associated Diagnosis Comments DIAGNOSTIC MAMMOGRAM LEFT W KEY Schedule Routine, Read Routine (OP Routine) 04/13/2023 1:39 PM CDT Malignant neoplasm of left female breast, unspecified estrogen receptor status, unspecified site of breast (HCC) documented in this encounter Results * Diagnostic Mammogram Left W Key (04/13/2023 1:39 PM CDT) Anatomical Region Laterality Modality Breast Left Mammography 04/13/2023 2:31 PM CDT Impressions 04/13/2023 3:25 PM CDT [...] it. Electronically signed by: Leatha Arreguin M.D. Dulce Powell MD PhD IMG MAMMO PROCEDURES Final Result documented in this encounter Visit Diagnoses Diagnosis Malignant neoplasm of left female breast, unspecified estrogen receptor status, unspecified site of breast (HCC) documented in this encounter Care Teams Weigh Boss Relationship Specialty Start Date End Date No, Physician PCP - General 03/11/23 09/22/23 Elvira Bruner MD [address] [address] Referring Physician Gynecology 03/11/23 documented as of this encounter
--- OUTSIDE RECORDS SUMMARY | 2024-07-24 18:21 | XMS_ITS | Encounter Summary ---
Author Organization [facility] Address [address] [place] [address] Care Team Providers Care Tiger Machine Operator Name Role Phone Elvira Bruner MD Unavailable [phone] No, Physician Primary Care Provider [phone] Reason for Referral * Diagnostic Imaging (Routine) - Closed Specialty Diagnoses / Procedures [facility] Referred To Contact Diagnoses Malignant neoplasm of left female breast, unspecified estrogen receptor status, unspecified site of breast (HCC) Procedures NM Lymphoscintigraphy (Breast) Left NawaftDulec MD PhD [address] [place] [address] Phone: tel: fax: [address] [address] Referral ID Status Reason Start Date Expiration Date Visits Re quested Visits Authorized [id number] Closed 04/17/2023 05/16/2024 2 1 Reason for Visit * Diagnostic Imaging (Routine) - Closed Specialty Diagnoses / Procedures [facility] Referred To Contact Diagnoses Malignant neoplasm of left female breast, unspecified estrogen receptor status, unspecified site of breast (HCC) Procedures NM Lymphoscintigraphy (Breast) Left Dulce Powell MD PhD [address] [place] [address] Phone: tel: fax: [address] [address] Referral ID Status Reason Start Date Expiration Date Visits Re quested Visits Authorized [id number] Closed 04/17/2023 05/16/2024 2 1 Encounter Details Date Type Department Care Team (Latest Contact Info) Description 05/07/2023 5:52 AM CDT - 05/07/2023 11:59 PM CDT Hospital Encounter [facility] [address] [place] [address] Malignant neoplasm of left female breast, unspecified [...] on file Legal Sex Female 2:40 AM RN ACUTE DIALYSIS Gender Identity Not on file Sexual Orientation [...] Procedure Name Priority Date/Time Associated Diagnosis Comments NM LYMPHOSCINTIGRAPHY (BREAST) LEFT Schedule Routine, Read Routine (OP Routine) 05/07/2023 9:13 AM CDT Malignant neoplasm of left female breast, unspecified estrogen receptor status, unspecified site of breast (HCC) documented in this encounter Results * NM Lymphoscintigraphy (Breast) Left (05/07/2023 9:13 AM CDT) Anatomical Region Laterality Modality Breast N/A Nuclear Medicine 05/07/2023 10:2 3 AM CDT Impressions 05/07/2023 11:52 AM CDT [place] node(s) identified as described above for subsequent [...] 1 node located in left axilla. IMPRESSION: [place] node(s) identified as described above for subsequent intraoperative removal with gamma probe guidance. Dictated by: Mj Rosado MD The radiology attending physician has personally reviewed this study, and had reviewed and/or edited this written report and agrees with it. Electronically signed by: Liset Steiner MD, Ph.D us Dulce Powell MD PhD IMG NM PROCEDURES Final Re sult documented in this encounter Visit Diagnoses Diagnosis Malignant neoplasm of left female breast, unspecified estrogen receptor status, unspecified site of breast (HCC) documented in this encounter Administered Medications Inactive Administered Medications - up to 3 most recent administrations Medication Order MAR Action Action Date Dose Rate Site Tc-99m tilmanocept (lymphoseek) 0.5 mci injection 0.5 millicurie 0.5 millicurie (500 microcurie), intradermal, Once in imaging, radiopharmaceutical, Starting on Seema 05/07/23 at 0824, For 1 dose Given 05/07/2023 8:34 AM CDT 533 microcuries documented in this encounter Orders Medications Ordered That Matt ht Not Have Been Administered Count Last Ordered Date First Ordered Date Tc-99m tilmanocept (lymphose ek) 0.5 mci injection 0.5 millicurie 1 05/07/2023 documented in this encounter Care Teams Tiger Machine Operator Relationship Specialty Start Date End Date No, Physician PCP - General 03/11/23 09/22/23 Elvira Bruner MD [address] [address] Referring Physician Gynecology 03/11/23 documented as of this encounter
--- OUTSIDE RECORDS SUMMARY | 2024-07-24 18:21 | XMS_ITS | Encounter Summary ---
Author Organization [facility] Address [address] [place] [address] Phone Care Team Providers Care Immigration Patrol Inspector Name Role Phone Elvira Bruner MD Unavailable [phone] No, Physician Primary Care Provider [phone] Encounter Details Date Type Department Care Team (Late st Contact Info) Description 03/12/2023 Telephone [facility] Surgery [address] [facility] 5th [place] [address] [place] [address] Iona Walton Social History Tobacco Use Types Packs/Day Years Used Date Smoking Tobacco: Never Assessed Comments Unknown Sex and Gender Information Value Date Recorded Sex Assigned at Not on file 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 Advise that she will receive a new patient packet by mail. documented in this encounter Plan of Treatment Not on file documented as of this encounter Visit Diagnoses Not on filedocumented in this encounter Care Teams Immigration Patrol Inspector Relationship Specialty Start Date End Date No, Physician PCP - General 03/11/23 09/22/23 Elvira Bruner MD [address] [place] [address] Referring Physician Gynecology 03/11/23 documented as of this encounter
--- OUTSIDE RECORDS SUMMARY | 2024-07-24 18:21 | XMS_ITS | Encounter Summary ---
Author Organization [facility] Address [address] [place] [address] Phone Care Team Providers Care Adult Educator Name Role Phone Elvira Bruner MD Unavailable [phone] No, Physician Primary Care Provider [phone] Reason for Visit * Reason Onset Date Comments Medical Records Request 05/12/2023 Encounter Details Date Type Department Care Team (Late st Contact Info) Description 05/12/2023 Telephone [facility] Surgery [address] [facility] 5th [place] [address] Aft, Dulce Peña MD PhD [address] [place] [address] Medical Records Request Social History Tobacco Use Types Packs/Day [...] on file 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 Faxed. documented in this encounter Plan of Treatment Not on file documented as of this encounter Visit Diagnoses Not on filedocumented in this encounter Care Teams Adult Educator Relationship Specialty Start Date End Date No, Physician PCP - General 03/11/23 09/22/23 Elvira Bruner MD [address] [address] Referring Physician Gynecology 03/11/23 documented as of this encounter
--- OUTSIDE RECORDS SUMMARY | 2024-07-24 18:21 | XMS_ITS | Encounter Summary ---
Author Organization [facility] Healthcare Address [address] [place] [address] Care Team Providers Care Conveyor Man Name Role Phone Elvira Bruner MD Unavailable [phone] No, Physician Primary Care Provider [phone] Reason for Visit * Auth/Cert (Routine) Specialty Diagnoses / Procedures Referred By Domenic denny Referred To Contact Diagnoses Malignant neoplasm of left female breast, unspecified estrogen receptor status, unspecified site of breast (HCC) Malignant neoplasm of left female breast, unspecified estrogen receptor status, unspecified site of breast (HCC) [C50.912] Procedures IA EXC BREAST LES PREOP PLMT RAD MARKER OPEN 1 LES IA MASTECTOMY PARTIAL IA INTRAOP SENTINEL LYMPH NODE ID W/DYE INJECTION IA BX/EXC LYMPH NODE OPEN SUPERFICIAL MAGNETIC SEED LOCALIZATION EXCISIONAL BIOPSY LUMPECTOMY BIOPSY SENTINEL LYMPH NODE Referral ID Status Reason Start Date Expiration Date Visits Re quested Visits Authorized [id number] 1 1 Encounter Details Date Type Department Care Team (Latest Contact Info) Description 05/07/2023 5:53 AM CDT - 05/07/2023 3:40 PM CDT Hospital Encounter [facility] Operating Room [facility]) [facility] [place] [address] Aft, Dulce Peña MD PhD [address] [place] [address] Malignant neoplasm of left female breast, unspecified estrogen receptor status, unspecified site of breast (HCC) (Primary Dx) Discharge Disposition: Discharge to home or self [...] on file 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 * [facility] PATHWAY TO EXCELLENT CARE AFTER SURGERY * [...] Based on the above findings, I consider [facility] to be an acceptable risk for :Procedure(s): [...] colloid injection and lymphoscintigraphy. At the [facility], she underwent seed localizationof her cancer. After [...] subcutaneous tissues were opened and the clavipectoral fascia was incised. Upon incising the clavipectoral fascia, we immediately encountered a blue lymphatic which we followed down to blue and radioactive lymph nodes. These were excised and passed off the field. No other blue lymph nodes were identified and only background counts were obtained with the navig ator probe. No other palpable adenopathy was appreciated. [...] were made to join these 2 troughs. Onceall 4 flaps were created the breast tissue was removed from the posterior attachments using electrocautery. Of note, the dissection was carried down to the pectoralis fascia. The specimen was then mar ked with a short stitch on the superior margin and a long stitch on the lateral margin . Specimen radiograph demonstrated that the cancer was centrally located within the specimen. Attention was thenturned to the wound. Aggressive hemostasis was obtained with electrocautery. The wound was irrigated with copious amounts of sterile saline. The deep dermal layer was then reapproximated with interrupted 3-0 Vicryl stitches. The skin was reapproximated with a running subcuticular using 4-0 Monocryl. Surgical glue dressing was applied. The patient tolerated [...] case. * Pre-Procedure Instructions - Manju Metz, DE ICER KIT ASSEMBLER - 04/21/2023 5:35 PM CDT Center for Preoperative Assessment and Planning CPAP Clinic Location: [facility] The night before your surgery: * Do [...] going to be admitted after surgery at [facility], COVID testing may be performed on the day of surgery, even if you are up to date on your COVID-19 vaccine. * If having surgery at [facility], you may want to bring a credit card if you want to use our Mobile Pharmacy for your discharge medications. Mobile pharmacy is not available at [facility], the [facility], or the [facility]. 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 You should leave your valuables and any jewelry at home. No metal or piercings are allowed in the operating room. You should bring your insurance card, a photo ID (example: Tax Advisor's License) and a method of payment for [...] Chart. If you are having surgery at [facility], please arrive on the day of [...] Remove nail coverings, artificial nails and nail danish. The Morning of Surgery: Take a shower [...] questions, please call the CPAP Staff at [phone], Thursday-Thursday 8am-4:30pm. All patients should read the below section: COVID 19 Updates & Visitor Policy: Please access [email or web address] for the most updated information. Information on [facility] & the [facility]: Please view [email or web address] (Patient & Visitor Information) for additional details regarding Advanced Directive forms, AWARE, directions, parking information, lodging, Internet access, dining and more. Information on [facility] or [facility] [place] ([facility]): Please view [email or web address] (Patient and Visitor Information) for parking/directions and more. For MyChart information, to activate account or password recovery, please go to [email or web address] or call [phone] (toll-free: [phone]). Information for Suicide Prevention: National Suicide Prevention Lifeline (8-059- 263-JUFB (3276)). Surgery Times: For patients having surgery @ [facility] or [facility] ([facility]), if your surgeon's office has not notified you of your surgery time by NOON THE BUSINESS DAY BEFORE your surgery, please call [phone] and ask for your surgeon's office Dr [...] mastectomy) 05/07/2023 12:09 PM CDT Narrative PATHOLOGY [facility] - 05/12/2023 12:03 PM CDT EPIC results best viewed via link to PDF [facility] Anay Thomas Laboratory of Surgical Pathology [facility] [place] [address] Note to Patients: This report may contain [...] Gender: ??F : ??1975 (Age: 48) Address: ??[address] [place] [address] ??[id number] Hospital #: ??[id number] Taken:05/07/2023 Received:05/07/2023 Reported: 05/12/2023 Patient Type: [facility] [...] ?magnetic see localization ? Lymph node sampling: ?Vershire lymph node(s) ? Specimen laterality: ?Left ? [...] involvement: ?All lymph nodes are negative ? [place] node evaluation: ?H&E, multiple levels ? Response to presurgical therapy: ?No known presurgical therapy ? Lymphovascular Invasion: ?Not identified ? Pathologic Stage Classification (pTNM, AJCC 8th Edition): ? Primary tumor (invasive carcinoma) (pT): ?pT1c: Tumor >10 mm but <=20 mm in greatest dimension ? Lymph nodes (pN): ?pN0: No regional lymph node metastasis identified ?Breast Biomarker Testing performed on Previous Case: [id number] ?Estrogen Receptor (ER): ??Positive Mega score 7/8 [...] Breast Cancer Assay test was performed by [address], [place] [address]. The performance characteristics of some immunohistochemical stains, fluorescence in-situ hybridization tests and immunophenotyping by flow cytometry cited in this report (if any) were determined by the Surgical Pathology and Flow Cytometry Departments at [facility] as part of an ongoing quality tester program and in compliance with federally mandated [...] Surgical Pathology and Flow Cytometry Departments of [facility]. ??It has not been cleared or approved by the U. S. Food and Drug Administration. IMAGES AND SCANNED DOCUMENTS, IF INCLUDED, ONLY VIEWABLE IN PDF VERSION OF REPORT us Dulce Powell MD PhD LAB PATHOLOGY ORDERABLES F inal Result PATHOLOGY [facility] 3rd Floor [place], [place] [phone] * Justus Post Clip Placement Left (05/07/2023 [...] throughout the entire procedure. Dr. Merritt (diagnostic resident care coordinator) also participated in this examination. A LEFT [...] throughout the entire procedure. Dr. Merritt (diagnostic resident care coordinator) also participated in this examination. A LEFT [...] HCG, ur, POC Negative Negative Lot Number [id number] QC Backgroud Clear Acceptable QC Control Line Acceptable Urine 05/07/2023 6:50 AM CDT us Manju Metz DE ICER KIT ASSEMBLER POINT OF CARE TEST ORDERABL ES Final [...] Given 05/07/2023 1:23 PM CDT 0.4 mg Lactated Ringer's (LR) infusion 30 mL/hr, [...] AM CDT 1 patch Behind Left Ear documented in this encounter Active and Recently [...] er: Brissa Moise RN)[id number] (Given - Provider: rBissa Moise RN) HYDROmorphone (DILAUDID) injection 0.4 mg [...] sterile water (premix) 2,000 mg 1 05/07/2023 isosulfan blue (LYMPHAZURIN) 1 % injection 1 05/07/2023 naloxone (NARCAN) 0.4 mg/mL injection 0.04-0.4 mg 1 05/07/2023 ondansetron (ZOFRAN) injection 4 mg 1 05/07 oxyCODONE (ROXICODONE) tablet 5 mg 1 2022 scopolamine patch 72 hour 1 patch 1 023 sodium chloride 0.9% flush 0.5-20 mL 2 12/2022 sodium chloride 0.9% irrigation 1 3 Diet Count Last Ordered Date First Orde red Date ADULT DISCHARGE DIET 1 05/07/2023 Nursing Count Last Ordered Date First Orde red Date DISCHARGE ACTIVITY 3 05/07/2023 DISCHARGE CALL PROVIDER 6 05/07/2023 DISCHARGE DRESSING 5 05/07/2023 Discharge Count Last Ordered Date First Orde red Date DISCHARGE PATIENT 1 05/07/2023 documented in this encounter Care Teams Conveyor Man Relationship Specialty Start Date End Date No, Physician PCP - General 03/11/23 09/22/23 Elvira Bruner MD [address] [address] Referring Physician Gynecology 03/11/23 documented as of this encounter
--- OUTSIDE RECORDS SUMMARY | 2024-07-24 18:21 | XMS_ITS | Encounter Summary ---
Author Organization [facility] Healthcare Address [address] [place] [address] Care Team Providers Care Baseball Sewer Hand Name Role Phone Elvira Bruner MD Unavailable [phone] No, Physician Primary Care Provider [phone] Reason for Referral * Diagnostic Imaging (Routine) - Closed Specialty Diagnoses / Procedures Referred By Contac t Referred To Contact Diagnoses Malignant neoplasm of left female breast, unspecified estrogen receptor status, unspecified site of breast (HCC) Procedures US Breast Left Limited Dulce Powell MD PhD [address] [place] [address] Phone: tel: fax: [address] [address] Referral ID Status Reason Start Date Expiration Date Visits Re quested Visits Authorized [id number] Closed 03/12/2023 04/10/2024 1 1 Reason for Visit * Diagnostic Imaging (Routine) - Closed Specialty Diagnoses / Procedures Referred By Contac t Referred To Contact Diagnoses Malignant neoplasm of left female breast, unspecified estrogen receptor status, unspecified site of breast (HCC) Procedures US Breast Left Limited Dulce Powell MD PhD [address] [place] [address] Phone: tel: fax: [facility] [address] [facility] [place] [address] Referral ID Status Reason Start Date Expiration Date Visits Re quested Visits Authorized [id number] Closed 03/12/2023 04/10/2024 1 1 Encounter Details Date Type Department Care Team (Latest Contact Info) Description 04/13/2023 12:32 PM CDT - 04/13/2023 11:59 PM CDT Hospital Encounter [facility] Breast [facility] ([facility]) [facility] [place] [address] Aft, Dulce Peña MD PhD [address] [place] [address] Malignant neoplasm of left female breast, unspecified [...] on file 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 Gender Identity Not on file Sexual Orientation Not on file documented as of this encounter Discharge Disposition Disposition Code Departure Means Destination Discharge to home or self care documented in this encounter Plan of Treatment Not on file documented as of this encounter Procedures Procedure Name Priority Date/Time Associated Diagnosis Comments US BREAST LEFT LIMITED Schedule Routine, Read Routine (OP Routine) 04/13/2023 2:24 PM CDT Malignant neoplasm of left female breast, unspecified estrogen receptor status, unspecified site of breast (HCC) documented in this encounter Results * US Breast Left [...] (HCC) documented in this encounter Care Teams Baseball Sewer Hand Relationship Specialty Start Date End Date No, Physician PCP - General 03/11/23 09/22/23 Elvira Bruner MD [address] [place] [address] Referring Physician Gynecology 03/11/23 documented as of this encounter
--- OUTSIDE RECORDS SUMMARY | 2024-07-24 18:21 | XMS_ITS | Encounter Summary ---
Author Organization [facility] Address [address] [place] [address] Phone Care Team Providers Care Supervisor Cutting And Sewing Room Name Role Phone Elvira Bruner MD Unavailable [phone] No, Physician Primary Care Provider [phone] Reason for Visit * Reason Comments Follow-up * Consultation (Routine) - Closed Specialty Diagnoses / Procedures Referred By Domenic denny Referred To Contact Surgical Oncology Diagnoses Malignant neoplasm of left female breast, unspecified estrogen receptor status, unspecified site of breast (HCC) Referral, Self Aft, Dulce Peña MD PhD [address] [place] [address] Phone: tel: fax: Referral ID Status Reason Start Date Expiration Date V isits Requested Visits Authorized [id number] Closed Specialty Services Required 04/17/2023 05/16/2024 12 12 Encounter Details Date Type Department Care Team (Late st Contact Info) Description 05/18/2023 3:45 PM CDT Office Visit [facility] Surgery [facility] 5th [place] [id number] NawaftDulce MD PhD [address] [place] [address] Malignant neoplasm of left female breast, unspecified [...] on file 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 Gender Identity Not on file Sexual Orientation Not on file documented as of this encounter Last Filed Vital Signs Vital Sign Reading Time Taken Comments Blood Pressure - - Pulse - - Temperature - - Respiratory Rate - - Oxygen Saturation - - Inhaled Oxygen Concentration - - Weight 43.1 kg (95 lb) 05/18/2023 3:42 PM CDT Height 149.9 cm (4' 11 ) 05/18/2023 3:42 PM CDT Body Mass Index 19.19 05/18/2023 3:42 PM CDT documented in this encounter Progress Notes * Dulce Powell MD PhD - 05/18/2023 3:45 PM CDT Dulce Powell M.D., Ph.D., [facility] Section of Surgical Oncology and Endocrinology [facility] of [address], [address] [place] [address] - NAME: Mattie Peace : 1975 DATE: 05/18/2023 CHIEF COMPLAINT: No chief complaint on file. HISTORY OF PRESENT ILLNESS: The patient is a 48 y.o. female status post breast conserving surgery The patient presents for she first postoperative visit. The patient states that she has done well post-operatively. PHYSICAL EXAMINATION: There were no vitals taken for this visit. GENERAL: She is a well-developed, well-nourished woman in no acute distress. HEENT: Within normal limits. EXTREMITIES: Warm without edema. NEUROLOGICAL: She is alert and oriented x 3. BREAST EXAMINATION: The patient appears well. she wound is healing nicely. There is no evidence of infection. The patient has some ecchymosis around her axillary incision. In addition there is some tissue at her breast incision which has a pulled up look. PATHOLOGY: Diagnosis: A. Lymph node, left axillary sentinel, excision - No evidence of malignancy in three lymph nodes (0/3) B. Breast, left, magnetic seed localized partial mastectomy - Invasive tubular carcinoma - Unifocal - Greatest dimension = 13 mm by gross-microscopic correlation - Histologic grade = 1/3 (score: tub 1 + nuc 2 + gordo 1 = 4/9) by ESBR criteria - Negative for lymphovascular invasion - Surgical margins negative: nearest = 2 mm, anterior and posterior - Biomarkers previously reported - No in situ carcinoma identified - Biopsy site with clip - See synoptic report ASSESSMENT: Stage I left breast cancer PLAN: Mattie Peace is a 48 y.o. woman who is now status-post left partial mastectomy and sentinel lymph node biopsy for a stage I invasive ductal cancer. I reviewed the pathology with her. this negative margins for the breast cancer and a negative sentinel lymph node. I have recommended that she consult with a medical oncologist and radiation oncologist regarding adjuvant therapy. We will arrange for these appointments. In addition I have told the patient that her breast tissue would relax over the next several weeks. She will follow-up in six months. I have recommended that she resume her self examinations on a monthly basis. She will contact my office with any new questions or concerns. Dulce Powell MD PhD research associate molecular biology documented in this encounter Plan of Treatment Not on file documented as of this encounter Visit Diagnoses Diagnosis Malignant neoplasm of left female breast, unspecified estrogen receptor status, unspecified site of breast (HCC) documented in this encounter Historical Medications * This list may reflect changes made after this encounter. busPIRone (BUSPAR) 5 mg tablet TAKE 1 TABLET (5 MG) BY ORAL ROUTE 2 TIMES PER DAY NEEDED FOR ANXIETY 04/29/2023 09/25/2023 added in this encounter Orders Outpatient Referral Count Last Ordered Date Fir st Ordered Date AMB REFERRAL TO SURGICAL ONCOLOGY 1 023 documented in this encounter Care Teams Supervisor Cutting And Sewing Room Relationship Specialty Start Date End Date No, Physician PCP - General 03/11/23 09/22/23 Elvira Bruner MD [address] [place] [address] Referring Physician Gynecology 03/11/23 documented as of this encounter
--- OUTSIDE RECORDS SUMMARY | 2024-07-24 18:21 | XMS_ITS | Encounter Summary ---
Author Organization [facility] Address [address] [place] [address] Phone Care Team Providers Care Car Storer Name Role Phone Elvira Bruner MD Unavailable [phone] No, Physician Primary Care Provider [phone] Reason for Referral * Diagnostic Imaging (Routine) - Closed Specialty Diagnoses / Procedures Referred By Domenic denny Referred To Contact Diagnoses Malignant neoplasm of left female breast, unspecified estrogen receptor status, unspecified site of breast (HCC) Procedures US Guided Magseed Localization Left Mammo Guided Magseed Localization Left Dulce Powell MD PhD [address] [place] [address] Phone: tel: fax: 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 Gender Identity Not on file Sexual Orientation Not on file documented as of this encounter Progress Notes * Lin Carson RN - 05/05/2023 8:11 AM CDT Patient scheduled for the OR on 05/07/23 L NL changed to L Magseed L SNLB w/ lympho Case to be updated today and magseed to be scheduled in place of NL documented in this encounter Plan of Treatment Not on file documented as of this encounter Results * US Guided Magseed Localization Left (05/07/2023 9:54 AM CDT) Anatomical Region Laterality Modality Breast Left Ultrasound 05/07/2023 3:04 PM CDT Impressions 05/07/2023 3:18 [...] the entire procedure. Dr. Merritt (diagnostic resident services coordinator) also participated in this examination. A [...] the entire procedure. Dr. Merritt (diagnostic resident services coordinator) also participated in this examination. A [...] (HCC) documented in this encounter Care Teams Car Storer Relationship Specialty Start Date End Date No, Physician PCP - General 03/11/23 09/22/23 Elvira Bruner MD [address] [address] Referring Physician Gynecology 03/11/23 documented as of this encounter
--- OUTSIDE RECORDS SUMMARY | 2024-07-24 18:21 | XMS_ITS | Encounter Summary ---
Author Organization [facility] Healthcare Address [address] [place] [address] Care Team Providers Care Herbarium Worker Name Role Phone Unavailable Primary Care Provider Unavailabl e Reason for Visit * Diagnostic Imaging (Routine) - Closed Specialty Diagnoses / Procedures Referred By Contac t Referred To Contact Procedures Breast Imaging US Outside Reference Aft, Dulce Peña MD PhD [address] [place] [address] Phone: tel: fax: Referral ID Status Reason Start Date Expiration Date Visits Re quested Visits Authorized [id number] Closed 04/02/2023 05/01/2024 1 1 Encounter Details Date Type Department Care Team (Latest Contact Info) Description 02/24/2023 - 02/24/2023 11:59 PM CDT Hospital Encounter [facility] Radiology [facility] ([facility]) [address] [place] [address] Discharge Disposition: Discharge to home or self care Social History Tobacco Use Types Packs/Day Years Used Date Smoking Tobacco: Never Assessed Comments Unknown Sex and Gender Information Value Date Recorded Sex Assigned at Not on file 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 Gender Identity Not on file Sexual Orientation Not on file documented as of this encounter Discharge Disposition Disposition Code Departure Means Destination Discharge to home or self care documented in this encounter Plan of Treatment Not on file documented as of this encounter Procedures Procedure Name Priority Date/Time Associated Diagnosis Comments BREAST IMAGING US OUTSIDE REFERENCE Routine 02/24/2023 12:00 AM CDT documented in this encounter Results * Breast Imaging US Outside Reference (02/24/2023 12:00 AM CDT) Impressions [facility] - 04/02/2023 8:39 AM CDT These images are for Reference purposes only and have not been reviewed by [facility] Radiology. ??There will be no report generated by a [facility] Radiologist. Narrative [facility] - 04/02/2023 8:39 AM CDT EXAMINATION: ??Images For Reference Purposes Only us Dulce Powell MD PhD IMG MAMMO PROCEDURES Final Result [facility] documented in this encounter Visit Diagnoses Not on filedocumented in this encounter
--- OUTSIDE RECORDS SUMMARY | 2024-07-24 18:21 | XMS_ITS | Encounter Summary ---
Author Organization [facility] Address [address] [place] [address] Phone Care Team Providers Care Magazine Publisher Name Role Phone Elvira Bruner MD Unavailable [phone] No, Physician Primary Care Provider [phone] Encounter Details Date Type Department Care Team (Late st Contact Info) Description 03/12/2023 Documentation [facility] [address] [facility] Advanced Medicine 5th [place] [address] [place] [address] Iona Walton Social History Tobacco Use Types Packs/Day Years Used Date Smoking Tobacco: Never Assessed Comments Unknown Sex and Gender Information Value Date Recorded Sex Assigned at Not on file 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
--- OUTSIDE RECORDS SUMMARY | 2024-07-24 18:21 | XMS_ITS | Encounter Summary ---
Author Organization [facility] Address [address] [place] [address] Phone Care Team Providers Care Surveillance Technician Name Role Phone Elvira Bruner MD Unavailable [phone] No, Physician Primary Care Provider [phone] Reason for Referral * Diagnostic Imaging (Routine) - Closed Specialty Diagnoses / Procedures Referred By Domenic denny Referred To Contact Diagnoses Malignant neoplasm of left female breast, unspecified estrogen receptor status, unspecified site of breast (HCC) Procedures Diagnostic Mammogram Left W Dulce Garcia MD PhD [address] [place] [address] Phone: tel: fax: [address] [address] Referral ID Status Reason Start Date Expiration Date Visits Re quested Visits Authorized [id number] Closed 04/10/2023 05/09/2024 1 1 Encounter Details Date Type Department Care Team (Late st Contact Info) Description 04/10/2023 Orders Only [facility] Surgery [facility] 5th [place] [address] Dulce Powell MD PhD [address] [place] [address] Malignant neoplasm of left female breast, unspecified estrogen receptor status, unspecified site of breast (HCC) (Primary Dx) Social History Tobacco Use Types Packs/Day Years Used Date Smoking Tobacco: Never Assessed Comments Unknown Sex and Gender Information Value Date Recorded Sex Assigned at Not on file 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
--- OUTSIDE RECORDS SUMMARY | 2024-07-24 18:21 | XMS_ITS | Encounter Summary ---
Author Organization [facility] Address [address] [place] [address] Phone Care Team Providers Care Childcare Center Administrator Name Role Phone Elvira Bruner MD Unavailable [phone] No, Physician Primary Care Provider [phone] Encounter Details Date Type Department Care Team (Late st Contact Info) Description 05/07/[address] 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
--- OUTSIDE RECORDS SUMMARY | 2024-07-24 18:21 | XMS_ITS | Encounter Summary ---
Author Organization [facility] Address [address] [place] [address] Phone Care Team Providers Care Plastering Contractor Name Role Phone Elvira Bruner MD Unavailable [phone] No, Physician Primary Care Provider [phone] Encounter Details Date Type Department Care Team (Late st Contact Info) Description 04/10/2023 Telephone [facility] Advanced [facility] 5th [place] [address] [place] [address] Tamy Walton Social History Tobacco Use Types Packs/Day Years Used Date Smoking Tobacco: Never Assessed Comments Unknown Sex and Gender Information Value Date Recorded Sex Assigned at Not on file 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 Left vm with cbnumber. documented in this encounter Plan of Treatment Not on file documented as of this encounter Visit Diagnoses Not on filedocumented in this encounter Care Teams Plastering Contractor Relationship Specialty Start Date End Date No, Physician PCP - General 03/11/23 09/22/23 Elvira Bruner MD [address] [address] Referring Physician Gynecology 03/11/23 documented as of this encounter
--- OUTSIDE RECORDS SUMMARY | 2024-07-24 18:21 | XMS_ITS | Encounter Summary ---
Author Organization [facility] Healthcare Address [address] [place] [address] Care Team Providers Care Certified Bench Jeweler Technician Name Role Phone Elvira Bruner MD Unavailable [phone] No, Physician Primary Care Provider [phone] Reason for Visit * Auth/Cert (Routine) Specialty Diagnoses / Procedures Referred By Domenic denny Referred To Contact Diagnoses Malignant neoplasm of left female breast, unspecified estrogen receptor status, unspecified site of breast (HCC) Malignant neoplasm of left female breast, unspecified estrogen receptor status, unspecified site of breast (HCC) [C50.912] Procedures NE EXC BREAST LES PREOP PLMT RAD MARKER OPEN 1 LES NE MASTECTOMY PARTIAL NE INTRAOP SENTINEL LYMPH NODE ID W/DYE INJECTION NE BX/EXC LYMPH NODE OPEN SUPERFICIAL MAGNETIC SEED LOCALIZATION EXCISIONAL BIOPSY LUMPECTOMY BIOPSY SENTINEL LYMPH NODE Referral ID Status Reason Start Date Expiration Date Visits Re quested Visits Authorized [id number] 1 1 Encounter Details Date Type Department Care Team (Latest Contact Info) Description 05/07/2023 9:15 AM CDT - 05/07/2023 11:59 PM CDT Hospital Encounter [facility] [place] [address] Aft, Dulce Peña MD PhD [address] [place] [address] Malignant neoplasm of left female breast, unspecified [...] on file 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 Gender Identity Not on file Sexual [...] Name Priority Date/Time Associated Diagnosis Comments US GUIDED MAGSEED LOCALIZATION LEFT Schedule Routine, Read Routine (OP Routine) 05/07/2023 9:54 AM CDT Malignant neoplasm of left female breast, unspecified estrogen receptor status, unspecified site of breast (HCC) documented in this encounter Results * US Guided Magseed Localization Left (05/07/2023 9:54 AM CDT) Anatomical Region Laterality Modality Breast Left Ultrasound 05/07/2023 3:04 PM CDT Impressions 05/07/2023 3:18 PM CDT Successful ultrasound-guided magnetic seed localization of the area of interest within the LEFT breast. The lesion of interest is included within the surgical specimen along with the clip and mag seed. Dictated by: Dustin eMrritt M.D. The radiology attending physician has personally [...] the entire procedure. Dr. Merritt (diagnostic residential supervisor) also participated in this examination. A [...] the entire procedure. Dr. Merritt (diagnostic residential supervisor) also participated in this examination. A [...] MAR Action Action Date Dose Rate Site lidocaine PF (XYLOCAINE) 10 mg/mL (1 %) preservative free injection As needed, Starting on Seema 05/07/23 at 0949, Intra-Procedure (IR), Indications: Administration of Local AnesthesiaIndications:Administ ration of Local Anesthesia Given 05/07/2023 9:49 AM CDT 5 mL Left Breast documented in this encounter Orders Medications Ordered That Matt ht Not Have Been Administered Count Last Ordered Date First Ordered Date lidocaine PF (XYLOCAINE) 10 mg/mL (1 %) preservative free injection 1 05/07/2023 documented in this encounter Care Teams Certified Bench Jeweler Technician Relationship Specialty Start Date End Date No, Physician PCP - General 03/11/23 09/22/23 Elvira Bruner MD [address] [address] Referring Physician Gynecology 03/11/23 documented as of this encounter
--- OUTSIDE RECORDS SUMMARY | 2024-07-24 18:22 | XMS_ITS | Encounter Summary ---
Author Organization [facility] Healthcare Address [address] [place] [address] Care Team Providers Care Refrigerator Mover Name Role Phone Unavailable Primary Care Provider Unavailabl e Reason for Visit * Diagnostic Imaging (Routine) - Closed Specialty Diagnoses / Procedures Referred By Contac t Referred To Contact Procedures Breast Imaging Screening Outside Reference Aft, Dulce Peña MD PhD [address] [place] [address] Phone: tel: fax: Referral ID Status Reason Start Date Expiration Date Visits Re quested Visits Authorized [id number] Closed 04/14/2023 05/13/2024 1 1 Encounter Details Date Type Department Care Team ([facility] Contact Info) Description 02/01/2018 Hospital Encounter [facility] [address] [place] [address] Social History Tobacco Use Types Packs/Day Years [...] on file 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 ??There will be no report generated by a [facility] Radiologist. Narrative [facility] - 04/14/2023 2:26 PM CDT EXAMINATION: ??Images For Reference Purposes Only us Dulce Poewll MD PhD IMG MAMMO PROCEDURES Final Result [facility] documented in this encounter Visit Diagnoses Not on filedocumented in this encounter
--- OUTSIDE RECORDS SUMMARY | 2024-07-24 18:22 | XMS_ITS | Encounter Summary ---
Author Organization [facility] Healthcare Address [address] [place] [address] Care Team Providers Care Associate Professor Of Library Media Name Role Phone Unavailable Primary Care Provider Unavailabl e Reason for Visit * Diagnostic Imaging (Routine) - Closed Specialty Diagnoses / Procedures Referred By Contac t Referred To Contact Procedures Breast Imaging US Outside Reference Aft, Dulce Peña MD PhD [address] [place] [address] Phone: tel: fax: Referral ID Status Reason Start Date Expiration Date Visits Re quested Visits Authorized [id number] Closed 04/09/2023 05/08/2024 1 1 Encounter Details Date Type Department Care Team (Latest Contact Info) Description 01/22/2023 12:05 AM CDT - 01/22/2023 11:59 PM CDT Hospital Encounter [facility] [address] [place] [phone] Discharge Disposition: Discharge to home or self care Social History Tobacco Use Types Packs/Day Years Used Date Smoking Tobacco: Never Assessed Comments Unknown Sex and Gender Information Value Date Recorded Sex Assigned at Not on file 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 Gender Identity Not on file Sexual Orientation Not on file documented as of this encounter Discharge Disposition Disposition Code Departure Means Destination Discharge to home or self care documented in this encounter Plan of Treatment Not on file documented as of this encounter Procedures Procedure Name Priority Date/Time Associated Diagnosis Comments BREAST IMAGING US OUTSIDE REFERENCE Schedule Routine, Read Routine (OP Routine) 01/22/2023 12:05 AM CDT documented in this encounter Results * Breast Imaging US Outside Reference (01/22/2023 12:05 AM CDT) Impressions [facility] - 04/09/2023 7:02 PM CDT These images are for Reference purposes only and have not been reviewed by [facility]iology. ??There will be no report generated by a [facility] Radiologist. Narrative [facility] - 04/09/2023 7:02 PM CDT EXAMINATION: ??Images For Reference Purposes Only us Dulce Powell MD PhD IMG MAMMO PROCEDURES Final Result [facility] documented in this encounter Visit Diagnoses Not on filedocumented in this encounter
--- OUTSIDE RECORDS SUMMARY | 2024-07-24 18:22 | XMS_ITS | Encounter Summary ---
Author Organization [facility] Healthcare Address [address] [place] [address] Care Team Providers Care Environmental Engineering Professor Name Role Phone Unavailable Primary Care Provider Unavailabl e Reason for Visit * Diagnostic Imaging (Routine) - Closed Specialty Diagnoses / Procedures Referred By Contac t Referred To Contact Diagnoses Malignant neoplasm of left female breast, unspecified estrogen receptor status, unspecified site of breast (HCC) Procedures Breast Imaging Diagnostic Outside Reference Aft, Dulce Peña MD PhD [address] [place] [address] Phone: tel: fax: Referral ID Status Reason Start Date Expiration Date Visits Re quested Visits Authorized [id number] Closed 04/14/2023 05/13/2024 1 1 Encounter Details Date Type Department Care Team (Late st Contact Info) Description 10/26/2018 Hospital Encounter [facility] Radiology [facility] [address] [place] [phone] Social History Tobacco Use Types Packs/Day Years [...] on file 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 ??There will be no report generated by a [facility] Radiologist. Narrative [facility] - 04/14/2023 2:25 PM CDT EXAMINATION: ??Images For Reference Purposes Only us Dulce Powell MD PhD IMG MAMMO PROCEDURES Final Result [facility] documented in this encounter Visit Diagnoses Not on filedocumented in this encounter
--- OUTSIDE RECORDS SUMMARY | 2024-07-24 18:22 | XMS_ITS | Encounter Summary ---
Author Organization [facility] Healthcare Address [address] [place] [address] Care Team Providers Care Environmental Compliance Specialist Name Role Phone Unavailable Primary Care Provider Unavailabl e Reason for Visit * Diagnostic Imaging (Routine) - Closed Specialty Diagnoses / Procedures Referred By Contac t Referred To Contact Procedures Breast Imaging Diagnostic Outside Reference Aft, Dulce Peañ MD PhD [address] [place] [address] Phone: tel: fax: Referral ID Status Reason Start Date Expiration Date Visits Re quested Visits Authorized [id number] Closed 04/09/2023 05/08/2024 1 1 Encounter Details Date Type Department Care Team (Latest Contact Info) Description 10/08/2021 - 10/08/2021 11:59 PM ACCOUNTING MANAGER ASSISTANT CONTROLLER Hospital Encounter [facility] Radiology [facility] [address] [place] [address] Discharge Disposition: Discharge to home or self care Social History Tobacco Use Types Packs/Day Years Used Date Smoking Tobacco: Never Assessed Comments Unknown Sex and Gender Information Value Date Recorded Sex Assigned at Not on file Legal Sex Female 2:40 AM ACCOUNTING MANAGER ASSISTANT CONTROLLER Gender Identity Not on file Sexual Orientation Not on file documented as of this encounter Discharge Disposition Disposition Code Departure Means Destination Discharge to home or self care documented in this encounter Plan of Treatment Not on file documented as of this encounter Procedures Procedure Name Priority Date/Time Associated Diagnosis Comments BREAST IMAGING MG DIAGNOSTIC OUTSIDE REFERENCE Schedule Routine, Read Routine (OP Routine) 10/08/2021 12:00 AM ACCOUNTING MANAGER ASSISTANT CONTROLLER documented in this encounter Results * Breast Imaging Diagnostic Outside Reference (10/08/2021 12:00 AM ACCOUNTING MANAGER ASSISTANT CONTROLLER) Impressions [facility] - 04/09/2023 7:01 PM CDT These images are for Reference purposes only and have not been reviewed by [facility] Radiology. ??There will be no report generated by a [facility] Radiologist. Narrative RAD_MAMMO[facility] - 04/09/2023 7:01 PM CDT EXAMINATION: ??Images For Reference Purposes Only us Dulce Powell MD PhD IMG MAMMO PROCEDURES Final Result [facility] documented in this encounter Visit Diagnoses Not on filedocumented in this encounter
--- OUTSIDE RECORDS SUMMARY | 2024-07-24 18:22 | XMS_ITS | Encounter Summary ---
Author Organization [facility] Healthcare Address [address] [place] [address] Care Team Providers Care Professor Of Environmental Engineering Name Role Phone Unavailable Primary Care Provider Unavailabl e Reason for Visit * Diagnostic Imaging (Routine) - Closed Specialty Diagnoses / Procedures Referred By Contac t Referred To Contact Procedures Breast Imaging Diagnostic Outside Reference Aft, Dulce Peña MD PhD [address] [place] [address] Phone: tel: fax: Referral ID Status Reason Start Date Expiration Date Visits Re quested Visits Authorized [id number] Closed 04/14/2023 05/13/2024 1 1 Encounter Details Date Type Department Care Team ([facility] Contact Info) Description 02/11/2018 Hospital Encounter [facility] Radiology [facility] [address] [place] [phone] Social History Tobacco Use Types Packs/Day Years [...] on file 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 Gender Identity Not on file Sexual Orientation Not on file documented as of this encounter Plan of Treatment Not on file documented as of this encounter Procedures Procedure Name Priority Date/Time Associated Diagnosis Comments BREAST IMAGING MG DIAGNOSTIC OUTSIDE REFERENCE Schedule Routine, Read Routine (OP Routine) 02/11/2018 12:00 AM CDT documented in this encounter Results * Breast Imaging Diagnostic Outside Reference (02/11/2018 12:00 AM CDT) Impressions [facility] - 04/14/2023 2:26 PM CDT These images are for Reference purposes only and have not been reviewed by [facility] Radiology. ??There will be no report generated by a [facility] Radiologist. Narrative RAD[facility] - 04/14/2023 2:26 PM CDT EXAMINATION: ??Images For Reference Purposes Only us Dulce Powell MD PhD IMG MAMMO PROCEDURES Final Result [facility] documented in this encounter Visit Diagnoses Not on filedocumented in this encounter
--- OUTSIDE RECORDS SUMMARY | 2024-07-24 18:22 | XMS_ITS | Encounter Summary ---
Author Organization [facility] Healthcare Address [address] [place] [address] Care Team Providers Care Metal Reed Tuner Name Role Phone Unavailable Primary Care Provider Unavailabl e Reason for Visit * Diagnostic Imaging (Routine) - Closed Specialty Diagnoses / Procedures Referred By Contac t Referred To Contact Procedures Breast Imaging Diagnostic Outside Reference Aft, Dulce Peña MD PhD [address] [place] [address] Phone: tel: fax: Referral ID Status Reason Start Date Expiration Date Visits Re quested Visits Authorized [id number] Closed 04/09/2023 05/08/2024 1 1 Encounter Details Date Type Department Care Team (Latest Contact Info) Description 01/22/2023 - 01/22/2023 11:59 PM CDT Hospital Encounter 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 Gender Identity Not on file Sexual Orientation Not on file documented as of this encounter Discharge Disposition Disposition Code Departure Means Destination Discharge to home or self care documented in this encounter Plan of Treatment Not on file documented as of this encounter Procedures Procedure Name Priority Date/Time Associated Diagnosis Comments BREAST IMAGING MG DIAGNOSTIC OUTSIDE REFERENCE Routine 01/22/2023 12:00 AM CDT documented in this encounter Results * Breast Imaging Diagnostic Outside Reference (01/22/2023 12:00 AM CDT) Impressions [facility] - 04/09/2023 7:01 PM CDT These images are for Reference purposes only and have not been reviewed by [facility] Radiology. ??There will be no report generated by a [facility] Radiologist. Narrative RAD_MAMMO_[facility] - 04/09/2023 7:01 PM CDT EXAMINATION: ??Images For Reference Purposes Only us Dulce Powell MD PhD IMG MAMMO PROCEDURES Final Result [facility] documented in this encounter Visit Diagnoses Not on filedocumented in this encounter
--- OUTSIDE RECORDS SUMMARY | 2024-07-24 18:23 | XMS_ITS | Continuity of Care Document ---
Author Organization [facility] Address [address] [facility] [address] [place] [address] Phone Care Team Providers Care Packaging Inspector Name Role Phone Shant Hernandez MD Unavailable [...] OFFICE/OUTPATI ENT VISIT EST [facility] , [address] [facility] [address], [facility], [phone] [facility] My back is doing fine (chief complaint) Body mass index (BMI) 24.0-24.9, adultLow back pain Mary [address]. [address] [place], [place], [id number] . tel: [phone] OFFICE CONSULTATION [facility] , [address] [facility] [address], [address], [place] tel:[phone] [facility] I had back pain (chief complaint) Low back painBody mass index (BMI) 24.0-24.9, adult Mary Bran. [address] [facility] [place], [id number] . tel: [phone] Family History Family Member Type Diagnosis Age At Onset Mother Problem (finding) coronary arterioscleros is Brother Problem (finding) coronary arterioscleros is Father Problem (finding) coronary arterioscleros is Sister Problem (finding) coronary arterioscleros is Payers Payer name Insurance type Covered constitution party ID Authoriza tion(s) No Information Social [...]
== END 2024-07-18 08:48 | disposition home or self-care (01) ==
LOC: CHSIMG 08:49
PROVIDERS: PCP Internal Medicine; Visit Provider Internal Medicine
DX: R94.31 Abnormal electrocardiogram [ECG] [EKG] (principal); R07.9 Chest pain, unspecified
CPT/HCPCS: 78452; 93017; A9502

== ENCOUNTER 2024-10-19 16:07 | Outpatient (CLI) | payer OTHER, SELFPAY ==
[2024-10-19 16:24] LABS: Basophils Absolute Auto 0.04 K/mm3 (0.00-0.10); Basophils Percent Auto 0.5 % (0.0-1.0); Eosinophils Absolute Auto 0.12 K/mm3 (0.02-0.50); Eosinophils Percent Auto 1.6 % (1.0-6.0); Hematocrit 34.8 % (35.0-49.0); Immature Granulocyte Absolute 0.02 K/mm3 (0.00-0.00); Immature Granulocyte Percent A 0.3 % (0.0-0.0); Lymphocytes Absolute Auto 1.64 K/mm3 (1.10-4.50); Lymphocytes Percent Auto 22.4 % (18.0-42.0); Mean Corpuscular HGB Conc 31.6 g/dL (32-36); Mean Corpuscular Hemoglobin 28.9 pg (27.0-31.0); Mean Corpuscular Volume 91.3 fL (78.0-102.0); Mean Platelet Volume 8.8 fl (9.2-11.8); Monocytes Absolute Auto 0.53 K/mm3 (0.10-0.90); Monocytes Percent Auto 7.3 % (2.0-11.0); Neutrophils Absolute Auto 4.96 K/mm3 (1.70-7.20); Neutrophils Percent Auto 67.9 % (50.0-70.0); Platelet Count Result 256 K/mm3 (150-420); Red Blood Count 3.81 M/mm3 (4.20-5.40); White Blood Count 7.3 K/mm3 (4.8-10.8)
[2024-10-19 17:07] LABS: Alanine Aminotransferase 29 U/L (14-59); Albumin Level 3.7 g/dL (3.4-5.0); Alkaline Phosphatase 80 U/L (46-116); Anion Gap 9 mmol/L (4-12); Aspartate Amino Transferase 23 U/L (15-37); Bilirubin,Total 0.4 mg/dL (0.00-1.00); Blood Urea Nitrogen 23 mg/dL (7-18); Carbon Dioxide 29 mmol/L (21-32); Chloride 103 mmol/L (98-108); Estimated Glomerular Filt Rate > 60; Glucose 91 mg/dL (70-99); Osmolality Calculated 295 mOsm/kg (285-295); Potassium 3.9 mmol/L (3.5-5.1); Sodium 141 mmol/L (136-145); Total Protein 7.2 g/dL (6.4-8.2)
--- OUTSIDE RECORDS SUMMARY | 2024-10-19 17:13 | XMS_ITS | Encounter Summary ---
Author Organization [facility] Healthcare Address [address] [place] [address] Care Team Providers Care Field Auditor Name Role Phone Unavailable Primary Care Provider Unavailabl e Reason for Visit * Diagnostic Imaging (Routine) - Closed Specialty Diagnoses / Procedures Referred By Contac t Referred To Contact Diagnoses Malignant neoplasm of left female breast, unspecified estrogen receptor status, unspecified site of breast (HCC) Procedures Breast Imaging Diagnostic Outside Reference Aft, Dulce Peña MD PhD [address] [place] [address] Phone: tel: fax: Referral ID Status Reason Start Date Expiration Date Visits Re quested Visits Authorized [id number] Closed 04/14/2023 05/13/2024 1 1 Encounter Details Date Type Department Care Team (Late st Contact Info) Description 10/26/2018 Hospital Encounter [facility] [address] [place] [address] [phone] Social History Tobacco Use Types Packs/Day Years [...] on file 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 Never 05/07/2023 7:00 AM Edita Polanco RN documented as of this encounter Plan of [...] only and have not been reviewed by [facility] Radiology. There will be no report generated by a [facility] Radiologist. Narrative RAD_MAMMO_[facility] - 04/14/2023 2:25 PM CDT EXAMINATION: Images For Reference Purposes Only us Dulce Powell MD PhD IMG MAMMO PROCEDURES Final Result RAD_MAMMO_BJLuiz documented in this encounter Visit Diagnoses Not on filedocumented in this encounter
--- OUTSIDE RECORDS SUMMARY | 2024-10-19 17:13 | XMS_ITS | Encounter Summary ---
Author Organization [facility] Healthcare Address [address] [place] [address] Care Team Providers Care Biological Science Technician Fish Name Role Phone Unavailable Primary Care Provider Unavailabl e Reason for Visit * Diagnostic Imaging (Routine) - Closed Specialty Diagnoses / Procedures Referred By Contac t Referred To Contact Procedures Breast Imaging Diagnostic Outside Reference Aft, Dulce Peña MD PhD [address] [place] [id number] Phone: tel: fax: Referral ID Status Reason Start Date Expiration Date Visits Re quested Visits Authorized [id number] Closed 04/14/2023 05/13/2024 1 1 Encounter Details Date Type Department Care Team ([facility] Contact Info) Description 02/11/2018 Hospital Encounter [facility] [address] [place] [address] [phone] Social History Tobacco Use Types Packs/Day Years [...] on file 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 2-4 times a month 05/07/2023 7:00 AM IRISHT Edita Navarrete RN Q2: How many drinks containing alcohol [...] only and have not been reviewed by [facility] Radiology. There will be no report generated by a [facility] Radiologist. Narrative RAD_MAMMO_[facility] - 04/14/2023 2:26 PM CDT EXAMINATION: Images For Reference Purposes Only us Dulce Powell MD PhD IMG MAMMO PROCEDURES Final Result RAD_MAMMO_[facility] documented in this encounter Visit Diagnoses Not on filedocumented in this encounter
--- OUTSIDE RECORDS SUMMARY | 2024-10-19 17:13 | XMS_ITS | Encounter Summary ---
Author Organization [facility] Healthcare Address [address] [place] [address] Care Team Providers Care Developing Machine Operator Name Role Phone Unavailable Primary Care Provider Unavailabl e Reason for Visit * Diagnostic Imaging (Routine) - Closed Specialty Diagnoses / Procedures Referred By Contac t Referred To Contact Procedures Breast Imaging Screening Outside Reference Aft, Dulce Peña MD PhD [address] [place] [address] Phone: tel: fax: Referral ID Status Reason Start Date Expiration Date Visits Re quested Visits Authorized [id number] Closed 04/14/2023 05/13/2024 1 1 Encounter Details Date Type Department Care Team ([facility] Contact Info) Description 02/01/2018 Hospital Encounter [facility] Radiology [facility] [address] [place] [phone] Social History Tobacco Use Types Packs/Day Years [...] file 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 There will be no report generated by a [facility] Radiologist. Narrative RAD_MAMMO_[facility] - 04/14/2023 2:26 PM CDT EXAMINATION: Images For Reference Purposes Only us Dulce Powell MD PhD IMG MAMMO PROCEDURES Final Result RAD_MAMMO_[facility] documented in this encounter Visit Diagnoses Not on filedocumented in this encounter
--- OUTSIDE RECORDS SUMMARY | 2024-10-19 17:14 | XMS_ITS | Continuity of Care Document ---
Author Organization [facility] Address [address] [facility] [address] [place] [address] Phone Care Team Providers Care Gusset Ripper Name Role Phone Shant Hernandez MD Unavailable [...] OFFICE/OUTPATI ENT VISIT EST [facility] , [address] [facility] [address], [facility], [phone] [facility] My back is doing fine (chief complaint) Body mass index (BMI) 24.0-24.9, adultLow back pain Mary Bran. [address] [place], [place], [id number] . tel: [phone] OFFICE CONSULTATION [facility] , [address] [facility] [address], [address], [place] tel:[phone] [facility] I had back pain (chief complaint) Low back painBody mass index (BMI) 24.0-24.9, adult Mary Bran. [address] [facility] [place], [id number] . tel: [phone] Family History Family Member Type Diagnosis Age At Onset Mother Problem (finding) coronary arterioscleros is Brother Problem (finding) coronary arterioscleros is Father Problem (finding) coronary arterioscleros is Sister Problem (finding) coronary arterioscleros is Payers Payer name Insurance type Covered republican ID Authoriza tion(s) No Information Social History [...]
--- OUTSIDE RECORDS SUMMARY | 2024-10-19 17:14 | XMS_ITS | Clinical Summary ---
Author Organization [facility] Address [address] [place] [address] Care Team Providers Care Receiving Coordinator Name Role Phone Andrei Mora MD Primary Care Provider [phone] Allergies Active Allergy Reactions Criticality Noted Date Comments Ondansetron Nausea and Vomiting Low 04/21/2023 Cold sweats Medications tamoxifen (NOLVADEX) 20 mg tablet Take 1 Tablet (20 mg) by mouth daily. 90 Tablet 4 08/05/2023 Active CALCIUM CARBONATE-VITAMI N D3 ORAL Take by mouth. Active Active Problems No known active problems Encounters Date Type Department Care Team Description 10/08/2024 External Device Data [facility] ABSTRACTION Provider, Abstract 10/07/2024 External Device Data [facility]STRACTION Provider, Abstract 10/05/2024 External Device Data [facility] ABSTRACTION Provider, Abstract 09/21/2024 External Device Data [facility]STRACTION Provider, Abstract 08/25/2024 External Device Data [facility] ABSTRACTION Provider, Abstract from Last 3 Months Family History Medical History Relation Name Comments No Known Problems Brother 1 No Known Problems Brother 2 Heart Attack Brother 3 No Known Problems Daughter Heart Disease Father Heart Disease Mother Heart Attack Sister No Known Problems Son Relation Name Status Comments Brother 1 Alive Brother 2 Alive Brother 3 Alive Daughter Alive Father Mother Sister Alive Son Alive Social History Tobacco Use Types Packs/Day Years Used Date Smoking Tobacco: Never Smokeless Tobacco: Never Tobacco Cessation:Counseling Given: Not Answered Alcohol Use Standard Drinks/Week Comments Yes 0 (1 standard drink = 0.6 oz pur e alcohol) socially Comments Unknown Sex and Gender Information Value Date Recorded Sex Assigned at Not on file Legal Sex Female 2:32 PM CDT Gender Identity Not on file Sexual Orientation Not on file Last Filed Vital Signs Vital Sign Reading Time Taken Comments Blood Pressure 112/74 06/22/2024 3:29 PM GAS ENGINE OPERATOR GENERATORS Pulse 84 06/22/2024 3:29 PM GAS ENGINE OPERATOR GENERATORS Temperature 36.7 C (98 F) 06/22/2024 3:29 PM GAS ENGINE OPERATOR GENERATORS Respiratory Rate 14 06/22/2024 3:29 PM GAS ENGINE OPERATOR GENERATORS Oxygen Saturation 97% 06/22/2024 3:29 PM GAS ENGINE OPERATOR GENERATORS Inhaled Oxygen Concentration - - Weight 44.7 kg (98 lb 9.6 oz) 06/22/2024 3:29 PM GAS ENGINE OPERATOR GENERATORS Height 149.9 cm (4' 11 ) 05/29/2023 11:44 AM CDT Body Mass Index 19.91 05/29/2023 11:44 AM CDT Plan of Treatment Upcoming Encounters Date Type Department Care Team (Late st Contact Info) Description 10/26/2024 3:30 PM CDT Office Visit [facility] Oncology and Hematology [facility] [address] [facility] [address] [place] [address] José Miguel Hurtado MD [address] [facility] [address] [place] [address] Health Maintenance Due Date Last Done Comments DTAP/TDAP/TD VACCINES (1 - Tdap) 1992 HEPATITIS B VACCINES (1 of 3 - 19+ 3-dose series) 1992 PAP SMEAR 2003 COLORECTAL SCREENING 2018 Colorectal Cancer Screening 2018 FIT-DNA Q 3 years 2018 FIT/FOBT Q 1 year 2018 Flex Sig/CT Colonography Q 5 years 2018 ZOSTER VACCINE (1 of 2) 2023 INFLUENZA VACCINE (#1) 2024 BREAST CANCER SCREENING 09/25/2024 09/25/2023, 04/13 Insurance [employer] BENEFITS Care Teams Receiving Coordinator Relationship Specialty Start Date End Date Andrei Mora MD [address] [place] [address] PCP - General Internal Medicine 05/29/23
--- OUTSIDE RECORDS SUMMARY | 2024-10-19 17:14 | XMS_ITS | Clinical Summary ---
Author Organization [facility] Address [address] [place] [address] Care Team Providers Care Coil Winder Name Role Phone Elvira Bruner MD Unavailable [phone] Andrei Mora MD Primary Care Provider [phone] Allergies Active Allergy Reactions Criticality Noted Date Comments Ondansetron Nausea & Vomiting,Na usea And Vomiting Low 04/21/2023 Cold sweats Medications tamoxifen (NOLVADEX) 20 mg tablet 08/05/19 24 Active omeprazole (PriLOSEC) 20 mg capsule 1 capsule (20 mg total) 08/10/19 25 Active omeprazole (PriLOSEC) 10 mg capsule Take 1 capsule (10 mg total) by mouth daily 07/13/20 24 Active CALCIUM CARBONATE-VITAMI N D3 ORAL Take by mouth Active silver sulfadiazine (SILVADENE, SSD) 1 % cream FOR RADIATION DERMATITIS APPLY TO AFFECTED AREA OF SKIN 3 TIMES DAILY UNTIL HEALED. 07/28/20 23 025 Discontinued Active Problems Problem Noted Date Diagnosed Date Malignant neoplasm of left female breast 023 Encounters Date Type Department Care Team Description 09/26/2024 10:00 AM CARDROOM DRAWING RUNNER - 09/26/2024 11:59 PM CARDROOM DRAWING RUNNER Hospital Encounter [facility] - Breast Imaging [address] [facility] [address] [place] [address] History of breast cancer Discharge Disposition: Discharge to home or self care 09/26/2024 9:30 AM CARDROOM DRAWING RUNNER Office Visit [facility] [address] [facility] [address] [place] [address] Keyla Lucio NP Malignant neoplasm of left breast in female, estrogen receptor positive, unspecified site of breast (HCC) (Primary Dx); History of breast cancer; History of partial mastectomy of left breast; Dense breast tissue from Last 3 Months Surgical History Surgery Date Site/Laterality Comments ENDOMETRIAL [...] on file Legal Sex Female 2:40 AM CARDROOM DRAWING RUNNER Gender Identity Not on file Sexual Orientation Not on file Obstetrics History Comments LMP: 11/2022 Last Filed Vital Signs Vital Sign Reading Time Taken Comments Blood Pressure 137/77 05/07/2023 2:20 PM CDT Pulse 79 05/07/2023 2:20 PM CDT Temperature 36.2 C (97.2 F) 05/07/2023 12:55 PM CDT Respiratory Rate 9 05/07/2023 2:20 PM CDT Oxygen Saturation 96% 05/07/2023 2:20 PM CDT Inhaled Oxygen Concentration - - Weight 43.1 kg (95 lb) 09/26/2024 9:54 AM CARDROOM DRAWING RUNNER Height 149.9 cm (4' 11 ) 09/26/2024 9:54 AM CARDROOM DRAWING RUNNER Body Mass Index 19.19 09/26/2024 9:54 AM CARDROOM DRAWING RUNNER Plan of Treatment Health Maintenance Due Date Last Done Comments Cervical Cancer Screening 1973 Colon Cancer Screening-Colonoscopy 1973 Depression Screening 1973 Hepatitis C Screening 1973 DTaP/Tdap/Td Vaccine (1 - Tdap) 1984 Hepatitis B Screening 1991 Regular Well Visit/Exam 18-64 1991 Pneumococcal vaccine <65 (1 of 2 - PCV) 1992 Zoster Vaccine (1 of 2) 1992 Influenza Vaccine (#1) 2024 Breast Cancer Screening-Mammogram 09/26/2025 025, 09/25/2023 Medical Devices Implanted Type Area Manager Group Home Device Identifier Shelf Expiration Date Model / Serial / Lot [employer] Marker Tissue Needle Delivery Spiral Capped Seed Radiopaque Nursing Home Stainless Steel Low Nickel Sentimag [id number] - [id number] Implanted:Qty: 1 on 05/07/2023 at [facility] Left: Breast [employer] [id number] 11/30/2026 [id number] Procedures Procedure Name Priority Date/Time Associated Diagnosis Comments DIAGNOSTIC MAMMOGRAM BILATERAL W KEY Schedule Routine, Read Routine (OP Routine) 09/26/2024 10:54 AM CARDROOM DRAWING RUNNER History of breast cancer from Last 3 Months Results * Diagnostic Mammogram Bilateral W Key (09/26/2024 10:54 AM CARDROOM DRAWING RUNNER) Anatomical Region Laterality Modality Breast Bilateral Mammography 09/26/2024 11:3 6 AM CARDROOM DRAWING RUNNER Impressions 09/26/2024 1:11 PM CARDROOM DRAWING RUNNER Postsurgical changes of left breast conservation therapy with no mammographic evidence of malignancy in EITHER breast. OVERALL FINAL ASSESSMENT: BI-RADS Category 2: Benign. RECOMMENDATION: Annual diagnostic mammography is recommended. Dictated by: José Miguel Saunders M.D. The radiology attending physician has personally reviewed this study, and had reviewed and/or edited this written report and agrees with it. Electronically signed by: Lucila Arias M.D. 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 She presents for routine follow-up. COMPARISON: Comparison mammogram from 09/25/2023, 05/07/2023, 04/13/2023. TECHNIQUE: Full field digital mammographic views of BOTH breasts were performed, including computer aided detection (CAD) and BILATERAL digital breast tomosynthesis (DBT). BREAST PARENCHYMAL COMPOSITION: The breasts are extremely dense, which lowers the sensitivity of mammography. MAMMOGRAM FINDINGS: Postsurgical changes of left breast conservation therapy are redemonstrated. There is no new suspicious abnormality within EITHER breast; the appearance of BOTH breasts is stable compared to prior exams. Previously seen asymmetric left breast skin thickening has resolved. 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 She presents for routine follow-up. COMPARISON: Comparison mammogram from 09/25/2023, 05/07/2023, 04/13/2023. TECHNIQUE: Full field digital mammographic views of BOTH breasts were performed, including computer aided detection (CAD) and BILATERAL digital breast tomosynthesis (DBT). BREAST PARENCHYMAL COMPOSITION: The breasts are extremely dense, which lowers the sensitivity of mammography. MAMMOGRAM FINDINGS: Postsurgical changes of left breast conservation therapy are redemonstrated. There is no new suspicious abnormality within EITHER breast; the appearance of BOTH breasts is stable compared to prior exams. Previously seen asymmetric left breast skin thickening has resolved. IMPRESSION: Postsurgical changes of left breast conservation therapy with no mammographic evidence of malignancy in EITHER breast. OVERALL FINAL ASSESSMENT: BI-RADS Category 2: Benign. RECOMMENDATION: Annual diagnostic mammography is recommended. Dictated by: José Miguel Saunders M.D. The radiology attending physician has personally reviewed this study, and had reviewed and/or edited this written report and agrees with it. Electronically signed by: Lucila Arias M.D. us Keyla Lucio DIGITAL CONTENT SPECIALIST IMG MAMMO PROCEDURES Final Result from Last 3 Months Insurance [employer] SIG [id number] [facility] Care Teams Coil Winder Relationship Specialty Start Date End Date Andrei Mora MD [address] [place] [address] PCP - General Internal Medicine 09/23/23 Elvira Bruner MD [address] [place] [address] Referring Physician Gynecology 03/11/23
--- OUTSIDE RECORDS SUMMARY | 2024-10-19 17:14 | XMS_ITS | Referral Summary ---
Author Organization [facility] Address [address] [place] [address] Care Team Providers Care Router Machine Operator Name Role Phone Elvira Bruner MD Unavailable [phone] Andrei Mora MD Primary Care Provider [phone] Encounters Date Type Department Care Team Description 09/26/2024 10:00 AM LOOP DRIER OPERATOR - 09/26/2024 11:59 PM LOOP DRIER OPERATOR Hospital Encounter [facility] - Breast Imaging [facility] [address] [place] [address] History of breast cancer Discharge Disposition: Discharge to home or self care 09/26/2024 9:30 AM LOOP DRIER OPERATOR Office Visit [facility] [address] [facility] [address] [place] [phone] Keyla Lucio NP Malignant neoplasm of left breast in female, estrogen receptor positive, unspecified site of breast (HCC) (Primary Dx); History of breast cancer; History of partial mastectomy of left breast; Dense breast tissue from Last 3 Months Allergies Active Allergy Reactions Criticality Noted Date [...] on file Legal Sex Female 2:40 AM LOOP DRIER OPERATOR Gender Identity Not on file Sexual [...] 43.1 kg (95 lb) 09/26/2024 9:54 AM LOOP DRIER OPERATOR Height 149.9 cm (4' 11 ) 09/26/2024 9:54 AM LOOP DRIER OPERATOR Body Mass Index 19.19 09/26/2024 9:54 AM LOOP DRIER OPERATOR Plan of Treatment Not on file Medical Devices Implanted Type Area Cat Dog Or Other Pet Groomer Device Identifier Shelf Expiration Date Model / Serial / Lot [employer] Marker Tissue Needle Delivery Spiral Capped Seed Radiopaque Alf Stainless Steel Low Nickel Sentimag [id number] - [id number] Implanted:Qty: 1 on 05/07/2023 at [facility] Left: Breast Guitar Party [id number] 11/30/2026 [id number] Procedures Procedure Name Priority Date/Time Associated Diagnosis Comments DIAGNOSTIC MAMMOGRAM BILATERAL W KEY Schedule Routine, Read Routine (OP Routine) 09/26/2024 10:54 AM LOOP DRIER OPERATOR History of breast cancer from Last 3 Months Results * Diagnostic Mammogram Bilateral W Key (09/26/2024 10:54 AM LOOP DRIER OPERATOR) Anatomical Region Laterality Modality Breast Bilateral Mammography 09/26/2024 11:3 6 AM LOOP DRIER OPERATOR Impressions 09/26/2024 1:11 PM LOOP DRIER OPERATOR Postsurgical changes of left breast conservation therapy [...] Lucila Arias M.D. Narrative 09/26/2024 1:11 PM LOOP DRIER OPERATOR EXAMINATION: BILATERAL DIGITAL DIAGNOSTIC MAMMOGRAM INCLUDING [...] it. Electronically signed by: Lucila Arias M.D. Keyla Lucio NAPRAPATH IMG MAMMO PROCEDURES Final Result from Last 3 Months Insurance AETNA SIG [id number] A[employer] SIG [id number] [facility] [employer] Care Teams Router Machine Operator Relationship Specialty Start Date End Date Andrei Mora MD [address] [place] [address] PCP - General Internal Medicine 09/23/23 Elvira rBuner MD [address] [place] [address] Referring Physician Gynecology 03/11/23
[2024-10-21 02:37] LABS: CA-125 6 U/mL (<35)
== END 2024-10-19 16:08 | disposition home or self-care (01) ==
PROVIDERS: PCP Internal Medicine; Visit Provider Internal Medicine Hematology & Oncology
DX: C50.912 Malignant neoplasm of unspecified site of left female breast (principal)
CPT/HCPCS: 36415; 80053; 85025; 86304

== ENCOUNTER 2024-10-26 16:05 | Outpatient (CLI) | payer OTHER, SELFPAY ==
--- OUTSIDE RECORDS SUMMARY | 2024-10-26 17:04 | XMS_ITS | Encounter Summary ---
Author Organization [facility] Healthcare Address [address] [place] [address] Care Team Providers Care Dewer Name Role Phone Unavailable Primary Care Provider Unavailabl e Reason for Visit * Diagnostic Imaging (Routine) - Closed Specialty Diagnoses / Procedures Referred By Contac t Referred To Contact Procedures Breast Imaging Screening Outside Reference Aft, Dulce Peña MD PhD [address] [place] [address] Phone: tel: fax: Referral ID Status Reason Start Date Expiration Date Visits Re quested Visits Authorized [id number] Closed 04/14/2023 05/13/2024 1 1 Encounter Details Date Type Department Care Team ([facility] Contact Info) Description 02/01/2018 Hospital Encounter 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 2-4 times a month 05/07/2023 7:00 AM IRISHT Edtia Navarrete RN Q2: How many drinks containing [...] only and have not been reviewed by [facility] Radiology. There will be no report generated by a [facility] Radiologist. Narrative RAD_MAMMO_[facility] - 04/14/2023 2:26 PM CDT EXAMINATION: Images For Reference Purposes Only us Dulce Powell MD PhD IMG MAMMO PROCEDURES Final Result RAD_MAMMO_[facility] documented in this encounter Visit Diagnoses Not on filedocumented in this encounter
--- OUTSIDE RECORDS SUMMARY | 2024-10-26 17:04 | XMS_ITS | Encounter Summary ---
Author Organization [facility] Healthcare Address [address] [place] [address] Care Team Providers Care Assistant News Director Name Role Phone Unavailable Primary Care Provider Unavailabl e Reason for Visit * Diagnostic Imaging (Routine) - Closed Specialty Diagnoses / Procedures Referred By Contac t Referred To Contact Procedures Breast Imaging Diagnostic Outside Reference Aft, Dulce Peña MD PhD [address] [place] [address] Phone: tel: fax: Referral ID Status Reason Start Date Expiration Date Visits Re quested Visits Authorized [id number] Closed 04/14/2023 05/13/2024 1 1 Encounter Details Date Type Department Care Team ([facility] Contact Info) Description 02/11/2018 Hospital Encounter [facility] [address] [place] [phone] Social History Tobacco Use Types Packs/Day Years [...] on file 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 There will be no report generated by a [facility] Radiologist. Narrative RAD_MAMMO_[facility] - 04/14/2023 2:26 PM CDT EXAMINATION: Images For Reference Purposes Only us Dulce Powell MD PhD IMG MAMMO PROCEDURES Final Result RAD_MAMMO_[facility] documented in this encounter Visit Diagnoses Not on filedocumented in this encounter
--- OUTSIDE RECORDS SUMMARY | 2024-10-26 17:04 | XMS_ITS | Encounter Summary ---
Author Organization [facility] Healthcare Address [address] [place] [address] Care Team Providers Care Makeup Sales Consultant Name Role Phone Unavailable Primary Care Provider Unavailabl e Reason for Visit * Diagnostic Imaging (Routine) - Closed Specialty Diagnoses / Procedures Referred By Contac t Referred To Contact Diagnoses Malignant neoplasm of left female breast, unspecified estrogen receptor status, unspecified site of breast (HCC) Procedures Breast Imaging Diagnostic Outside Reference Aft, Dulce Peña MD PhD [address] [place] [address] Phone: tel: fax: Referral ID Status Reason Start Date Expiration Date Visits Re quested Visits Authorized [id number] Closed 04/14/2023 05/13/2024 1 1 Encounter Details Date Type Department Care Team (Late st Contact Info) Description 10/26/2018 Hospital Encounter [facility] [address] [place] [address] [phone] Social History Tobacco Use Types Packs/Day Years [...] on file Legal Sex Female 2:40 AM SOFTWARE CONSULTANT Gender Identity Not on file Sexual Orientation [...] only and have not been reviewed by [facility] Radiology. There will be no report generated by a [facility] Radiologist. Narrative RAD_MAMMO_[facility] - 04/14/2023 2:25 PM CDT EXAMINATION: Images For Reference Purposes Only us Dulce Powell MD PhD IMG MAMMO PROCEDURES Final Result RAD_MAMMO_[facility] documented in this encounter Visit Diagnoses Not on filedocumented in this encounter
--- OUTSIDE RECORDS SUMMARY | 2024-10-26 17:04 | XMS_ITS | Referral Summary ---
Author Organization [facility] Address [address] [place] [id number] Care Team Providers Care Marble Cleaner Name Role Phone Elvira Bruner MD Unavailable [phone] Andrei Mora MD Primary Care Provider [phone] Encounters Date Type Department Care Team Description 09/26/2024 10:00 AM WATER COMMISSIONER - 09/26/2024 11:59 PM WATER COMMISSIONER Hospital Encounter [facility] - Breast Imaging [facility] [address] [place] [address] History of breast cancer Discharge Disposition: Discharge to home or self care 09/26/2024 9:30 AM WATER COMMISSIONER Office Visit [facility] Surgery [facility] [address] [place] [phone] Keyla Lucio NP Malignant neoplasm of left breast in female, estrogen receptor positive, unspecified site of breast (HCC) (Primary Dx); History of breast cancer; History of partial mastectomy of left breast; Dense breast tissue from Last 3 Months Allergies Active Allergy Reactions Criticality Noted Date Comments Ondansetron Nausea & Vomiting,Na usea And Vomiting Low 04/21/2023 Cold sweats Medications tamoxifen (NOLVADEX) 20 mg tablet 08/05/2023 Active omeprazole (PriLOSEC) 20 mg capsule 1 capsule (20 mg total) 08/10/2024 Active omeprazole (PriLOSEC) 10 mg capsule Take 1 capsule (10 mg total) by mouth daily 07/13/2024 Active CALCIUM CARBONATE-VITAM IN D3 ORAL Take by mouth Active Active Problems Problem Noted Date Diagnosed [...] file Legal Sex Female 2:40 AM WATER COMMISSIONER Gender Identity Not on file Sexual Orientation [...] 43.1 kg (95 lb) 09/26/2024 9:54 AM WATER COMMISSIONER Height 149.9 cm (4' 11 ) 09/26/2024 9:54 AM WATER COMMISSIONER Body Mass Index 19.19 09/26/2024 9:54 AM WATER COMMISSIONER Plan of Treatment Not on file Medical Devices Implanted Type Area Road Repairer Device Identifier Shelf Expiration Date Model / Serial / Lot SoloLearn Marker Tissue Needle Delivery Spiral Capped Seed Radiopaque Snf Stainless Steel Low Nickel Sentimag [id number] - [id number] Implanted:Qty: 1 on 05/07/2023 at [facility] Left: Breast [employer] [id number] 11/30/2026 [id number] Procedures Procedure Name Priority Date/Time Associated Diagnosis Comments DIAGNOSTIC MAMMOGRAM BILATERAL W KEY Schedule Routine, Read Routine (OP Routine) 09/26/2024 10:54 AM WATER COMMISSIONER History of breast cancer from Last 3 Months Results * Diagnostic Mammogram Bilateral W Key (09/26/2024 10:54 AM WATER COMMISSIONER) Anatomical Region Laterality Modality Breast Bilateral Mammography 09/26/2024 11:3 6 AM WATER COMMISSIONER Impressions 09/26/2024 1:11 PM WATER COMMISSIONER Postsurgical changes of left breast conservation therapy [...] Lucila Arias M.D. Narrative 09/26/2024 1:11 PM WATER COMMISSIONER EXAMINATION: BILATERAL DIGITAL DIAGNOSTIC MAMMOGRAM INCLUDING CAD [...] signed by: Lucila Arias M.D. Keyla Lucio NP IMG MAMMO PROCEDURES Final Result from Last 3 Months Insurance T SIG [id number] [employer] SIG [id number] [facility] [employer] Care Teams Marble Cleaner Relationship Specialty Start Date End Date Andrei Mora MD [address] [place] [address] PCP - General Internal Medicine 09/23/23 Elvira Bruner MD [address] [place] [address] Referring Physician Gynecology 03/11/23
--- OUTSIDE RECORDS SUMMARY | 2024-10-26 17:04 | XMS_ITS | Encounter Summary ---
Author Organization [facility] Address [address] [place] [address] Care Team Providers Care Chief Optometry Service Name Role Phone Andrei Mora MD Primary Care Provider [phone] Reason for Visit * Reason Comments Follow Up Cancer Encounter Details Date Type Department Care Team (Late st Contact Info) Description 10/26/2024 3:30 PM CDT Office Visit [facility] Oncology and Hematology - [place] [address] [facility] [address] [place] [address] José Miguel Hurtado MD [address] [facility] [address] [place] [address] Malignant neoplasm of left female breast, unspecified estrogen receptor status, unspecified site of breast (CMS/HCC) (Primary Dx); Chronic anemia Social History Tobacco Use Types Packs/Day Years [...] Sign Reading Time Taken Comments Blood Pressure 100/65 10/26/2024 3:31 PM CDT Pulse 100 10/26/2024 3:31 PM CDT Temperature 36.5 C (97.7 F) 10/26/2024 3:31 PM CDT Respiratory Rate 16 10/26/2024 3:31 PM CDT Oxygen Saturation 98% 10/26/2024 3:31 PM CDT Inhaled Oxygen Concentration - - Weight 46.2 kg (101 lb 12.8 oz) 10/26/2024 3:31 PM CDT Height - - Body Mass Index 20.56 05/29/2023 11:44 AM CDT documented in this encounter Progress Notes * José Miguel Hurtado MD - 10/26/2024 4:16 PM CDT HEMATOLOGY / ONCOLOGY PROGRESS NOTE Patient Identification: Name: Mattie Peace Age: 49 y.o. 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 Surgical margins are negative. No evidence of DCIS. All 3 lymph nodes were negative for malignancy. Oncotype DX recurrence score 18. Genetic testing negative. CURRENT TREATMENT Tamoxifen started September 03, 2023 TREATMENT HISTORY Radiation therapy treatment to the left breast completed July 21, 2023 SUBJECTIVE Patient came to the office for follow-up visit. She is taking tamoxifen but has been having some intermittent palpitation. She is complaining of mild tiredness and fatigue. No bleeding and bruising. Weight and appetite stable. No other new complaints. Review of system Constitutional: Patient did not mention fevers, sweats, weight and appetite stable, denies any excessive tiredness and fatigue HEENT: Patient did not mention sinus congestion, hearing or vision problems Respiratory: Patient did not mention cough, dyspnea, wheeze Cardiovascular: Patient did not mention chest pain, exertional chest pressure/discomfort, nausea, syncope, shortness of breath GI: Patient did not mention constipation, diarrhea, dsyphagia, reflux symptoms, vomiting, melena : Patient did not mention dysuria, frequency, incontinence, urgency Integumentary system: no lymphadenopathy, sweats, flushing Musculoskeletal: Patient not mention: myalgia, arthralgia Neurological: Patient did not mention blurry or disturbed vision, numbness/weakness, dizziness Skin: No lumps, bumps or rashes. 12 point review of system was reviewed Objective: Vital signs in last 24 hours: As per nursing note Exam: General appearance: alert, cooperative, no distress, appears stated age Head: normocephalic, without obvious abnormality, atraumatic Eyes: conjunctivae/corneas clear, EOM's intact Ears: normal external ear canals AU Nose: Nares normal. Septum midline. Mucosa normal. No drainage or sinus tenderness Throat: Lips, mucosa, and tongue normal. Teeth and gums normal Neck: supple, symmetrical, trachea midline. Lungs: clear to auscultation bilaterally Heart: regular rate and rhythm, S1, S2 normal, no murmur, click, rub or gallop Abdomen: soft, non-tender. Bowel sounds normal. No masses, No organomegaly Extremities: extremities normal, atraumatic, no cyanosis or edema Skin: Skin color, texture, turgor normal. No rashes or lesions Lymph nodes: No lymphadenopathy Neuro: No obvious focal deficit Bilateral breast examination showed postoperative and radiation changes in the left breast without any masses or lymphadenopathy Exam as above PATH LABS Labs from October 27 showed creatinine 0.6 AST 39 hemoglobin 12.1 CA 15-3 7 Labs from January 31 showed creatinine 0.6 total bilirubin 0.8 hemoglobin 13 CA 15-3 5 Labs from June 17 showed WBC 4.1 hemoglobin 12.2 platelet 241,000 creatinine 0.5 total bilirubin 0.7 CA 15-3 5 Labs from October 19 showed creatinine 0.6 bilirubin 0.4 hemoglobin 11 Assessment: Plan: There are no active problems to display for this patient. 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 Surgical margins are negative. No evidence of DCIS. All 3 lymph nodes were negative for malignancy. Oncotype DX recurrence score score 18. Genetic testing by Tempus[employer]. Adjuvant chemotherapy not recommended. Left breast radiation therapy completed on July 21, 2023. Patient started tamoxifen on September 03, 2023. Patient had bilateral screening mammogram done on September 26, 2024 showed no evidence of relapse of disease. Repeat mammogram will be done in 1 year. Labs stable. There is no evidence of relapse of disease on my examination. Follow-up in 4 months. Anemia. I will check iron and B12 level today. Phone visit in 1 week. Bone health. Continue vitamin D. 10/26/2024 José Miguel Hurtado MD documented in this encounter Plan of Treatment Upcoming Encounters Date Type Department Care Team (Late st Contact Info) Description 11/03/2024 4:15 PM CDT Telephone Check Up [facility] Oncology and Hematology [place] [address] [address] [place] [address] José Miguel Hurtado MD [address] [facility] [address] [place] [address] 02/20/2025 3:30 PM CDT Office Visit [facility] Oncology and [facility] [address] [place] [address] José Miguel Hurtado MD [address] [facility] [address] [place] [address] Scheduled Orders Name Type Priority Associated Diagnoses Orde r Schedule CBC WITH DIFFERENTIAL Lab Stat Malignant neoplasm of left female breast, unspecified estrogen receptor status, unspecified site of breast (CMS/HCC) Expected: 02/15/2025, Expires: 10/26/2025 COMPREHENSIVE METABOLIC PANEL Lab Stat Malignant neoplasm of left female breast, unspecified estrogen receptor status, unspecified site of breast (CMS/HCC) Expected: 02/15/2025, Expires: 10/26/2025 CANCER ANTIGEN 15-3 Lab Routine Malignant neoplasm of left female breast, unspecified estrogen receptor status, unspecified site of breast (CMS/HCC) Expected: 02/15/2025, Expires: 10/26/2025 FERRITIN Lab Routine Chronic anemia Expected: 10/26/2024, Expires: 10/26/2025 IRON, TIBC, AND PERCENT SATURATION Lab Routine Chronic anemia Expected: 10/26/2024, Expires: 10/26/2025 VITAMIN B12 LEVEL Lab Routine Chronic anemia Expected: 10/26/2024, Expires: 10/26/2025 documented as of this encounter Visit Diagnoses Diagnosis Malignant neoplasm of left female breast, unspecified estrogen receptor status, unspecified site of breast (CMS/HCC)- Primary Chronic anemia Anemia, unspecified documented in this encounter Care Teams Chief Optometry Service Relationship Specialty Start Date End Date Andrei Mora MD [address] [place] [phone] PCP - General Internal Medicine 05/29/23 documented as of this encounter
--- OUTSIDE RECORDS SUMMARY | 2024-10-26 17:04 | XMS_ITS | Clinical Summary ---
Author Organization [facility] Address [address] [place] [address] Care Team Providers Care Director Biostatistics Name Role Phone Elvira Bruner MD Unavailable [phone] Andrei Mora MD Primary Care Provider [phone] Allergies Active Allergy Reactions Criticality Noted Date [...] Department Care Team Description 09/26/2024 10:00 AM LENS GRINDER - 09/26/2024 11:59 PM LENS GRINDER Hospital Encounter [facility] - Breast Imaging [address] [place] [address] History of breast cancer Discharge Disposition: Discharge to home or self care 09/26/2024 9:30 AM LENS GRINDER Office Visit [facility] Surgery [address] [place] [address] [address] [place] [address] Keyla Lucio NP Malignant neoplasm [...] on file Legal Sex Female 2:40 AM LENS GRINDER Gender Identity Not on file Sexual Orientation [...] 43.1 kg (95 lb) 09/26/2024 9:54 AM LENS GRINDER Height 149.9 cm (4' 11 ) 09/26/2024 9:54 AM LENS GRINDER Body Mass Index 19.19 09/26/2024 9:54 AM LENS GRINDER Plan of Treatment Health Maintenance Due Date [...] 025, 09/25/2023 Medical Devices Implanted Type Area Nurse Anesthesia Program Director Device Identifier Shelf Expiration Date Model / Serial / Lot [employer] Marker Tissue Needle Delivery Spiral Capped Seed Radiopaque Mcc Stainless Steel Low Nickel Sentimag [id number] - [id number] Implanted:Qty: 1 on 05/07/2023 at [facility] Left: Breast [employer] [id number] 11/30/2026 [id number] Procedures Procedure Name Priority Date/Time Associated Diagnosis Comments DIAGNOSTIC MAMMOGRAM BILATERAL W KEY Schedule Routine, Read Routine (OP Routine) 09/26/2024 10:54 AM LENS GRINDER History of breast cancer from Last 3 Months Results * Diagnostic Mammogram Bilateral W Key (09/26/2024 10:54 AM LENS GRINDER) Anatomical Region Laterality Modality Breast Bilateral Mammography 09/26/2024 11:3 6 AM LENS GRINDER Impressions 09/26/2024 1:11 PM LENS GRINDER Postsurgical changes of left breast conservation therapy with no mammographic evidence of malignancy in EITHER breast. OVERALL FINAL ASSESSMENT: BI-RADS Category 2: Benign. RECOMMENDATION: Annual diagnostic mammography is recommended. Dictated by: José Miguel Saundesr M.D. The radiology attending physician has personally reviewed this study, and had reviewed and/or edited this written report and agrees with it. Electronically signed by: Lucila Arias M.D. Narrative 09/26/2024 1:11 PM LENS GRINDER EXAMINATION: BILATERAL DIGITAL DIAGNOSTIC MAMMOGRAM INCLUDING CAD [...] Final Result from Last 3 Months Insurance [facility] SIG [id number] [facility] SIG [id number] [facility] Care Teams Director Biostatistics Relationship Specialty Start Date End Date Andrei Mora MD [address] [place] [address] PCP - General Internal Medicine 09/23/23 Elvira Bruner MD [address] [place], [place] [phone] Referring Physician Gynecology 03/11/23
--- OUTSIDE RECORDS SUMMARY | 2024-10-26 17:04 | XMS_ITS | Encounter Summary ---
Author Organization [facility] [email or web address] [facility] Address [address] [place] [address] Care Team Providers Care Senior It Security Analyst Name Role Phone Andrei Mora MD Primary Care Provider [phone] Encounter Details Date Type Department Care Team ([facility] Contact Info) Description 10/21/2024 Orders Only [facility] Oncology and Hematology - [place] [address] [place] [address] José Miguel Hurtado MD [address] [place], [place] [address] [address] [place] [address] Social History Tobacco Use Types Packs/Day Years Used Date Smoking Tobacco: Never Smokeless Tobacco: Never Alcohol Use Standard Drinks/Week Comments Yes 0 (1 standard drink = 0.6 oz pur e alcohol) socially Comments Unknown Sex and Gender Information Value Date Recorded Sex Assigned at Not on file Legal Sex Female 2:32 PM CDT Gender Identity Not on file Sexual Orientation Not on file documented as of this encounter Plan of Treatment Upcoming Encounters Date Type Department Care Team ([facility] Contact Info) Description 11/03/2024 4:15 PM CDT Telephone Check Up [facility] Oncology and Hematology - [place] [address] [place] [address] José Miguel Hurtado MD [address] [place] [address] [employer] [address] [place] [address] 02/20/2025 3:30 PM CDT Office Visit [facility] Oncology and Hematology [facility] [address] [place] [address] José Miguel Hurtado MD [address] [facility] [address] [place] [address] documented as of this encounter Procedures Procedure Name Priority Date/Time Associated Diagnosis Comments COMPREHENSIVE METABOLIC PANEL Routine 10/19/2024 11:23 AM CDT COMPREHENSIVE METABOLIC PANEL Routine 10/19/2024 11:01 AM CDT documented in this encounter Results * COMPREHENSIVE METABOLIC PANEL (10/19/2024 11:23 AM CDT) Blood us José Miguel Hurtado MD CHEMISTRY ORDERABLES Final Resu lt * COMPREHENSIVE METABOLIC PANEL (10/19/2024 11:01 AM CDT) Blood us José Miguel Hurtado MD CHEMISTRY ORDERABLES Final Resu lt documented in this encounter Visit Diagnoses Not on filedocumented in this encounter Care Teams Senior It Security Analyst Relationship Specialty Start Date End Date Andrei Mora MD [address] [place] [phone] PCP - General Internal Medicine 05/29/23 documented as of this encounter
--- OUTSIDE RECORDS SUMMARY | 2024-10-26 17:04 | XMS_ITS | Encounter Summary ---
Author Organization [facility] [email or web address] [facility] Address [address] [place] [address] Care Team Providers Care Environmental Protection Officer Name Role Phone Andrei Mora MD Primary Care Provider [phone] Encounter Details Date Type Department Care Team ([facility] Contact Info) Description 10/24/2024 Orders Only [facility] Oncology and Hematology - [place] [address] [place] [address] José Miguel Hurtado MD [address] [place], [place] [address] [address] [place] [address] Social History Tobacco Use Types Packs/Day [...] Upcoming Encounters Date Type Department Care Team ([facility] Contact Info) Description 11/03/2024 4:15 PM CDT Telephone Check Up [facility] Oncology and Hematology - [place] [address] [place] [address] José Miguel Hurtado MD [address] [place] [address] [employer] [address] [place] [address] 02/20/2025 3:30 PM CDT Office Visit [facility] Oncology and Hematology [facility] [address] [place] [address] José Miguel Hurtado MD [address] [facility] [address] [place] [address] documented as of this encounter Procedures Procedure Name Priority Date/Time Associated Diagnosis Comments CHG CA 15 3 Routine 10/19/2024 12:52 PM CDT documented in this encounter Results * CHG CA 15 3 (10/19/2024 12:52 PM CDT) José Miguel Hurtado MD [facility] - LABORATORY Final Result documented in this encounter Visit Diagnoses Not on filedocumented in this encounter Care Teams Environmental Protection Officer Relationship Specialty Start Date End Date Andrei Mora MD [address] [place] [phone] PCP - General Internal Medicine 05/29/23 documented as of this encounter
--- OUTSIDE RECORDS SUMMARY | 2024-10-26 17:04 | XMS_ITS | Clinical Summary ---
Author Organization [facility] Alivia woodward Sreekanth Address [address] [place] [address] Care Team Providers Care Manager Customer Name Role Phone Andrei Mora MD Primary Care Provider [phone] Allergies Active Allergy Reactions Criticality Noted Date Comments Ondansetron Nausea and Vomiting Low 04/21/2023 Cold sweats Medications tamoxifen (NOLVADEX) 20 mg tablet Take 1 Tablet (20 mg) by mouth daily. 90 Tablet 4 08/05/2023 Active CALCIUM CARBONATE-VITAMI N D3 ORAL Take by mouth. Active Active Problems No known active problems Encounters Date Type Department Care Team Description 10/26/2024 3:30 PM CDT Office Visit [facility] Oncology and Hematology - Michi [address] [place] [address] José Miguel Hurtado MD Malignant neoplasm of left female breast, unspecified estrogen receptor status, unspecified site of breast (CMS/HCC) (Primary Dx); Chronic anemia 10/24/2024 Orders Only [facility] Oncology and Hematology - [place] [address] [place] [address] José Miguel Hurtado MD 10/21/2024 Orders Only [facility] Oncology and Hematology - [place]i [address] [place] [address] José Miguel Hurtado MD 10/19/2024 External Device Data STL ABSTRACTION Provider, Abstract 10/08/2024 External Device Data STL ABSTRACTION Provider, [...] 12.8 oz) 10/26/2024 3:31 PM CDT Height 149.9 cm (4' 11 ) 05/29/2023 11: 44 AM CDT Body Mass Index 20.56 05/29/2023 11:44 AM CDT Plan of Treatment Upcoming Encounters Date Type Department Care Team (Late st Contact Info) Description 11/03/2024 4:15 PM CDT Telephone Check Up [facility] Oncology and Hematology [place]i [address] [place] [address] José Miguel Hurtado MD [address] [facility] [address] [place] [address] 02/20/2025 3:30 PM CDT Office Visit [facility] Oncology and Hematology - [place]i [address] [facility] [address] [place] [address] José Miguel Hurtado MD [address] [facility] [address] [place] [address] Health Maintenance Due Date Last Done Comments DTAP/TDAP/TD VACCINES (1 - Tdap) 1992 HEPATITIS B VACCINES (1 of 3 - 19+ 3-dose series) 1992 PAP SMEAR 1994 CERVICAL CANCER SCREENING 2003 HPV/Cotest 2003 PAP SMEAR 2003 COLORECTAL SCREENING 2018 Colorectal Cancer Screening 2018 FIT-DNA Q 3 years 2018 FIT/FOBT Q 1 year 2018 Flex Sig/CT Colonography Q 5 years 2018 ZOSTER VACCINE (1 of 2) 2023 INFLUENZA VACCINE (#1) 2024 Preventative Visit- Commercial 08/03/2024 BREAST CANCER SCREENING 09/26/2025 09/26/19 25, 09/25/2023, 05/07/2023, Additional history exists Procedures Procedure Name Priority Date/Time Associated Diagnosis Comments CHG CA 15 3 Routine 10/19/2024 12:52 PM CDT COMPREHENSIVE METABOLIC PANEL Routine 10/19/2024 11:23 AM CDT COMPREHENSIVE METABOLIC PANEL Routine 10/19/2024 11:01 AM CDT from Last 3 Months Results * CHG CA 15 3 (10/19/2024 12:52 PM CDT) us José Miguel Hurtado MD CHG - LABORATORY Final Result * COMPREHENSIVE METABOLIC PANEL (10/19/2024 11:23 AM CDT) Only the most recent of2 resultswithin the time period is included. Blood us José Miguel Hurtado MD CHEMISTRY ORDERABLES Final Resu lt from Last 3 Months Insurance [facility] BENEFITS [facility] [employer] BENEFITS Care Teams Manager Customer Relationship Specialty Start Date End Date Andrei Mora MD [address] [place] [address] PCP - General Internal Medicine 05/29/23
[2024-10-26 17:24] LABS: Iron 88 ug/dL (37-170)
[2024-10-26 17:33] LABS: Percent Iron Saturation 26 % (20-50)
[2024-10-26 18:24] LABS: Folic Acid 12.8 ng/mL (2.76->20)
== END 2024-10-26 16:06 | disposition home or self-care (01) ==
PROVIDERS: PCP Internal Medicine; Visit Provider Internal Medicine Hematology & Oncology
DX: D64.9 Anemia, unspecified (principal)
CPT/HCPCS: 36415; 82607; 82728; 82746; 83540; 83550

== ENCOUNTER 2025-02-10 11:27 | Outpatient (CLI) | payer OTHER, SELFPAY ==
--- OUTSIDE RECORDS SUMMARY | 2025-02-10 11:38 | XMS_ITS | Continuity of Care Document ---
Author Organization [facility] Address [address] [facility] [address] Tor[address] [place] [address] Phone Care Team Providers Care New Grad Rn Name Role Phone Shant Hernandez MD Unavailable [...] OFFICE/OUTPATI ENT VISIT EST [facility] , [address] [facility] [address], [facility], [phone] [facility] My back is doing fine (chief complaint) Body mass index (BMI) 24.0-24.9, adultLow back pain Mary Bran. [address] [place], [place], [id number] . tel: [phone] OFFICE CONSULTATION [facility] , [address] [facility] [address], [address], [place] tel:[phone] [facility] I had back pain (chief complaint) Low back painBody mass index (BMI) 24.0-24.9, adult Mary Bran. [address] [facility] [place], [place], [id number] . tel: [phone] Family History Family Member Type Diagnosis Age At Onset Mother Problem (finding) coronary arterioscleros is Brother Problem (finding) coronary arterioscleros is Father Problem (finding) coronary arterioscleros is Sister Problem (finding) coronary arterioscleros is Payers Payer name Insurance type Covered democrat ID Authoriza tion(s) No Information Social History [...]
--- OUTSIDE RECORDS SUMMARY | 2025-02-10 11:38 | XMS_ITS | Encounter Summary ---
Author Organization [facility] Address [address] [place] [address] Care Team Providers Care Senior Construction Estimator Name Role Phone Unavailable Primary Care Provider Unavailabl e Reason for Visit * Diagnostic Imaging (Routine) - Closed Specialty Diagnoses / Procedures Referred By Contac t Referred To Contact Diagnoses Malignant neoplasm of left female breast, unspecified estrogen receptor status, unspecified site of breast (HCC) Procedures Breast Imaging Diagnostic Outside Reference Aft, Dulce Peña MD PhD [address] [place] [id number] Phone: tel: fax: Referral ID Status Reason Start Date Expiration Date Visits Re quested Visits Authorized [id number] Closed 04/14/2023 05/13/2024 1 1 Encounter Details Date Type Department Care Team (Late st Contact Info) Description 10/26/2018 Hospital Encounter [facility] [address] [place] [id number] Social History Tobacco Use Types Packs/Day Years [...] on file Legal Sex Female 2:40 AM AVIATION MEDICINE SPECIALIST Gender Identity Not on file Sexual Orientation [...] only and have not been reviewed by [facility] Radiology. There will be no report generated by a [facility] Radiologist. Narrative RAD_MAMMO_[facility] - 04/14/2023 2:25 PM CDT EXAMINATION: Images For Reference Purposes Only us Dulce Powell MD PhD IMG MAMMO PROCEDURES Final Result RAD_MAMMO_BJLuiz documented in this encounter Visit Diagnoses Not on filedocumented in this encounter
--- OUTSIDE RECORDS SUMMARY | 2025-02-10 11:38 | XMS_ITS | Encounter Summary ---
Author Organization [facility] Healthcare Address [address] [place] [address] Care Team Providers Care Rubber Goods Inspector Name Role Phone Unavailable Primary Care Provider Unavailabl e Reason for Visit * Diagnostic Imaging (Routine) - Closed Specialty Diagnoses / Procedures Referred By Contac t Referred To Contact Procedures Breast Imaging Diagnostic Outside Reference Aft, Dulce Peña MD PhD [address] [place] [address] Phone: tel: fax: Referral ID Status Reason Start Date Expiration Date Visits Re quested Visits Authorized [id number] Closed 04/14/2023 05/13/2024 1 1 Encounter Details Date Type Department Care Team ([facility] Contact Info) Description 02/11/2018 Hospital Encounter [facility] Radiology [facility] [address] [place] [phone] Social History Tobacco Use Types Packs/Day Years [...] on file Legal Sex Female 2:40 AM SIMULATION SOFTWARE ENGINEER Gender Identity Not on file Sexual [...] only and have not been reviewed by [facility] Radiology. There will be no report generated by a [facility] Radiologist. Narrative RAD_MAMMO_[facility] - 04/14/2023 2:26 PM CDT EXAMINATION: Images For Reference Purposes Only us Dulce Powell MD PhD IMG MAMMO PROCEDURES Final Result RAD_MAMMO_[facility] documented in this encounter Visit Diagnoses Not on filedocumented in this encounter
--- OUTSIDE RECORDS SUMMARY | 2025-02-10 11:38 | XMS_ITS | Clinical Summary ---
Author Organization [facility] Address Formerly [facility] [place] [address] Care Team Providers Care Racetrack Steward Name Role Phone Elvira Bruner MD Unavailable [phone] Andrei Mora MD Primary Care Provider [phone] Allergies Active Allergy Reactions Criticality Noted Date [...] Legal Sex Female 2:40 AM DIRECTOR OF CUSTOMER ACQUISITION Gender Identity Not on file Sexual Orientation [...] 43.1 kg (95 lb) 09/26/2024 9:54 AM DIRECTOR OF CUSTOMER ACQUISITION Height 149.9 cm (4' 11) 09/26/2024 9:54 AM DIRECTOR OF CUSTOMER ACQUISITION Body Mass Index 19.19 09/26/2024 9:54 AM DIRECTOR OF CUSTOMER ACQUISITION Plan of Treatment Health Maintenance Due Date Last Done Comments Cervical Cancer Screening 1973 Colon Cancer Screening-Colonoscopy 1973 Depression Screening 1973 Hepatitis C Screening 1973 DTaP/Tdap/Td Vaccine (1 - Tdap) 1984 Hepatitis B Screening 1991 Regular Well Visit/Exam 18-64 1991 Pneumococcal vaccine <65 (1 of 2 - PCV) 1992 Zoster Vaccine (1 of 2) 1992 Influenza Vaccine (#1) 2025 Breast Cancer Screening-Mammogram 09/26/2025 025, 09/25/2023 Medical Devices Implanted Type Area Orthotic Fitter Device Identifier Shelf Expiration Date Model / Serial / Lot [employer] Marker Tissue Needle Delivery Spiral Capped Seed Radiopaque Fpc Stainless Steel Low Nickel Sentimag [id number] - [id number] Implanted:Qty: 1 on 05/07/2023 at [facility] Left: Breast [employer] [id number] 11/30/2026 [id number] Procedures Procedure Name Priority Date/Time Associated Diagnosis Comments DIAGNOSTIC MAMMOGRAM BILATERAL W KEY Schedule Routine, Read Routine (OP Routine) 09/26/2024 10:54 AM DIRECTOR OF CUSTOMER ACQUISITION History of breast cancer from Last 3 Months or Most Recently Relevant to Health Maintenance Results * Diagnostic Mammogram Bilateral W Key (09/26/2024 10:54 AM DIRECTOR OF CUSTOMER ACQUISITION) Anatomical Region Laterality Modality Breast Bilateral Mammography 09/26/2024 11:3 6 AM DIRECTOR OF CUSTOMER ACQUISITION Impressions 09/26/2024 1:11 PM DIRECTOR OF CUSTOMER ACQUISITION Postsurgical changes of left breast conservation therapy [...] Lucila Arias M.D. Narrative 09/26/2024 1:11 PM DIRECTOR OF CUSTOMER ACQUISITION EXAMINATION: BILATERAL DIGITAL DIAGNOSTIC MAMMOGRAM INCLUDING CAD [...] signed by: Lucila Arias M.D. Keyla Lucio IMG MAMMO PROCEDURES Final Result from Last 3 Months or Most Recently Relevant to Health Maintenance Insurance [employer] SIG [id number] [facility] PPO AETNA [facility] [id number] [facility] PPO Care Teams Racetrack Steward Relationship Specialty Start Date End Date Andrei Mora MD [address] [address] PCP - General Internal Medicine 09/23/23 Elvira Bruner MD [address] [place], [place] [address] Referring Physician Gynecology 03/11/23
--- OUTSIDE RECORDS SUMMARY | 2025-02-10 11:38 | XMS_ITS | Clinical Summary ---
Author [facility] Address [address] [place] [address] Care Team Providers Care Drum Attendant Name Role Phone Andrei Mora MD Primary Care Provider [phone] Allergies Active Allergy Reactions Criticality Noted Date Comments Ondansetron Nausea and Vomiting Low 04/21/2023 Cold sweats Medications CALCIUM CARBONATE-VITAMI N D3 ORAL Take by mouth. Active tamoxifen (NOLVADEX) 20 mg tabletIndication s:Malignant neoplasm of left female breast, unspecified estrogen receptor status, unspecified site of breast ([facility]) TAKE 1 TABLET BY MOUTH EVERY DAY 90 Tablet 3 11/10/2024 Active Active Problems No known active problems Encounters Date Type Department Care Team Description 01/17/2025 External Device Data STL ABSTRACTION Provider, Abstract 12/22/2024 External Device Data STL ABSTRACTION Provider, Abstract 12/21/2024 External Device Data STL ABSTRACTION Provider, Abstract 12/20/2024 External Device Data STL ABSTRACTION Provider, Abstract 11/15/2024 External Device Data STL ABSTRACTION Provider, Abstract [...] 3:31 PM CDT Height 149.9 cm (4' 11) 05/29/2023 11: 44 AM CDT Body Mass Index 20.56 05/29/2023 11:44 AM CDT Plan of Treatment Upcoming Encounters Date Type Department Care Team (Late st Contact Info) Description 02/20/2025 3:30 PM CDT Office Visit [facility] Oncology and Hematology - [place] [address] [place] [address] [facility] [address] [place] [address] José Miguel Hurtado MD [address] [facility] [address] [place] [address] Health Maintenance Due Date Last Done Comments DTAP/TDAP/TD VACCINES (1 - Tdap) 1992 HEPATITIS B VACCINES (1 of 3 - 19+ 3-dose series) 1992 HPV/Cotest (21-29) 1994 CERVICAL CANCER SCREENING 2003 HPV/Cotest (30-65) 2003 PAP SMEAR 2003 COLORECTAL SCREENING 2018 Colorectal Cancer Screening 2018 FIT-DNA Q 3 years 2018 FIT/FOBT Q 1 year 2018 Flex Sig/CT Colonography Q 5 years 2018 ZOSTER VACCINE (1 of 2) 2023 INFLUENZA VACCINE (#1) 2025 BREAST CANCER SCREENING 09/26/2025 09/26/19 25, 09/25/2023, 05/07/2023, Additional history exists Insurance [facility] [employer] Care Teams Drum Attendant Relationship Specialty Start Date End Date Andrei Mora MD [address] [place] [address] PCP - General Internal Medicine 05/29/23
--- OUTSIDE RECORDS SUMMARY | 2025-02-10 11:38 | XMS_ITS | Referral Summary ---
Author Organization [facility] Address Replaced by [facility] [place] [address] Care Team Providers Care Yardage Control Operator Name Role Phone Elvira Bruner MD Unavailable [phone] Andrei Mora MD Primary Care Provider [phone] Allergies Active Allergy Reactions Criticality Noted Date [...] on file Legal Sex Female 2:40 AM GLASSWARE DEFECT REPAIRER Gender Identity Not on file Sexual Orientation [...] 43.1 kg (95 lb) 09/26/2024 9:54 AM GLASSWARE DEFECT REPAIRER Height 149.9 cm (4' 11) 09/26/2024 9:54 AM GLASSWARE DEFECT REPAIRER Body Mass Index 19.19 09/26/2024 9:54 AM GLASSWARE DEFECT REPAIRER Plan of Treatment Not on file Medical Devices Implanted Type Area Master Mechanic Device Identifier Shelf Expiration Date Model / Serial / Lot [employer] Marker Tissue Needle Delivery Spiral Capped Seed Radiopaque Machine Maintenance Supervisor Stainless Steel Low Nickel Sentimag [id number] - [id number] Implanted:Qty: 1 on 05/07/2023 at [facility] Left: Breast [employer] [id number] 11/30/2026 [id number] Procedures Procedure Name Priority Date/Time Associated Diagnosis Comments DIAGNOSTIC MAMMOGRAM BILATERAL W KEY Schedule Routine, Read Routine (OP Routine) 09/26/2024 10:54 AM GLASSWARE DEFECT REPAIRER History of breast cancer from Last 3 Months or Most Recently Relevant to Health Maintenance Results * Diagnostic Mammogram Bilateral W Key (09/26/2024 10:54 AM GLASSWARE DEFECT REPAIRER) Anatomical Region Laterality Modality Breast Bilateral Mammography 09/26/2024 11:3 6 AM GLASSWARE DEFECT REPAIRER Impressions 09/26/2024 1:11 PM GLASSWARE DEFECT REPAIRER Postsurgical changes of left breast conservation therapy [...] Lucila Arias M.D. Narrative 09/26/2024 1:11 PM GLASSWARE DEFECT REPAIRER EXAMINATION: BILATERAL DIGITAL DIAGNOSTIC MAMMOGRAM INCLUDING CAD [...] signed by: Lucila Arias M.D. Keyla Lucio PRODUCTION ZONE LEADER IMG MAMMO PROCEDURES Final Result from Last 3 Months or Most Recently Relevant to Health Maintenance Insurance AETNA SIG [id number] [facility] PPO AETNA SIG [id number] [employer] PPO Care Teams Yardage Control Operator Relationship Specialty Start Date End Date Andrei Mora MD [address] [place] [address] PCP - General Internal Medicine 09/23/23 Elvira Bruner MD [address] [place] [address] Referring Physician Gynecology 03/11/23
--- OUTSIDE RECORDS SUMMARY | 2025-02-10 11:38 | XMS_ITS | Encounter Summary ---
Author Organization [facility] Healthcare Address [address] [place] [address] Care Team Providers Care Ratoprinter Name Role Phone Unavailable Primary Care Provider Unavailabl e Reason for Visit * Diagnostic Imaging (Routine) - Closed Specialty Diagnoses / Procedures Referred By Contac t Referred To Contact Procedures Breast Imaging Screening Outside Reference Aft, Dulce Peña MD PhD [address] [place] [address] Phone: tel: fax: Referral ID Status Reason Start Date Expiration Date Visits Re quested Visits Authorized [id number] Closed 04/14/2023 05/13/2024 1 1 Encounter Details Date Type Department Care Team ([facility] Contact Info) Description 02/01/2018 Hospital Encounter [facility] Radiology [facility] [address] [place] [address] Social History Tobacco Use Types Packs/Day Years [...] on file Legal Sex Female 2:40 AM PHOTOGRAMMETRIC TECH Gender Identity Not on file Sexual Orientation [...] only and have not been reviewed by [facility] Radiology. There will be no report generated by a [facility] Radiologist. Narrative RAD_MAMMO_[facility] - 04/14/2023 2:26 PM CDT EXAMINATION: Images For Reference Purposes Only us Dulce Powell MD PhD IMG MAMMO PROCEDURES Final Result RAD_MAMMO_[facility] documented in this encounter Visit Diagnoses Not on filedocumented in this encounter
[2025-02-10 11:48] LABS: Hematocrit 36.2 % (37.0-47.0); Hemoglobin 12.0 g/dL (12.0-15.0); Immature Granulocyte Percent A 0.4 % (0-0.5); Lymphocytes Absolute Auto 1.20 K/mm3 (0.9-3.2); Mean Corpuscular HGB Conc 33.1 g/dl (32-36); Mean Corpuscular Hemoglobin 29.8 pg (26-34); Mean Corpuscular Volume 89.8 fl (80-100); Nucleated Red Blood Cells Absolute Auto 0.000 K/mm3 (0.0-0.012); Nucleated Red Blood Cells Perc 0.0 % (0.0-0.2); Platelet Count Result 227 k/mm3 (150-375); Red Blood Count 4.03 M/mm3 (4.2-5.4); White Blood Count 4.6 K/mm3 (4.5-10.0)
[2025-02-10 12:27] LABS: Alanine Aminotransferase 23 U/L (6-35); Albumin Level 4.2 g/dL (3.5-5.1); Alkaline Phosphatase 52 U/L (38-126); Anion Gap 8 mmol/L (4-12); Aspartate Amino Transferase 50 U/L (14-36); Bilirubin,Total 0.5 mg/dL (0.2-1.3); Blood Urea Nitrogen 18 mg/dL (7-17); Calcium 9.2 mg/dL (8.4-10.2); Carbon Dioxide 27 mmol/L (22-30); Chloride 104 mmol/L (98-107); Estimated Glomerular Filt Rate > 60; Glucose 82 mg/dL (65-110); Potassium 4.0 mmol/L (3.4-5.0); Sodium 139 mmol/L (137-145); Total Protein 7.5 g/dL (6.3-8.2)
== END 2025-02-10 11:28 | disposition home or self-care (01) ==
LOC: ANHLAB 11:35
PROVIDERS: PCP Internal Medicine; Visit Provider Internal Medicine Hematology & Oncology
DX: C50.912 Malignant neoplasm of unspecified site of left female breast (principal)
CPT/HCPCS: 36415; 80053; 85025; 86300

== ENCOUNTER 2025-02-20 16:00 | Outpatient (CLI) | payer OTHER, SELFPAY ==
--- OUTSIDE RECORDS SUMMARY | 2025-02-20 16:03 | XMS_ITS | Encounter Summary ---
Author Organization [facility] Healthcare Address [address] [place] [address] Care Team Providers Care Carbon Paste Mixer Operator Name Role Phone Unavailable Primary Care Provider Unavailabl e Reason for Visit * Diagnostic Imaging (Routine) - Closed Specialty Diagnoses / Procedures Referred By Contac t Referred To Contact Procedures Breast Imaging Diagnostic Outside Reference Aft, Dulce Peña MD PhD [address] [place] [address] Phone: tel: fax: Referral ID Status Reason Start Date Expiration Date Visits Re quested Visits Authorized [id number] Closed 04/14/2023 05/13/2024 1 1 Encounter Details Date Type Department Care Team ([facility] Contact Info) Description 02/11/2018 Hospital Encounter [facility] Radiology [facility] [address] [place] [phone] Social History Tobacco Use Types Packs/Day Years [...] on file Legal Sex Female 2:40 AM 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 There will be no report generated by a [facility] Radiologist. Narrative RAD_MAMMO_[facility] - 04/14/2023 2:26 PM CDT EXAMINATION: Images For Reference Purposes Only us Dulce Powell MD PhD IMG MAMMO PROCEDURES Final Result RAD_MAMMO_[facility] documented in this encounter Visit Diagnoses Not on filedocumented in this encounter
--- OUTSIDE RECORDS SUMMARY | 2025-02-20 16:03 | XMS_ITS | Clinical Summary ---
Author Organization [facility] Alivia crissy Cortezálvaro Address [address] [place] [address] Care Team Providers Care Electronics Mechanic Apprentice Name Role Phone Andrei Mora MD Primary Care Provider [phone] Allergies Active Allergy Reactions Criticality Noted Date Comments Ondansetron Nausea and Vomiting Low 04/21/2023 Cold sweats Medications CALCIUM CARBONATE-VITAMI N D3 ORAL Take by mouth. Active tamoxifen (NOLVADEX) 20 mg tabletIndication s:Malignant neoplasm of left female breast, unspecified estrogen receptor status, unspecified site of breast (CMS/HCC) TAKE 1 TABLET BY MOUTH EVERY DAY 90 Tablet 3 11/10/2024 Active Active Problems No known active problems Encounters Date Type Department Care Team Description 02/20/2025 3:30 PM CDT Office Visit [facility] Oncology and Hematology - Michi [address] [place] [address] José Miguel Hurtado MD Malignant neoplasm of left female breast, unspecified estrogen receptor status, unspecified site of breast ([facility]/HCC) (Primary Dx) 02/15/2025 External Device Data STL ABSTRACTION Provider, Abstract 02/15/2025 External Device Data STL ABSTRACTION Provider, Abstract 01/17/2025 External Device Data STL ABSTRACTION Provider, [...] Sign Reading Time Taken Comments Blood Pressure 126/83 02/20/2025 3:34 PM CDT Pulse 90 02/20/2025 3:34 PM CDT Temperature 36.6 C (97.8 F) 02/20/2025 3:34 PM CDT Respiratory Rate 16 02/20/2025 3:34 PM CDT Oxygen Saturation 98% 02/20/2025 3:34 PM CDT Inhaled Oxygen Concentration - - Weight 46.8 kg (103 lb 3.2 oz) 02/20/2025 3:34 P M CDT Height 149.9 cm (4' 11) 05/29/2023 11:44 AM CDT Body Mass Index 20.84 05/29/2023 11:44 AM CDT Plan of Treatment Upcoming Encounters Date Type Department Care Team (Late st Contact Info) Description 02/28/2025 4:30 PM CDT Telephone Check Up [facility] Oncology [facility] [address] [place] [address] José Miguel Hurtado MD [address] [employer] [address] [place] [phone] 06/26/2025 3:45 PM AUTOMOTIVE GLAZIER Office Visit [facility] Oncology and Hematology [facility] [address] [place] [address] José Miguel Hurtado MD [address] [employer] [address] [place] [address] Health Maintenance Due Date Last Done Comments [...] 2018 ZOSTER VACCINE (1 of 2) 2023 Preventative Visit- Commercial 08/03/2024 INFLUENZA VACCINE (#1) 2025 BREAST CANCER SCREENING 09/26/2025 09/26/19, 09/25/2023, 05/07/2023, Additional history exists Insurance [facility] Care Teams Electronics Mechanic Apprentice Relationship Specialty Start Date End Date Andrei Mora MD [address] [place] [address] PCP - General Internal Medicine 05/29/23
--- OUTSIDE RECORDS SUMMARY | 2025-02-20 16:03 | XMS_ITS | Encounter Summary ---
Author Organization [facility] ([facility]) [employer] [facility] Address [address] [place] [address] Care Team Providers Care Roving Teller Name Role Phone Andrei Mora MD Primary Care Provider [phone] Encounter Details Date Type Department Care Team (Late st Contact Info) Description 02/20/2025 3:30 PM CDT Office Visit [facility] - [place] [address] [facility] [address] [place] [address] José Miguel Hurtado MD [address] [facility] [address] [place] [address] Malignant neoplasm of left female breast, unspecified estrogen receptor status, unspecified site of breast (CMS/HCC) (Primary Dx) Social History Tobacco Use Types [...] oz) 02/20/2025 3:34 P M CDT Height - - Body Mass Index 20.84 05/29/2023 11:44 AM CDT documented in this encounter Plan of Treatment Upcoming Encounters Date Type Department Care Team (Late st Contact Info) Description 02/28/2025 4:30 PM CDT Telephone Check Up [facility] [place] [place] [address] José Migule Hurtado MD [address] [place] [phone] 06/26/2025 3:45 PM SCRUBBER OPERATOR Office Visit [facility] [address] [place] [address] José Miguel Hurtado MD [address] [place] [id number] Scheduled Orders Name Type Priority Associated Diagnoses Orde r Schedule ESTRADIOL Lab Routine Malignant neoplasm of left female breast, unspecified estrogen receptor status, unspecified site of breast (CMS/HCC) Expected: 02/20/2025, Expires: 02/20/2026 FSH Lab Routine Malignant neoplasm of left female breast, unspecified estrogen receptor status, unspecified site of breast (CMS/HCC) Expected: 02/20/2025, Expires: 02/20/2026 CANCER ANTIGEN 15-3 Lab Routine Malignant neoplasm of left female breast, unspecified estrogen receptor status, unspecified site of breast (CMS/HCC) Expected: 06/12/2025, Expires: 02/20/2026 CBC WITH DIFFERENTIAL Lab Routine Malignant neoplasm of left female breast, unspecified estrogen receptor status, unspecified site of breast (CMS/HCC) Expected: 05/23/2025, Expires: 02/20/2026 COMPREHENSIVE METABOLIC PANEL Lab Routine Malignant neoplasm of left female breast, unspecified estrogen receptor status, unspecified site of breast (CMS/HCC) Expected: 05/23/2025, Expires: 02/20/2026 documented as of this encounter Visit Diagnoses Diagnosis Malignant neoplasm of left female breast, unspecified estrogen receptor status, unspecified site of breast (CMS/HCC)- Primary documented in this encounter Care Teams Roving Teller Relationship Specialty Start Date End Date Andrei Mora MD [address] [place] [phone] PCP - General Internal Medicine 05/29/23 documented as of this encounter
--- OUTSIDE RECORDS SUMMARY | 2025-02-20 16:03 | XMS_ITS | Encounter Summary ---
Author Organization [facility] Healthcare Address [address] [place] [address] Care Team Providers Care Game Attendant Name Role Phone Unavailable Primary Care Provider Unavailabl e Reason for Visit * Diagnostic Imaging (Routine) - Closed Specialty Diagnoses / Procedures Referred By Contac t Referred To Contact Procedures Breast Imaging Screening Outside Reference Aft, Dulce Peña MD PhD [address] [place] [address] Phone: tel: fax: Referral ID Status Reason Start Date Expiration Date Visits Re quested Visits Authorized [id number] Closed 04/14/2023 05/13/2024 1 1 Encounter Details Date Type Department Care Team ([facility] Contact Info) Description 02/01/2018 Hospital Encounter [facility] [address] [place] [phone] Social History Tobacco Use Types Packs/Day Years [...] on file 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 There will be no report generated by a [facility] Radiologist. Narrative RAD_MAMMO[facility] - 04/14/2023 2:26 PM CDT EXAMINATION: Images For Reference Purposes Only us Dulce Powell MD PhD IMG MAMMO PROCEDURES Final Result [facility]MAMMO[facility] documented in this encounter Visit Diagnoses Not on filedocumented in this encounter
--- OUTSIDE RECORDS SUMMARY | 2025-02-20 16:03 | XMS_ITS | Clinical Summary ---
Author Organization [facility] Address [facility] [place] [address] Care Team Providers Care Health Program Specialist Name Role Phone Elvira Bruner MD Unavailable [phone] Andrei Mora MD Primary Care Provider [phone] Allergies Active Allergy Reactions Criticality Noted Date [...] on file Legal Sex Female 2:40 AM BLACK BELT Gender Identity Not on file Sexual Orientation [...] 43.1 kg (95 lb) 09/26/2024 9:54 AM BLACK BELT Height 149.9 cm (4' 11) 09/26/2024 9:54 AM BLACK BELT Body Mass Index 19.19 09/26/2024 9:54 AM BLACK BELT Plan of Treatment Health Maintenance Due Date [...] 025, 09/25/2023 Medical Devices Implanted Type Area Cutter And Edge Trimmer Device Identifier Shelf Expiration Date Model / Serial / Lot [employer] Marker Tissue Needle Delivery Spiral Capped Seed Radiopaque Care Home Stainless Steel Low Nickel Sentimag [id number] - [id number] Implanted:Qty: 1 on 05/07/2023 at [facility] Left: Breast [employer] [id number] 11/30/2026 [id number] Procedures Procedure Name Priority Date/Time Associated Diagnosis Comments DIAGNOSTIC MAMMOGRAM BILATERAL W KEY Schedule Routine, Read Routine (OP Routine) 09/26/2024 10:54 AM BLACK BELT History of breast cancer from Last 3 Months or Most Recently Relevant to Health Maintenance Results * Diagnostic Mammogram Bilateral W Key (09/26/2024 10:54 AM BLACK BELT) Anatomical Region Laterality Modality Breast Bilateral Mammography 09/26/2024 11:3 6 AM BLACK BELT Impressions 09/26/2024 1:11 PM BLACK BELT Postsurgical changes of left breast conservation therapy [...] Lucila Arias M.D. Narrative 09/26/2024 1:11 PM BLACK BELT EXAMINATION: BILATERAL DIGITAL DIAGNOSTIC MAMMOGRAM INCLUDING CAD [...] Relevant to Health Maintenance Insurance AETNA SIG [id number] [facility] PPO AETNA [id number] [facility] PPO Care Teams Health Program Specialist Relationship Specialty Start Date End Date Andrei Mora MD [address] [address] PCP - General Internal Medicine 09/23/23 Elvira Bruner MD [address] [place], [place] [id number] Referring Physician Gynecology 03/11/23
--- OUTSIDE RECORDS SUMMARY | 2025-02-20 16:03 | XMS_ITS | Encounter Summary ---
Author Organization [facility] Healthcare Address [address] [place] [address] Care Team Providers Care Hydrostatic Tester Name Role Phone Unavailable Primary Care Provider Unavailabl e Reason for Visit * Diagnostic Imaging (Routine) - Closed Specialty Diagnoses / Procedures Referred By Contac t Referred To Contact Diagnoses Malignant neoplasm of left female breast, unspecified estrogen receptor status, unspecified site of breast (HCC) Procedures Breast Imaging Diagnostic Outside Reference Aft, Dulce Peña MD PhD [address] [place] [address] Phone: tel: fax: Referral ID Status Reason Start Date Expiration Date Visits Re quested Visits Authorized [id number] Closed 04/14/2023 05/13/2024 1 1 Encounter Details Date Type Department Care Team (Late st Contact Info) Description 10/26/2018 Hospital Encounter [facility] [address] [place] [id number] Social History Tobacco Use Types Packs/Day Years [...] on file 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 There will be no report generated by a [facility] Radiologist. Narrative RAD_MAMMO[facility] - 04/14/2023 2:25 PM CDT EXAMINATION: Images For Reference Purposes Only us Dulce Powell MD PhD IMG MAMMO PROCEDURES Final Result RAD_MAMMO[facility] documented in this encounter Visit Diagnoses Not on filedocumented in this encounter
--- OUTSIDE RECORDS SUMMARY | 2025-02-20 16:03 | XMS_ITS | Referral Summary ---
Author Organization [facility] Address [facility] [place] [address] Care Team Providers Care Investigator Narcotics Name Role Phone Elvira Bruner MD Unavailable [phone] Andrei Mora MD Primary Care Provider [phone] Allergies Active Allergy Reactions Criticality Noted Date [...] on file Legal Sex Female 2:40 AM ALUM OPERATOR Gender Identity Not on file Sexual [...] 43.1 kg (95 lb) 09/26/2024 9:54 AM ALUM OPERATOR Height 149.9 cm (4' 11) 09/26/2024 9:54 AM ALUM OPERATOR Body Mass Index 19.19 09/26/2024 9:54 AM ALUM OPERATOR Plan of Treatment Not on file Medical Devices Implanted Type Area Mechanic General Operational Test Device Identifier Shelf Expiration Date Model / Serial / Lot [employer] Marker Tissue Needle Delivery Spiral Capped Seed Radiopaque Commercial Maintenance Technician Stainless Steel Low Nickel Sentimag [id number] - [id number] Implanted:Qty: 1 on 05/07/2023 at [facility] Left: Breast [employer] [id number] 11/30/2026 [id number] Procedures Procedure Name Priority Date/Time Associated Diagnosis Comments DIAGNOSTIC MAMMOGRAM BILATERAL W KEY Schedule Routine, Read Routine (OP Routine) 09/26/2024 10:54 AM ALUM OPERATOR History of breast cancer from Last 3 Months or Most Recently Relevant to Health Maintenance Results * Diagnostic Mammogram Bilateral W Key (09/26/2024 10:54 AM ALUM OPERATOR) Anatomical Region Laterality Modality Breast Bilateral Mammography 09/26/2024 11:3 6 AM ALUM OPERATOR Impressions 09/26/2024 1:11 PM ALUM OPERATOR Postsurgical changes of left breast conservation [...] Lucila Arias M.D. Narrative 09/26/2024 1:11 PM ALUM OPERATOR EXAMINATION: BILATERAL DIGITAL DIAGNOSTIC MAMMOGRAM INCLUDING [...] signed by: Lucila Arias M.D. Keyla Lucio STOCK LETTERER IMG MAMMO PROCEDURES Final Result from Last 3 Months or Most Recently Relevant to Health Maintenance Insurance AETNA SIG [id number] [facility] PPO AETNA SIG [id number] [employer] PPO Care Teams Investigator Narcotics Relationship Specialty Start Date End Date Andrei Mora MD [address] [place] [address] PCP - General Internal Medicine 09/23/23 Elvira Bruner MD [address] [place] [address] Referring Physician Gynecology 03/11/23
--- OUTSIDE RECORDS SUMMARY | 2025-02-20 16:03 | XMS_ITS | Continuity of Care Document ---
Author Organization [facility] Address [address] [facility] [address] [place] [address] Phone Care Team Providers Care Automobile Locator Name Role Phone Shant Hernandez MD Unavailable [...] OFFICE/OUTPATI ENT VISIT EST [facility] , [address] [facility] [address], [facility], [phone] [facility] My back is doing fine (chief complaint) Body mass index (BMI) 24.0-24.9, adultLow back pain Mary [address] [address] [place], [place], [id number] . tel: [phone] OFFICE CONSULTATION [facility] , [address] [facility] [address], [address], [place] tel:[phone] [facility] I had back pain (chief complaint) Low back painBody mass index (BMI) 24.0-24.9, adult Mary [address]. [address] [facility] [place], [id number] . tel: [phone] Family History Family Member Type Diagnosis Age [...]
[2025-02-21 07:09] LABS: FSH 45.4 mIU/mL (.)
[2025-02-24 15:09] LABS: Estradiol, Sensitive 3.4 pg/mL (.)
== END 2025-02-20 16:01 | disposition home or self-care (01) ==
LOC: ANHLAB 16:00
PROVIDERS: PCP Internal Medicine; Visit Provider Internal Medicine Hematology & Oncology
DX: C50.912 Malignant neoplasm of unspecified site of left female breast (principal)
CPT/HCPCS: 82670; 83001

== ENCOUNTER 2025-06-12 07:16 | Day surgery (SDC) | payer OTHER, SELFPAY ==
--- OUTSIDE RECORDS SUMMARY | 2017-09-02 02:05 | XMS_ITS | Continuity of Care Document ---
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 Phone Shant Hernandez MD Unavailable Unavailable Allergies, Adverse Reactions, Alerts Substance Reaction Status Criticality No Known Allergies Active No Inform ation Medications Medication Instructions Dosage Effective Dates (start - stop) Status Comments EFFEXOR XR (unknown strength) Not Available - Active Procedures Procedure Date OFFICE/OUTPATIENT VISIT EST RADEX SPI LUMBOSAC 2/3 VIEWS OFFICE CONSULTATION Advance Directives Directive Yes / No Effective Date File Name No Information Encounters Encounter Description Practice Location Reason(s) For Visit Diagnoses Date Provider Providers Copied on Encounter OFFICE/OUTPATI ENT VISIT EST [facility] , [address] [facility] [address], [facility], [phone] [facility] My back is doing fine (chief complaint) Body mass index (BMI) 24.0-24.9, adultLow back pain Mary Bran. [address] [place], [place], [id number] . tel: [phone] OFFICE CONSULTATION [facility] , [address] [facility] [address], [address], [place] tel:[phone] [facility] I had back pain (chief complaint) Low back painBody mass index (BMI) 24.0-24.9, adult Mary Bran. [address] [facility] [place], [id number] . tel: [phone] Family History Family Member Type Diagnosis Age At Onset Mother Problem (finding) coronary arterioscleros is Brother Problem (finding) coronary arterioscleros is Father Problem (finding) coronary arterioscleros is Sister Problem (finding) coronary arterioscleros is Payers Payer name Insurance type Covered alliance party ID Authoriza tion(s) No Information Social History Type Description Quantity Date Captured Comments Alcohol Use Details Unknown Caffeine Use Details Unknown Tobacco Use Status Never smoked tobacco 2017 Smoking Status Never smoker Non-Smoking Tobacco Use Details : No Details Available : No Details Available Sex Female Vital Signs Date / Time: Height Weight BMI Pulse Rate Blood Pressure Temperature Respiratory Rate Body Surface Area Head Circumference Head Circ. Percentile Wt./Facundo. Percentile BMI percentile Pulse Ox Inhaled Ox 8:03 AM 59.00 in 55.338 kg (122.00 lbs) 24.6 4 kg/m eter (2) 122/76 mm[Hg] Chief Complaint And Reason For Visit From encounter dated '09/02/2017 08:05'. My back is doing fine (chief complaint) Reason For Referral Reason For Referral No Information Plan Of Treatment Date Type Action Status Referral Ordered: RADEX SPI LUMBOSAC 2/3 VIEWS ordered History Of Present Illness Encounter Date Complaint History Of Prese nt Illness My back is doing fine I had back pain Functional Status Date Functional Assessmen t No Information Instructions Date Instruction Additional Infor mation No Information Assessments Type Assessment Date assessment Body mass index (BMI) 24.0-24.9, adult assessment Low back pain Patient Care Teams Name Effective Dates (start - stop) Status Members No Information
--- OUTSIDE RECORDS SUMMARY | 2018-01-31 23:00 | XMS_ITS | Encounter Summary ---
Author Organization [facility] Healthcare Address [address] [place] [address] Care Team Providers Care Attorney General Name Role Phone Unavailable Primary Care Provider Unavailabl e Reason for Visit * Diagnostic Imaging (Routine) - Closed Specialty Diagnoses / Procedures Referred By Contac t Referred To Contact Procedures Breast Imaging Screening Outside Reference Aft, Dulce Peña MD PhD [address] [place] [id number] Phone: tel: fax: Referral ID Status Reason Start Date Expiration Date Visits Re quested Visits Authorized [id number] Closed 04/14/2023 05/13/2024 1 1 Encounter Details Date Type Department Care Team ([facility] Contact Info) Description 02/01/2018 Hospital Encounter [facility] [address] [place] [id number] Social History Tobacco Use Types Packs/Day Years Used Date Smoking Tobacco: Never Smokeless Tobacco: Never AUDIT-C Answer Date Recorded Q1: How often do you have a drink containing alc ohol? 2-4 times a month 05/07/2023 Q2: How many drinks containi ng alcohol do you have on a typical day when you are drinking? 1 or 2 05/07/2023 Q3: How often do you have si x or more drinks on one occasion? Never 05/07/2023 Personal Safety Answer Date Recorded Have you ever been in or are you currently in a harmful physical or emotional relationship or is someone making you feel afraid or unsafe? 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 Gender Identity Not on file Sexual Orientation Not on file documented as of this encounter Functional Status * Difference in Last Two Tc Scores Answer Date of Assessment Author 0 05/07/2023 1:20 PM CDT Me junito Sharp, RN * Question Answer Date of Assessment Author MAP (mmHg) 92 05/07/2023 2:20 PM CDT Petrona Sharp, RN * Amos Fall Risk Question Answer Date of Assessment Author History of Falling 0 05/07/2023 1:25 PM IRISHT Petrona Sharp, LORI Secondary Diagnosis 15 05/07/2023 1:25 PM Petrona Abreu, metalworking specialist Aids 0 05/07/2023 1:25 PM CDT Petrona Solorzano, LORI Intravenous Therapy/Heparin/Saline Lock 20 05/07/2023 1:25 PM CDT Me junito Sharp, LORI Gait/Transferring 0 05/07/2023 1:25 PM IRISHT Petrona Sharp, RN Mental Status 0 05/07/2023 1:25 PM CDT Petrona Quiroga, RN Amos Fall Risk Score (Score >= 45 places fall precaution order) 35 05/07/2023 1:25 PM IRISHT Petrona Sharp , LORI Prior Fall Event (Autopopulated from EMR) None found 05/07/2023 1:25 PM CDT Delia Sharp sa, RN * Tc Scale Question Answer Date of Assessment Author Sensory Perceptions 3 05/07/2023 1:20 PM Petrona Abreu, RN Moisture 4 05/07/2023 1:20 PM CDT Petrona Sharp, RN Activity 3 05/07/2023 1:20 PM CDT Petrona Sharp, RN Mobility 3 05/07/2023 1:20 PM CDT Petrona Sharp, RN Nutrition 3 05/07/2023 1:20 PM CDT Petrona Sharp, RN Friction and Shear 3 05/07/2023 1:20 PM Petrona Carranza RN Tc Scale Score 19 05/07/2023 1:20 PM IRISHT Petrona Sharp, LORI * Fall Risk Interventions Question Answer Date of Assessment Author All Low Fall Interventions Applied Yes 05/07/2023 1:25 PM Petrona Carranza RN All Moderate Fall Interventions Applied No 05/07/2023 3:10 PM Pilar Guadalupe RN All Moderate Fall Risk Interventions EXCEPT: Fall risk sign with education;PT eval requested or obtained;OT eval requested or obtained;Gait belt at bedside 05/07/2023 1:25 PM Petrona Carranza RN All High Fall Risk Interventions Applied No 05/07/2023 3:10 PM IRISHT Pilar Wayne RN All High Risk Interventions EXCEPT: Bed alarm;Chair alarm 05/07/2023 7:01 AM Yumiko Polanco RN Reason For Exception(s) pacu 05/07/20 1:25 PM Petrona Carranza RN Reason For Exception(s) Preop 05/07/20 7:01 AM Yumiko Polanco RN * Alcohol Withdrawal BP Hierarchy Answer Date of Assessment Author 80 05/07/2023 12:55 PM Brissa Church RN * Pressure Injury Prevention Question Answer Date of Assessment Author Pressure Ulcer Prevention Interventions Keep skin clean and dry (Sensory Perception/Moistur e) 05/07/2023 1:20 PM Petrona Carranza RN * AUDIT-C Score Answer Date of Assessment Author 2 05/07/2023 7:00 AM Yumiko Polanco RN * Alcohol Use Question Answer Date of Assessment Author Q1: How often do you have a drink containing alcohol? 2-4 times a month 05/07/2023 7:00 AM Edita Polanco RN Q2: How many drinks containing alcohol do you have on a typical day when you are drinking? 1 or 2 05/07/2023 7:00 AM Edita Polanco RN Q3: How often do you have six or more drinks on one occasion? Never 05/07/2023 7:00 AM CDT Edita Navarrete RN * Integumentary Question Answer Date of Assessment Author Integumentary (WDL) WDL 05/07/2023 1:20 PM Petrona Abreu, LORI * Tc Scale Question Answer Date of Assessment Author Tc Scale Used Tc 05/07/2023 1:20 PM IRISHT Petrona Sharp, LORI * Fall Risk Interventions Question Answer Date of Assessment Author All Low Fall Interventions Applied Yes 05/07/2023 1:25 PM Petrona Carranza, LORI All Moderate Fall Interventions Applied No 05/07/2023 3:10 PM IRISHT Pilar Wayne RN All Moderate Fall Risk Interventions EXCEPT: Fall risk sign with education;PT eval requested or obtained;OT eval requested or obtained;Gait belt at bedside 05/07/2023 1:25 PM Petrona Carranza, LORI All High Fall Risk Interventions Applied No 05/07/2023 3:10 PM IRISHT Pilar Wayne RN All High Risk Interventions EXCEPT: Bed alarm;Chair alarm 05/07/2023 7:01 AM Yumiko Polanco RN Reason For Exception(s) pacu 05/07/20 1:25 PM Petrona Carranza RN Reason For Exception(s) Preop 05/07/20 7:01 AM Yumiko Polanco RN * ADL Screening Question Answer Date of Assessment Author Hearing - Right Ear Functional 04/21/2023 4:30 PM Meron Marquis RN Hearing - Left Ear Functional 04/21/2023 4:30 PM Meron Gupta RN * Assistive Devices Question Answer Date of Assessment Author Assistive Devices/DME Eyeglasses 04/21/2023 4:30 PM Meron Gupta RN documented as of this encounter Mental Status * Question Answer Entry Date Author Level of Consciousness Awake;Drowsy 2:20 PM Petrona Carranza, LORI Orientation Oriented X4 (person, place, time, situation) 05/07/2023 2:20 PM Petrona Carranza RN Neuro (WDL) X 05/07/2023 12:55 PM CDT Brissa Moise, LORI documented in this encounter Plan of Treatment Not on file documented as of this encounter Procedures Procedure Name Priority Date/Time Associated Diagnosis Comments BREAST IMAGING MG SCREENING OUTSIDE REFERENCE Schedule Routine, Read Routine (OP Routine) 02/01/2018 12:00 AM CDT documented in this encounter Results * Breast Imaging Screening Outside Reference (02/01/2018 12:00 AM CDT) Impressions [facility] - 04/14/2023 2:26 PM CDT These images are for Reference purposes only and have not been reviewed by [facility]. There will be no report generated by a [facility] Radiologist. Narrative [facility] - 04/14/2023 2:26 PM CDT EXAMINATION: Images For Reference Purposes Only us Dulce Powell MD PhD IMG MAMMO PROCEDURES Final Result [facility] documented in this encounter Visit Diagnoses Not on filedocumented in this encounter
--- OUTSIDE RECORDS SUMMARY | 2018-10-25 23:00 | XMS_ITS | Encounter Summary ---
Author Organization [facility] Healthcare Address [address] [place] [address] Care Team Providers Care Campaign Marketing Manager Name Role Phone Unavailable Primary Care Provider Unavailabl e Reason for Visit * Diagnostic Imaging (Routine) - Closed Specialty Diagnoses / Procedures Referred By Contac t Referred To Contact Diagnoses Malignant neoplasm of left female breast, unspecified estrogen receptor status, unspecified site of breast (HCC) Procedures Breast Imaging Diagnostic Outside Reference Aft, Dulce Peña MD PhD [address] [place] [id number] Phone: tel: fax: Referral ID Status Reason Start Date Expiration Date Visits Re quested Visits Authorized [id number] Closed 04/14/2023 05/13/2024 1 1 Encounter Details Date Type Department Care Team (Late st Contact Info) Description 10/26/2018 Hospital Encounter [facility] [address] [place] [phone] Social History Tobacco Use Types Packs/Day Years [...] on file 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 Gender Identity Not on file Sexual Orientation Not on file documented as of this encounter Functional Status * Difference in Last Two Tc Scores Answer Date of Assessment Author 0 05/07/2023 1:20 PM IRISHT Me junito Sharp, RN * Question Answer Date of Assessment Author MAP (mmHg) 92 05/07/2023 2:20 PM IRISHT Petrona Sharp, RN * Amos Fall Risk Question Answer Date of Assessment Author History of Falling 0 05/07/2023 1:25 PM IRISHT Petrona Sharp, RN Secondary Diagnosis 15 05/07/2023 1:25 PM Petrona Abreu, jewelry coater Aids 0 05/07/2023 1:25 PM IRISHT Petrona Solorzano, LORI Intravenous Therapy/Heparin/Saline Lock 20 05/07/2023 1:25 PM IRISHT Me junito Sharp, LORI Gait/Transferring 0 05/07/2023 1:25 PM Petrona Carranza, RN Mental Status 0 05/07/2023 1:25 PM CDT Petrona Quiroga, RN Amos Fall Risk Score (Score >= 45 places fall precaution order) 35 05/07/2023 1:25 PM Petrona Carranza , RN Prior Fall Event (Autopopulated from EMR) None found 05/07/2023 1:25 PM IRISHT Tonya Sharp, RN * Tc Scale Question Answer Date of Assessment Author Sensory Perceptions 3 05/07/2023 1:20 PM Petrona Abreu, RN Moisture 4 05/07/2023 1:20 PM Petrona Carranza, RN Activity 3 05/07/2023 1:20 PM Petrona Carranza, RN Mobility 3 05/07/2023 1:20 PM Petrona Carranza, RN Nutrition 3 05/07/2023 1:20 PM CDPetrona Velasquez RN Friction and Shear 3 05/07/2023 1:20 PM Petrona Carranza RN Tc Scale Score 19 05/07/2023 1:20 PM Petrona Carranza RN * Fall Risk Interventions Question Answer Date [...] Risk Interventions Applied No 05/07/2023 3:10 PM Pilar Guadalupe RN All High Risk Interventions EXCEPT: Bed [...] on one occasion? Never 05/07/2023 7:00 AM IRISHT Edita Navarrete RN * Integumentary Question Answer Date of Assessment Author Integumentary (WDL) WDL 05/07/2023 1:20 PM Petrona Abreu, LORI * Tc Scale Question Answer Date of Assessment Author Tc Scale Used Tc 05/07/2023 1:20 PM Petrona Carranza, LORI * Fall Risk Interventions Question Answer [...] Risk Interventions Applied No 05/07/2023 3:10 PM Pilar Guadalupe RN All High Risk Interventions EXCEPT: Bed [...] (person, place, time, situation) 05/07/2023 2:20 PM CDT Petrona Sharp, RN Neuro (WDL) X 05/07/2023 12:55 PM CDT Brissa Moise RN documented in this encounter Plan of Treatment Not on file documented as of this encounter Procedures Procedure Name Priority Date/Time Associated Diagnosis Comments BREAST IMAGING MG DIAGNOSTIC OUTSIDE REFERENCE Schedule Routine, Read Routine (OP Routine) 10/26/2018 12:00 AM CDT Malignant neoplasm of left female breast, unspecified estrogen receptor status, unspecified site of breast (HCC) documented in this encounter Results * Breast Imaging Diagnostic Outside Reference (10/26/2018 12:00 AM CDT) Impressions [facility] - 04/14/2023 2:25 PM CDT These images are for Reference purposes only and have not been reviewed by [facility]. There will be no report generated by a [facility] Radiologist. Narrative [facility] - 04/14/2023 2:25 PM CDT EXAMINATION: Images For Reference Purposes Only us Dulce Powell MD PhD IMG MAMMO PROCEDURES Final Result [facility] documented in this encounter Visit Diagnoses Not on filedocumented in this encounter
[2025-05-29 11:32] VITALS: BMI 20.9
--- OUTSIDE RECORDS SUMMARY | 2025-06-12 07:18 | XMS_ITS | Clinical Summary ---
Author Organization [facility] Medicine Address [address] [place] [address] Care Team Providers Care Emergency Specialist Name Role Phone Elvira Bruner MD Unavailable [phone] Andrei Mora MD Primary Care Provider [phone] Allergies Active Allergy Reactions Criticality Noted Date [...] Encounters Date Type Department Care Team Description 03/14/2025 10:36 AM CDT - 03/14/2025 11:59 PM CDT Hospital Encounter [facility] [address] [place] [address] History of breast cancer; Dense breast tissue Discharge Disposition: Discharge to home or self care 03/14/2025 Results Follow-Up [facility] Medicine Surgery [address] [facility] [address] [place] [address] Keyla Lucio NP MRI Breast Bilateral W WO Contrast from Last 3 Months Surgical History Surgery [...] on file Legal Sex Female 2:40 AM ORTHOPEDIC NURSE PRACTITIONER Gender Identity Not on file Sexual Orientation [...] 43.1 kg (95 lb) 09/26/2024 9:54 AM ORTHOPEDIC NURSE PRACTITIONER Height 149.9 cm (4' 11) 09/26/2024 9:54 AM ORTHOPEDIC NURSE PRACTITIONER Body Mass Index 19.19 09/26/2024 9:54 AM ORTHOPEDIC NURSE PRACTITIONER Plan of Treatment Health Maintenance Due Date [...] 025, 09/25/2023 Medical Devices Implanted Type Area 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 Left: Breast [employer] [id number] 11/30/2026 [id number] Procedures Procedure Name Priority Date/Time Associated Diagnosis Comments MRI BREAST BILATERAL W WO CONTRAST Schedule Routine, Read Routine (OP Routine) 03/14/2025 11:29 AM CDT History of breast cancer Dense breast tissue DIAGNOSTIC MAMMOGRAM BILATERAL W KEY Schedule Routine, Read Routine (OP Routine) 09/26/2024 10:54 AM ORTHOPEDIC NURSE PRACTITIONER History of breast cancer from Last 3 Months or Most Recently Relevant to Health Maintenance Results * MRI Breast Bilateral W WO Contrast (03/14/2025 11:29 AM CDT) Anatomical Region Laterality Modality Breast Bilateral Magnetic Resonan ce 03/14/2025 2:28 PM CDT Impressions 03/14/2025 2:38 PM CDT Left breast conservation therapy changes. No MR evidence of malignancy in either breast. OVERALL FINAL ASSESSMENT: BI-RADS Category 2: Benign. RECOMMENDATION: Annual screening mammography and breast MRI are recommended. Dictated by: Earl Modi M.D. The radiology attending physician has personally reviewed this study, and had reviewed and/or edited this written report and agrees with it. Electronically signed by: MD Cheri SERNA 03/14/2025 2:38 PM CDT EXAMINATION: 1. MRI EXAMINATION OF THE BREASTS WITH AND WITHOUT CONTRAST 2. 3D POST PROCESSING ON A DEDICATED 3D WORKSTATION HISTORY: High-risk Screening. 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 TECHNIQUE: MRI examination of the breasts per breast tumor protocol with and without gadolinium contrast. A dedicated breast imaging coil was used. The images were transferred to a breast CAD system for 3D post processing and contrast kinetics analysis. CONTRAST: Gadoterate meglumine, 8 ml COMPARISON: MRI breast 04/21/2024 and 04/13/2023, multiple priors dating back to 2018.. BREAST COMPOSITION: Heterogeneous fibroglandular tissue BACKGROUND PARENCHYMAL ENHANCEMENT: Mild FINDINGS: There are post treatment changes of breast conservation therapy of the left breast. No mass or non-mass enhancement in either breast. No abnormally enlarged lymph nodes are identified in the visualized portions of either axilla. us Keyla Lucio NP IMG MRI PROCEDURES Final R esult * Diagnostic Mammogram Bilateral W Key (09/26/2024 10:54 AM ORTHOPEDIC NURSE PRACTITIONER) Anatomical Region Laterality Modality Breast Bilateral Mammography 09/26/2024 11:3 6 AM ORTHOPEDIC NURSE PRACTITIONER Impressions 09/26/2024 1:11 PM ORTHOPEDIC NURSE PRACTITIONER Postsurgical changes of left breast conservation therapy [...] Lucila Arias M.D. Narrative 09/26/2024 1:11 PM ORTHOPEDIC NURSE PRACTITIONER EXAMINATION: BILATERAL DIGITAL DIAGNOSTIC MAMMOGRAM INCLUDING CAD [...] Relevant to Health Maintenance Insurance AETNA SIG [id number] [employer] PPO [facility] Care Teams Emergency Specialist Relationship Specialty Start Date End Date Andrei Mora MD [address] [address] PCP - General Internal Medicine 2/21/24 Elvira Bruner MD [address] [place] [address] Referring Physician Gynecology 03/11/23
[2025-06-12 07:30] VITALS: BP 119/88; PULSE 107; RESP 18; TEMP 36.7; O2SAT 100
[2025-06-12] MEDS: LACTATED RINGERS 1,000 ML 150 ML IV CONT (07:46)
--- NOTE | 2025-06-12 08:24 | WPDANESEPPF ---
Anes - Initial Pre Proc Eval Procedure: Operation Date: 06/12/25 09:00 Proposed Procedures p Screening Colonoscopy - Ok Oliveira DO Date/Time: 06/12/25 08:24 Surgeon: Ok Oliveira DO Pre Op Diagnosis: Neoplasm Screening Patient Data Age: 50 Gender: F Height: 1.5 m Weight: 43.6 kg Last Vital Signs Temp 98.1 F 06/12/25 07:30 Pulse 107 H 06/12/25 07:30 Resp 18 06/12/25 07:30 BP 119/88 06/12/25 07:30 Pulse Ox 100 06/12/25 07:30 O2 Del Method Room Air 06/12/25 07:30 Allergies Allergy/AdvReac Type Severity Reaction Status Date / Time meperidine (From Demerol) AdvReac Mild Nausea Verified 06/12/25 07:28 ondansetron AdvReac Vomiting Verified 06/12/25 07:28 Home Medications ?Medication ?Instructions ?Recorded ?Confirmed ?Type tamoxifen 20 mg tablet 20 mg PO DAILY 10/09/23 06/12/25 History Patient hx anesthesia problems: post op nausea/vomiting Family hx anesthesia problems: none Results Review: All pre-operative results and documents have been reviewed as part of the pre-operative evaluation. [facility] Past Medical History Medical History Breast cancer, left Abnormal uterine bleeding (AUB) Anxiety Family History Family History Other Acute myocardial infarction Social History Social History Smoking status: Never smoker Alcohol intake: current Drinks per week: 1 Alcohol use details: on the weekends Substance use: never Substance use type: does not use Lack of Transportation: No Lack of Food: Never True Current Housing: I Have Housing Concerned About Future Housing: No Difficulty Paying Gas/Electric Bills: No Difficulty Paying for Meds: No Currently Unemployed: No Education: High School Diploma/GED Living arrangements: alone Gender identity (if verbalized by the patient): Female Spiritual care concerns: No Anes - Eval Final PreProcedure Day of Procedure 06/12/25 08:24 Heart: regular rate and rhythm Lungs: clear to auscultation Airway: Mallampati scale class 1 Neurological: alert and oriented Last oral intake: >/= 8 hours ASA classification: II Anesthetic plan: proceed Anesthesia type and monitoring: monitored anesthesia care Results Review: All pre-operative results and documents have been reviewed as part of the pre-operative evaluation. Informed Consent: The patient's anesthetic plan and its attendant risks and benefits were discussed with the patient/family/POA. Questions were solicited and answers provided to the satisfaction of the patient/family/POA.
--- NOTE | 2025-06-12 08:58 | PM.IMHP ---
H&P: HPI History of Present Illness Date/Time: 06/12/25 08:58 Chief Complaint: Screening for colorectal cancer Narrative: presents for her 1st colonoscopy. She did this history of hematochezia or melena per his denies family history of cancer. Review of Systems Review of Systems: All systems reviewed & are unremarkable except as noted in HPI and below Constitutional: Constitutional: Denies chills, Denies fever(s), Denies headache(s) and Denies weight loss Eyes: Eyes: Denies change in vision ENT: Denies dizziness, Denies headache(s), Denies neck mass and Denies throat swelling Cardiovascular: Cardiovascular: Denies chest pain, Denies lightheadedness and Denies dyspnea Respiratory: Respiratory: Denies cough, Denies dyspnea and Denies wheezing Gastrointestinal: Gastrointestinal: Denies abdominal pain, Denies change in bowel habits, Denies nausea and Denies vomiting Genitourinary: Genitourinary: Denies hematuria and Denies dysuria Musculoskeletal: Musculoskeletal: Reports as per HPI Integumentary/Breasts: Skin/Breast: Reports as per HPI Neurologic: Denies dizziness and Denies headache(s) Allergic/Immunologic: Allergic/Immunologic: Denies throat swelling and Denies wheezing PMFSH Past Medical History Medical History Breast cancer, left Abnormal uterine bleeding (AUB) Anxiety Family History Family History Other Acute myocardial infarction Social History Social History Smoking status: Never smoker Alcohol intake: current Drinks per week: 1 Alcohol use details: on the weekends Substance use: never Substance use type: does not use Lack of Transportation: No Lack of Food: Never True Current Housing: I Have Housing Concerned About Future Housing: No Difficulty Paying Gas/Electric Bills: No Difficulty Paying for Meds: No Currently Unemployed: No Education: High School Diploma/GED Living arrangements: alone Gender identity (if verbalized by the patient): Female Spiritual care concerns: No Meds Home Medications and Allergies Home Medications ?Medication ?Instructions ?Recorded ?Confirmed ?Type tamoxifen 20 mg tablet 20 mg PO DAILY 10/09/23 06/12/25 History Allergies Allergy/AdvReac Type Severity Reaction Status Date / Time meperidine (From Demerol) AdvReac Mild Nausea Verified 06/12/25 07:28 ondansetron AdvReac Vomiting Verified 06/12/25 07:28 Vital Signs Vital Signs - 24 hr 06/12/25 07:30 Temperature 98.1 F Pulse Rate 107 H Respiratory Rate 18 Blood Pressure 119/88 Pulse Oximetry 100 Oxygen Delivery Room Air Exam Const: General: no acute distress and alert Orientation/consciousness: patient oriented x3 HENMT: Head: normocephalic and atraumatic Ears: hearing grossly normal bilaterally Face/Nose/Sinus: Normal nares present Mouth: Yes Normal oral and palatal mucosa present Eyes: Periorbital: periorbital findings normal Sclera: sclerae normal EOM: EOMs intact bilaterally Neck: Neck: normal visual inspection, no lymphadenopathy and trachea midline Chest: Chest palpation & inspection: normal inspection of the chest Resp: Effort & Inspection: normal respiratory effort Auscultation: clear to auscultation bilaterally Cardio: Jugular venous distension: no JVD Rate: regular rate Rhythm: regular rhythm Heart sounds: S1 normal heart sound present and S2 normal heart sound present Peripheral pulses: Peripheral pulses 2+ throughout GI: Inspection: normal to inspection GI Palp: Yes Soft to palpation, No Tenderness to palpation present (GI), No Guarding due to palpation present (GI) and No Rebound tenderness present Percussion: Yes normal to percussion Auscultation: normal bowel sounds : General: Yes no CVA tenderness Back/Spine/Pelvis: Back: no CVA tenderness Neuro: General: patient oriented x3, no focal motor deficits and CN's II-XI intact bilaterally Cognition (Neuro): normal cognition Speech: normal speech Motor exam (neuro): 5/5 motor strength present throughout Extrem: General: capillary refill normal and no clubbing, cyanosis or edema Assessment and Plan Assessment and plan (1) Screening for colorectal cancer: Code(s): Z12.11 - Encounter for screening for malignant neoplasm of colon; Z12.12 - Encounter for screening for malignant neoplasm of rectum Status: Acute Assessment and Plan: I have recommended colonoscopy. I have discussed the procedure, risks, benefits, and alternatives. Questions were answered. Patient is agreeable to proceed.
--- NOTE | 2025-06-12 09:12 | WPDANESPN ---
Anes - Prog Note Post-Op Date/Time: 06/12/25 09:12 Vital Signs: Last Vital Signs Temp 98.1 F 06/12/25 07:30 Pulse 107 H 06/12/25 07:30 Resp 18 06/12/25 07:30 BP 119/88 06/12/25 07:30 Pulse Ox 100 06/12/25 07:30 O2 Del Method Room Air 06/12/25 07:30 Pain Score (VAS): NO Patient Feedback: Patient satisfied with anesthetic care.
[2025-06-12 09:24] VITALS: BP 104/56; PULSE 85; RESP 18; O2SAT 100
[2025-06-12 09:34] VITALS: BP 100/60; PULSE 84; RESP 18; O2SAT 100
[2025-06-12 09:44] VITALS: BP 106/60; PULSE 80; RESP 18; O2SAT 100
== END 2025-06-12 10:12 | disposition home or self-care (01) ==
PROVIDERS: PCP Internal Medicine; Visit Provider Surgery
PROC: 0DJD8ZZ Inspection of Lower Intestinal Tract, Via Natural or Artificial Opening Endoscopic (ICD-10-PCS; CPT 45378; principal; 2025-06-12 09:00)
DX: Z12.11 Encounter for screening for malignant neoplasm of colon (principal)
CPT/HCPCS: 45378